=== PATIENT | female | born 1980 ===

== ENCOUNTER 2021-04-26 23:49 | Emergency (ER) | payer OTHER, SELFPAY ==
--- NOTE | ~2021-04-26 | XR_ITS ---
EXAMINATION: XR THORACOLUMBAR SPINE CLINICAL INFORMATION: Pain. COMPARISON: Chest x-ray 06/09/2017 TECHNIQUE: 2 views FINDINGS: The vertebral alignment is normal. No intrinsic bony abnormality. The disc heights and neural foramina are well maintained. The endplates and posterior elements are normal. No fracture or subluxation. The surrounding prevertebral soft tissues are unremarkable. Surgical clips right upper quadrant of the abdomen XR/XR thoracic spine 2V IMPRESSION: No compression fractures or subluxations are identified. The disc spaces are preserved. No endplate changes are seen. The prevertebral soft tissues are normal.
--- NOTE | ~2021-04-26 | XR_ITS ---
EXAMINATION: XR SHOULDER, LEFT CLINICAL INFORMATION: Pain. COMPARISON: None TECHNIQUE: Three views of the left shoulder. FINDINGS: The bones and soft tissues are normal. No fracture. Glenohumeral and acromioclavicular alignment is anatomic with normal joint space. No abnormal soft tissue calcifications. XR/XR shoulder LT min 2V IMPRESSION: Normal left shoulder.
[2021-04-26 23:56] VITALS: BP 155/91; PULSE 75; RESP 16; O2SAT 98; BMI 22.3
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
[2021-04-27] MEDS: Gabapentin 600 MG TABLET PO (00:29)
[2021-04-27] MEDS: Ibuprofen 800 MG TABLET PO (00:29)
== END 2021-04-27 01:15 | disposition home or self-care (01) ==
PROVIDERS: Emergency Provider Emergency Medicine
DX: G89.29 Other chronic pain (principal); M25.512 Pain in left shoulder; M54.6 Pain in thoracic spine; Z79.891 Long term (current) use of opiate analgesic
CPT/HCPCS: 72070; 73030; 99283; 99284

== ENCOUNTER 2021-04-28 03:40 | Emergency (ER) | payer OTHER, SELFPAY ==
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
[2021-04-28 03:48] VITALS: BP 148/98; PULSE 114; RESP 16; TEMP 37.2; O2SAT 100; BMI 20.5
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
[2021-04-28] MEDS: oxyCODONE HCl Immed Release 5 MG TABLET PO (04:19)
--- NOTE | 2021-04-28 04:20 | PC.NURSE ---
pt medicated for pain rating 10/10. pt to ct.
== END 2021-04-28 05:55 | disposition home or self-care (01) ==
PROVIDERS: Emergency Provider Emergency Medicine; PCP Internal Medicine
DX: S29.012A Strain of muscle and tendon of back wall of thorax, initial encounter (principal); M54.6 Pain in thoracic spine; M25.512 Pain in left shoulder; M54.2 Cervicalgia; V43.52XA Car driver injured in collision with other type car in traffic accident, initial encounter; Y93.9 Activity, unspecified; Y92.410 Unspecified street and highway as the place of occurrence of the external cause; Y99.9 Unspecified external cause status; Z79.899 Other long term (current) drug therapy
CPT/HCPCS: 72125; 72128; 99283; 99284

== ENCOUNTER 2021-08-10 10:48 | Outpatient (REF) | payer OTHER, SELFPAY ==
[2021-08-10 12:03] LABS: COVID-19 Test Negative (Negative); IDNOW Serial# 16C4AD1C
== END 2021-08-10 10:49 | disposition home or self-care (01) ==
LOC: HO.LAB 10:48
PROVIDERS: Visit Provider Internal Medicine
DX: Z20.822 Contact with and (suspected) exposure to COVID-19 (principal)
CPT/HCPCS: 36415; 87635; C9803

== ENCOUNTER 2022-08-29 19:33 | Inpatient (IN) | payer OTHER, SELFPAY ==
[2022-08-29 20:35] VITALS: BP 121/84; PULSE 87; RESP 16; TEMP 36.6; O2SAT 98
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
[2022-08-29] MEDS: Cyclobenzaprine HCl 5 MG TABLET PO (22:36)
[2022-08-29] MEDS: hydrOXYzine HCL 25 MG TABLET PO (22:36)
[2022-08-29] MEDS: traZODone HCL 50 MG TABLET PO (22:36)
[2022-08-29] MEDS: QUEtiapine Fumarate 100 MG TABLET PO (22:36)
--- NOTE | 2022-08-30 06:24 | PC.NURSE ---
SG OTP ([phone]) confirmed 08/30/22 at 0615 last dose methadone was 40mg on 08/10/22. Pt received 35mg at [facility] 08/29/22. Form sent to pharmacy, copy in chart.
--- NOTE | 2022-08-30 06:30 | HE.PHANOTE ---
RE METHADONE PATIENT GETTING 40MG FROM [facility] LAST DOSED 08/10. MOST RECENT [place] [facility] [place] 35MG (08/29/22) TANYA
[2022-08-30 08:20] VITALS: BP 117/64; PULSE 70; RESP 18; TEMP 36.6; O2SAT 99
[2022-08-30 09:23] LABS: Estimated Average Glucose 111 mg/dL; Hemoglobin A1c % 5.5 %
[2022-08-30 09:44] LABS: Cholesterol 182 mg/dL; HDL Cholesterol 43 mg/dL; LDL Cholesterol Calculated 121 mg/dl; Triglycerides 91 mg/dL
[2022-08-30] MEDS: DULoxetine HCl 60 MG CAPSULE.DR PO (09:47)
[2022-08-30] MEDS: Omeprazole 20 MG CAPSULE.DR PO (09:47)
[2022-08-30] MEDS: Docusate Sodium 100 MG CAPSULE PO ×2 (09:48→21:25)
[2022-08-30] MEDS: Nicotine 14 MG PATCH.TD24 TRANSDERMA (09:49)
[2022-08-30 10:00] LABS: Reflex LDLD? No
--- NOTE | 2022-08-30 11:32 | P.CONHOSP_ITS ---
History of Present Illness Data of Consult Service Date: 08/30/22 Requesting physician: Rikki Bowman Primary Care Provider: Unknown Physician HPI Reason for consult: medical H&P 41-year-old female with history GERD, opiate dependence on methadone, osteoarthritis of multiple joints, fibromyalgia, carpal tunnel syndrome bilaterally admitted to Psychiatry for management of bipolar disorder with consult placed to Medicine for medical H and P. Only complaints today are pain and muscle spasms from the neck to the lumbar spine. She is requesting her muscle relaxers. Also reporting constipation x3 days. Also states she has not yet received her methadone dose but would like to be restarted on a lower dose. She does have a history of polysubstance abuse with last cocaine and heroin abuse about 3 weeks ago. She is also 1 pack per day cigarette smoker currently using nicotine patch. Denies any alcohol use. Review of Systems Review of Systems: General: No fevers, malaise, unintentional weight loss HEENT: No blurred vision, diplopia. No sore throat, nasal congestion, rhinorrhea, sinus pain, ear pain Cardiovascular: No chest pain, palpitations, or leg edema Respiratory: No shortness of breath, wheezing, cough GI: +constipation. No abdominal pain, nausea, vomiting, diarrhea, melena, hematochezia : No dysuria, hematuria, increased urinary frequency, decreased urinary output MSK: +muscle spasm, +back pain Neuro: No headaches, weakness, paresthesias Skin: No rashes or lesions [facility] Medical History (Updated 08/30/22 @ 11:41 by QUEENEI Gonzales) Bipolar disorder Carpal tunnel syndrome Chronic neck and back pain Cigarette nicotine dependence Fibromyalgia GERD (gastroesophageal reflux disease) Opioid use disorder Osteoarthritis of multiple joints Family History (Updated 08/30/22 @ 11:37 by QUEENIE Gonzales) Son Autism Social History Household Members: Children Household Members Other:: 3 Housing: Apartment Alcohol intake: unknown Patient Tobacco Use Status: Current everyday Tobacco user Smoked in Last 30 Days: Yes e-Cigarette/Vaping Use: Currently Using Frequency of e-Cigarette/Vaping Use: every day Patient Interested in Nicotine Replacement: Yes Use of substances other than those prescribed or required for medical reasons: Yes Substance Use Type: Crack/Cocaine Advance Directives: No Advance Directives Information Provided: No Do you have thoughts of harming others: None Nutrition Risks: No Nutritional Risk Patient : No : No Meds Allergies Allergy/AdvReac Type Severity Reaction Status Date / Time No Known Allergies Allergy Verified 08/29/22 20:24 [No Known Allergies*] Active Medications: Current Medications Acetaminophen (Acetaminophen 325 Mg Tablet) 650 mg PO Q6H PRN PRN Reason: Headache/Pain Mild Scale (1-3) Al Hydroxide/Mg Hydroxide (Magnesium Hydrox/Alum Hydrox 30 Ml Oral.Susp) 30 ml PO Q6H PRN PRN Reason: Heartburn/Nausea Clonidine HCl (Clonidine Hcl 0.1 Mg Tablet) 0.1 mg PO TID PRN; Protocol PRN Reason: Anxiety Cyclobenzaprine HCl (Cyclobenzaprine Hcl 5 Mg Tablet) 5 mg PO TID PRN PRN Reason: Muscle Spasm Last Admin: 08/29/22 22:36 Dose: 5 mg Docusate Sodium (Docusate Sodium 100 Mg Capsule) 100 mg PO BID [facility] Last Admin: 08/30/22 09:48 Dose: 100 mg Duloxetine HCl (Duloxetine Hcl 60 Mg Capsule.) 60 mg PO DAILY [facility] Last Admin: 08/30/22 09:47 Dose: 60 mg Hydroxyzine HCl (Hydroxyzine Hcl 25 Mg Tablet) 25 mg PO TID PRN PRN Reason: anxiety Hydroxyzine HCl (Hydroxyzine Hcl 25 Mg Tablet) 25 mg PO Q6H PRN PRN Reason: Anxiety Last Admin: 08/29/22 22:36 Dose: 25 mg Magnesium Hydroxide (Milk Of Magnesia 30 Ml Oral.Susp) 30 ml PO DAILY PRN PRN Reason: Constipation Methadone HCl (Methadone Hcl 20 Mg/2 Ml Oral.Conc) 30 mg PO DAILY@0630 [facility] Nicotine (Nicotine 14 Mg Patch.Td24) 14 mg TRANSDERMA DAILY [facility] Last Admin: 08/30/22 09:49 Dose: 14 mg Nicotine Polacrilex (Nicotine Polacrilex 2 Mg Gum) 4 mg BUCCAL Q2H PRN PRN Reason: Nicotine Cravings Omeprazole (Omeprazole 20 Mg Capsule.Dr) 20 mg PO DAILY@0630 [facility] Last Admin: 08/30/22 09:47 Dose: 20 mg Quetiapine Fumarate (Quetiapine Fumarate 100 Mg Tablet) 100 mg PO BEDTIME PRN PRN Reason: insomnia Last Admin: 08/29/22 22:36 Dose: 100 mg Trazodone HCl (Trazodone Hcl 50 Mg Tablet) 50 mg PO BEDTIME PRN PRN Reason: Insomnia Last Admin: 08/29/22 22:36 Dose: 50 mg Home Medications Medication Instructions Recorded Confirmed Last Taken Type clonidine HCl 0.1 mg tablet 1 tab PO TID PRN Anxiety 08/29/22 08/29/22 Unknown History cyclobenzaprine 5 mg tablet 5 mg PO TID PRN Muscle Spasm 08/29/22 08/29/22 Unknown History docusate sodium 100 mg capsule 100 mg PO BID 08/29/22 08/29/22 Unknown History (Colace) duloxetine 60 mg capsule,delayed 1 cap PO DAILY 08/29/22 08/29/22 Unknown History release hydroxyzine HCl 25 mg tablet 1 tab PO TID PRN anxiety 08/29/22 08/29/22 Unknown History methadone 10 mg/mL oral syringe 35 mg PO DAILY 08/29/22 08/30/22 08/29/22 History (FOR ORAL USE ONLY) nicotine 14 mg/24 hr daily 1 patch transdermal DAILY 08/29/22 08/29/22 Unknown History transdermal patch pantoprazole 40 mg tablet,delayed 40 mg PO DAILY 08/29/22 08/29/22 Unknown History release quetiapine 100 mg tablet 1 tab PO BEDTIME 08/29/22 08/29/22 Unknown History Physical Exam Vital Signs and Narrative: Vital Signs: Last Vital Signs Temp 97.9 F 08/29/22 20:35 Pulse 87 08/29/22 20:35 Resp 16 08/29/22 20:35 BP 121/84 08/29/22 20:35 Pulse Ox 98 08/29/22 20:35 O2 Del Method 08/29/22 20:35 Results Labs Labs: Laboratory Results - last 24 hr 08/30/22 08/30/22 08:50 08:50 Estimat Average Glucose 111 Hemoglobin A1c % 5.5 Triglycerides 91 Cholesterol 182 LDL Cholesterol, Calc 121 HDL Cholesterol 43 Assessment and Plan (1) Routine medical exam: Status: Acute Plan 41-year-old female with history GERD, opiate dependence on methadone, osteoarthritis of multiple joints, fibromyalgia, carpal tunnel syndrome bilaterally admitted to Psychiatry for management of bipolar disorder with consult placed to Medicine for medical H and P. #Bipolar disorder -Plan per psychiatry # Opiate use disorder - resume methadone once dose verified # chronic pain disorder- related to fibromyalgia and osteoarthritis - methadone as above. Resume cyclobenzaprine # GERD - continue PPI # cigarette smoking - nicotine patch for NRT - counseling offered #Chronic constipation- likely related to opioid use -Miralax and docusate REviewed A1c, cholesterol panel which are all within acceptable limits. Thank you for allowing me to participate in this consult. Signing off at this time. Please do not hesitate to call for further questions. Time Spent With Patient Time: Total time managing care of this patient today ____ minutes.
[2022-08-30] MEDS: methADONE HCl 20 MG/2 ML ORAL.CONC 30 MG PO (12:22)
[2022-08-30] MEDS: hydrOXYzine HCL 25 MG TABLET PO ×2 (13:35→22:28)
--- NOTE | 2022-08-30 14:17 | PC.NURSE ---
Pt made aware of need to get urine spec, she stated she didnt have to go now. she will come to desk for spec cup.
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
[2022-08-30] MEDS: LORazepam 1 MG TABLET PO ×2 (15:54→21:25)
[2022-08-30 17:33] LABS: Amphetamine Screen Urine Not Detected (Not Detect); Barbiturates, Urine Not Detected (Not Detect); Benzodiazepines Screen Urine Not Detected (Not Detect); Cannabinoid Screen Urine Not Detected (Not Detect); Cocaine Screen Urine POSITIVE (Not Detect); Fentanyl, urine POSITIVE (Not Detect); Opiate Screen Urine Not Detected (Not Detect); Phencyclidine Screen Urine Not Detected (Not Detect)
[2022-08-30 20:25] VITALS: BP 132/84; PULSE 96; RESP 16; TEMP 36.6; O2SAT 98
[2022-08-30] MEDS: Cyclobenzaprine HCl 5 MG TABLET PO (21:24)
[2022-08-30] MEDS: traZODone HCL 50 MG TABLET PO (21:25)
[2022-08-30] MEDS: QUEtiapine Fumarate 100 MG TABLET PO (21:25)
[2022-08-30] MEDS: Ibuprofen 400 MG TABLET PO (22:28)
[2022-08-31] MEDS: Omeprazole 20 MG CAPSULE.DR PO (06:27)
[2022-08-31] MEDS: methADONE HCl 20 MG/2 ML ORAL.CONC 30 MG PO (06:30)
[2022-08-31 08:20] VITALS: BP 107/61; PULSE 67; RESP 20; TEMP 36.8; O2SAT 100
[2022-08-31] MEDS: DULoxetine HCl 60 MG CAPSULE.DR PO (08:54)
[2022-08-31] MEDS: Nicotine 14 MG PATCH.TD24 TRANSDERMA (08:55)
[2022-08-31] MEDS: Docusate Sodium 100 MG CAPSULE PO ×2 (08:55→20:31)
[2022-08-31] MEDS: LORazepam 1 MG TABLET PO ×3 (08:55→20:32)
[2022-08-31] MEDS: hydrOXYzine HCL 25 MG TABLET PO (11:47)
[2022-08-31] MEDS: methADONE HCl 20 MG/2 ML ORAL.CONC 5 MG PO (14:08)
[2022-08-31] MEDS: Lithium Carbonate ER 450 MG TABLET.ER PO ×2 (14:10→20:31)
--- NOTE | 2022-08-31 15:34 | P.PNPSI_ITS ---
Subjective Subjective Date of Service: 08/31/22 Reason For Visit: Unspecified Bipolar Disorder Interim History: calm, cooperative. seen with interpreters. sleepy, having not gotten much sleep the night prior due to roommate's disruptive nocturnal activities. reports improved anxiety but still there. MD educates re Dx of aldo, indicates mood stabilizer may be helpful to decrease anxiety, pt agrees to start lithium 450 BID. per staff, submitted 3-day notice yesterday. pleasant. limited participation. spending most of her time sleeping. easily distracted. not attending groups. denies SI/HI. Mental Status Exam Mental Status Exam Narrative: adequately dressed and groomed. cooperative. speech nml rate, decr amount. soft and flat. incr latency. thoughts more linear. no paranoid delusions expressed. affect generally constricted, non-labile, hyp-intense. mood anxious. no SI/SIBI/HI/AVH expressed. Diagnostics Vital Signs (24Hr): Vital Signs - 24 hr 08/30/22 20:25 08/31/22 08:20 Temperature 97.9 F 98.3 F Pulse Rate 96 67 Respiratory Rate 16 20 Blood Pressure 132/84 107/61 Pulse Oximetry 98 100 Oxygen Delivery Method Room Air Room Air Labs Labs: Laboratory Results - last 48 hr 08/30/22 08/30/22 08/30/22 08:50 08:50 17:00 Estimat Average Glucose 111 Hemoglobin A1c % 5.5 Triglycerides 91 Cholesterol 182 LDL Cholesterol, Calc 121 HDL Cholesterol 43 Urine Opiates Screen Not Detected Urine Fentanyl Screen POSITIVE H Ur Barbiturates Screen Not Detected Ur Phencyclidine Scrn Not Detected Ur Amphetamines Screen Not Detected U Benzodiazepines Scrn Not Detected Urine Cocaine Screen POSITIVE H U Marijuana (THC) Screen Not Detected Medications Medications Current Medications Acetaminophen (Acetaminophen 325 Mg Tablet) 975 mg PO Q6H PRN PRN Reason: Headache/Pain Mild Scale (1-3) Al Hydroxide/Mg Hydroxide (Magnesium Hydrox/Alum Hydrox 30 Ml Oral.Susp) 30 ml PO Q6H PRN PRN Reason: Heartburn/Nausea Clonidine HCl (Clonidine Hcl 0.1 Mg Tablet) 0.1 mg PO TID PRN; Protocol PRN Reason: Anxiety Cyclobenzaprine HCl (Cyclobenzaprine Hcl 5 Mg Tablet) 5 mg PO TID PRN PRN Reason: Muscle Spasm Last Admin: 08/30/22 21:24 Dose: 5 mg Docusate Sodium (Docusate Sodium 100 Mg Capsule) 100 mg PO BID [facility] Last Admin: 08/31/22 08:55 Dose: 100 mg Duloxetine HCl (Duloxetine Hcl 60 Mg Capsule.Dr) 60 mg PO DAILY [facility] Last Admin: 08/31/22 08:54 Dose: 60 mg Hydroxyzine HCl (Hydroxyzine Hcl 25 Mg Tablet) 25 mg PO TID PRN PRN Reason: anxiety Last Admin: 08/31/22 11:47 Dose: 25 mg Hydroxyzine HCl (Hydroxyzine Hcl 25 Mg Tablet) 25 mg PO Q6H PRN PRN Reason: Anxiety Last Admin: 08/30/22 13:35 Dose: 25 mg [place] Carbonate ([place] Carbonate Er 450 Mg Tablet.Er) 450 mg PO BID [facility] Last Admin: 08/31/22 14:10 Dose: 450 mg Lorazepam (Lorazepam 1 Mg Tablet) 1 mg PO TID [facility] Last Admin: 08/31/22 14:10 Dose: 1 mg Magnesium Hydroxide (Milk Of Magnesia 30 Ml Oral.Susp) 30 ml PO DAILY PRN PRN Reason: Constipation Methadone HCl (Methadone Hcl 20 Mg/2 Ml Oral.Conc) 35 mg PO DAILY@0630 [facility] Nicotine (Nicotine 14 Mg Patch.Td24) 14 mg TRANSDERMA DAILY [facility] Last Admin: 08/31/22 08:55 Dose: 14 mg Nicotine Polacrilex (Nicotine Polacrilex 2 Mg Gum) 4 mg BUCCAL Q2H PRN PRN Reason: Nicotine Cravings Omeprazole (Omeprazole 20 Mg Capsule.Dr) 20 mg PO DAILY@0630 [facility] Last Admin: 08/31/22 06:27 Dose: 20 mg Quetiapine Fumarate (Quetiapine Fumarate 100 Mg Tablet) 100 mg PO BEDTIME [facility] Last Admin: 08/30/22 21:25 Dose: 100 mg Trazodone HCl (Trazodone Hcl 50 Mg Tablet) 50 mg PO BEDTIME PRN PRN Reason: Insomnia Last Admin: 08/30/22 21:25 Dose: 50 mg Allergies Allergies Allergy/AdvReac Type Severity Reaction Status Date / Time No Known Allergies Allergy Verified 08/29/22 20:24 [No Known Allergies*] Assessment & Plan Assessment & Plan (1) Bipolar disorder: Status: Acute Code(s): F31.9 - Bipolar disorder, unspecified Plan : restart home regimen, especially seroquel 100 QHS. start ativan 1 mg TID for anxiety. 08/31: start lithium 450 BID. begin taper of ativan starting tomorrow. 3-day notice in. Patient educated on: diagnosis and medication risk/benefits Reason for contiued inpatient stay Substantial Risk for: harm to self, inability to function and rapid decompensation Time Spent With Patient Time: Total time managing care of this patient today _25___ minutes.
[2022-08-31 20:10] VITALS: BP 137/70; PULSE 90; RESP 14; TEMP 36.6; O2SAT 100
[2022-08-31] MEDS: QUEtiapine Fumarate 100 MG TABLET PO (20:32)
[2022-08-31] MEDS: Cyclobenzaprine HCl 5 MG TABLET PO (20:32)
[2022-08-31] MEDS: Acetaminophen 325 MG TABLET 975 MG PO (20:33)
[2022-08-31] MEDS: traZODone HCL 50 MG TABLET PO (20:33)
[2022-09-01] MEDS: methADONE HCl 20 MG/2 ML ORAL.CONC 35 MG PO (06:33)
[2022-09-01] MEDS: Omeprazole 20 MG CAPSULE.DR PO (06:33)
[2022-09-01 08:15] VITALS: BP 105/64; PULSE 68; RESP 20; TEMP 36.6; O2SAT 98
[2022-09-01] MEDS: DULoxetine HCl 60 MG CAPSULE.DR PO (09:00)
[2022-09-01] MEDS: LORazepam 1 MG TABLET PO ×3 (09:00→20:42)
[2022-09-01] MEDS: Lithium Carbonate ER 450 MG TABLET.ER PO (09:00)
[2022-09-01] MEDS: Nicotine 14 MG PATCH.TD24 TRANSDERMA (09:01)
[2022-09-01] MEDS: Docusate Sodium 100 MG CAPSULE PO ×2 (09:01→20:42)
--- NOTE | 2022-09-01 16:04 | HO.PSYCHPN ---
Subjective Subjective Date of Service: 09/01/22 Reason For Visit: Unspecified Bipolar Disorder Interim History: calm, cooperative. remains with paranoid delusions and fairly pressured. agrees to increase lithium dosing from 450 BID to 450/600 and seroquel from 100 QHS to 200 QHS. per staff, wants to discharge to home. 3-day up 09/04. paranoid re ex-. Mental Status Exam Mental Status Exam Narrative: adequately dressed and groomed. cooperative. speech incr rate and amount. nml loudness, flattened tone. decr latency. thoughts more linear. paranoid delusions regarding her ex- expressed. affect generally constricted, non-labile, hyp-intense. mood anxious. no SI/SIBI/HI/AVH expressed. Diagnostics Vital Signs (24Hr): Vital Signs - 24 hr 08/31/22 20:10 09/01/22 08:15 Temperature 97.9 F 97.8 F Pulse Rate 90 68 Respiratory Rate 14 20 Blood Pressure 137/70 105/64 Pulse Oximetry 100 98 Oxygen Delivery Method Room Air Room Air Labs Labs: Laboratory Results - last 48 hr 08/30/22 17:00 Urine Opiates Screen Not Detected Urine Fentanyl Screen POSITIVE H Ur Barbiturates Screen Not Detected Ur Phencyclidine Scrn Not Detected Ur Amphetamines Screen Not Detected U Benzodiazepines Scrn Not Detected Urine Cocaine Screen POSITIVE H U Marijuana (THC) Screen Not Detected Medications Medications Current Medications Acetaminophen (Acetaminophen 325 Mg Tablet) 975 mg PO Q6H PRN PRN Reason: Headache/Pain Mild Scale (1-3) Last Admin: 08/31/22 20:33 Dose: 975 mg Al Hydroxide/Mg Hydroxide (Magnesium Hydrox/Alum Hydrox 30 Ml Oral.Susp) 30 ml PO Q6H PRN PRN Reason: Heartburn/Nausea Clonidine HCl (Clonidine Hcl 0.1 Mg Tablet) 0.1 mg PO TID PRN; Protocol PRN Reason: Anxiety Cyclobenzaprine HCl (Cyclobenzaprine Hcl 5 Mg Tablet) 5 mg PO TID PRN PRN Reason: Muscle Spasm Last Admin: 08/31/22 20:32 Dose: 5 mg Docusate Sodium (Docusate Sodium 100 Mg Capsule) 100 mg PO BID [facility] Last Admin: 09/01/22 09:01 Dose: 100 mg Duloxetine HCl (Duloxetine Hcl 60 Mg Capsule.Dr) 60 mg PO DAILY [facility] Last Admin: 09/01/22 09:00 Dose: 60 mg Hydroxyzine HCl (Hydroxyzine Hcl 25 Mg Tablet) 25 mg PO TID PRN PRN Reason: anxiety Last Admin: 08/31/22 11:47 Dose: 25 mg Hydroxyzine HCl (Hydroxyzine Hcl 25 Mg Tablet) 25 mg PO Q6H PRN PRN Reason: Anxiety Last Admin: 08/30/22 13:35 Dose: 25 mg [place] Carbonate ([place] Carbonate Er 450 Mg Tablet.Er) 450 mg PO DAILY [facility] [place] Carbonate ([place] Carbonate Er 300 Mg Tablet.Er) 600 mg PO BEDTIME [facility] Lorazepam (Lorazepam 1 Mg Tablet) 1 mg PO TID [facility] Last Admin: 09/01/22 14:06 Dose: 1 mg Magnesium Hydroxide (Milk Of Magnesia 30 Ml Oral.Susp) 30 ml PO DAILY PRN PRN Reason: Constipation Methadone HCl (Methadone Hcl 20 Mg/2 Ml Oral.Conc) 35 mg PO DAILY@629 [facility] Last Admin: 09/01/22 06:33 Dose: 35 mg Nicotine (Nicotine 14 Mg Patch.Td24) 14 mg TRANSDERMA DAILY [facility] Last Admin: 09/01/22 09:01 Dose: 14 mg Nicotine Polacrilex (Nicotine Polacrilex 2 Mg Gum) 4 mg BUCCAL Q2H PRN PRN Reason: Nicotine Cravings Omeprazole (Omeprazole 20 Mg Capsule.Dr) 20 mg PO DAILY@629 [facility] Last Admin: 09/01/22 06:33 Dose: 20 mg Quetiapine Fumarate (Quetiapine Fumarate 200 Mg Tablet) 200 mg PO BEDTIME [facility] Trazodone HCl (Trazodone Hcl 50 Mg Tablet) 50 mg PO BEDTIME PRN PRN Reason: Insomnia Last Admin: 08/31/22 20:33 Dose: 50 mg Allergies Allergies Allergy/AdvReac Type Severity Reaction Status Date / Time No Known Allergies Allergy Verified 08/29/22 20:24 [No Known Allergies*] Assessment & Plan Assessment & Plan (1) Bipolar disorder: Status: Acute Code(s): F31.9 - Bipolar disorder, unspecified Plan 08/30: restart home regimen, especially seroquel 100 QHS. start ativan 1 mg TID for anxiety. 08/31: start lithium 450 BID. begin taper of ativan starting tomorrow. 3-day notice in. 09/01: increase lithium to 450/600, increase seroquel to 200 QHS. start ativan taper. Patient educated on: medication risk/benefits Reason for contiued inpatient stay Substantial Risk for: inability to function and rapid decompensation Time Spent With Patient Time: Total time managing care of this patient today __25__ minutes.
[2022-09-01 20:28] VITALS: BP 131/79; PULSE 90; RESP 16; TEMP 36.4; O2SAT 100
[2022-09-01] MEDS: Lithium Carbonate ER 300 MG TABLET.ER 600 MG PO (20:42)
[2022-09-01] MEDS: QUEtiapine Fumarate 200 MG TABLET PO (20:42)
[2022-09-02] MEDS: hydrOXYzine HCL 25 MG TABLET PO (04:24)
[2022-09-02] MEDS: methADONE HCl 20 MG/2 ML ORAL.CONC 35 MG PO (07:06)
[2022-09-02] MEDS: Omeprazole 20 MG CAPSULE.DR PO (07:07)
--- NOTE | 2022-09-02 09:22 | P.PNPSI_ITS ---
Subjective Subjective Date of Service: 09/02/22 Reason For Visit: Unspecified Bipolar Disorder Subjective Notes: Conditional Voluntary Interim History: Pt with no overt psychosis or delusional content noted or reported. She reports she lost belonging she had with her. She reports sleeping and eating well. She denies SI/HI. She states she is worried about her autistic son who is home alone. Per nursing, no behavioral concerns. Medication Compliance: Yes Review of Systems Review of Systems General: No fevers, malaise, unintentional weight loss HEENT: No blurred vision, diplopia. No sore throat, nasal congestion, rhinorrhea, sinus pain, ear pain Cardiovascular: No chest pain, palpitations, or leg edema Respiratory: No shortness of breath, wheezing, cough GI: +constipation. No abdominal pain, nausea, vomiting, diarrhea, melena, hematochezia : No dysuria, hematuria, increased urinary frequency, decreased urinary output MSK: +muscle spasm, +back pain Neuro: No headaches, weakness, paresthesias Skin: No rashes or lesions Mental Status Exam Mental Status Exam Narrative: adequately dressed and groomed. cooperative. speech incr rate and amount. nml loudness, flattened tone. decr latency. thoughts more linear. paranoid delusions regarding her ex- expressed. affect generally constricted, non-labile, hyp-intense. mood anxious. no SI/SIBI/HI/AVH expressed. Diagnostics Vital Signs (24Hr): Vital Signs - 24 hr 09/03/22 08:30 09/03/22 21:00 Temperature 98.3 F 98.1 F Pulse Rate 75 90 Respiratory Rate 16 16 Blood Pressure 94/63 120/76 Pulse Oximetry 98 100 Oxygen Delivery Method Room Air Room Air Medications Medications Current Medications Acetaminophen (Acetaminophen 325 Mg Tablet) 975 mg PO Q6H PRN PRN Reason: Headache/Pain Mild Scale (1-3) Last Admin: 09/03/22 15:52 Dose: 975 mg Al Hydroxide/Mg Hydroxide (Magnesium Hydrox/Alum Hydrox 30 Ml Oral.Susp) 30 ml PO Q6H PRN PRN Reason: Heartburn/Nausea Clonidine HCl (Clonidine Hcl 0.1 Mg Tablet) 0.1 mg PO TID PRN; Protocol PRN Reason: Anxiety Last Admin: 09/02/22 22:39 Dose: 0.1 mg Cyclobenzaprine HCl (Cyclobenzaprine Hcl 5 Mg Tablet) 5 mg PO TID PRN PRN Reason: Muscle Spasm Last Admin: 09/03/22 21:01 Dose: 5 mg Docusate Sodium (Docusate Sodium 100 Mg Capsule) 100 mg PO BID [facility] Last Admin: 09/03/22 21:00 Dose: 100 mg Duloxetine HCl (Duloxetine Hcl 60 Mg Capsule.Dr) 60 mg PO DAILY [facility] Last Admin: 09/03/22 08:57 Dose: 60 mg Hydroxyzine HCl (Hydroxyzine Hcl 25 Mg Tablet) 25 mg PO Q6H PRN PRN Reason: Anxiety Last Admin: 09/03/22 04:50 Dose: 25 mg [place] Carbonate ([place] Carbonate Er 450 Mg Tablet.Er) 450 mg PO DAILY [facility] Last Admin: 09/03/22 08:57 Dose: 450 mg [place] Carbonate ([place] Carbonate Er 300 Mg Tablet.Er) 600 mg PO BEDTIME [facility] Last Admin: 09/03/22 21:02 Dose: 600 mg Lorazepam (Lorazepam 1 Mg Tablet) 1 mg PO BID [facility] Last Admin: 09/03/22 21:01 Dose: 1 mg Magnesium Hydroxide (Milk Of Magnesia 30 Ml Oral.Susp) 30 ml PO DAILY PRN PRN Reason: Constipation Methadone HCl (Methadone Hcl 20 Mg/2 Ml Oral.Conc) 35 mg PO DAILY@0630 [facility] Last Admin: 09/04/22 06:41 Dose: 35 mg Naproxen (Naproxen 500 Mg Tablet) 500 mg PO BID PRN PRN Reason: Headache Last Admin: 09/03/22 21:01 Dose: 500 mg Nicotine (Nicotine 14 Mg Patch.Td24) 14 mg TRANSDERMA DAILY [facility] Last Admin: 09/03/22 08:56 Dose: 14 mg Nicotine Polacrilex (Nicotine Polacrilex 2 Mg Gum) 4 mg BUCCAL Q2H PRN PRN Reason: Nicotine Cravings Last Admin: 09/03/22 21:06 Dose: 4 mg Omeprazole (Omeprazole 20 Mg Capsule.Dr) 20 mg PO DAILY@0630 [facility] Last Admin: 09/04/22 06:41 Dose: 20 mg Quetiapine Fumarate (Quetiapine Fumarate 200 Mg Tablet) 200 mg PO BEDTIME [facility] Last Admin: 09/03/22 21:00 Dose: 200 mg Trazodone HCl (Trazodone Hcl 50 Mg Tablet) 50 mg PO BEDTIME PRN PRN Reason: Insomnia Last Admin: 09/02/22 22:40 Dose: 50 mg Allergies Allergies Allergy/AdvReac Type Severity Reaction Status Date / Time No Known Allergies Allergy Verified 08/29/22 20:24 [No Known Allergies*] Assessment & Plan Assessment & Plan (1) Bipolar disorder: Status: Acute Code(s): F31.9 - Bipolar disorder, unspecified Plan 08/30: restart home regimen, especially seroquel 100 QHS. start ativan 1 mg TID for anxiety. 08/31: start lithium 450 BID. begin taper of ativan starting tomorrow. 3-day notice in. 09/01: increase lithium to 450/600, increase seroquel to 200 QHS. start ativan taper. 09/02 continue current tx. Reason for contiued inpatient stay Substantial Risk for: inability to function Time Spent With Patient Time: Total time managing care of this patient today ____ minutes.
[2022-09-02] MEDS: Lithium Carbonate ER 450 MG TABLET.ER PO (09:33)
[2022-09-02] MEDS: DULoxetine HCl 60 MG CAPSULE.DR PO (09:33)
[2022-09-02] MEDS: Nicotine 14 MG PATCH.TD24 TRANSDERMA (09:33)
[2022-09-02] MEDS: LORazepam 1 MG TABLET PO ×2 (09:33→22:40)
[2022-09-02] MEDS: Docusate Sodium 100 MG CAPSULE PO ×2 (09:33→22:40)
[2022-09-02] MEDS: Acetaminophen 325 MG TABLET 975 MG PO (09:49)
[2022-09-02] MEDS: Cyclobenzaprine HCl 5 MG TABLET PO ×2 (09:50→22:40)
--- NOTE | 2022-09-02 13:41 | PC.NURSE ---
At patient request I contacted [facility] regarding belongings she reportedly brought to their ed and they were not received here when she was admitted: a backpack with her son's tablet, jewelry, her house keys, her clothes and toiletries. I spoke to Licha in the [facility] ER who looked for these items and they were not found. Per Licha, since pt discharged from the [facility] ED several days ago we aould need to contact the emergency medicine physician assistant nursing security officer supervisor on Sunday at
[2022-09-02 14:31] VITALS: BP 148/89; PULSE 91; O2SAT 100
[2022-09-02] MEDS: cloNIDine HCL 0.1 MG TABLET PO ×2 (14:36→22:39)
[2022-09-02] MEDS: Lithium Carbonate ER 300 MG TABLET.ER 600 MG PO (22:39)
[2022-09-02 22:40] VITALS: BP 118/61; PULSE 90; RESP 18; TEMP 36.6; O2SAT 100
[2022-09-02] MEDS: traZODone HCL 50 MG TABLET PO (22:40)
[2022-09-02] MEDS: QUEtiapine Fumarate 200 MG TABLET PO (22:40)
[2022-09-03] MEDS: Cyclobenzaprine HCl 5 MG TABLET PO ×3 (04:50→21:01)
[2022-09-03] MEDS: Acetaminophen 325 MG TABLET 975 MG PO ×2 (04:50→15:52)
[2022-09-03] MEDS: hydrOXYzine HCL 25 MG TABLET PO (04:50)
[2022-09-03] MEDS: Omeprazole 20 MG CAPSULE.DR PO (06:29)
[2022-09-03] MEDS: methADONE HCl 20 MG/2 ML ORAL.CONC 35 MG PO (06:29)
[2022-09-03 08:30] VITALS: BP 94/63; PULSE 75; RESP 16; TEMP 36.8; O2SAT 98
[2022-09-03] MEDS: Nicotine 14 MG PATCH.TD24 TRANSDERMA (08:56)
[2022-09-03] MEDS: Docusate Sodium 100 MG CAPSULE PO ×2 (08:57→21:00)
[2022-09-03] MEDS: DULoxetine HCl 60 MG CAPSULE.DR PO (08:57)
[2022-09-03] MEDS: LORazepam 1 MG TABLET PO ×2 (08:57→21:01)
[2022-09-03] MEDS: Lithium Carbonate ER 450 MG TABLET.ER PO (08:57)
--- NOTE | 2022-09-03 11:02 | HO.PSYCHPN ---
Subjective Subjective Date of Service: 09/03/22 Reason For Visit: Unspecified Bipolar Disorder Subjective Notes: Conditional Voluntary Interim History: Pt with no overt psychosis or delusional content noted or reported.She reports migraine, given naproxen. She reports sleeping and eating well. She denies SI/HI. She states she is worried about her autistic son who is home alone. Per nursing, no behavioral concerns. She hopes to be discharged soon. Medication Compliance: Yes Review of Systems Review of Systems General: No fevers, malaise, unintentional weight loss HEENT: No blurred vision, diplopia. No sore throat, nasal congestion, rhinorrhea, sinus pain, ear pain Cardiovascular: No chest pain, palpitations, or leg edema Respiratory: No shortness of breath, wheezing, cough GI: +constipation. No abdominal pain, nausea, vomiting, diarrhea, melena, hematochezia : No dysuria, hematuria, increased urinary frequency, decreased urinary output MSK: +muscle spasm, +back pain Neuro: No headaches, weakness, paresthesias Skin: No rashes or lesions Mental Status Exam Mental Status Exam Narrative: adequately dressed and groomed. cooperative. speech incr rate and amount. nml loudness, flattened tone. decr latency. thoughts more linear. paranoid delusions regarding her ex- expressed. affect generally constricted, non-labile, hyp-intense. mood anxious. no SI/SIBI/HI/AVH expressed. Diagnostics Vital Signs (24Hr): Vital Signs - 24 hr 09/03/22 08:30 09/03/22 21:00 Temperature 98.3 F 98.1 F Pulse Rate 75 90 Respiratory Rate 16 16 Blood Pressure 94/63 120/76 Pulse Oximetry 98 100 Oxygen Delivery Method Room Air Room Air Medications Medications Current Medications Acetaminophen (Acetaminophen 325 Mg Tablet) 975 mg PO Q6H PRN PRN Reason: Headache/Pain Mild Scale (1-3) Last Admin: 09/03/22 15:52 Dose: 975 mg Al Hydroxide/Mg Hydroxide (Magnesium Hydrox/Alum Hydrox 30 Ml Oral.Susp) 30 ml PO Q6H PRN PRN Reason: Heartburn/Nausea Clonidine HCl (Clonidine Hcl 0.1 Mg Tablet) 0.1 mg PO TID PRN; Protocol PRN Reason: Anxiety Last Admin: 09/02/22 22:39 Dose: 0.1 mg Cyclobenzaprine HCl (Cyclobenzaprine Hcl 5 Mg Tablet) 5 mg PO TID PRN PRN Reason: Muscle Spasm Last Admin: 09/03/22 21:01 Dose: 5 mg Docusate Sodium (Docusate Sodium 100 Mg Capsule) 100 mg PO BID [facility] Last Admin: 09/03/22 21:00 Dose: 100 mg Duloxetine HCl (Duloxetine Hcl 60 Mg Capsule.Dr) 60 mg PO DAILY [facility] Last Admin: 09/03/22 08:57 Dose: 60 mg Hydroxyzine HCl (Hydroxyzine Hcl 25 Mg Tablet) 25 mg PO Q6H PRN PRN Reason: Anxiety Last Admin: 09/03/22 04:50 Dose: 25 mg [place] Carbonate ([place] Carbonate Er 450 Mg Tablet.Er) 450 mg PO DAILY [facility] Last Admin: 09/03/22 08:57 Dose: 450 mg [place] Carbonate ([place] Carbonate Er 300 Mg Tablet.Er) 600 mg PO BEDTIME [facility] Last Admin: 09/03/22 21:02 Dose: 600 mg Lorazepam (Lorazepam 1 Mg Tablet) 1 mg PO BID [facility] Last Admin: 09/03/22 21:01 Dose: 1 mg Magnesium Hydroxide (Milk Of Magnesia 30 Ml Oral.Susp) 30 ml PO DAILY PRN PRN Reason: Constipation Methadone HCl (Methadone Hcl 20 Mg/2 Ml Oral.Conc) 35 mg PO DAILY@0630 [facility] Last Admin: 09/04/22 06:41 Dose: 35 mg Naproxen (Naproxen 500 Mg Tablet) 500 mg PO BID PRN PRN Reason: Headache Last Admin: 09/03/22 21:01 Dose: 500 mg Nicotine (Nicotine 14 Mg Patch.Td24) 14 mg TRANSDERMA DAILY [facility] Last Admin: 09/03/22 08:56 Dose: 14 mg Nicotine Polacrilex (Nicotine Polacrilex 2 Mg Gum) 4 mg BUCCAL Q2H PRN PRN Reason: Nicotine Cravings Last Admin: 09/03/22 21:06 Dose: 4 mg Omeprazole (Omeprazole 20 Mg Capsule.Dr) 20 mg PO DAILY@30 [facility] Last Admin: 09/04/22 06:41 Dose: 20 mg Quetiapine Fumarate (Quetiapine Fumarate 200 Mg Tablet) 200 mg PO BEDTIME [facility] Last Admin: 09/03/22 21:00 Dose: 200 mg Trazodone HCl (Trazodone Hcl 50 Mg Tablet) 50 mg PO BEDTIME PRN PRN Reason: Insomnia Last Admin: 09/02/22 22:40 Dose: 50 mg Allergies Allergies Allergy/AdvReac Type Severity Reaction Status Date / Time No Known Allergies Allergy Verified 08/29/22 20:24 [No Known Allergies*] Assessment & Plan Assessment & Plan (1) Bipolar disorder: Status: Acute Code(s): F31.9 - Bipolar disorder, unspecified Plan 08/30: restart home regimen, especially seroquel 100 QHS. start ativan 1 mg TID for anxiety. 08/31: start lithium 450 BID. begin taper of ativan starting tomorrow. 3-day notice in. 09/01: increase lithium to 450/600, increase seroquel to 200 QHS. start ativan taper. 09/02 continue current tx. 09/03 continue tx. Reason for contiued inpatient stay Substantial Risk for: harm to self Time Spent With Patient Time: Total time managing care of this patient today ____ minutes.
[2022-09-03] MEDS: NaPROXEN 500 MG TABLET PO ×2 (13:42→21:01)
[2022-09-03 21:00] VITALS: BP 120/76; PULSE 90; RESP 16; TEMP 36.7; O2SAT 100
[2022-09-03] MEDS: QUEtiapine Fumarate 200 MG TABLET PO (21:00)
[2022-09-03] MEDS: Lithium Carbonate ER 300 MG TABLET.ER 600 MG PO (21:02)
[2022-09-03] MEDS: Nicotine Polacrilex 2 MG GUM 4 MG BUCCAL (21:06)
[2022-09-04] MEDS: Omeprazole 20 MG CAPSULE.DR PO (06:41)
[2022-09-04] MEDS: methADONE HCl 20 MG/2 ML ORAL.CONC 35 MG PO (06:41)
[2022-09-04 08:05] VITALS: BP 117/73; PULSE 77; RESP 20; TEMP 36.7; O2SAT 99
[2022-09-04] MEDS: DULoxetine HCl 60 MG CAPSULE.DR PO (08:50)
[2022-09-04] MEDS: Lithium Carbonate ER 450 MG TABLET.ER PO (08:51)
[2022-09-04] MEDS: Docusate Sodium 100 MG CAPSULE PO (08:51)
[2022-09-04] MEDS: LORazepam 1 MG TABLET PO (08:52)
[2022-09-04 09:35] LABS: Anion Gap 11 (12-20); Blood Urea Nitrogen 19 mg/dL (9-16); Calcium 9.4 mg/dL (8.4-10.2); Carbon Dioxide 28 mmol/L (22-29); Chloride 103 mmol/L (96-108); Estimated Glomerular Filt Rate > 60; Glucose Random 89 mg/dL (60-115); Lithium 0.87 mmol/L (0.60-1.20); Potassium 4.5 mmol/L (3.3-5.1); Sodium 137 mmol/L (135-145)
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
== END 2022-09-04 13:09 | disposition home or self-care (01) | DRG 753 ==
PROVIDERS: Psychiatry & Neurology Psychiatry; Admitting Provider Psychiatry & Neurology Psychiatry; Visit Provider Psychiatry & Neurology Psychiatry
DX: F31.9 Bipolar disorder, unspecified (principal); F11.20 Opioid dependence, uncomplicated; F17.210 Nicotine dependence, cigarettes, uncomplicated; K21.9 Gastro-esophageal reflux disease without esophagitis; T40.3X5A Adverse effect of methadone, initial encounter; M79.7 Fibromyalgia; M19.90 Unspecified osteoarthritis, unspecified site; G89.29 Other chronic pain; K59.03 Drug induced constipation; Z71.6 Tobacco abuse counseling; Z79.899 Other long term (current) drug therapy
CPT/HCPCS: 36415; 80048; 80061; 80178; 80307; 83036

== ENCOUNTER 2022-09-14 00:57 | Emergency (ER) | payer OTHER, SELFPAY ==
--- NOTE | 2022-09-14 01:05 | ECG_ITS ---
Test Reason : CP Blood Pressure : / mmHG Vent. Rate : 090 BPM Atrial Rate : 090 BPM P-R Int : 130 ms QRS Dur : 078 ms QT Int : 416 ms P-R-T Axes : 035 075 059 degrees QTc Int : 508 ms Normal sinus rhythm Minimal voltage criteria for LVH, may be normal variant ( Sokolow-Cordero ) Prolonged QT Abnormal ECG When compared to the previous EKG of QT has lengthened Referred By: Ralf Mejia Electronically Signed By:ANNALEE NASH MD
[2022-09-14 01:09] VITALS: BP 146/88; BP 148/87; PULSE 88; PULSE 92; RESP 15; TEMP 37.3; O2SAT 95; O2SAT 97; BMI 23.6
--- NOTE | 2022-09-14 01:13 | ED.CHESTPAIN ---
HPI - Chest Pain General Chief Complaint: Chest Pain Stated Complaint: cp Time Seen by Provider: 09/14/22 01:01 Source: patient Mode of arrival: EMS Limitations: no limitations History of Present Illness HPI narrative: Patient with multiple problems active cocaine and heroin use on methadone feel anxious complaining of multiple complaints sees she feels anxious unable to sleep overnight since methadone dose was decreased from 40 to 30 mg on 08/27 patient using cocaine and heroin today. Also complaining of chest pain nausea vomiting and constipation does not want to go home wants to go to psych floor patient was recently admitted and discharged on 09/04/2022 for bipolar disorder Related Data Home Medications Medication Instructions Recorded Confirmed clonidine HCl 0.1 mg tablet 1 tab PO TID PRN Anxiety 08/29/22 09/14/22 cyclobenzaprine 5 mg tablet 5 mg PO TID PRN Muscle Spasm 08/29/22 09/14/22 docusate sodium 100 mg capsule 100 mg PO BID 08/29/22 09/14/22 (Colace) duloxetine 60 mg capsule,delayed 1 cap PO DAILY 08/29/22 09/14/22 release methadone 10 mg/mL oral syringe 35 mg PO DAILY 08/29/22 09/14/22 (FOR ORAL USE ONLY) nicotine 14 mg/24 hr daily 1 patch transdermal DAILY 08/29/22 09/14/22 transdermal patch pantoprazole 40 mg tablet,delayed 40 mg PO DAILY 08/29/22 09/14/22 release lithium carbonate 450 mg 450 mg PO QAM 09/14/22 09/14/22 tablet,extended release Previous Rx's Medication Instructions Recorded hydroxyzine HCl 25 mg tablet 25 mg PO TID PRN Anxiety 30 days 09/04/22 #90 tabs lithium carbonate 300 mg 600 mg PO BEDTIME 30 days #60 tabs 09/04/22 tablet,extended release lorazepam 0.5 mg tablet 0.5 mg PO BID 3 days #6 tabs 09/04/22 nicotine (polacrilex) 2 mg gum 4 mg buccal Q2H PRN Nicotine 09/04/22 Cravings 30 days #220 ea quetiapine 200 mg tablet 200 mg PO BEDTIME 30 days #30 tabs 09/04/22 Allergies Allergy/AdvReac Type Severity Reaction Status Date / Time No Known Allergies Allergy Verified 08/29/22 20:24 [No Known Allergies*] Review of Systems Review of Systems: Yes all other systems are reviewed and are negative [facility] Past Medical History Medical History Bipolar disorder Carpal tunnel syndrome Chronic neck and back pain Cigarette nicotine dependence Fibromyalgia GERD (gastroesophageal reflux disease) Opioid use disorder Osteoarthritis of multiple joints Routine medical exam Family History Family History Son Autism Social History Social History Household Members: Children Household Members Other:: 3 Housing: Apartment Alcohol intake: unknown Patient Tobacco Use Status: Current everyday Tobacco user Smoked in Last 30 Days: Yes e-Cigarette/Vaping Use: Currently Using Substance Use Type: Crack/Cocaine, Heroin and Marijuana Advance Directives: No Advance Directives Information Provided: Yes Patient : No service: No Sexual orientation: Straight/Heterosexual Physical Exam Vital Signs: Vital Signs: Last Vital Signs Temp 98.7 F 09/14/22 05:38 Pulse 75 09/14/22 05:38 Resp 16 09/14/22 05:38 BP 137/90 H 09/14/22 05:38 Pulse Ox 98 09/14/22 05:38 O2 Del Method 09/14/22 05:38 BMI result Body Mass Index 23.6 Appearance: Alert. Oriented X3. No acute distress. Eyes: PERRLA, No Nystagmus ENT: Pharynx normal. Oral Mucosa moist Neck: Normal inspection. Neck supple. CVS: Normal heart rate and rhythm. Pulses normal. Respiratory: No respiratory distress. Equal air entry bilateral, no wheezing/rales/rhonchi Abdomen: Soft and nontender. Bowel sounds are present, no mass palpable, no CVA tenderness Skin: Skin warm and dry. Normal skin color. Normal skin turgor. Extremities: No lower extremity edema. No calf tenderness psych; feel depressed no suicidal ideation no hallucination or delusion Neuro: Oriented X 3. No motor deficit. No sensory deficit.No cerebellar signs , cranial nerves II-XII intact Medications Administered Discontinued Medications Generic Name Dose Route Start Last Admin Trade Name Freq PRN Reason Stop Dose Admin Lorazepam 2 mg 09/14/22 04:11 09/14/22 04:14 Lorazepam 1 Mg Tablet PO 09/14/22 04:12 2 mg ONCE ONE Administration Medical Decision Making Medical Decision Making [facility] Narrative: Patient admitted for increased depression and suicidal feeling while changing noticed to have a pocket knife with her and hammer as she was scared. Will get ketamine wore further evaluation. U tox positive for opiates, fentanyl, cocaine, Patient medically cleared Lab Data [facility] Lab Attestation statement: I reviewed the patient's lab results. 09/14/22 01:24 09/14/22 01:24 Labs: Lab Results 09/14/22 09/14/22 09/14/22 Range/Units 01:24 01:24 01:24 WBC 12.6 H (4.8-10.8) X10*3/uL RBC 4.36 (4.20-5.50) X10*6/uL Hgb 11.4 L (12.0-16.0) g/dl Hct 36.5 L (37.0-47.0) % MCV 83.7 (80.0-98.0) fL MCH 26.1 L (27.0-33.0) pg MCHC 31.2 (31.0-35.0) g/dl RDW 15.1 (11.0-16.0) % Plt Count 351 (160-400) X10*3/uL MPV 9.3 L (9.4-12.3) fL Immature Gran % (Auto) 0.3 (0.0-0.4) % Neut % (Auto) 57.5 (45-73) % Lymph % (Auto) 26.0 (20-40) % [place] % (Auto) 8.8 (2-11) % Eos % (Auto) 6.5 H (0-4) % Baso % (Auto) 0.9 (0-2) % Lymph # (Auto) 3.3 (1.2-4.9) X10*3/uL [place] # (Auto) 1.1 (0.1-1.2) X10*3/uL Eos # (Auto) 0.8 H (0.0-0.4) X10*3/uL Baso # (Auto) 0.1 (0.0-0.2) X10*3/uL Abs Immat Gran (auto) 0.04 H (0.00-0.03) X10*3/uL Absolute Neuts (auto) 7.3 (2.0-8.3) x10*3/uL Absolute Nucleated RBC 0.000 (0.0-0.012) X10*3/uL Nucleated RBC % (auto) 0.0 (0.0-0.2) /100WBC Sodium 136 (135-145) mmol/L Potassium 3.9 (3.3-5.1) mmol/L Chloride 103 (96-108) mmol/L Carbon Dioxide 26 (22-29) mmol/L Anion Gap 11 L (12-20) BUN 8 L (9-16) mg/dL Creatinine 0.93 (0.5-1.4) mg/dL Estim Creat Clear Calc 68.0 Estimated GFR > 60 Random Glucose 132 H (60-115) mg/dL Calcium 9.3 (8.4-10.2) mg/dL Troponin I High Sens 9.8 (<3.5-17.0) ng/L Urine Color Urine Appearance Urine pH (5.0-9.0) Ur Specific [facility] (1.005-1.025) Urine Protein (Neg-Trace) mg/dL Urine Glucose (UA) (Negative) mg/dL Urine Ketones (Negative) mg/dL Urine Blood (Negative) Urine Nitrite (Negative) Ur Leukocyte Esterase (Negative) Urine RBC (0-2) /HPF Urine WBC (0-5) /HPF Ur Squamous Epith Cells (0-2) /HPF Urine Bacteria (None Seen) Hyaline Casts (0-2) /LPF Urine Opiates Screen (Not Detect) Urine Fentanyl Screen (Not Detect) Ur Barbiturates Screen (Not Detect) Ur Phencyclidine Scrn (Not Detect) Ur Amphetamines Screen (Not Detect) U Benzodiazepines Scrn (Not Detect) Urine Cocaine Screen (Not Detect) U Marijuana (THC) Screen (Not Detect) COVID-19 ([place]) (Negative) COVID-19 Clin Com 09/14/22 09/14/22 09/14/22 Range/Units 01:24 03:30 03:30 WBC (4.8-10.8) X10*3/uL RBC (4.20-5.50) X10*6/uL Hgb (12.0-16.0) g/dl Hct (37.0-47.0) % MCV (80.0-98.0) fL MCH (27.0-33.0) pg MCHC (31.0-35.0) g/dl RDW (11.0-16.0) % Plt Count (160-400) X10*3/uL MPV (9.4-12.3) fL Immature Gran % (Auto) (0.0-0.4) % Neut % (Auto) (45-73) % Lymph % (Auto) (20-40) % [place] % (Auto) (2-11) % Eos % (Auto) (0-4) % Baso % (Auto) (0-2) % Lymph # (Auto) (1.2-4.9) X10*3/uL [place] # (Auto) (0.1-1.2) X10*3/uL Eos # (Auto) (0.0-0.4) X10*3/uL Baso # (Auto) (0.0-0.2) X10*3/uL Abs Immat Gran (auto) (0.00-0.03) X10*3/uL Absolute Neuts (auto) (2.0-8.3) x10*3/uL Absolute Nucleated RBC (0.0-0.012) X10*3/uL Nucleated RBC % (auto) (0.0-0.2) /100WBC Sodium (135-145) mmol/L Potassium (3.3-5.1) mmol/L Chloride (96-108) mmol/L Carbon Dioxide (22-29) mmol/L Anion Gap (12-20) BUN (9-16) mg/dL Creatinine (0.5-1.4) mg/dL Estim Creat Clear Calc Estimated GFR Random Glucose (60-115) mg/dL Calcium (8.4-10.2) mg/dL Troponin I High Sens (<3.5-17.0) ng/L Urine Color Yellow Urine Appearance Clear Urine pH 6.5 (5.0-9.0) Ur Specific [facility] 1.010 (1.005-1.025) Urine Protein Negative (Neg-Trace) mg/dL Urine Glucose (UA) Negative (Negative) mg/dL Urine Ketones Negative (Negative) mg/dL Urine Blood Negative (Negative) Urine Nitrite Negative (Negative) Ur Leukocyte Esterase Trace H (Negative) Urine RBC 0-2 (0-2) /HPF Urine WBC 0-5 (0-5) /HPF Ur Squamous Epith Cells 3-5 (0-2) /HPF Urine Bacteria 1+ (None Seen) Hyaline Casts 0-2 (0-2) /LPF Urine Opiates Screen POSITIVE H (Not Detect) Urine Fentanyl Screen POSITIVE H (Not Detect) Ur Barbiturates Screen Not Detected (Not Detect) Ur Phencyclidine Scrn Not Detected (Not Detect) Ur Amphetamines Screen Not Detected (Not Detect) U Benzodiazepines Scrn Not Detected (Not Detect) Urine Cocaine Screen POSITIVE H (Not Detect) U Marijuana (THC) Screen Not Detected (Not Detect) COVID-19 ([place]) Negative (Negative) COVID-19 Clin Com See Note Independent Interpretation I performed an independent interpretation of an: EKG Interpretation: Normal sinus rhythm heart rate 90 beats per minute LVH no acute ST-T no acute ischemia Discharge Plan Discharge Clinical Impression: Bipolar disorder, Substance abuse Patient Disposition: Still a Patient Prescriptions: No Action clonidine HCl 0.1 mg tablet 1 tab PO TID PRN (Reason: Anxiety) nicotine 14 mg/24 hr Patch 24 Hour 1 patch TRANSDERMAL DAILY pantoprazole 40 mg Tablet,Delayed Release (Dr/Ec) 40 mg PO DAILY docusate sodium [Colace] 100 mg Capsule 100 mg PO BID cyclobenzaprine 5 mg Tablet 5 mg PO TID PRN (Reason: Muscle Spasm) duloxetine 60 mg capsule,delayed release(DR/EC) 1 cap PO DAILY methadone 10 mg/mL Syringe 35 mg PO DAILY Label Comments: Will call clinic in AM when open. Last dosed by [facility] prior to arrival at [facility] [place]. nicotine (polacrilex) 2 mg Gum 4 mg buccal Q2H PRN (Reason: Nicotine Cravings) 30 Days Qty: 220 0RF quetiapine 200 mg Tablet 200 mg PO BEDTIME 30 Days Qty: 30 0RF lithium carbonate 300 mg Tablet Extended Release 600 mg PO BEDTIME 30 Days Qty: 60 0RF lorazepam 0.5 mg Tablet 0.5 mg PO BID 3 Days Qty: 6 0RF hydroxyzine HCl 25 mg Tablet 25 mg PO TID PRN (Reason: Anxiety) 30 Days Qty: 90 0RF lithium carbonate 450 mg tablet extended release 450 mg PO QAM
[2022-09-14 01:29] LABS: Basophils Absolute Auto 0.1 X10*3/uL (0.0-0.2); Basophils Percent Auto 0.9 % (0-2); Eosinophils Absolute Auto 0.8 X10*3/uL (0.0-0.4); Eosinophils Percent Auto 6.5 % (0-4); Hematocrit 36.5 % (37.0-47.0); Hemoglobin 11.4 g/dl (12.0-16.0); Imm Gran Abs Auto 0.04 X10*3/uL (0.00-0.03); Imm Gran Pct Auto 0.3 % (0.0-0.4); Lymphocytes Absolute Auto 3.3 X10*3/uL (1.2-4.9); MANUAL DIFF FLAG NO; Mean Corpuscular HGB Conc 31.2 g/dl (31.0-35.0); Mean Corpuscular Hemoglobin 26.1 pg (27.0-33.0); Mean Corpuscular Volume 83.7 fL (80.0-98.0); Mean Platelet Volume 9.3 fL (9.4-12.3); Monocytes Absolute Auto 1.1 X10*3/uL (0.1-1.2); Monocytes Percent Auto 8.8 % (2-11); Neutrophils Absolute Auto 7.3 x10*3/uL (2.0-8.3); Neutrophils Percent Auto 57.5 % (45-73); Platelet Count 351 X10*3/uL (160-400); Red Blood Count 4.36 X10*6/uL (4.20-5.50); Red Cell Distribution Width 15.1 % (11.0-16.0); White Blood Count 12.6 X10*3/uL (4.8-10.8)
[2022-09-14 01:41] LABS: Anion Gap 11 (12-20); Blood Urea Nitrogen 8 mg/dL (9-16); Calcium 9.3 mg/dL (8.4-10.2); Carbon Dioxide 26 mmol/L (22-29); Chloride 103 mmol/L (96-108); Estimated Glomerular Filt Rate > 60; Glucose Random 132 mg/dL (60-115); Potassium 3.9 mmol/L (3.3-5.1); Sodium 136 mmol/L (135-145)
[2022-09-14 01:42] LABS: COVID-19 Test Negative (Negative); IDNOW Serial# 6674DD1D
[2022-09-14 01:49] LABS: Troponin-I High Sensitivity 9.8 ng/L (<3.5-17.0)
[2022-09-14 03:37] LABS: Appearance Urine Clear; Color Urine Yellow; Glucose Urine UA Negative (Negative); Leukocyte Esterase Urine Trace (Negative); Nitrite Urine Negative (Negative); PH 6.5 (5.0-9.0); UMIC TRIGGER UA YES; Urine Blood Negative (Negative); Urine Ketones Negative (Negative); Urine Protein Negative (Neg-Trace)
[2022-09-14 03:54] LABS: Amphetamine Screen Urine Not Detected (Not Detect); Barbiturates, Urine Not Detected (Not Detect); Benzodiazepines Screen Urine Not Detected (Not Detect); Cannabinoid Screen Urine Not Detected (Not Detect); Cocaine Screen Urine POSITIVE (Not Detect); Fentanyl, urine POSITIVE (Not Detect); Opiate Screen Urine POSITIVE (Not Detect); Phencyclidine Screen Urine Not Detected (Not Detect)
[2022-09-14 03:59] LABS: Bacteria Urine 1+ (None Seen); Hyaline Casts Urine 0-2 /LPF (0-2); RBC Urine 0-2 /HPF (0-2); WBC Urine 0-5 /HPF (0-5)
[2022-09-14] MEDS: LORazepam 1 MG TABLET 2 MG PO (04:14)
[2022-09-14 05:38] VITALS: BP 137/90; PULSE 75; RESP 16; TEMP 37.1; O2SAT 98
--- NOTE | 2022-09-14 06:43 | PC.NURSE ---
Methadone dose verified/faxed to pharmacy, med rec updated/pending provider's approval.
--- NOTE | 2022-09-14 06:50 | HE.PHANOTE ---
METHADONE VERIFICATION RECEIVED IN PHARMACY. 35 MG DAILY LAST DOSE ON 09/13 FROM [facility]
[2022-09-14 08:21] VITALS: BP 123/77; PULSE 75; RESP 19; TEMP 36.8; O2SAT 96
--- NOTE | 2022-09-14 10:22 | PC.NURSE ---
PT SLEEPING SITTING UP AT DESK IN ROOM. CARE TEAM UNABLE TO SPEAK WITH HER AT THIS TIME SHE'S UNABLE TO STAY AWAKE
[2022-09-14] MEDS: Omeprazole 20 MG CAPSULE.DR PO (13:12)
[2022-09-14] MEDS: methADONE HCl 20 MG/2 ML ORAL.CONC 35 MG PO (13:12)
[2022-09-14] MEDS: Lithium Carbonate ER 450 MG TABLET.ER PO (13:13)
[2022-09-14] MEDS: LORazepam 0.5 MG TABLET PO ×2 (13:13→21:38)
[2022-09-14] MEDS: Docusate Sodium 100 MG CAPSULE PO ×2 (13:13→21:38)
[2022-09-14] MEDS: cloNIDine HCL 0.1 MG TABLET PO (13:13)
[2022-09-14] MEDS: DULoxetine HCl 60 MG CAPSULE.DR PO (13:13)
[2022-09-14] MEDS: Nicotine 14 MG PATCH.TD24 TRANSDERMA (13:23)
[2022-09-14 21:06] VITALS: BP 108/69; PULSE 77; RESP 16; TEMP 37.2; O2SAT 98
[2022-09-14] MEDS: Lithium Carbonate ER 300 MG TABLET.ER 600 MG PO (21:38)
[2022-09-14] MEDS: QUEtiapine Fumarate 200 MG TABLET PO (21:39)
--- NOTE | 2022-09-15 05:26 | PC.NURSE ---
Patient slept through the night, no distress observed/reported, behavior appropriate and non concerning, Greek speaking primarily, medication compliant, VSS, appetite good, contracted for the safety, disposition per care team is pending, patient will be reevaluated in the morning, will continue to monitor.
[2022-09-15 05:49] VITALS: BP 99/63; PULSE 72; RESP 16; TEMP 37.2; O2SAT 97
[2022-09-15] MEDS: DULoxetine HCl 60 MG CAPSULE.DR PO (08:33)
[2022-09-15] MEDS: LORazepam 0.5 MG TABLET PO (08:33)
[2022-09-15] MEDS: Omeprazole 20 MG CAPSULE.DR PO (08:33)
[2022-09-15] MEDS: Docusate Sodium 100 MG CAPSULE PO (08:33)
[2022-09-15] MEDS: Lithium Carbonate ER 450 MG TABLET.ER PO (08:35)
[2022-09-15] MEDS: methADONE HCl 20 MG/2 ML ORAL.CONC 35 MG PO (08:35)
[2022-09-15] MEDS: Nicotine Polacrilex 2 MG GUM 4 MG BUCCAL (08:37)
--- NOTE | 2022-09-15 08:52 | PC.NURSE ---
Addendum entered by Corrina Smith 09/15/22 10:21: Em from recovery at bedside for eval. Addendum entered by Corrina Smith 09/15/22 09:06: Per Nico from CARE TEAM: plan at this time is for recovery to eval. Original Note: Careteam at bedside for neftali
--- NOTE | 2022-09-15 10:54 | MHC.RECOVRN ---
This newswriter met w/ patient, with kennel operator at bedside. Reviewed with patient recommendation to follow up with patients Methadone clinic related to s/s of withdrawal and increased cravings. Patient verbalized understanding. Reviewed recovery resources, Britta Smith passenger coach driver, contact left at bedside. Patient verbalized understanding.
--- NOTE | 2022-09-15 14:39 | PC.NURSE ---
Baggy in medal cylindar fell out of pocket during changing process. Metal container given back to patient. Bag with white residue removed to security.
== END 2022-09-15 14:40 | disposition home or self-care (01) ==
PROVIDERS: Internal Medicine; Emergency Provider Emergency Medicine Emergency Medical Services; PCP Internal Medicine
DX: R07.89 Other chest pain (principal); F33.1 Major depressive disorder, recurrent, moderate; F14.10 Cocaine abuse, uncomplicated; F11.10 Opioid abuse, uncomplicated; F17.210 Nicotine dependence, cigarettes, uncomplicated; Z20.822 Contact with and (suspected) exposure to COVID-19; Z20.828 Contact with and (suspected) exposure to other viral communicable diseases; Z79.899 Other long term (current) drug therapy; Z71.6 Tobacco abuse counseling
CPT/HCPCS: 80048; 80307; 81001; 84484; 85025; 87635; 93005; 99285; S9485

== ENCOUNTER 2022-09-16 14:56 | Emergency (ER) | payer OTHER, SELFPAY ==
--- NOTE | 2022-09-16 15:02 | ED.GENADULT ---
HPI - General Adult General Chief complaint: Psychiatric Symptoms <Radha Gale SHAYY Crenshaw - Last Filed: 09/16/22 20:50> Stated complaint: ?need methadone dose <Radha ColeSHAYY ni - Last Filed: 09/16/22 20:50> Time Seen by Provider: 09/16/22 15:03 <Radha Shahlaming Crenshaw CNP - Last Filed: 09/16/22 20:50> Source: patient <Radha ColeSHAYY ni - Last Filed: 09/16/22 20:50> Mode of arrival: ambulatory <Radha Gale SHAYY Crenshaw - Last Filed: 09/16/22 20:50> Limitations: no limitations <Radha Gale SHAYY Crenshaw - Last Filed: 09/16/22 20:50> History of Present Illness HPI narrative: Patient is a 41-year-old female who presents to the emergency department requesting methadone dosing. Patient was discharged from the emergency department yesterday, Has plan to follow up outpatient for respite through [facility]. Patient did not make it to clinic today in time to receive her methadone dosage. Presents to the emergency department today to receive methadone, yesterday while in the emergency department she was dosed with 35 mg orally. Patient otherwise with no physical complaints. Currently she is calm and cooperative. Reports feeling depressed, very vague, however she does endorse SI at this time. <Radha ColeSHAYY ni - Last Filed: 09/16/22 20:50> Related Data Home medications: Home Medications Medication Instructions Recorded Confirmed clonidine HCl 0.1 mg tablet 1 tab PO TID PRN Anxiety 08/29/22 09/16/22 cyclobenzaprine 5 mg tablet 5 mg PO TID PRN Muscle Spasm 08/29/22 09/16/22 docusate sodium 100 mg capsule 100 mg PO BID 08/29/22 09/16/22 (Colace) duloxetine 60 mg capsule,delayed 1 cap PO DAILY 08/29/22 09/16/22 release methadone 10 mg/mL oral syringe 35 mg PO DAILY 08/29/22 09/16/22 (FOR ORAL USE ONLY) nicotine 14 mg/24 hr daily 1 patch transdermal DAILY 08/29/22 09/16/22 transdermal patch pantoprazole 40 mg tablet,delayed 40 mg PO DAILY 08/29/22 09/16/22 release lithium carbonate 450 mg 450 mg PO QAM 09/14/22 09/16/22 tablet,extended release Previous Rx's Medication Instructions Recorded hydroxyzine HCl 25 mg tablet 25 mg PO TID PRN Anxiety 30 days 09/04/22 #90 tabs lithium carbonate 300 mg 600 mg PO BEDTIME 30 days #60 tabs 09/04/22 tablet,extended release lorazepam 0.5 mg tablet 0.5 mg PO BID 3 days #6 tabs 09/04/22 nicotine (polacrilex) 2 mg gum 4 mg buccal Q2H PRN Nicotine 09/04/22 Cravings 30 days #220 ea quetiapine 200 mg tablet 200 mg PO BEDTIME 30 days #30 tabs 09/04/22 <Radha Crenshaw CNP - Last Filed: 09/16/22 20:50> Allergies/adverse reactions: Allergies Allergy/AdvReac Type Severity Reaction Status Date / Time No Known Allergies Allergy Verified 08/29/22 20:24 [No Known Allergies*] <Radha Crenshaw CNP - Last Filed: 09/16/22 20:50> Review of Systems Review of Systems: Constitutional: No ever, chills, weakness or fatigue. Skin: No rash or itching. Cardiovascular: No chest pain. Respiratory: No shortness of breath or cough Gastrointestinal: No nausea, vomiting or diarrhea. No abdominal pain Genitourinary: No burning micturition. No urinary frequency Musculoskeletal: No muscle pain, back pain, joint pain or stiffness. Psychiatric: No depression or anxiety. <Radha Crenshaw CNP - Last Filed: 09/16/22 20:50> Yes all other systems are reviewed and are negative <Radha Crenshaw CNP - Last Filed: 09/16/22 20:50> PMFSH Past Medical History Attestation statement: The following information was validated with the patient. <Radha Crenshaw CNP - Last Filed: 09/16/22 20:50> Source: old records reviewed <Radha Crenshaw CNP - Last Filed: 09/16/22 20:50> Medical History: Medical History Bipolar disorder Carpal tunnel syndrome Chronic neck and back pain Cigarette nicotine dependence Fibromyalgia GERD (gastroesophageal reflux disease) Opioid use disorder Osteoarthritis of multiple joints Routine medical exam <Radha CrenshawSHAYY - Last Filed: 09/16/22 20:50> Family History Family History: Family History Son Juan Pablo <Radha CrenshawSHAYY - Last Filed: 09/16/22 20:50> Social History Social History: Social History Household Members: Children Household Members Other:: 3 Housing: Apartment Alcohol intake: unknown Patient Tobacco Use Status: Current everyday Tobacco user e-Cigarette/Vaping Use: Currently Using Substance Use Type: Crack/Cocaine, Heroin and Marijuana Advance Directives: No Advance Directives Information Provided: No Healthcare Proxy: No Guardian: No service: No Sexual orientation: Straight/Heterosexual <Radha CrenshawSHAYY - Last Filed: 09/16/22 20:50> Physical Exam ED Vital Signs: Vital Signs - 24 hr 09/16/22 15:05 09/17/22 06:21 Temperature 97.7 F 97.4 F Pulse Rate 97 81 Respiratory Rate 18 10 L Blood Pressure 147/90 H 120/79 Pulse Oximetry 100 96 Oxygen Delivery Method Room Air Room Air BMI result Body Mass Index 20.5 <Radha CrenshawSHAYY - Last Filed: 09/16/22 20:50> Vital Signs - 24 hr 09/16/22 15:05 09/17/22 06:21 Temperature 97.7 F 97.4 F Pulse Rate 97 81 Respiratory Rate 18 10 L Blood Pressure 147/90 H 120/79 Pulse Oximetry 100 96 Oxygen Delivery Method Room Air Room Air BMI result Body Mass Index 20.5 <Maik Thomas MD - Last Filed: 09/17/22 08:11> Appearance: Alert.?Oriented to person, place and time. No acute distress.?Normal affect.?? Neck: Normal inspection.? Neck supple.?? CVS: Heart sounds normal. Normal heart rate and rhythm.? Pulses normal.?? Respiratory: No respiratory distress.? Lung sounds clear to auscultation bilaterally?? Abdomen: Soft and non-tender. Skin: Skin warm and dry.? Normal skin color.? Extremities: No lower extremity edema.? Neuro: Moves all extremities spontaneously. Sensation intact bilaterally. No focal neuro deficits. Ambulates with normal steady gait. <Radha Crenshaw CNP - Last Filed: 09/16/22 20:50> Course Reevaluation(s) Reevaluation #1: Sep 18 8 Am Signed out to me by Dr Arthur,stable overnight, continue bed search <Maik Thomas MD - Last Filed: 09/17/22 08:11> Time: 08:11 <Maik Thomas MD - Last Filed: 09/17/22 08:11> Medications Administered Generic Name Dose Route Start Last Admin Trade Name Freq PRN Reason Stop Dose Admin [facility] Carbonate 600 mg 09/16/22 21:15 09/16/22 21:43 [facility] Carbonate Er 300 Mg Tablet.Er PO 600 mg BEDTIME FELIPE Administration [facility] Carbonate 450 mg 09/16/22 21:15 09/16/22 21:40 [facility] Carbonate Er 450 Mg Tablet.Er PO Not Given DAILY FELIPE Lorazepam 0.5 mg 09/16/22 21:15 09/16/22 21:43 Lorazepam 0.5 Mg Tablet PO 0.5 mg BID FEILPE Administration Quetiapine Fumarate 200 mg 09/16/22 21:15 09/16/22 21:42 Quetiapine Fumarate 200 Mg Tablet PO 200 mg BEDTIME FELIPE Administration Discontinued Medications Generic Name Dose Route Start Last Admin Trade Name Freq PRN Reason Stop Dose Admin Methadone HCl 35 mg 09/16/22 15:04 09/16/22 16:08 Methadone Hcl 20 Mg/2 Ml Oral.Conc PO 09/16/22 15:05 35 mg ONCE ONE Administration <Radha Crenshaw CNP - Last Filed: 09/16/22 20:50> Medications Administered Generic Name Dose Route Start Last Admin Trade Name Freq PRN Reason Stop Dose Admin [facility] Carbonate 600 mg 09/16/22 21:15 09/16/22 21:43 [facility] Carbonate Er 300 Mg Tablet.Er PO 600 mg BEDTIME FELIPE Administration [facility] Carbonate 450 mg 09/16/22 21:15 09/16/22 21:40 [facility] Carbonate Er 450 Mg Tablet.Er PO Not Given DAILY FELIPE Lorazepam 0.5 mg 09/16/22 21:15 09/16/22 21:43 Lorazepam 0.5 Mg Tablet PO 0.5 mg BID FELIPE Administration Quetiapine Fumarate 200 mg 09/16/22 21:15 09/16/22 21:42 Quetiapine Fumarate 200 Mg Tablet PO 200 mg BEDTIME FELIPE Administration Discontinued Medications Generic Name Dose Route Start Last Admin Trade Name Bhavesh PRN Reason Stop Dose Admin Methadone HCl 35 mg 09/16/22 15:04 09/16/22 16:08 Methadone Hcl 20 Mg/2 Ml Oral.Conc PO 09/16/22 15:05 35 mg ONCE ONE Administration <Maik Thomas MD - Last Filed: 09/17/22 08:11> Medical Decision Making Medical Decision Making [facility] Narrative: Patient is a 41-year-old female with past medical history polysubstance abuse, bipolar disorder, fibromyalgia, GERD presents to the emergency department requesting methadone dosing however also endorsing suicidal ideations without any specific plan. She is well-appearing, nontoxic, no physical complaints. Physical examination is benign. Will obtain basic labs, viral testing. Patient to be referred to care team for evaluation as to whether inpatient psychiatric services are required at this time as she is currently endorsing suicidal ideations, will be placed under physician observation.. Methadone dosing for today ordered. <Radha Crenshaw CNP - Last Filed: 09/16/22 20:50> Admission/Observation Consideration of admission/observation: Escalation of care including admission/observation considered (As noted above) <Radha Crenshaw CNP - Last Filed: 09/16/22 20:50> Lab Data [facility] Lab Attestation statement: I reviewed the patient's lab results. <Radha Crenshaw CNP - Last Filed: 09/16/22 20:50> Labs: Lab Results 09/16/22 09/16/22 09/16/22 Range/Units 15:46 15:46 15:46 Urine Color Yellow Urine Appearance Cloudy Urine pH >= 9.0 (5.0-9.0) Ur Specific [place] 1.010 (1.005-1.025) Urine Protein Negative (Neg-Trace) mg/dL Urine Glucose (UA) Negative (Negative) mg/dL Urine Ketones Negative (Negative) mg/dL Urine Blood Negative (Negative) Urine Nitrite Negative (Negative) Ur Leukocyte Esterase Negative (Negative) Urine Opiates Screen POSITIVE H (Not Detect) Urine Fentanyl Screen POSITIVE H (Not Detect) Ur Barbiturates Screen Not Detected (Not Detect) Ur Phencyclidine Scrn Not Detected (Not Detect) Ur Amphetamines Screen Not Detected (Not Detect) U Benzodiazepines Scrn Not Detected (Not Detect) Urine Cocaine Screen POSITIVE H (Not Detect) U Marijuana (THC) Screen Not Detected (Not Detect) COVID-19 ([place]) Negative (Negative) COVID-19 Clin Com See Note <Radha Crenhsaw CNP - Last Filed: 09/16/22 20:50> Lab Results 09/16/22 09/16/22 09/16/22 Range/Units 15:46 15:46 15:46 Urine Color Yellow Urine Appearance Cloudy Urine pH >= 9.0 (5.0-9.0) Ur Specific [place] 1.010 (1.005-1.025) Urine Protein Negative (Neg-Trace) mg/dL Urine Glucose (UA) Negative (Negative) mg/dL Urine Ketones Negative (Negative) mg/dL Urine Blood Negative (Negative) Urine Nitrite Negative (Negative) Ur Leukocyte Esterase Negative (Negative) Urine Opiates Screen POSITIVE H (Not Detect) Urine Fentanyl Screen POSITIVE H (Not Detect) Ur Barbiturates Screen Not Detected (Not Detect) Ur Phencyclidine Scrn Not Detected (Not Detect) Ur Amphetamines Screen Not Detected (Not Detect) U Benzodiazepines Scrn Not Detected (Not Detect) Urine Cocaine Screen POSITIVE H (Not Detect) U Marijuana (THC) Screen Not Detected (Not Detect) COVID-19 ([place]) Negative (Negative) COVID-19 Clin Com See Note <Maik Thomas MD - Last Filed: 09/17/22 08:11> Discharge Plan Discharge Clinical Impression: Suicidal ideation, Bipolar disorder <Radha Crenshaw CNP - Last Filed: 09/16/22 20:50> Patient Disposition: Still a Patient <Radha Crenshaw CNP - Last Filed: 09/16/22 20:50> Prescriptions: No Action clonidine HCl 0.1 mg tablet 1 tab PO TID PRN (Reason: Anxiety) nicotine 14 mg/24 hr Patch 24 Hour 1 patch TRANSDERMAL DAILY pantoprazole 40 mg Tablet,Delayed Release (Dr/Ec) 40 mg PO DAILY docusate sodium [Colace] 100 mg Capsule 100 mg PO BID cyclobenzaprine 5 mg Tablet 5 mg PO TID PRN (Reason: Muscle Spasm) duloxetine 60 mg capsule,delayed release(DR/EC) 1 cap PO DAILY methadone 10 mg/mL Syringe 35 mg PO DAILY Label Comments: Will call clinic in AM when open. Last dosed by [facility] prior to arrival at [facility]. nicotine (polacrilex) 2 mg Gum 4 mg buccal Q2H PRN (Reason: Nicotine Cravings) 30 Days Qty: 220 0RF quetiapine 200 mg Tablet 200 mg PO BEDTIME 30 Days Qty: 30 0RF lithium carbonate 300 mg Tablet Extended Release 600 mg PO BEDTIME 30 Days Qty: 60 0RF lorazepam 0.5 mg Tablet 0.5 mg PO BID 3 Days Qty: 6 0RF hydroxyzine HCl 25 mg Tablet 25 mg PO TID PRN (Reason: Anxiety) 30 Days Qty: 90 0RF lithium carbonate 450 mg tablet extended release 450 mg PO QAM <Radha Crenshaw CNP - Last Filed: 09/16/22 20:50> Interventions: [place]-Suicide Risk Severity Scale Last Done: 09/17/22 05:41 <Radha Crenshaw CNP - Last Filed: 09/16/22 20:50>
[2022-09-16 15:05] VITALS: BP 147/90; PULSE 97; RESP 18; TEMP 36.5; O2SAT 100; BMI 20.5
[2022-09-16 15:54] LABS: Appearance Urine Cloudy; Color Urine Yellow; Glucose Urine UA Negative (Negative); Leukocyte Esterase Urine Negative (Negative); Nitrite Urine Negative (Negative); PH >= 9.0 (5.0-9.0); Urine Blood Negative (Negative); Urine Ketones Negative (Negative); Urine Protein Negative (Neg-Trace)
--- NOTE | 2022-09-16 15:58 | MHC.CARE ---
Care Team received a call from [facility] staff Stephanie and she reported pt can return to [facility] once she has received a methadone dose.
[2022-09-16 16:03] LABS: Amphetamine Screen Urine Not Detected (Not Detect); Barbiturates, Urine Not Detected (Not Detect); Benzodiazepines Screen Urine Not Detected (Not Detect); Cannabinoid Screen Urine Not Detected (Not Detect); Cocaine Screen Urine POSITIVE (Not Detect); Fentanyl, urine POSITIVE (Not Detect); Opiate Screen Urine POSITIVE (Not Detect); Phencyclidine Screen Urine Not Detected (Not Detect)
--- NOTE | 2022-09-16 16:03 | HE.PHANOTE ---
Spoke to RN, unable to verify methadone dose because clinic is closed. Patient is being followed by CARE team. Patient was here on 09/14 as well for her methadone dose. Methadone dose of 35 mg was verified at the time. I chose to verify one time dose of 35 mg methadone today.
[2022-09-16] MEDS: methADONE HCl 20 MG/2 ML ORAL.CONC 35 MG PO (16:08)
[2022-09-16 16:11] LABS: COVID-19 Test Negative (Negative); IDNOW Serial# 55D5AD1C
--- NOTE | 2022-09-16 18:36 | MHC.CARE ---
Care Team had a telephonic encounter with [facility] staff Jacqueline, she reported pt was accepted to respite and they are expecting her to arrive.
[2022-09-16] MEDS: QUEtiapine Fumarate 200 MG TABLET PO (21:42)
[2022-09-16] MEDS: LORazepam 0.5 MG TABLET PO (21:43)
[2022-09-16] MEDS: Lithium Carbonate ER 300 MG TABLET.ER 600 MG PO (21:43)
--- NOTE | 2022-09-16 22:49 | HE.PHANOTE ---
Methadone verification received and spoke to JOSE DANIEL Olivo. Patients last dose of methadone with N was 35 mg @1000 on 09/13/22. Which is why the patient has come in today. Patient received a dose of methadone from us on the .
--- NOTE | 2022-09-17 05:42 | PC.NURSE ---
Patient slept though the night, no distress observed/reported, disposition per care team iis section 12 inpatient bed search, medication compliant, behavior non concerning, VSS, will continue to monitor.
[2022-09-17 06:21] VITALS: BP 120/79; PULSE 81; RESP 10; TEMP 36.3; O2SAT 96
[2022-09-17] MEDS: Nicotine 14 MG PATCH.TD24 TRANSDERMA (09:00)
[2022-09-17] MEDS: Lithium Carbonate ER 450 MG TABLET.ER PO (09:00)
[2022-09-17] MEDS: DULoxetine HCl 60 MG CAPSULE.DR PO (09:01)
[2022-09-17] MEDS: Docusate Sodium 100 MG CAPSULE PO (09:01)
[2022-09-17] MEDS: Omeprazole 20 MG CAPSULE.DR PO (09:01)
[2022-09-17] MEDS: LORazepam 0.5 MG TABLET PO (09:01)
[2022-09-17] MEDS: methADONE HCl 20 MG/2 ML ORAL.CONC 35 MG PO (09:03)
--- NOTE | 2022-09-17 13:57 | PHA.MEDREC ---
Pharmacy Consult ? Medication Reconciliation Pharmacy has completed the medication reconciliation. 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 She states she is only taking the medications she was prescribed last time she was here (09/04/22). Used discharge summary and claim history to find which medications she is currently taking and complete medication reconciliation.
[2022-09-17 14:00] VITALS: RESP 16
[2022-09-17] MEDS: QUEtiapine Fumarate 200 MG TABLET PO (20:17)
[2022-09-17] MEDS: Acetaminophen 325 MG TABLET 650 MG PO (20:17)
[2022-09-17] MEDS: Lithium Carbonate ER 300 MG TABLET.ER 600 MG PO (20:17)
[2022-09-18 05:44] VITALS: BP 145/89; PULSE 89; RESP 17; TEMP 36.8; O2SAT 97
--- NOTE | 2022-09-18 07:12 | PC.NURSE ---
assumed care of patient, pt resting comfortably in bed, sec [address], methadone verified by pharmacy, plan for re-eval today
[2022-09-18 07:45] VITALS: BP 138/86; PULSE 83; RESP 16; TEMP 36.5; O2SAT 98
[2022-09-18] MEDS: Nicotine 14 MG PATCH.TD24 TRANSDERMA (08:00)
[2022-09-18] MEDS: Lithium Carbonate ER 450 MG TABLET.ER PO (08:00)
[2022-09-18] MEDS: methADONE HCl 20 MG/2 ML ORAL.CONC 35 MG PO (08:00)
--- NOTE | 2022-09-18 11:40 | PC.NURSE ---
attempted to call RN to RN report x2 at [facility], left direct callback number.
--- NOTE | 2022-09-18 11:47 | PC.NURSE ---
patient to [facility] by EMS
== END 2022-09-18 11:47 ==
PROVIDERS: Nurse Practitioner Family; Emergency Provider Emergency Medicine
DX: R45.851 Suicidal ideations (principal); F31.9 Bipolar disorder, unspecified; F11.20 Opioid dependence, uncomplicated; F19.10 Other psychoactive substance abuse, uncomplicated; F17.210 Nicotine dependence, cigarettes, uncomplicated; Z79.899 Other long term (current) drug therapy; Z20.822 Contact with and (suspected) exposure to COVID-19
CPT/HCPCS: 80307; 81003; 87635; 99285; S9485

== ENCOUNTER 2022-12-16 10:26 | Emergency (ER) | payer OTHER, SELFPAY ==
[2022-12-16 11:29] VITALS: BP 149/108; PULSE 95; RESP 18; TEMP 36.1; O2SAT 100; BMI 25.0
--- NOTE | 2022-12-16 11:34 | ED.GENADULT ---
HPI - General Adult General Chief complaint: Psychiatric Symptoms Stated complaint: med refill Time Seen by Provider: 12/16/22 11:05 Source: patient, RN notes reviewed, old records reviewed and historic interpreter Mode of arrival: ambulatory Limitations: language barrier History of Present Illness HPI narrative: 42 old female presents for evaluation of medication refilled. She has paperwork that she was discharged from [facility] yesterday She read a program without any real medications and she came here to get medication refill However during the initial evaluation the patient reports that she does not want to go back to the program and fact she does not want to live any longer She expresses passive suicidal ideation She does have a letter stating that she takes methadone 40 mg daily and her last dose was yesterday morning Related Data Home Medications Medication Instructions Recorded Confirmed cyclobenzaprine 10 mg tablet 10 mg PO BID PRN Spasms 12/16/22 12/16/22 cyclobenzaprine 10 mg tablet 15 mg PO BEDTIME 12/16/22 12/16/22 duloxetine 20 mg capsule,delayed 20 mg PO DAILY 12/16/22 12/16/22 release sprinkle duloxetine 60 mg capsule,delayed 60 mg PO DAILY 12/16/22 12/16/22 release sprinkle gabapentin 300 mg capsule 300 mg PO TID 12/16/22 12/16/22 (Neurontin) hydroxyzine pamoate 25 mg capsule 25 mg PO BID PRN Anxiety 12/16/22 12/16/22 melatonin 10 mg PO NEEDED PRN Insomnia 12/16/22 12/16/22 methadone 40 mg PO DAILY 12/16/22 12/16/22 nicotine 14 mg topical DAILY 12/16/22 12/16/22 pantoprazole 40 mg tablet,delayed 40 mg PO DAILY@0630 12/16/22 12/16/22 release propranolol 10 mg tablet 5 mg PO TID 12/16/22 12/16/22 quetiapine 400 mg tablet 400 mg PO BEDTIME 12/16/22 12/16/22 quetiapine 50 mg tablet 50 mg PO BID PRN Agitation 12/16/22 12/16/22 trazodone 50 mg PO BEDTIME PRN Insomnia 12/16/22 12/16/22 Allergies Allergy/AdvReac Type Severity Reaction Status Date / Time No Known Allergies Allergy Verified 08/29/22 20:24 [No Known Allergies*] Review of Systems Constitutional: Constitutional: Reports as per HPI, Denies chills and Denies fever(s) Cardiovascular: Cardiovascular: Denies chest pain and Denies dyspnea Respiratory: Respiratory: Denies cough and Denies dyspnea Gastrointestinal: Gastrointestinal: Denies abdominal pain, Denies constipation and Denies vomiting Genitourinary: Genitourinary: Denies dysuria Psychiatric: Psychiatric: Reports anxiety, Reports depression and Reports suicidal ideation [facility] Past Medical History Medical History Bipolar disorder Carpal tunnel syndrome Chronic neck and back pain Cigarette nicotine dependence Fibromyalgia GERD (gastroesophageal reflux disease) Opioid use disorder Osteoarthritis of multiple joints Routine medical exam Family History Family History Son Autism Social History Social History Household Members: Children Household Members Other:: 3 Housing: Apartment Alcohol intake: unknown Patient Tobacco Use Status: Current everyday Tobacco user e-Cigarette/Vaping Use: Currently Using Substance Use Type: Crack/Cocaine, Heroin and Marijuana Advance Directives: No service: No Sexual orientation: Straight/Heterosexual Physical Exam ED Vital Signs: Vital Signs - 24 hr 12/16/22 11:29 12/16/22 13:00 12/16/22 14:36 Temperature 97 F 98.4 F Pulse Rate 95 98 88 Respiratory Rate 18 16 16 Blood Pressure 149/108 H 140/92 H 129/91 H Pulse Oximetry 100 100 100 Oxygen Delivery Method Room Air Room Air Room Air BMI result Body Mass Index 25.0 Const General: healthy appearing, comfortable, no acute distress, alert and awake Nutritional Appearance: well nourished Orientation/consciousness: patient oriented x3 HENMT Head: Yes normocephalic and Yes atraumatic Throat: Yes posterior oropharynx normal Eyes Eyelids: Yes eyelids normal Conjunctivae: conjunctivae normal Sclerae: sclerae normal Corneas: corneas normal Pupils: Equal, round and reactive pupils present EOM: EOMs intact bilaterally Neck Neck: Yes full ROM Resp Effort & Inspection: normal respiratory effort, able to speak in complete sentences, no audible wheezes and not labored Auscultation: clear to auscultation bilaterally Cardio Rate: regular rate Rhythm: regular rhythm Skin General skin exam: no rashes or lesions noted and elasticity normal Neuro General: patient oriented x3 Cranial nerves: Yes Equal, round and reactive pupils present and Yes Bilaterally intact EOM present Cognition (Neuro): normal cognition Extrem Other: Moving all extremities well without any obvious deformities Psych Appearance: grossly normal and well kempt Mental Status: mental status grossly normal Affect: Sad affect present Attitude: Guarded attititude/behavior present Thought content: Suicidality present Course Reevaluation(s) Reevaluation #1: [place] [id number]. However she has no somatic complaints including cough, shortness of breath or urinary complaints. No further workup indicated at this time. The patient is medically cleared for crisis evaluation Time: 12:57 Reevaluation #2: Patient seen by crisis and cleared for discharge. However when Altagracia from crisis was trying to get the patient back to her program for substance abuse they reported that they do not have any Wolof-speaking staff on the over night and that is 1 of the reasons why the patient was upset. Will keep the patient here to get medications for tonight, tomorrow morning and she will hopefully be discharged back to her program tomorrow morning. Time: 16:02 Medications Administered Generic Name Dose Route Start Last Admin Trade Name Freq PRN Reason Stop Dose Admin Gabapentin 300 mg 12/16/22 15:00 12/16/22 14:08 Gabapentin 300 Mg Capsule PO 300 mg TID FELIPE Administration Hydroxyzine HCl 25 mg 12/16/22 12:58 12/16/22 14:08 Hydroxyzine Hcl 25 Mg Tablet PO 25 mg BID PRN Administration Anxiety Propranolol HCl 5 mg 12/16/22 15:00 12/16/22 14:51 Propranolol Hcl 10 Mg Tablet PO 5 mg TID FELIPE Administration Protocol Medical Decision Making Medical Decision Making MDM Narrative: The patient initially checked in for a medication refill. She has a list of medications and a note from her program requesting 2 days of medications as her pharmacy will be closed until Sunday. However during my evaluation the patient expressed suicidality. She will be brought to a behavioral health pod. She will require a crisis evaluation. Differential Diagnosis Bipolar disorder Depression Suicidal ideation Medication refill Lab Data 12/16/22 12:00 12/16/22 12:00 Labs: Lab Results 04/22/23 04/22/23 04/22/23 Range/Units 12:00 12:00 12:14 WBC 17.5 H (4.8-10.8) X10*3/uL RBC 4.94 (4.20-5.50) X10*6/uL Hgb 13.3 (12.0-16.0) g/dl Hct 41.2 (37.0-47.0) % MCV 83.4 (80.0-98.0) fL MCH 26.9 L (27.0-33.0) pg MCHC 32.3 (31.0-35.0) g/dl RDW 13.9 (11.0-16.0) % Plt Count 413 H (160-400) X10*3/uL MPV 9.4 (9.4-12.3) fL Immature Gran % (Auto) 0.8 H (0.0-0.4) % Neut % (Auto) 81.1 H (45-73) % Lymph % (Auto) 12.8 L (20-40) % [place] % (Auto) 3.8 (2-11) % Eos % (Auto) 1.2 (0-4) % Baso % (Auto) 0.3 (0-2) % Lymph # (Auto) 2.2 (1.2-4.9) X10*3/uL [place] # (Auto) 0.7 (0.1-1.2) X10*3/uL Eos # (Auto) 0.2 (0.0-0.4) X10*3/uL Baso # (Auto) 0.1 (0.0-0.2) X10*3/uL Abs Immat Gran (auto) 0.14 H (0.00-0.03) X10*3/uL Absolute Neuts (auto) 14.2 H (2.0-8.3) x10*3/uL Absolute Nucleated RBC 0.000 (0.0-0.012) X10*3/uL Nucleated RBC % (auto) 0.0 (0.0-0.2) /100WBC Sodium 134 L (135-145) mmol/L Potassium 5.0 D (3.3-5.1) mmol/L Chloride 101 (96-108) mmol/L Carbon Dioxide 25 (22-29) mmol/L Anion Gap 13 (12-20) BUN 14 (9-16) mg/dL Creatinine 0.77 (0.5-1.4) mg/dL Estim Creat Clear Calc 88.1 Estimated GFR > 60 Random Glucose 117 H (60-115) mg/dL Calcium 9.8 (8.4-10.2) mg/dL Total Bilirubin 0.4 (0.0-1.0) mg/dL AST 23 (5-31) U/L ALT 42 H (0-31) U/L Alkaline Phosphatase 109 (39-117) U/L Total Protein 7.7 (6.5-8.0) g/dL Albumin 4.5 (3.5-5.0) g/dL Urine Test NEGATIVE (NEGATIVE) Salicylates < 5.0 L (15-30) mg/dL Urine Opiates Screen (Not Detect) Urine Fentanyl Screen (Not Detect) Acetaminophen < 17 (<30) mcg/mL Ur Barbiturates Screen (Not Detect) Ur Phencyclidine Scrn (Not Detect) Ur Amphetamines Screen (Not Detect) U Benzodiazepines Scrn (Not Detect) Urine Cocaine Screen (Not Detect) U Marijuana (THC) Screen (Not Detect) Ethyl Alcohol < 10 mg/dL COVID-19 ([place]) (Negative) COVID-19 Clin Com 12/16/22 12/16/22 Range/Units 12:14 12:49 WBC (4.8-10.8) X10*3/uL RBC (4.20-5.50) X10*6/uL Hgb (12.0-16.0) g/dl Hct (37.0-47.0) % MCV (80.0-98.0) fL MCH (27.0-33.0) pg MCHC (31.0-35.0) g/dl RDW (11.0-16.0) % Plt Count (160-400) X10*3/uL MPV (9.4-12.3) fL Immature Gran % (Auto) (0.0-0.4) % Neut % (Auto) (45-73) % Lymph % (Auto) (20-40) % [place] % (Auto) (2-11) % Eos % (Auto) (0-4) % Baso % (Auto) (0-2) % Lymph # (Auto) (1.2-4.9) X10*3/uL [place] # (Auto) (0.1-1.2) X10*3/uL Eos # (Auto) (0.0-0.4) X10*3/uL Baso # (Auto) (0.0-0.2) X10*3/uL Abs Immat Gran (auto) (0.00-0.03) X10*3/uL Absolute Neuts (auto) (2.0-8.3) x10*3/uL Absolute Nucleated RBC (0.0-0.012) X10*3/uL Nucleated RBC % (auto) (0.0-0.2) /100WBC Sodium (135-145) mmol/L Potassium (3.3-5.1) mmol/L Chloride (96-108) mmol/L Carbon Dioxide (22-29) mmol/L Anion Gap (12-20) BUN (9-16) mg/dL Creatinine (0.5-1.4) mg/dL Estim Creat Clear Calc Estimated GFR Random Glucose (60-115) mg/dL Calcium (8.4-10.2) mg/dL Total Bilirubin (0.0-1.0) mg/dL AST (5-31) U/L ALT (0-31) U/L Alkaline Phosphatase (39-117) U/L Total Protein (6.5-8.0) g/dL Albumin (3.5-5.0) g/dL Urine Test (NEGATIVE) Salicylates (15-30) mg/dL Urine Opiates Screen Not Detected (Not Detect) Urine Fentanyl Screen POSITIVE H (Not Detect) Acetaminophen (<30) mcg/mL Ur Barbiturates Screen Not Detected (Not Detect) Ur Phencyclidine Scrn Not Detected (Not Detect) Ur Amphetamines Screen Not Detected (Not Detect) U Benzodiazepines Scrn Not Detected (Not Detect) Urine Cocaine Screen Not Detected (Not Detect) U Marijuana (THC) Screen Not Detected (Not Detect) Ethyl Alcohol mg/dL COVID-19 ([place]) Negative (Negative) COVID-19 Clin Com See Note Discharge Plan Discharge Clinical Impression: Bipolar disorder Patient Disposition: Still a Patient Prescriptions: No Action melatonin 10 mg PO NEEDED PRN (Reason: Insomnia) cyclobenzaprine 10 mg Tablet 10 mg PO BID PRN (Reason: Spasms) cyclobenzaprine 10 mg Tablet 15 mg PO BEDTIME duloxetine 20 mg Capsule, Delayed Rel Sprinkle 20 mg PO DAILY duloxetine 60 mg Capsule, Delayed Rel Sprinkle 60 mg PO DAILY hydroxyzine pamoate 25 mg Capsule 25 mg PO BID PRN (Reason: Anxiety) methadone 10 mg/5 ml solution 40 mg PO DAILY nicotine 14 mg patch 14 mg topical DAILY pantoprazole 40 mg Tablet,Delayed Release (Dr/Ec) 40 mg PO DAILY@0630 propranolol 10 mg Tablet 5 mg PO TID quetiapine 400 mg Tablet 400 mg PO BEDTIME quetiapine 50 mg Tablet 50 mg PO BID PRN (Reason: Agitation) gabapentin [Neurontin] 300 mg Capsule 300 mg PO TID trazodone 50 mg tablet 50 mg PO BEDTIME PRN (Reason: Insomnia) Interventions: [place]-Suicide Risk Severity Scale Last Done: 12/16/22 13:52
--- NOTE | 2022-12-16 11:39 | ECG_ITS ---
Test Reason : qtc Blood Pressure : / mmHG Vent. Rate : 097 BPM Atrial Rate : 097 BPM P-R Int : 126 ms QRS Dur : 078 ms QT Int : 380 ms P-R-T Axes : 045 059 046 degrees QTc Int : 482 ms Normal sinus rhythm Prolonged QT Abnormal ECG When compared with ECG of 14-SEP-2022 01:08, No significant changes seen Referred By: Bassem Scott Electronically Signed By:DANK OROZCO
--- NOTE | 2022-12-16 11:41 | PC.NURSE ---
pt tearful, minimally contributory during triage
--- NOTE | 2022-12-16 12:10 | PC.NURSE ---
pt changed into hospital attire, med rec completed- plan is to go to pod
[2022-12-16 12:15] LABS: MANUAL DIFF FLAG NO
[2022-12-16 12:16] LABS: Basophils Absolute Auto 0.1 X10*3/uL (0.0-0.2); Basophils Percent Auto 0.3 % (0-2); Eosinophils Absolute Auto 0.2 X10*3/uL (0.0-0.4); Eosinophils Percent Auto 1.2 % (0-4); Hematocrit 41.2 % (37.0-47.0); Hemoglobin 13.3 g/dl (12.0-16.0); Imm Gran Abs Auto 0.14 X10*3/uL (0.00-0.03); Imm Gran Pct Auto 0.8 % (0.0-0.4); Lymphocytes Absolute Auto 2.2 X10*3/uL (1.2-4.9); Lymphocytes Percent Auto 12.8 % (20-40); Mean Corpuscular HGB Conc 32.3 g/dl (31.0-35.0); Mean Corpuscular Hemoglobin 26.9 pg (27.0-33.0); Mean Corpuscular Volume 83.4 fL (80.0-98.0); Mean Platelet Volume 9.4 fL (9.4-12.3); Monocytes Absolute Auto 0.7 X10*3/uL (0.1-1.2); Monocytes Percent Auto 3.8 % (2-11); Neutrophils Absolute Auto 14.2 x10*3/uL (2.0-8.3); Neutrophils Percent Auto 81.1 % (45-73); Platelet Count 413 X10*3/uL (160-400); Red Blood Count 4.94 X10*6/uL (4.20-5.50); Red Cell Distribution Width 13.9 % (11.0-16.0); White Blood Count 17.5 X10*3/uL (4.8-10.8)
[2022-12-16 12:27] LABS: UPreg QC Valid YES; Urine Pregnancy NEGATIVE (NEGATIVE)
[2022-12-16 12:32] LABS: Amphetamine Screen Urine Not Detected (Not Detect); Barbiturates, Urine Not Detected (Not Detect); Benzodiazepines Screen Urine Not Detected (Not Detect); Cannabinoid Screen Urine Not Detected (Not Detect); Cocaine Screen Urine Not Detected (Not Detect); Fentanyl, urine POSITIVE (Not Detect); Opiate Screen Urine Not Detected (Not Detect); Phencyclidine Screen Urine Not Detected (Not Detect)
[2022-12-16 12:34] LABS: Acetaminophen LAB < 17 mcg/mL (<30); Alanine Aminotransferase 42 U/L (0-31); Albumin Level 4.5 g/dL (3.5-5.0); Alkaline Phosphatase 109 U/L (39-117); Anion Gap 13 (12-20); Aspartate Amino Transferase 23 U/L (5-31); Bilirubin Total 0.4 mg/dL (0.0-1.0); Blood Urea Nitrogen 14 mg/dL (9-16); Calcium 9.8 mg/dL (8.4-10.2); Carbon Dioxide 25 mmol/L (22-29); Chloride 101 mmol/L (96-108); Creatinine Clr Calc Pharmacy 88.1; Estimated Glomerular Filt Rate > 60; Ethanol < 10 mg/dL; Glucose Random 117 mg/dL (60-115); Salicylate < 5.0 mg/dL (15-30); Sodium 134 mmol/L (135-145); Total Protein 7.7 g/dL (6.5-8.0)
[2022-12-16 13:00] VITALS: BP 140/92; PULSE 98; RESP 16; TEMP 36.9; O2SAT 100
--- NOTE | 2022-12-16 13:05 | MHC.CARE ---
Care team SW contacted [facility] and left a message asking for a call back.
--- NOTE | 2022-12-16 13:09 | HE.PHANOTE ---
Re: methadone verification [facility] faxed verification of last methadone dose. 12/15/22 pt rec'd 40 mg. Signed by Ministerio Carr MD.
--- NOTE | 2022-12-16 13:12 | MHC.CARE ---
Addendum entered by Jeanine Villanueva 12/16/22 13:29: Care team spoke to Pt(only speaks Australian) who reported that she was IPLOC at [facility] on the 5th floor, APTU and was discharged yesterday. She felt that she did not receive the treatment she needed and stated that she did not want to live. Original Note: Care team Sw contacted [facility] and spoke to Marnie at Crisis regarding whether Pt was seen at [facility] yesterday. Marnie stated that she needed a release to discuss this PT. Care team stated that the question was if she was seen by crisis or for medical purposes as its unclear. It was noted that she had been evaluated on November 23, 2022 and was found to need IPLOC due to SI. She was not on their psych Facility.
[2022-12-16 13:15] LABS: COVID-19 Test Negative (Negative); IDNOW Serial# 08D9AD1C
--- NOTE | 2022-12-16 13:23 | PHA.MEDREC ---
Pharmacy Consult ? Medication Reconciliation Pharmacy has completed the medication reconciliation. Reviewed med rec done by nursing (Daisy).
[2022-12-16] MEDS: hydrOXYzine HCL 25 MG TABLET PO (14:08)
[2022-12-16] MEDS: Gabapentin 300 MG CAPSULE PO ×2 (14:08→19:53)
[2022-12-16 14:36] VITALS: BP 129/91; PULSE 88; RESP 16; O2SAT 100
[2022-12-16] MEDS: Propranolol HCL 10 MG TABLET 5 MG PO ×2 (14:51→19:53)
--- NOTE | 2022-12-16 16:10 | MHC.CARE ---
Patient evaluated by the CARE Team, she does not require an inpatient psychiatric admission at this time. Plan is for her to spend the night in the ED and CARE Team will coordinate returning to the [facility] program tomorrow morning, [facility] will call in medications to [facility] on [address] in at discharge to last through Sunday they will be delivered to the program by [facility]. ED Provider, QUEENIE Black and Britta staff both updated and in agreement with plan of care, POD staff updated as well. Written assessment to follow.
[2022-12-16 17:43] LABS: Appearance Urine Clear; Color Urine Yellow; Glucose Urine UA Negative (Negative); Leukocyte Esterase Urine Negative (Negative); Nitrite Urine Negative (Negative); Urine Blood Negative (Negative); Urine Ketones Negative (Negative); Urine Protein Negative (Neg-Trace)
[2022-12-16] MEDS: QUEtiapine Fumarate 50 MG TABLET PO (17:46)
[2022-12-16 17:48] LABS: Bacteria Urine None Seen (None Seen); Hyaline Casts Urine 0-2 /LPF (0-2); RBC Urine 0-2 /HPF (0-2); Squamous Epithelial Cell Urine 0-2 /HPF (0-2); WBC Urine 0-5 /HPF (0-5)
[2022-12-16] MEDS: Cyclobenzaprine HCl 5 MG TABLET 15 MG PO (19:53)
[2022-12-16] MEDS: QUEtiapine Fumarate 400 MG TABLET PO (19:53)
[2022-12-16 19:57] VITALS: BP 136/95; PULSE 83; RESP 18; TEMP 36.7; O2SAT 100
--- NOTE | 2022-12-17 04:44 | PC.NURSE ---
Patient slept through the night, no distress observed/reported, behavior non concerning, medication compliant, VSS, patient assessed by care team, disposition discharge back to [facility], care team will coordinate the discharge, will continue to monitor
[2022-12-17 06:12] VITALS: BP 111/78; PULSE 95; RESP 15; TEMP 37.1; O2SAT 99
[2022-12-17 09:06] VITALS: BP 113/79; PULSE 86; RESP 18; TEMP 36.9; O2SAT 98
[2022-12-17] MEDS: methADONE HCl 20 MG/2 ML ORAL.CONC 40 MG PO (09:57)
[2022-12-17] MEDS: Propranolol HCL 10 MG TABLET 5 MG PO (09:58)
[2022-12-17] MEDS: Gabapentin 300 MG CAPSULE PO (09:58)
[2022-12-17] MEDS: Omeprazole 20 MG CAPSULE.DR PO (09:58)
[2022-12-17] MEDS: hydrOXYzine HCL 25 MG TABLET PO (09:58)
--- NOTE | 2022-12-17 13:11 | MHC.CARE ---
Call to Britta and coordinated the discharge with staff Faye (who is Bilingual) and can support patient with the transition and a Miter Grinder Operator, Gladis, they are both aware that patient is emotionally dysregulated but not in need of inpatient treatment. Spoke to patient with medical transcription radiology this morning, she continued to be tearful and perseverate on the past but agreed to the discharge plan of returning to the program today. She did calm considerably once she was out of bed and dressed. ABHAY arranged for patient to [address] [place] [address] ED provider, Dr. Arthur updated
== END 2022-12-17 12:35 | disposition home or self-care (01) ==
PROVIDERS: Emergency Medicine Emergency Medical Services; Physician Assistant; Emergency Provider Emergency Medicine
DX: F31.9 Bipolar disorder, unspecified (principal); R45.851 Suicidal ideations; Z20.822 Contact with and (suspected) exposure to COVID-19; F11.20 Opioid dependence, uncomplicated; F17.210 Nicotine dependence, cigarettes, uncomplicated; Z79.899 Other long term (current) drug therapy
CPT/HCPCS: 36415; 80053; 80143; 80179; 80307; 81001; 81025; 82077; 85025; 87635; 93005; 99285; S9485

== ENCOUNTER 2022-12-29 09:32 | Inpatient (IN) | payer OTHER, SELFPAY ==
--- NOTE | 2022-12-29 | ECG_ITS ---
Test Reason : CHECK PROLONG QT Blood Pressure : / mmHG Vent. Rate : 089 BPM Atrial Rate : 089 BPM P-R Int : 150 ms QRS Dur : 078 ms QT Int : 392 ms P-R-T Axes : 047 054 056 degrees QTc Int : 476 ms Normal sinus rhythm Normal ECG When compared with ECG of 16-DEC-2022 11:53, No significant change was found Referred By: Maik Thomas Electronically Signed By:ANNALEE NASH MD
[2022-12-29 09:42] VITALS: BP 137/92; BP 162/110; PULSE 111; PULSE 118; RESP 18; TEMP 37.4; O2SAT 94; O2SAT 98
--- NOTE | 2022-12-29 09:55 | ED_ITS ---
HPI - Psych General Chief Complaint: Psychiatric Symptoms Stated Complaint: si w/hallucinations Time Seen by Provider: 12/29/22 09:41 Source: patient Mode of arrival: ambulatory Limitations: no limitations History of Present Illness HPI Narrative: This is 42 years old of female presented to emergency department by ambulance complaining of hallucination, she has history of bipolar disorder, she thinks her is stealing from her room at the skilled nursing complaint: feels depressed Onset (ago): day(s) (2) Duration: constant Relieving factors: none Exacerbating factors: none Associated symptoms: denies other symptoms Related Data Home Medications Medication Instructions Recorded Confirmed cyclobenzaprine 10 mg tablet 10 mg PO TID PRN muscle spasm 12/29/22 12/29/22 duloxetine 30 mg capsule,delayed 20 mg PO DAILY 12/29/22 12/29/22 release duloxetine 60 mg capsule,delayed 60 mg PO DAILY 12/29/22 12/29/22 release gabapentin 300 mg capsule 300 mg PO TID 12/29/22 12/29/22 hydroxyzine HCl 25 mg tablet 25 mg PO BEDTIME PRN anxiety 12/29/22 12/29/22 pantoprazole 40 mg tablet,delayed 40 mg PO DAILY 12/29/22 12/29/22 release quetiapine 400 mg tablet 400 mg PO BEDTIME 12/29/22 12/29/22 trazodone 50 mg tablet 50 mg PO BEDTIME PRN insomnia 12/29/22 12/29/22 Allergies Allergy/AdvReac Type Severity Reaction Status Date / Time No Known Allergies Allergy Verified 08/29/22 20:24 [No Known Allergies*] Review of Systems Constitutional: Constitutional: Reports no additional constitutional complaints ENT: Reports system reviewed and no additional complaints, except as documented Respiratory: Respiratory: Reports no additional respiratory complaints [facility] Past Medical History Medical History Bipolar disorder Carpal tunnel syndrome Chronic neck and back pain Cigarette nicotine dependence Fibromyalgia GERD (gastroesophageal reflux disease) Opioid use disorder Osteoarthritis of multiple joints Routine medical exam Family History Family History Son Autism Social History Social History Household Members: Children Household Members Other:: 3 Housing: Apartment Alcohol intake: unknown Patient Tobacco Use Status: Current everyday Tobacco user e-Cigarette/Vaping Use: Currently Using Substance Use Type: Crack/Cocaine, Heroin and Marijuana Advance Directives: No Advance Directives Information Provided: Yes Healthcare Proxy: No Guardian: No service: No Sexual orientation: Straight/Heterosexual Physical Exam Vital Signs: Vital Signs: Last Vital Signs Temp 99.4 F 12/29/22 09:42 Pulse 111 H 12/29/22 09:42 Resp 18 12/29/22 09:42 BP 137/92 H 12/29/22 09:42 Pulse Ox 94 12/29/22 09:42 O2 Del Method Room Air 12/29/22 09:42 BMI result Body Mass Index 30.0 Const: General: cooperative Nutritional Appearance: well nourished Orientation/consciousness: patient oriented x3 Limitations: no limitations HEENT: Head: Yes normal to inspection Ears: hearing grossly normal bilater ally General nose exam: Normal external nose present Mouth: Normal oral and palatal mucosa present Neck: Neck: Yes normal visual inspection Resp: Effort & Inspection: normal respiratory effort and able to speak in complete sentences Auscultation: clear to auscultation bilaterally Cardio: Jugular venous distension: no JVD Rate: regular rate Rhythm: regular rhythm Heart sounds: S1 normal heart sound present and S2 normal heart sound present GI: Inspection: Yes normal to inspection Palpation (GI): Soft to palpation, not firm, nontender and no guarding Percussion: Yes normal to percussion Auscultation: normal bowel sounds Skin: General skin exam: no rashes or lesions noted and elasticity normal Neuro: General: patient oriented x3 and CN's II-XI intact bilaterally Psych: Speech and movement: Clear speech present Affect: normal affect Attitude: cooperative Thought process: Racing thoughts present Thought content: Paranoid delusions present Course Reevaluation(s) Reevaluation #1: seen by crisis pt is inpatient level of care ,will be signed out at 4 PM to the next attending DR Em Time: 15:25 Medications Administered Generic Name Dose Route Start Last Admin Trade Name Freq PRN Reason Stop Dose Admin Gabapentin 300 mg 12/29/22 15:00 12/29/22 14:20 Gabapentin 300 Mg Capsule PO 300 mg TID FELIPE Administration Medical Decision Making Lab Data 12/29/22 10:47 12/29/22 10:47 Labs: Lab Results 12/29/22 12/29/22 12/29/22 Range/Units 10:09 10:09 10:47 WBC 8.1 (4.8-10.8) X10*3/uL RBC 4.53 (4.20-5.50) X10*6/uL Hgb 12.2 (12.0-16.0) g/dl Hct 39.1 (37.0-47.0) % MCV 86.3 (80.0-98.0) fL MCH 26.9 L (27.0-33.0) pg MCHC 31.2 (31.0-35.0) g/dl RDW 14.1 (11.0-16.0) % Plt Count 320 (160-400) X10*3/uL MPV 9.3 L (9.4-12.3) fL Immature Gran % (Auto) 0.4 (0.0-0.4) % Neut % (Auto) 59.8 (45-73) % Lymph % (Auto) 29.9 (20-40) % [place] % (Auto) 5.6 (2-11) % Eos % (Auto) 3.2 (0-4) % Baso % (Auto) 1.1 (0-2) % Lymph # (Auto) 2.4 (1.2-4.9) X10*3/uL [place] # (Auto) 0.5 (0.1-1.2) X10*3/uL Eos # (Auto) 0.3 (0.0-0.4) X10*3/uL Baso # (Auto) 0.1 (0.0-0.2) X10*3/uL Abs Immat Gran (auto) 0.03 (0.00-0.03) X10*3/uL Absolute Neuts (auto) 4.8 (2.0-8.3) x10*3/uL Absolute Nucleated RBC 0.000 (0.0-0.012) X10*3/uL Nucleated RBC % (auto) 0.0 (0.0-0.2) /100WBC Sodium (135-145) mmol/L Potassium (3.3-5.1) mmol/L Chloride (96-108) mmol/L Carbon Dioxide (22-29) mmol/L Anion Gap (12-20) BUN (9-16) mg/dL Creatinine (0.5-1.4) mg/dL Estim Creat Clear Calc Estimated GFR Random Glucose (60-115) mg/dL Calcium (8.4-10.2) mg/dL Total Bilirubin (0.0-1.0) mg/dL AST (5-31) U/L ALT (0-31) U/L Alkaline Phosphatase (39-117) U/L Total Protein (6.5-8.0) g/dL Albumin (3.5-5.0) g/dL Urine Opiates Screen Not Detected (Not Detect) Urine Fentanyl Screen Not Detected (Not Detect) Ur Barbiturates Screen Not Detected (Not Detect) Ur Phencyclidine Scrn Not Detected (Not Detect) Ur Amphetamines Screen Not Detected (Not Detect) U Benzodiazepines Scrn Not Detected (Not Detect) Urine Cocaine Screen Not Detected (Not Detect) U Marijuana (THC) Screen Not Detected (Not Detect) COVID-19 ([place]) Negative (Negative) COVID-19 Clin Com See Note 12/29/22 Range/Units 10:47 WBC (4.8-10.8) X10*3/uL RBC (4.20-5.50) X10*6/uL Hgb (12.0-16.0) g/dl Hct (37.0-47.0) % MCV (80.0-98.0) fL MCH (27.0-33.0) pg MCHC (31.0-35.0) g/dl RDW (11.0-16.0) % Plt Count (160-400) X10*3/uL MPV (9.4-12.3) fL Immature Gran % (Auto) (0.0-0.4) % Neut % (Auto) (45-73) % Lymph % (Auto) (20-40) % [place] % (Auto) (2-11) % Eos % (Auto) (0-4) % Baso % (Auto) (0-2) % Lymph # (Auto) (1.2-4.9) X10*3/uL [place] # (Auto) (0.1-1.2) X10*3/uL Eos # (Auto) (0.0-0.4) X10*3/uL Baso # (Auto) (0.0-0.2) X10*3/uL Abs Immat Gran (auto) (0.00-0.03) X10*3/uL Absolute Neuts (auto) (2.0-8.3) x10*3/uL Absolute Nucleated RBC (0.0-0.012) X10*3/uL Nucleated RBC % (auto) (0.0-0.2) /100WBC Sodium 137 (135-145) mmol/L Potassium 4.3 (3.3-5.1) mmol/L Chloride 103 (96-108) mmol/L Carbon Dioxide 27 (22-29) mmol/L Anion Gap 11 L (12-20) BUN 9 (9-16) mg/dL Creatinine 0.86 (0.5-1.4) mg/dL Estim Creat Clear Calc 89.0 Estimated GFR > 60 Random Glucose 140 H (60-115) mg/dL Calcium 9.2 D (8.4-10.2) mg/dL Total Bilirubin 0.4 (0.0-1.0) mg/dL AST 14 (5-31) U/L ALT 10 (0-31) U/L Alkaline Phosphatase 87 (39-117) U/L Total Protein 6.9 (6.5-8.0) g/dL Albumin 4.1 (3.5-5.0) g/dL Urine Opiates Screen (Not Detect) Urine Fentanyl Screen (Not Detect) Ur Barbiturates Screen (Not Detect) Ur Phencyclidine Scrn (Not Detect) Ur Amphetamines Screen (Not Detect) U Benzodiazepines Scrn (Not Detect) Urine Cocaine Screen (Not Detect) U Marijuana (THC) Screen (Not Detect) COVID-19 ([place]) (Negative) COVID-19 Clin Com Discharge Plan Discharge Clinical Impression: Bipolar disorder Patient Disposition: Still a Patient Prescriptions: No Action cyclobenzaprine 10 mg tablet 10 mg PO TID PRN (Reason: muscle spasm) trazodone 50 mg tablet 50 mg PO BEDTIME PRN (Reason: insomnia) pantoprazole 40 mg tablet,delayed release (DR/EC) 40 mg PO DAILY gabapentin 300 mg capsule 300 mg PO TID hydroxyzine HCl 25 mg tablet 25 mg PO BEDTIME PRN (Reason: anxiety) duloxetine 30 mg capsule,delayed release(DR/EC) 20 mg PO DAILY duloxetine 60 mg capsule,delayed release(DR/EC) 60 mg PO DAILY quetiapine 400 mg tablet 400 mg PO BEDTIME Interventions: [place]-Suicide Risk Severity Scale Last Done: 12/29/22 09:45
[2022-12-29 10:24] LABS: Amphetamine Screen Urine Not Detected (Not Detect); Barbiturates, Urine Not Detected (Not Detect); Benzodiazepines Screen Urine Not Detected (Not Detect); Cannabinoid Screen Urine Not Detected (Not Detect); Cocaine Screen Urine Not Detected (Not Detect); Fentanyl, urine Not Detected (Not Detect); Opiate Screen Urine Not Detected (Not Detect); Phencyclidine Screen Urine Not Detected (Not Detect)
[2022-12-29 10:39] LABS: COVID-19 Test Negative (Negative); IDNOW Serial# BCCEAD1C
[2022-12-29 10:51] LABS: MANUAL DIFF FLAG NO
[2022-12-29 10:55] LABS: Basophils Absolute Auto 0.1 X10*3/uL (0.0-0.2); Basophils Percent Auto 1.1 % (0-2); Eosinophils Absolute Auto 0.3 X10*3/uL (0.0-0.4); Eosinophils Percent Auto 3.2 % (0-4); Hematocrit 39.1 % (37.0-47.0); Hemoglobin 12.2 g/dl (12.0-16.0); Imm Gran Abs Auto 0.03 X10*3/uL (0.00-0.03); Imm Gran Pct Auto 0.4 % (0.0-0.4); Lymphocytes Absolute Auto 2.4 X10*3/uL (1.2-4.9); Lymphocytes Percent Auto 29.9 % (20-40); Mean Corpuscular HGB Conc 31.2 g/dl (31.0-35.0); Mean Corpuscular Hemoglobin 26.9 pg (27.0-33.0); Mean Corpuscular Volume 86.3 fL (80.0-98.0); Mean Platelet Volume 9.3 fL (9.4-12.3); Monocytes Absolute Auto 0.5 X10*3/uL (0.1-1.2); Monocytes Percent Auto 5.6 % (2-11); Neutrophils Absolute Auto 4.8 x10*3/uL (2.0-8.3); Neutrophils Percent Auto 59.8 % (45-73); Platelet Count 320 X10*3/uL (160-400); Red Blood Count 4.53 X10*6/uL (4.20-5.50); Red Cell Distribution Width 14.1 % (11.0-16.0); White Blood Count 8.1 X10*3/uL (4.8-10.8)
[2022-12-29 11:11] LABS: Alanine Aminotransferase 10 U/L (0-31); Albumin Level 4.1 g/dL (3.5-5.0); Alkaline Phosphatase 87 U/L (39-117); Anion Gap 11 (12-20); Aspartate Amino Transferase 14 U/L (5-31); Bilirubin Total 0.4 mg/dL (0.0-1.0); Blood Urea Nitrogen 9 mg/dL (9-16); Calcium 9.2 mg/dL (8.4-10.2); Carbon Dioxide 27 mmol/L (22-29); Chloride 103 mmol/L (96-108); Estimated Glomerular Filt Rate > 60; Glucose Random 140 mg/dL (60-115); Potassium 4.3 mmol/L (3.3-5.1); Sodium 137 mmol/L (135-145); Total Protein 6.9 g/dL (6.5-8.0)
[2022-12-29] MEDS: Gabapentin 300 MG CAPSULE PO ×2 (14:20→21:14)
[2022-12-29 16:00] VITALS: BP 102/61; PULSE 82; RESP 16; TEMP 36.8; O2SAT 99
[2022-12-29 16:55] LABS: Appearance Urine Clear; Color Urine Yellow; Glucose Urine UA Negative (Negative); Leukocyte Esterase Urine Negative (Negative); Nitrite Urine Negative (Negative); Urine Blood Negative (Negative); Urine Ketones Negative (Negative); Urine Protein Negative (Neg-Trace)
[2022-12-29] MEDS: QUEtiapine Fumarate 400 MG TABLET PO (21:14)
--- NOTE | 2022-12-29 21:27 | MHC.EDTECH ---
pt requesting a sandwich and josé antonino. Food given ,vital signs taken. Patient resting comfortably at this time
[2022-12-30 00:10] VITALS: BP 187/115; PULSE 83; RESP 16; TEMP 36.6; O2SAT 98
[2022-12-30] MEDS: hydrOXYzine HCL 25 MG TABLET PO (00:25)
[2022-12-30] MEDS: traZODone HCL 50 MG TABLET PO (00:25)
[2022-12-30] MEDS: Omeprazole 20 MG CAPSULE.DR PO (06:44)
[2022-12-30 07:31] LABS: Cholesterol 212 mg/dL; HDL Cholesterol 44 mg/dL; LDL Cholesterol Calculated 121 mg/dl; Triglycerides 239 mg/dL
[2022-12-30 07:46] LABS: Estimated Average Glucose 117 mg/dL; Hemoglobin A1c % 5.7 %
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
[2022-12-30] MEDS: DULoxetine HCl 20 MG CAPSULE.DR PO (09:36)
[2022-12-30] MEDS: Gabapentin 300 MG CAPSULE PO ×2 (09:36→19:59)
[2022-12-30] MEDS: DULoxetine HCl 60 MG CAPSULE.DR PO (09:36)
[2022-12-30] MEDS: LORazepam 1 MG TABLET PO (11:25)
[2022-12-30] MEDS: Lithium Carbonate ER 300 MG TABLET.ER PO ×2 (11:25→19:59)
[2022-12-30] MEDS: methADONE HCl 20 MG/2 ML ORAL.CONC 30 MG PO (13:25)
[2022-12-30] MEDS: Nicotine 21 MG PATCH.TD24 TRANSDERMA (13:57)
[2022-12-30] MEDS: Acetaminophen 325 MG TABLET 650 MG PO (15:57)
[2022-12-30 17:41] VITALS: BP 126/91; PULSE 111; TEMP 36.4; O2SAT 97
[2022-12-30] MEDS: QUEtiapine Fumarate 400 MG TABLET PO (19:59)
[2022-12-31] MEDS: Nicotine 21 MG PATCH.TD24 TRANSDERMA (08:56)
[2022-12-31] MEDS: Omeprazole 20 MG CAPSULE.DR PO (08:57)
[2022-12-31] MEDS: DULoxetine HCl 20 MG CAPSULE.DR PO (08:57)
[2022-12-31] MEDS: methADONE HCl 20 MG/2 ML ORAL.CONC 30 MG PO (08:57)
[2022-12-31] MEDS: DULoxetine HCl 60 MG CAPSULE.DR PO (08:57)
[2022-12-31] MEDS: Lithium Carbonate ER 300 MG TABLET.ER PO ×2 (08:57→19:33)
[2022-12-31] MEDS: Gabapentin 300 MG CAPSULE PO (08:58)
[2022-12-31 09:02] VITALS: BP 130/78; PULSE 106; RESP 18; TEMP 36.7; O2SAT 100
[2022-12-31] MEDS: hydrOXYzine HCL 25 MG TABLET PO (14:28)
--- NOTE | 2022-12-31 14:51 | P.PNPSI_ITS ---
Subjective Subjective Date of Service: 12/31/22 Reason For Visit: disorganized Interim History: Met with patient; discussed with team Patient says that passive SI has resolved however she remains quite depressed and tearful. She agrees to continuing medication regimen as discussed; radha ating lower dose of methadone continues to want to taper and discontinue Mental Status Exam Mental Status Exam Narrative: Pt is alert and oriented; behavior is cooperative, friendly but in emotional distress, tearful; dressed in casual attire with unkempt hair but adequate hygiene; mood is described as depressed and affect congruent, tearful, downcast; eye contact appropriate; Speech is normal rate, volume and prosody and not pressured; some psychomotor retardation present; thought process is mostly goal directed but can get circumstantial; Thought content is on depressed feelin gs, problematic relationship with ; some delusional thinking present; passive SI; no HI. Denies AVH Patients insight and judgment impaired Diagnostics Vital Signs (24Hr): Vital Signs - 24 hr 12/30/22 17:41 12/31/22 09:02 Temperature 97.6 F 98.0 F Pulse Rate 111 H 106 H Respiratory Rate 18 Blood Pressure 126/91 H 130/78 Pulse Oximetry 97 100 Oxygen Delivery Method Room Air Room Air BMI result Body Mass Index 30.0 Labs 12/29/22 10:47 12/29/22 10:47 Labs: Laboratory Results - last 48 hr 12/29/22 12/30/22 12/30/22 16:28 06:49 06:49 Estimat Average Glucose 117 Hemoglobin A1c % 5.7 Triglycerides 239 Cholesterol 212 LDL Cholesterol, Calc 121 HDL Cholesterol 44 Urine Color Yellow Urine Appearance Clear Urine pH 6.0 Ur Specific [place] 1.010 Urine Protein Negative Urine Glucose (UA) Negative Urine Ketones Negative Urine Blood Negative Urine Nitrite Negative Ur Leukocyte Esterase Negative Medications Medications Current Medications Acetaminophen (Acetaminophen 325 Mg Tablet) 650 mg PO Q6H PRN PRN Reason: Headache/Pain Mild Scale (1-3) Last Admin: 12/30/22 15:57 Dose: 650 mg Al Hydroxide/Mg Hydroxide (Magnesium Hydrox/Alum Hydrox 30 Ml Oral.Susp) 30 ml PO Q6H PRN PRN Reason: Heartburn/Nausea Cyclobenzaprine HCl (Cyclobenzaprine Hcl 10 Mg Tablet) 10 mg PO TID PRN PRN Reason: muscle spasm Duloxetine HCl (Duloxetine Hcl 20 Mg Capsule.Dr) 20 mg PO DAILY [facility] Last Admin: 12/31/22 08:57 Dose: 20 mg Duloxetine HCl (Duloxetine Hcl 60 Mg Capsule.) 60 mg PO DAILY [facility] Last Admin: 12/31/22 08:57 Dose: 60 mg Gabapentin (Gabapentin 300 Mg Capsule) 300 mg PO BID [facility] Last Admin: 12/31/22 08:58 Dose: 300 mg Hydroxyzine HCl (Hydroxyzine Hcl 25 Mg Tablet) 25 mg PO BEDTIME PRN PRN Reason: anxiety Last Admin: 12/31/22 14:28 Dose: 25 mg [place] Carbonate ([place] Carbonate Er 300 Mg Tablet.Er) 300 mg PO BID [facility] Last Admin: 12/31/22 08:57 Dose: 300 mg Magnesium Hydroxide (Milk Of Magnesia 30 Ml Oral.Susp) 30 ml PO DAILY PRN PRN Reason: Constipation Methadone HCl (Methadone Hcl 20 Mg/2 Ml Oral.Conc) 30 mg PO DAILY [facility] Last Admin: 12/31/22 08:57 Dose: 30 mg Nicotine (Nicotine 21 Mg Patch.Td24) 21 mg TRANSDERMA DAILY [facility] Last Admin: 12/31/22 08:56 Dose: 21 mg Nicotine Polacrilex (Nicotine Polacrilex 2 Mg Gum) 4 mg BUCCAL Q2H PRN PRN Reason: Nicotine Cravings Olanzapine (Olanzapine 5 Mg Tablet) 5 mg PO TID PRN PRN Reason: agitation Omeprazole (Omeprazole 20 Mg Capsule.) 20 mg PO DAILY@0630 [facility] Last Admin: 12/31/22 08:57 Dose: 20 mg Quetiapine Fumarate (Quetiapine Fumarate 400 Mg Tablet) 400 mg PO BEDTIME [facility] Last Admin: 12/30/22 19:59 Dose: 400 mg Trazodone HCl (Trazodone Hcl 50 Mg Tablet) 50 mg PO BEDTIME PRN PRN Reason: insomnia Last Admin: 12/30/22 00:25 Dose: 50 mg Allergies Allergies Allergy/AdvReac Type Severity Reaction Status Date / Time No Known Allergies Allergy Verified 08/29/22 20:24 [No Known Allergies*] Assessment & Plan Assessment & Plan (1) Bipolar disorder: Status: Acute Code(s): F31.9 - Bipolar disorder, unspecified (2) Fibromyalgia: Status: Acute Code(s): M79.7 - Fibromyalgia (3) Opioid use disorder: Status: Acute Code(s): F11.90 - Opioid use, unspecified, uncomplicated Plan Patient is a 42-year-old female with history of bipolar disorder, admitted to 08/2022, who presents for mood dysregulation and some paranoid thinking in face of being off lithium and multiple psychosocial stressors. -patient carries a diagnosis of a bipolar disorder; will continue this current diagnosis -Patient has some paranoid, delusional thinking regarding her however there may also be relational strife independent of this. - patient reports she was overall feeling much more stable on lithium, does not know why it was stopped and would like it to be restarted; otherwise wants to continue with home medications -Patient has been on gabapentin for fibromyalgia however complains that it causes swelling in legs and hands and has trouble getting her rings off; agrees to try Lyrica -patient wants to come off methadone; patient has remained sober and UDS negative Plan: CV Q 15 minute checks Continue lithium ER 300 mg daily (formally on 450 mg) Increase lithium ER to 600 mg q.h.s. Continue Seroquel 400 mg q.h.s. Continue Cymbalta 80 mg daily Continue lower dose of Methadone 30 mg daily; patient was on 40; wants to taper off and discontinue Taper off gabapentin Start Lyrica Lyrica; hopefully can be helpful and covered by insurance Primary team to gather collateral Patient educated on: diagnosis and medication risk/benefits Informed Consent: understands Reason for continued inpatient stay Substantial Risk for: rapid decompensation Time Spent With Patient Time: Total time managing care of this patient today ____ minutes.
[2022-12-31 18:00] VITALS: BP 126/78; PULSE 96; RESP 16; TEMP 37.1; O2SAT 97
[2022-12-31] MEDS: QUEtiapine Fumarate 400 MG TABLET PO (19:33)
[2022-12-31] MEDS: Pregabalin 75 MG CAPSULE PO (19:33)
[2022-12-31] MEDS: traZODone HCL 50 MG TABLET PO (22:09)
[2023-01-01] MEDS: Omeprazole 20 MG CAPSULE.DR PO (06:20)
[2023-01-01 08:03] LABS: Lithium 0.45 mmol/L (0.60-1.20)
[2023-01-01 09:09] VITALS: BP 98/57; PULSE 80; RESP 16; TEMP 37.2; O2SAT 95
[2023-01-01] MEDS: Lithium Carbonate ER 300 MG TABLET.ER PO (09:25)
[2023-01-01] MEDS: DULoxetine HCl 60 MG CAPSULE.DR PO (09:25)
[2023-01-01] MEDS: DULoxetine HCl 20 MG CAPSULE.DR PO (09:25)
[2023-01-01] MEDS: Nicotine 21 MG PATCH.TD24 TRANSDERMA (09:26)
[2023-01-01] MEDS: methADONE HCl 20 MG/2 ML ORAL.CONC 30 MG PO (09:26)
--- NOTE | 2023-01-01 10:54 | P.PNPSI_ITS ---
Subjective Subjective Date of Service: 01/01/23 Reason For Visit: disorganized Interim History: met with patient with Alex lópez; discussed with team -pt remains depressed; patient is tearful and remains intermittently wishing she were no longer alive. feeling The opioid withdrawal and agrees to slow down taper and put back to 35mg. Hand swelling better w/ dc of Gabapentin, however still painful -remains w/ some paranoid delusions about hacking computers in effort to frustrate her treatment and perhaps steal her money. Patient further shared about struggles with fibromyalgia and what feels like burdensome expectations for her to complete chores at the shelter. Mental Status Exam Mental Status Exam Narrative: Pt is alert and oriented; behavior is cooperative, friendly but in emotional distress, tearful; dressed in casual attire, blanket wrapped around self; with unkempt hair but adequate hygiene; mood is described as depressed and affect congruent, tearful, downcast; eye contact appropriate; Speech is normal rate, volume and prosody and not pressured; some psychomotor retardation present; thought process is mostly goal directed but can get circumstantial; Thought content is on depressed feelings, problematic relationship with ; some delusional thinking present; passive SI remains; no HI. Denies AVH Patients insight and judgment impaired Diagnostics Vital Signs (24Hr): Vital Signs - 24 hr 12/31/22 18:00 01/01/23 09:09 Temperature 98.7 F 99.0 F Pulse Rate 96 80 Respiratory Rate 16 16 Blood Pressure 126/78 98/57 L Pulse Oximetry 97 95 Oxygen Delivery Method Room Air Room Air BMI result Body Mass Index 30.0 Labs 12/29/22 10:47 12/29/22 10:47 Labs: Laboratory Results - last 48 hr 01/01/23 07:47 [place] 0.45 L Medications Medications Current Medications Acetaminophen (Acetaminophen 325 Mg Tablet) 650 mg PO Q6H PRN PRN Reason: Headache/Pain Mild Scale (1-3) Last Admin: 12/30/22 15:57 Dose: 650 mg Al Hydroxide/Mg Hydroxide (Magnesium Hydrox/Alum Hydrox 30 Ml Oral.Susp) 30 ml PO Q6H PRN PRN Reason: Heartburn/Nausea Cyclobenzaprine HCl (Cyclobenzaprine Hcl 10 Mg Tablet) 10 mg PO TID PRN PRN Reason: muscle spasm Duloxetine HCl (Duloxetine Hcl 20 Mg Capsule.Dr) 20 mg PO DAILY [facility] Last Admin: 01/01/23 09:25 Dose: 20 mg Duloxetine HCl (Duloxetine Hcl 60 Mg Capsule.) 60 mg PO DAILY [facility] Last Admin: 01/01/23 09:25 Dose: 60 mg Hydroxyzine HCl (Hydroxyzine Hcl 25 Mg Tablet) 25 mg PO BEDTIME PRN PRN Reason: anxiety Last Admin: 12/31/22 14:28 Dose: 25 mg [place] Carbonate ([place] Carbonate Er 300 Mg Tablet.Er) 300 mg PO BID [facility] Last Admin: 01/01/23 09:25 Dose: 300 mg Magnesium Hydroxide (Milk Of Magnesia 30 Ml Oral.Susp) 30 ml PO DAILY PRN PRN Reason: Constipation Nicotine (Nicotine 21 Mg Patch.Td24) 21 mg TRANSDERMA DAILY [facility] Last Admin: 01/01/23 09:26 Dose: 21 mg Nicotine Polacrilex (Nicotine Polacrilex 2 Mg Gum) 4 mg BUCCAL Q2H PRN PRN Reason: Nicotine Cravings Olanzapine (Olanzapine 5 Mg Tablet) 5 mg PO TID PRN PRN Reason: agitation Omeprazole (Omeprazole 20 Mg Capsule.) 20 mg PO DAILY@0630 [facility] Last Admin: 01/01/23 06:20 Dose: 20 mg Pregabalin (Pregabalin 75 Mg Capsule) 75 mg PO BEDTIME [facility] Last Admin: 12/31/22 19:33 Dose: 75 mg Quetiapine Fumarate (Quetiapine Fumarate 400 Mg Tablet) 400 mg PO BEDTIME [facility] Last Admin: 12/31/22 19:33 Dose: 400 mg Trazodone HCl (Trazodone Hcl 50 Mg Tablet) 50 mg PO BEDTIME PRN PRN Reason: insomnia Last Admin: 12/31/22 22:09 Dose: 50 mg Allergies Allergies Allergy/AdvReac Type Severity Reaction Status Date / Time No Known Allergies Allergy Verified 08/29/22 20:24 [No Known Allergies*] Assessment & Plan Assessment & Plan (1) Bipolar disorder: Status: Acute Code(s): F31.9 - Bipolar disorder, unspecified (2) Fibromyalgia: Status: Acute Code(s): M79.7 - Fibromyalgia (3) Opioid use disorder: Status: Acute Code(s): F11.90 - Opioid use, unspecified, uncomplicated Plan Patient is a 42-year-old female with history of bipolar disorder, admitted to 08/2022, who presents for mood dysregulation and some paranoid thinking in face of being off lithium and multiple psychosocial stressors. -patient carries a diagnosis of a bipolar disorder; will continue this current diagnosis -Patient has some paranoid, delusional thinking regarding her however there may also be relational strife independent of this. - patient reports she was overall feeling much more stable on lithium, does not know why it was stopped and would like it to be restarted; otherwise wants to continue with home medications -Patient has been on gabapentin for fibromyalgia however complains that it causes swelling in legs and hands and has trouble getting her rings off; agrees to try Lyrica -patient wants to come off methadone; patient has remained sober and UDS negative Hospital course: 01/01 remains depressed; lithium is now increased to 600 mg q.h.s.; will slow down taper of methadone; calling insurance to do prior authorization for Lyrica Plan: CV Q 15 minute checks Continue lithium ER 300 mg daily (formally on 450 mg) Increase lithium ER to 600 mg q.h.s. (increased on 01/01) Continue Seroquel 400 mg q.h.s. Continue Cymbalta 80 mg daily Increase back to Methadone 35 mg daily; patient was on 40; wants to taper off and discontinue but need to taper more slowly Taper off gabapentin Start Lyrica; hopefully can be helpful and covered by insurance Primary team to gather collateral Patient educated on: diagnosis, medication risk/benefits, substance abuse and therapeutic strategies Informed Consent: understands and further education needed Reason for continued inpatient stay Substantial Risk for: rapid decompensation Time Spent With Patient Time: Total time managing care of this patient today ____ minutes.
[2023-01-01] MEDS: methADONE HCl 20 MG/2 ML ORAL.CONC 5 MG PO (11:25)
[2023-01-01] MEDS: Cyclobenzaprine HCl 10 MG TABLET PO (15:04)
[2023-01-01 18:00] VITALS: BP 115/79; PULSE 93; TEMP 36.6; O2SAT 99
[2023-01-01] MEDS: traZODone HCL 50 MG TABLET PO (20:11)
[2023-01-01] MEDS: Acetaminophen 325 MG TABLET 650 MG PO (20:11)
[2023-01-01] MEDS: Lithium Carbonate ER 300 MG TABLET.ER 600 MG PO (20:11)
[2023-01-01] MEDS: hydrOXYzine HCL 25 MG TABLET PO (20:11)
[2023-01-01] MEDS: QUEtiapine Fumarate 400 MG TABLET PO (20:11)
[2023-01-01] MEDS: Pregabalin 75 MG CAPSULE PO (20:11)
[2023-01-02] MEDS: Acetaminophen 325 MG TABLET 650 MG PO ×2 (03:53→15:07)
[2023-01-02] MEDS: Omeprazole 20 MG CAPSULE.DR PO (06:19)
[2023-01-02 08:41] VITALS: BP 112/71; PULSE 94; RESP 16; TEMP 36.8; O2SAT 98
[2023-01-02] MEDS: DULoxetine HCl 60 MG CAPSULE.DR PO (08:43)
[2023-01-02] MEDS: DULoxetine HCl 20 MG CAPSULE.DR PO (08:43)
[2023-01-02] MEDS: methADONE HCl 20 MG/2 ML ORAL.CONC 35 MG PO (08:43)
[2023-01-02] MEDS: Nicotine 21 MG PATCH.TD24 TRANSDERMA (08:43)
[2023-01-02] MEDS: Lithium Carbonate ER 300 MG TABLET.ER PO ×2 (08:43→20:14)
--- NOTE | 2023-01-02 09:06 | P.PNPSI_ITS ---
Subjective Subjective Date of Service: 01/02/23 Reason For Visit: disorganized Interim History: Met With patient with supervisor shed workers; discussed with team pt depressed and frustrated but no SI; expressed much frustration about lack of [place] speaking staff and says when staff ask her how's she doing, she has a hard time fully understanding the questions and communicating back. She agrees to discuss more with [place] speaking OT regarding getting extra help in groups. Outpatient Services Director and patient discussed coping skills and trying to apply them to deal with frustrating events. Hx of heroin dependence but sober for several months. She used to be on suboxne, but was not helping w/ pain, so she switched to Methadone which helps with pain however does not like having to go to clinic every day; she agrees to stay on Methadone for now and hopes that Lyrica gets approved by insurance and is effective. Mental Status Exam Mental Status Exam Narrative: Pt is alert and oriented; behavior is cooperative, intermittently tearful; dressed in hospital attire; with unkempt hair but adequate hygiene; mood is described as depressed...frustrated and affect congruentm, still inte rmittently tearful, downcast; eye contact appropriate; Speech is normal rate, volume and prosody and not pressured; some psychomotor retardation present; thought process is mostly goal directed but can get circumstantial; Thought content is on depressed feelings, problematic relationship with ; some delusional thinking present; no SI; no HI. Denies AVH Patients insight and judgment impaired but improving. Diagnostics Vital Signs (24Hr): Vital Signs - 24 hr 01/01/23 09:09 01/01/23 18:00 01/02/23 08:41 Temperature 99.0 F 97.8 F 98.3 F Pulse Rate 80 93 94 Respiratory Rate 16 16 Blood Pressure 98/57 L 115/79 112/71 Pulse Oximetry 95 99 98 Oxygen Delivery Method Room Air Room Air Room Air BMI result Body Mass Index 30.0 Labs 12/29/22 10:47 12/29/22 10:47 Labs: Laboratory Results - last 48 hr 01/01/23 07:47 [place] 0.45 L Medications Medications Current Medications Acetaminophen (Acetaminophen 325 Mg Tablet) 650 mg PO Q6H PRN PRN Reason: Headache/Pain Mild Scale (1-3) Last Admin: 01/02/23 03:53 Dose: 650 mg Al Hydroxide/Mg Hydroxide (Magnesium Hydrox/Alum Hydrox 30 Ml Oral.Susp) 30 ml PO Q6H PRN PRN Reason: Heartburn/Nausea Cyclobenzaprine HCl (Cyclobenzaprine Hcl 10 Mg Tablet) 10 mg PO TID PRN PRN Reason: muscle spasm Last Admin: 01/01/23 15:04 Dose: 10 mg Duloxetine HCl (Duloxetine Hcl 20 Mg Capsule.) 20 mg PO DAILY [facility] Last Admin: 01/02/23 08:43 Dose: 20 mg Duloxetine HCl (Duloxetine Hcl 60 Mg Capsule.) 60 mg PO DAILY [facility] Last Admin: 01/02/23 08:43 Dose: 60 mg Hydroxyzine HCl (Hydroxyzine Hcl 25 Mg Tablet) 25 mg PO BEDTIME PRN PRN Reason: anxiety Last Admin: 01/01/23 20:11 Dose: 25 mg [place] Carbonate ([place] Carbonate Er 300 Mg Tablet.Er) 300 mg PO DAILY [facility] Last Admin: 01/02/23 08:43 Dose: 300 mg [place] Carbonate ([place] Carbonate Er 300 Mg Tablet.Er) 600 mg PO BEDTIME [facility] Last Admin: 01/01/23 20:11 Dose: 600 mg Magnesium Hydroxide (Milk Of Magnesia 30 Ml Oral.Susp) 30 ml PO DAILY PRN PRN Reason: Constipation Methadone HCl (Methadone Hcl 20 Mg/2 Ml Oral.Conc) 35 mg PO DAILY [facility] Last Admin: 01/02/23 08:43 Dose: 35 mg Nicotine (Nicotine 21 Mg Patch.Td24) 21 mg TRANSDERMA DAILY [facility] Last Admin: 01/02/23 08:43 Dose: 21 mg Nicotine Polacrilex (Nicotine Polacrilex 2 Mg Gum) 4 mg BUCCAL Q2H PRN PRN Reason: Nicotine Cravings Olanzapine (Olanzapine 5 Mg Tablet) 5 mg PO TID PRN PRN Reason: agitation Omeprazole (Omeprazole 20 Mg Capsule.Dr) 20 mg PO DAILY@0630 [facility] Last Admin: 01/02/23 06:19 Dose: 20 mg Pregabalin (Pregabalin 75 Mg Capsule) 75 mg PO BEDTIME [facility] Last Admin: 01/01/23 20:11 Dose: 75 mg Quetiapine Fumarate (Quetiapine Fumarate 400 Mg Tablet) 400 mg PO BEDTIME [facility] Last Admin: 01/01/23 20:11 Dose: 400 mg Trazodone HCl (Trazodone Hcl 50 Mg Tablet) 50 mg PO BEDTIME PRN PRN Reason: insomnia Last Admin: 01/01/23 20:11 Dose: 50 mg Allergies Allergies Allergy/AdvReac Type Severity Reaction Status Date / Time No Known Allergies Allergy Verified 08/29/22 20:24 [No Known Allergies*] Assessment & Plan Assessment & Plan (1) Bipolar disorder: Status: Acute Code(s): F31.9 - Bipolar disorder, unspecified (2) Fibromyalgia: Status: Acute Code(s): M79.7 - Fibromyalgia (3) Opioid use disorder: Status: Acute Code(s): F11.90 - Opioid use, unspecified, uncomplicated Plan Patient is a 42-year-old female with history of bipolar disorder, admitted to 08/2022, who presents for mood dysregulation and some paranoid thinking in face of being off lithium and multiple psychosocial stressors. -patient carries a diagnosis of a bipolar disorder; will continue this current diagnosis -Patient has some paranoid, delusional thinking regarding her however there may also be relational strife independent of this. - patient reports she was overall feeling much more stable on lithium, does not know why it was stopped and would like it to be restarted; otherwise wants to continue with home medications -Patient has been on gabapentin for fibromyalgia however complains that it causes swelling in legs and hands and has trouble getting her rings off; agrees to try Lyrica -patient wants to come off methadone; patient has remained sober and UDS negative Hospital course: 01/01 remains depressed; lithium is now increased to 600 mg q.h.s.; will slow down taper of methadone; calling insurance to do prior authorization for Lyrica 01/02 remains depressed, today expressing frustration; continue to work on prior authorization regarding Lyrica. Patient also said that she was in getting Cymbalta at assisted Plan: CV Q 15 minute checks Continue lithium ER 300 mg daily (formally on 450 mg) Increase lithium ER to 600 mg q.h.s. (increased on 01/01) Continue Seroquel 400 mg q.h.s. Continue Cymbalta 80 mg daily Increase back to Methadone 35 mg daily; patient was on 40; wants to taper off and discontinue but need to taper more slowly Taper off gabapentin Start Lyrica; hopefully can be helpful and covered by insurance Patient educated on: diagnosis, medication risk/benefits, substance abuse, therapeutic strategies and medical condition Informed Consent: understands Reason for continued inpatient stay Substantial Risk for: med/psych decompensation Time Spent With Patient Time: Total time managing care of this patient today ____ minutes.
[2023-01-02] MEDS: Magnesium Hydrox/Alum Hydrox 30 ML ORAL.SUSP PO (10:29)
[2023-01-02] MEDS: OLANZapine 5 MG TABLET PO (10:52)
[2023-01-02 20:10] VITALS: BP 125/86; PULSE 94; TEMP 36.2
[2023-01-02] MEDS: Pregabalin 75 MG CAPSULE PO (20:13)
[2023-01-02] MEDS: Cyclobenzaprine HCl 10 MG TABLET PO (20:13)
[2023-01-02] MEDS: traZODone HCL 50 MG TABLET PO (20:14)
[2023-01-02] MEDS: QUEtiapine Fumarate 400 MG TABLET PO (20:14)
[2023-01-02] MEDS: Lithium Carbonate ER 300 MG TABLET.ER 600 MG PO (20:44)
[2023-01-03] MEDS: Omeprazole 20 MG CAPSULE.DR PO (06:05)
[2023-01-03 08:30] VITALS: BP 115/72; PULSE 85; RESP 18; TEMP 37.1; O2SAT 99
[2023-01-03] MEDS: DULoxetine HCl 60 MG CAPSULE.DR PO (08:52)
[2023-01-03] MEDS: Lithium Carbonate ER 300 MG TABLET.ER PO (08:52)
[2023-01-03] MEDS: methADONE HCl 20 MG/2 ML ORAL.CONC 35 MG PO (08:52)
[2023-01-03] MEDS: DULoxetine HCl 20 MG CAPSULE.DR PO (08:52)
[2023-01-03] MEDS: Nicotine 21 MG PATCH.TD24 TRANSDERMA (08:53)
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
[2023-01-03 14:12] LABS: Blood Urea Nitrogen 10 mg/dL (9-16); Creatinine Clr Calc Pharmacy 91.1; Estimated Glomerular Filt Rate > 60
[2023-01-03 14:28] LABS: TSH reflex Free T4 1.61 uIU/mL (0.32-4.0)
[2023-01-03] MEDS: Cyclobenzaprine HCl 10 MG TABLET PO (16:45)
[2023-01-03] MEDS: Acetaminophen 325 MG TABLET 650 MG PO (16:45)
[2023-01-03 18:05] LABS: CT PCR NOT DETECTED (Not Detect.); NG PCR NOT DETECTED (Not Detect.)
[2023-01-03 19:45] VITALS: BP 125/83; PULSE 102; TEMP 36.6; O2SAT 97
[2023-01-03] MEDS: Lithium Carbonate ER 300 MG TABLET.ER 600 MG PO (19:54)
[2023-01-03] MEDS: Pregabalin 75 MG CAPSULE PO (19:56)
[2023-01-03] MEDS: traZODone HCL 50 MG TABLET PO (19:58)
[2023-01-03] MEDS: QUEtiapine Fumarate 400 MG TABLET PO (19:58)
[2023-01-03] MEDS: OLANZapine 5 MG TABLET PO (19:58)
[2023-01-03] MEDS: hydrOXYzine HCL 25 MG TABLET PO (19:59)
[2023-01-04] MEDS: Omeprazole 20 MG CAPSULE.DR PO (06:24)
[2023-01-04] MEDS: Cyclobenzaprine HCl 10 MG TABLET PO ×2 (06:25→16:38)
[2023-01-04] MEDS: DULoxetine HCl 60 MG CAPSULE.DR PO (08:28)
[2023-01-04] MEDS: DULoxetine HCl 20 MG CAPSULE.DR PO (08:28)
[2023-01-04] MEDS: methADONE HCl 20 MG/2 ML ORAL.CONC 35 MG PO (08:28)
[2023-01-04] MEDS: Lithium Carbonate ER 300 MG TABLET.ER PO (08:28)
[2023-01-04] MEDS: Nicotine 21 MG PATCH.TD24 TRANSDERMA (08:29)
[2023-01-04 08:45] VITALS: BP 116/75; PULSE 98; RESP 18; TEMP 36; O2SAT 99
--- NOTE | 2023-01-04 09:37 | HO.PSYCHPN ---
Subjective Subjective Date of Service: 01/04/23 Reason For Visit: disorganized Interim History: met w/ patient and [employer]; discussed in team; reviewed labs pt reports being in much better mood which her affect demonstrates as she's smiling and playfully interacting with peers in [place]. She feels depression has mostly resolved. Pt feels safe and ready for discharge. Reviewed medications and labs, BV and treatment with which pt agrees; reviewed Pregabalin. Also discussed galactorhea which she reports is daily for past 2 months; prolactin level not back yet, however discussed how this could be due to Seroquel but that it could have other causes for which she'll need to reviewe with her PCP which patient understood. Pt said that Seroquel is very helpful and that she does not want to stop taking it or lower dose saying if this is cause, she will deal with it. Mental Status Exam Mental Status Exam Narrative: Pt is alert and oriented; behavior is cooperative, calm; dressed in casual attire; with combed hair and adequate hygiene; mood is described as better and affect congruent, brighter; eye contact appropriate; Speech is normal rate, volume and prosody and not pressured; no psychomotor retardation present; thought process is goal directed and organized; Thought content is on discharge, medical issues; no delusional thinking expressed; no SI; no HI. Denies AVH Patients insight and judgment fair. Diagnostics Vital Signs (24Hr): Vital Signs - 24 hr 01/03/23 19:45 01/04/23 08:45 Temperature 97.8 F 96.8 F Pulse Rate 102 H 98 Respiratory Rate 18 Blood Pressure 125/83 116/75 Pulse Oximetry 97 99 Oxygen Delivery Method Room Air Room Air BMI result Body Mass Index 30.0 Labs 12/29/22 10:47 01/03/23 13:33 Labs: Laboratory Results - last 48 hr 01/03/23 01/03/23 13:33 14:22 BUN 10 Creatinine 0.84 Estim Creat Clear Calc 91.1 Estimated GFR > 60 TSH 1.61 Chlam trachomat DNA PCR NOT DETECTED N.gonorrhoeae DNA (PCR) NOT DETECTED Medications Medications Current Medications Acetaminophen (Acetaminophen 325 Mg Tablet) 650 mg PO Q6H PRN PRN Reason: Headache/Pain Mild Scale (1-3) Last Admin: 01/03/23 16:45 Dose: 650 mg Al Hydroxide/Mg Hydroxide (Magnesium Hydrox/Alum Hydrox 30 Ml Oral.Susp) 30 ml PO Q6H PRN PRN Reason: Heartburn/Nausea Last Admin: 01/02/23 10:29 Dose: 30 ml Cyclobenzaprine HCl (Cyclobenzaprine Hcl 10 Mg Tablet) 10 mg PO TID PRN PRN Reason: muscle spasm Last Admin: 01/04/23 06:25 Dose: 10 mg Duloxetine HCl (Duloxetine Hcl 20 Mg Capsule.Dr) 20 mg PO DAILY [facility] Last Admin: 01/04/23 08:28 Dose: 20 mg Duloxetine HCl (Duloxetine Hcl 60 Mg Capsule.Dr) 60 mg PO DAILY [facility] Last Admin: 01/04/23 08:28 Dose: 60 mg Hydroxyzine HCl (Hydroxyzine Hcl 25 Mg Tablet) 25 mg PO BEDTIME PRN PRN Reason: anxiety Last Admin: 01/03/23 19:59 Dose: 25 mg [place] Carbonate ([place] Carbonate Er 300 Mg Tablet.Er) 300 mg PO DAILY [facility] Last Admin: 01/04/23 08:28 Dose: 300 mg [place] Carbonate ([place] Carbonate Er 300 Mg Tablet.Er) 600 mg PO BEDTIME [facility] Last Admin: 01/03/23 19:54 Dose: 600 mg Magn[place] Hydroxide (Milk Of Magnesia 30 Ml Oral.Susp) 30 ml PO DAILY PRN PRN Reason: Constipation Methadone HCl (Methadone Hcl 20 Mg/2 Ml Oral.Conc) 35 mg PO DAILY [facility] Last Admin: 01/04/23 08:28 Dose: 35 mg Nicotine (Nicotine 21 Mg Patch.Td24) 21 mg TRANSDERMA DAILY [facility] Last Admin: 01/04/23 08:29 Dose: 21 mg Nicotine Polacrilex (Nicotine Polacrilex 2 Mg Gum) 4 mg BUCCAL Q2H PRN PRN Reason: Nicotine Cravings Olanzapine (Olanzapine 5 Mg Tablet) 5 mg PO TID PRN PRN Reason: agitation Last Admin: 01/03/23 19:58 Dose: 5 mg Omeprazole (Omeprazole 20 Mg Capsule.Dr) 20 mg PO DAILY@0630 [facility] Last Admin: 01/04/23 06:24 Dose: 20 mg Pregabalin (Pregabalin 75 Mg Capsule) 75 mg PO BEDTIME [facility] Last Admin: 01/03/23 19:56 Dose: 75 mg Quetiapine Fumarate (Quetiapine Fumarate 400 Mg Tablet) 400 mg PO BEDTIME [facility] Last Admin: 01/03/23 19:58 Dose: 400 mg Trazodone HCl (Trazodone Hcl 50 Mg Tablet) 50 mg PO BEDTIME PRN PRN Reason: insomnia Last Admin: 01/03/23 19:58 Dose: 50 mg Allergies Allergies Allergy/AdvReac Type Severity Reaction Status Date / Time No Known Allergies Allergy Verified 08/29/22 20:24 [No Known Allergies*] Assessment & Plan Assessment & Plan (1) Bipolar disorder: Status: Acute Code(s): F31.9 - Bipolar disorder, unspecified (2) Fibromyalgia: Status: Acute Code(s): M79.7 - Fibromyalgia (3) Opioid use disorder: Status: Acute Code(s): F11.90 - Opioid use, unspecified, uncomplicated (4) Galactorrhea: Status: Acute Code(s): N64.3 - Galactorrhea not associated with childbirth Plan Patient is a 42-year-old female with history of bipolar disorder, admitted to 08/2022, who presents for mood dysregulation and some paranoid thinking in face of being off lithium and multiple psychosocial stressors. -patient carries a diagnosis of a bipolar disorder; will continue this current diagnosis -Patient has some paranoid, delusional thinking regarding her however there may also be relational strife independent of this. - patient reports she was overall feeling much more stable on lithium, does not know why it was stopped and would like it to be restarted; otherwise wants to continue with home medications -Patient has been on gabapentin for fibromyalgia however complains that it causes swelling in legs and hands and has trouble getting her rings off; agrees to try Lyrica -patient wants to come off methadone; patient has remained sober and UDS negative Hospital course: 01/01 remains depressed; lithium is now increased to 600 mg q.h.s.; will slow down taper of methadone; calling insurance to do prior authorization for Lyrica 01/02 remains depressed, today expressing frustration; continue to work on prior authorization regarding Lyrica. Patient also said that she was in getting Cymbalta at [facility] 01/03 pt reports improved mood, feeling better and getting back to her regular self; she's asking about discharge and return to [facility]. Feels meds working. Has some medical complaints of STI, abdominal pain -ordered testing for chlymidia/Jesús, HIV, RPR, BV; discussed with ID doc and herpes tests only sensitive if specimen taken from active blistering. -ordered prolactin level -Will get GI appointment on discharge; currently not in pain 01/04 pt reports doing much better, that depression mostly resolved; affect noticeably brighter. Discussed labs, medications, galactorrhea and pt understands issues and will f/u with PCP regarding; engineering writer called, spoke with staff and left message for PCP regarding fibromyalgia. Pt is returning to [facility]; she is at baseline, in good mood, no SI and with bright affect; no delusional thinking; she is future oriented. Pt is requesting discharge and looking forward to seeing her kids for day. Pt is not in imminent risk for harm to self or others and is appropriate to continue treatment in the community. Plan: CV Q 15 minute checks Continue lithium ER 300 mg daily (formally on 450 mg) Increase lithium ER to 600 mg q.h.s. (increased on 01/01) Continue Seroquel 400 mg q.h.s. Continue Cymbalta 80 mg daily; will discharge on 30mg + 60mg which pt was taking in past Increase back to Methadone 35 mg daily; patient was on 40; wants to taper off and discontinue but need to taper more slowly Taper off gabapentin Start Lyrica; hopefully can be helpful and covered by insurance Patient educated on: diagnosis, medication risk/benefits, substance abuse and medical condition Informed Consent: understands Reason for continued inpatient stay Substantial Risk for: stable for discharge Time Spent With Patient Time: Total time managing care of this patient today ____ minutes.
[2023-01-04 09:49] VITALS: BMI 25.3
[2023-01-04 10:11] LABS: BV Int Neg Control Negative (Negative); BV Int Pos Control Positive (Positive)
[2023-01-04] MEDS: metroNIDAZOLE 500 MG TABLET PO ×2 (13:19→20:03)
[2023-01-04] MEDS: Pregabalin 75 MG CAPSULE PO ×2 (13:19→20:06)
[2023-01-04 16:34] VITALS: BP 136/95; PULSE 89; RESP 18; TEMP 36.4; O2SAT 100
[2023-01-04] MEDS: Lithium Carbonate ER 300 MG TABLET.ER 600 MG PO (20:02)
[2023-01-04] MEDS: traZODone HCL 50 MG TABLET PO (20:03)
[2023-01-04] MEDS: OLANZapine 5 MG TABLET PO (20:03)
[2023-01-04] MEDS: hydrOXYzine HCL 25 MG TABLET PO (20:03)
[2023-01-04] MEDS: QUEtiapine Fumarate 400 MG TABLET PO (20:03)
[2023-01-05 06:08] LABS: Prolactin 31.3 ng/mL
[2023-01-05] MEDS: methADONE HCl 20 MG/2 ML ORAL.CONC 35 MG PO (08:20)
[2023-01-05] MEDS: Nicotine 21 MG PATCH.TD24 TRANSDERMA (08:21)
[2023-01-05] MEDS: metroNIDAZOLE 500 MG TABLET PO (08:21)
[2023-01-05] MEDS: Omeprazole 20 MG CAPSULE.DR PO (08:21)
[2023-01-05] MEDS: Naloxone HCl Nasal TAKE HOME 4 MG SPRAY NOSTRILALT (08:21)
[2023-01-05] MEDS: Lithium Carbonate ER 300 MG TABLET.ER PO (08:21)
[2023-01-05] MEDS: DULoxetine HCl 60 MG CAPSULE.DR PO (08:21)
[2023-01-05] MEDS: DULoxetine HCl 20 MG CAPSULE.DR PO (08:21)
[2023-01-05] MEDS: Pregabalin 75 MG CAPSULE PO (08:21)
[2023-01-05 08:42] LABS: Syphilis Screen Nonreactive (Nonreactive)
[2023-01-05 08:56] LABS: HIV AB/AG Nonreactive (Nonreactive); HIV Num 1 0.08 S/CO (0.00-0.99)
--- NOTE | 2023-01-05 09:05 | PM.PSYDC ---
DS: Providers Provider Date of Service: 01/05/23 Date of admission: 12/29/22 23:50 Date of discharge: 01/05/23 Primary care physician: Unknown Physician Attending physician on admission: Rikki Bowman Discharging clinician: Maris Barriga DS: Diagnosis Discharge Diagnosis (1) Bipolar disorder: Status: Acute (2) Fibromyalgia: Status: Acute (3) Opioid use disorder: Status: Acute DS: Medications Discharge Medications Home Medications: Previous Rx's Medication Instructions Recorded acetaminophen 325 mg tablet 650 mg PO Q6H PRN Headache/Pain 01/04/23 Mild Scale (1-3) #0 tabs cyclobenzaprine 10 mg tablet 10 mg PO TID PRN muscle spasm 30 01/04/23 days #90 tabs duloxetine 30 mg capsule,delayed 30 mg PO DAILY 30 days #30 caps 01/04/23 release duloxetine 60 mg capsule,delayed 60 mg PO DAILY 30 days #30 caps 01/04/23 release hydroxyzine HCl 25 mg tablet 25 mg PO BEDTIME PRN 01/04/23 anxiety/insomnia 30 days #30 tabs lithium carbonate 300 mg See Rx Instructions .Route 01/04/23 tablet,extended release .COMPLEX 30 days #90 tabs methadone 10 mg/mL oral 35 mg (3.5 mL) PO DAILY #0 mL 01/04/23 concentrate (Methadose) metronidazole 500 mg tablet 500 mg PO BID 6 days #11 tabs 01/04/23 nicotine 21 mg/24 hr daily 21 mg transdermal DAILY PRN 01/04/23 transdermal patch smoking cessation 28 days #28 ea pantoprazole 40 mg tablet,delayed 40 mg PO DAILY 30 days #30 tabs 01/04/23 release pregabalin 75 mg capsule (Lyrica) 75 mg PO BID 30 days #60 caps 01/04/23 quetiapine 400 mg tablet 400 mg PO BEDTIME 30 days #30 tabs 01/04/23 trazodone 50 mg tablet 50 mg PO BEDTIME PRN insomnia 30 01/04/23 days #30 tabs Data Data Completed and Pending Completed studies during hospitalization [Text1]: 12/29/22 12/29/22 12/29/22 10:09 10:09 10:47 WBC 8.1 RBC 4.53 Hgb 12.2 Hct 39.1 MCV 86.3 MCH 26.9 L MCHC 31.2 RDW 14.1 Plt Count 320 MPV 9.3 L Immature Gran % (Auto) 0.4 Neut % (Auto) 59.8 Lymph % (Auto) 29.9 [place] % (Auto) 5.6 Eos % (Auto) 3.2 Baso % (Auto) 1.1 Lymph # (Auto) 2.4 [place] # (Auto) 0.5 Eos # (Auto) 0.3 Baso # (Auto) 0.1 Abs Immat Gran (auto) 0.03 Absolute Neuts (auto) 4.8 Absolute Nucleated RBC 0.000 Nucleated RBC % (auto) 0.0 Sodium Potassium Chloride Carbon Dioxide Anion Gap BUN Creatinine Estim Creat Clear Calc Estimated GFR Random Glucose Estimat Average Glucose Hemoglobin A1c % Calcium Total Bilirubin AST ALT Alkaline Phosphatase Total Protein Albumin Triglycerides Cholesterol LDL Cholesterol, Calc HDL Cholesterol TSH Prolactin Urine Color Urine Appearance Urine pH Ur Specific [place] Urine Protein Urine Glucose (UA) Urine Ketones Urine Blood Urine Nitrite Ur Leukocyte Esterase Urine Opiates Screen Not Detected Urine Fentanyl Screen Not Detected Ur Barbiturates Screen Not Detected Ur Phencyclidine Scrn Not Detected Ur Amphetamines Screen Not Detected U Benzodiazepines Scrn Not Detected [place] Urine Cocaine Screen Not Detected U Marijuana (THC) Screen Not Detected T.pallidum Ab (EIA) Shell species DNA Chlam trachomat DNA PCR COVID-19 ([facility]) Negative COVID-19 Clin Com See Note [place]rella DNA Probe HIV 1&2 Ab/P24 Ag 4thGn N.gonorrhoeae DNA (PCR) Trichomonas DNA Probe 12/29/22 12/29/22 12/30/22 10:47 16:28 06:49 WBC RBC Hgb Hct MCV MCH MCHC RDW Plt Count MPV Immature Gran % (Auto) Neut % (Auto) Lymph % (Auto) [place] % (Auto) Eos % (Auto) Baso % (Auto) Lymph # (Auto) [place] # (Auto) Eos # (Auto) Baso # (Auto) Abs Immat Gran (auto) Absolute Neuts (auto) Absolute Nucleated RBC Nucleated RBC % (auto) Sodium 137 Potassium 4.3 Chloride 103 Carbon Dioxide 27 Anion Gap 11 L BUN 9 Creatinine 0.86 Estim Creat Clear Calc 89.0 Estimated GFR > 60 Random Glucose 140 H Estimat Average Glucose 117 Hemoglobin A1c % 5.7 Calcium 9.2 D Total Bilirubin 0.4 AST 14 ALT 10 Alkaline Phosphatase 87 Total Protein 6.9 Albumin 4.1 Triglycerides Cholesterol LDL Cholesterol, Calc HDL Cholesterol TSH Prolactin Urine Color Yellow Urine Appearance Clear Urine pH 6.0 Ur Specific [place] 1.010 Urine Protein Negative Urine Glucose (UA) Negative Urine Ketones Negative Urine Blood Negative Urine Nitrite Negative Ur Leukocyte Esterase Negative Urine Opiates Screen Urine Fentanyl Screen Ur Barbiturates Screen Ur Phencyclidine Scrn Ur Amphetamines Screen U Benzodiazepines Scrn [place] Urine Cocaine Screen U Marijuana (THC) Screen T.pallidum Ab (EIA) Shell species DNA Chlam trachomat DNA PCR COVID-19 ([facility]) COVID-19 Clin Com Gard[place]rella DNA Probe HIV 1&2 Ab/P24 Ag 4thGn N.gonorrhoeae DNA (PCR) Trichomonas DNA Probe 12/30/22 01/01/23 01/03/23 06:49 07:47 13:33 WBC RBC Hgb Hct MCV MCH MCHC RDW Plt Count MPV Immature Gran % (Auto) Neut % (Auto) Lymph % (Auto) [place] % (Auto) Eos % (Auto) Baso % (Auto) Lymph # (Auto) [place] # (Auto) Eos # (Auto) Baso # (Auto) Abs Immat Gran (auto) Absolute Neuts (auto) Absolute Nucleated RBC Nucleated RBC % (auto) Sodium Potassium Chloride Carbon Dioxide Anion Gap BUN Creatinine Estim Creat Clear Calc Estimated GFR Random Glucose Estimat Average Glucose Hemoglobin A1c % Calcium Total Bilirubin AST ALT Alkaline Phosphatase Total Protein Albumin Triglycerides 239 Cholesterol 212 LDL Cholesterol, Calc 121 HDL Cholesterol 44 TSH Prolactin Urine Color Urine Appearance Urine pH Ur Specific [place] Urine Protein Urine Glucose (UA) Urine Ketones Urine Blood Urine Nitrite Ur Leukocyte Esterase Urine Opiates Screen Urine Fentanyl Screen Ur Barbiturates Screen Ur Phencyclidine Scrn Ur Amphetamines Screen U Benzodiazepines Scrn [place] 0.45 L Urine Cocaine Screen U Marijuana (THC) Screen T.pallidum Ab (EIA) Nonreactive Shell species DNA Chlam trachomat DNA PCR COVID-19 ([facility]) COVID-19 Clin Com Gard[place] DNA Probe HIV 1&2 Ab/P24 Ag 4thGn N.gonorrhoeae DNA (PCR) Trichomonas DNA Probe 01/03/23 01/03/23 01/03/23 13:33 13:33 13:33 WBC RBC Hgb Hct MCV MCH MCHC RDW Plt Count MPV Immature Gran % (Auto) Neut % (Auto) Lymph % (Auto) [place] % (Auto) Eos % (Auto) Baso % (Auto) Lymph # (Auto) [place] # (Auto) Eos # (Auto) Baso # (Auto) Abs Immat Gran (auto) Absolute Neuts (auto) Absolute Nucleated RBC Nucleated RBC % (auto) Sodium Potassium Chloride Carbon Dioxide Anion Gap BUN 10 Creatinine 0.84 Estim Creat Clear Calc 91.1 Estimated GFR > 60 Random Glucose Estimat Average Glucose Hemoglobin A1c % Calcium Total Bilirubin AST ALT Alkaline Phosphatase Total Protein Albumin Triglycerides Cholesterol LDL Cholesterol, Calc HDL Cholesterol TSH 1.61 Prolactin 31.3 H Urine Color Urine Appearance Urine pH Ur Specific [place] Urine Protein Urine Glucose (UA) Urine Ketones Urine Blood Urine Nitrite Ur Leukocyte Esterase Urine Opiates Screen Urine Fentanyl Screen Ur Barbiturates Screen Ur Phencyclidine Scrn Ur Amphetamines Screen U Benzodiazepines Scrn [place] Urine Cocaine Screen U Marijuana (THC) Screen T.pallidum Ab (EIA) Shell species DNA Chlam trachomat DNA PCR COVID-19 ([facility]) COVID-19 Clin Com [place] DNA Probe HIV 1&2 Ab/P24 Ag 4thGn Pending N.gonorrhoeae DNA (PCR) Trichomonas DNA Probe 01/03/23 01/03/23 14:22 14:22 WBC RBC Hgb Hct MCV MCH MCHC RDW Plt Count MPV Immature Gran % (Auto) Neut % (Auto) Lymph % (Auto) [place] % (Auto) Eos % (Auto) Baso % (Auto) Lymph # (Auto) [place] # (Auto) Eos # (Auto) Baso # (Auto) Abs Immat Gran (auto) Absolute Neuts (auto) Absolute Nucleated RBC Nucleated RBC % (auto) Sodium Potassium Chloride Carbon Dioxide Anion Gap BUN Creatinine Estim Creat Clear Calc Estimated GFR Random Glucose Estimat Average Glucose Hemoglobin A1c % Calcium Total Bilirubin AST ALT Alkaline Phosphatase Total Protein Albumin Triglycerides Cholesterol LDL Cholesterol, Calc HDL Cholesterol TSH Prolactin Urine Color Urine Appearance Urine pH Ur Specific [place] Urine Protein Urine Glucose (UA) Urine Ketones Urine Blood Urine Nitrite Ur Leukocyte Esterase Urine Opiates Screen Urine Fentanyl Screen Ur Barbiturates Screen Ur Phencyclidine Scrn Ur Amphetamines Screen U Benzodiazepines Scrn [place] Urine Cocaine Screen U Marijuana (THC) Screen T.pallidum Ab (EIA) Shell species DNA Negative Chlam trachomat DNA PCR NOT DETECTED COVID-19 ([facility]) COVID-19 Clin Com [place] DNA Probe Positive A HIV 1&2 Ab/P24 Ag 4thGn N.gonorrhoeae DNA (PCR) NOT DETECTED Trichomonas DNA Probe Negative DS: Summary Hospital Course Hospital Course: Patient is a 42-year-old, Algerian speaking female with history of bipolar disorder, admitted to 08/2022, who presents for mood dysregulation and some paranoid thinking in face of being off lithium and multiple psychosocial stressors. On admission, patient was depressed, tearful, isolative and with downcast affect; initially some passive SI but this soon fully resolved; lithium restarted since patient reports in the past she felt much better on it; Seroquel was continued. Patient express some paranoid delusional thoughts however these resolved as lithium became therapeutic. With medication and milieu therapy, patient's mood significantly improved and her affect was noticeably brighter; patient was social in the milieu optimistic about continuing stability. Patient had stop taking gabapentin due to upper/lower bilateral limb edema however she was started on Lyrica for fibromyalgia with out any side effects. Patient complained of self overall month's worth of galactorrhea and her prolactin level was very mildly elevated; race and sports book writer discussed how this could very well be side effect from Seroquel however patient did not want to lower the dose any, saying it was too helpful and that for her the benefit outweighed the risk; she agreed to follow-up with her outpatient provider regarding any other causes of hyperprolactinemia. Patient reported feeling ready for discharge to go back to her retirement, reporting she was back to her regular self, in a good mood. Patient had been sober for self or months. She of course remains vulnerable to relapse and mood dysregulation however these are chronic issues that will not resolve with longer stay on inpatient unit. Pt is not in imminent risk for harm to self or others and is appropriate to continue treatment in the community. Patient asked race and sports book writer to inform her PCP of admission; race and sports book writer called and talked with medical office manager regarding fibromyalgia, Lyrica and galactorrhea with elevated prolactin level and potential need for additional workup. Time spent discussing smoking cessation with patient: 3 to 10 minutes Status at Discharge Functional status at discharge: independent ambulation Overall status at discharge: patient is back to baseline Time Spent with Patient Time attestation: Total time managing care of this patient today ____ minutes. Time spent: Greater than 30 minutes Discharge Plan Discharge Anticipated Discharge Date/Time: 01/05/23 11:30 Patient Disposition: Home, Self-Care Discharge Diagnosis: bipolar disorder, recurrent, moderate most recent episode depressed in full remission Referrals: Gretchen Lazaro: [facility] (Therapy) [Other] - 01/08/23 9:00 am (Initial Diagnostic Evaluation for Therapy Appointment is in person at [facility]) Shannan Frost:[facility] (Psychiatry) [Other] - 02/05/23 10:45 am (Initial Psychiatric evaluation with medication provider Appointment is by tele-health. Provider will call phone. ) Shannan Frost: [facility] [Other] - 03/07/23 10:00 am (Medication Management Appointment Appointment is by tele-health. Provider will call your telephone.) [facility] [Provider Group] - 1 Week (Walk in for urgent care) Discharge Medications: New metronidazole 500 mg Tablet 500 mg PO BID 6 Days Qty: 11 0RF nicotine 21 mg/24 hr Patch 24 Hour 21 mg transdermal DAILY PRN (Reason: smoking cessation) 28 Days Qty: 28 1RF pregabalin [Lyrica] 75 mg Capsule 75 mg PO BID 30 Days Qty: 60 1RF lithium carbonate 300 mg Tablet Extended Release See Rx Instructions .ROUTE .COMPLEX 30 Days Qty: 90 1RF Rx Instructions: take 1 tab in the morning and take 2 tabs at bedtime methadone [Methadose] 10 mg/mL Concentrate 35 mg PO DAILY Qty: 0 0RF Rx Instructions: Partial Fill upon patient request. acetaminophen 325 mg Tablet 650 mg PO Q6H PRN (Reason: Headache/Pain Mild Scale (1-3)) Qty: 0 0RF Continued cyclobenzaprine 10 mg tablet 10 mg PO TID PRN (Reason: muscle spasm) 30 Days Qty: 90 1RF hydroxyzine HCl 25 mg tablet 25 mg PO BEDTIME PRN (Reason: anxiety/insomnia) 30 Days Qty: 30 1RF trazodone 50 mg tablet 50 mg PO BEDTIME PRN (Reason: insomnia) 30 Days Qty: 30 1RF pantoprazole 40 mg tablet,delayed release (DR/EC) 40 mg PO DAILY 30 Days Qty: 30 1RF duloxetine 60 mg capsule,delayed release(DR/EC) 60 mg PO DAILY 30 Days Qty: 30 1RF quetiapine 400 mg tablet 400 mg PO BEDTIME 30 Days Qty: 30 1RF Changed duloxetine 30 mg capsule,delayed release(DR/EC) 30 mg PO DAILY 30 Days Qty: 30 1RF Discontinued gabapentin 300 mg capsule 300 mg PO TID Discharge Orders: Discharge Order (Routine); Ordered 01/05/23 Ordered By: Rikki Bowman Diet: Regular diet Activity on Discharge: As tolerated Stand Alone Forms: Patient Portal Discharge page, Community Support Care Plan Goals: Maintain mood and safe behaviors Take medications as prescribed Continue to pursue sobriety Practice coping skills Continue with outpatient providers and reach out to them as needed Health Concerns: Mood stability and behaviors Fibromyalgia Galactorrhea Plan of Treatment: Follow up with your PCP, psychiatric provider and other outpatient providers regarding above concerns Take medications as prescribed Assessment: Risk assessment at time of discharge:? Patient was interviewed prior to discharge and found to be fully oriented and without any SI or HI. Patient has insight and demonstrates good judgment in terms of wanting to pursue treatment. Patient is not in imminent risk of harm to self or others and has a safety plan that includes presenting to the closest ER or calling 911 if feeling unsafe.? Patient has been observed closely by nursing and unit staff throughout admission; patient has not engaged in any behaviors that suggest dangerousness to self or others and has demonstrated appropriate behaviors and impulse control Discharge Date/Time: 01/05/23 11:53
[2023-01-05 09:36] LABS: Lithium 0.82 mmol/L (0.60-1.20)
[2023-01-05 10:00] LABS: Syphilis Screen Nonreactive (Nonreactive)
[2023-01-05] MEDS: OLANZapine 5 MG TABLET PO (11:38)
== END 2023-01-05 11:53 | disposition home or self-care (01) | DRG 753 ==
LOC: HO.ED 09:59 → HO.PM5 23:54
PROVIDERS: Clinical Nurse Specialist Psychiatric/Mental Health, Adult; Admitting Provider Psychiatry & Neurology Psychiatry; Emergency Provider Emergency Medicine; Visit Provider Psychiatry & Neurology Psychiatry
DX: F31.32 Bipolar disorder, current episode depressed, moderate (principal); R45.851 Suicidal ideations; F11.20 Opioid dependence, uncomplicated; F17.210 Nicotine dependence, cigarettes, uncomplicated; K21.9 Gastro-esophageal reflux disease without esophagitis; M79.7 Fibromyalgia; Z71.6 Tobacco abuse counseling; Z79.899 Other long term (current) drug therapy
CPT/HCPCS: 0353U; 36415; 80053; 80061; 80178; 80307; 81003; 82565; 83036; 84146; 84443; 84520; 85025; 86780; 87389; 87480; 87510; 87635; 87660; 93005; 99285; S9485

== ENCOUNTER 2023-05-21 18:57 | Inpatient (IN) | payer OTHER, SELFPAY ==
[2023-05-21 19:01] VITALS: BP 154/82; PULSE 84; O2SAT 99
--- NOTE | 2023-05-21 19:16 | ECG_ITS ---
Test Reason : LETHARGY Blood Pressure : / mmHG Vent. Rate : 072 BPM Atrial Rate : 072 BPM P-R Int : 142 ms QRS Dur : 084 ms QT Int : 410 ms P-R-T Axes : 008 064 059 degrees QTc Int : 448 ms Normal sinus rhythm ST elevation in Inferior leads Abnormal ECG When compared with ECG of 29-DEC-2022 13:47, ST elevation now present in Inferior leads Referred By: Faye Ramirez Electronically Signed By:SCAR JORGENSEN
[2023-05-21 19:34] VITALS: BP 147/92; PULSE 88; RESP 16; TEMP 36.6; O2SAT 99; BMI 25.7
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
[2023-05-21 20:03] LABS: MANUAL DIFF FLAG NO
[2023-05-21 20:04] LABS: Basophils Absolute Auto 0.1 X10*3/uL (0.0-0.2); Basophils Percent Auto 0.5 % (0-2); Eosinophils Absolute Auto 0.5 X10*3/uL (0.0-0.4); Eosinophils Percent Auto 5.1 % (0-4); Hematocrit 39.5 % (37.0-47.0); Hemoglobin 12.5 g/dl (12.0-16.0); Imm Gran Abs Auto 0.03 X10*3/uL (0.00-0.03); Imm Gran Pct Auto 0.3 % (0.0-0.4); Lymphocytes Absolute Auto 2.1 X10*3/uL (1.2-4.9); Lymphocytes Percent Auto 21.4 % (20-40); Mean Corpuscular HGB Conc 31.6 g/dl (31.0-35.0); Mean Corpuscular Hemoglobin 26.6 pg (27.0-33.0); Mean Platelet Volume 9.3 fL (9.4-12.3); Monocytes Absolute Auto 0.7 X10*3/uL (0.1-1.2); Monocytes Percent Auto 6.8 % (2-11); Neutrophils Absolute Auto 6.4 x10*3/uL (2.0-8.3); Neutrophils Percent Auto 65.9 % (45-73); Platelet Count 360 X10*3/uL (160-400); Red Cell Distribution Width 14.9 % (11.0-16.0); White Blood Count 9.7 X10*3/uL (4.8-10.8)
[2023-05-21 20:20] LABS: Alanine Aminotransferase 10 U/L (0-31); Alkaline Phosphatase 72 U/L (39-117); Anion Gap 14 (12-20); Aspartate Amino Transferase 16 U/L (5-31); Bilirubin Direct 0.1 mg/dL (0.0-0.5); Bilirubin Total 0.3 mg/dL (0.0-1.0); Blood Urea Nitrogen 8 mg/dL (9-16); Calcium 9.4 mg/dL (8.4-10.2); Carbon Dioxide 25 mmol/L (22-29); Chloride 103 mmol/L (96-108); Creatinine Clr Calc Pharmacy 94.1; Estimated Glomerular Filt Rate > 60; Ethanol < 10 mg/dL; Glucose Random 70 mg/dL (60-115); Lithium < 0.10 mmol/L (0.60-1.20); Potassium 3.4 mmol/L (3.3-5.1); Sodium 139 mmol/L (135-145); Total Protein 7.1 g/dL (6.5-8.0)
[2023-05-21 20:25] LABS: HCG Quantitative < 2 mIU/mL
[2023-05-21 20:50] LABS: Appearance Urine Clear; Color Urine Yellow; Glucose Urine UA Negative (Negative); Leukocyte Esterase Urine Negative (Negative); Nitrite Urine Negative (Negative); Urine Blood Negative (Negative); Urine Ketones Negative (Negative); Urine Protein Negative (Neg-Trace)
[2023-05-21 20:55] LABS: Amphetamine Screen Urine Not Detected (Not Detect); Barbiturates, Urine Not Detected (Not Detect); Benzodiazepines Screen Urine Not Detected (Not Detect); Cannabinoid Screen Urine Not Detected (Not Detect); Cocaine Screen Urine POSITIVE (Not Detect); Fentanyl, urine POSITIVE (Not Detect); Opiate Screen Urine Not Detected (Not Detect); Phencyclidine Screen Urine Not Detected (Not Detect)
--- NOTE | 2023-05-21 21:18 | PHA.MEDREC ---
Pharmacy Consult ? Medication Reconciliation Pharmacy has completed the medication reconciliation. Patient reported yes to all medications. Contact [facility] to confirm [place] dose. Per [place] PDMP, patient has never filled lyrica so i removed from medications from home list. Patient has filled medications under both [facility] and [facility], check PDMP with both names. Patient reported she does not go to a methadone clinic. Patient is not adherent to her medications so even though duloxetine has not been filled 03/17/23 patient could still be taking periodically. Minna Nickerson, PharmD
--- NOTE | 2023-05-21 21:48 | ED_ITS ---
HPI - General Adult General Chief complaint: General Medical Stated complaint: Lethargy Time Seen by Provider: 05/21/23 19:04 Source: patient Mode of arrival: EMS Limitations: no limitations Related Data Home Medications Medication Instructions Recorded Confirmed duloxetine 20 mg capsule,delayed 20 mg PO DAILY 05/21/23 05/21/23 release lithium carbonate 150 mg capsule 450 mg PO BID 05/21/23 05/21/23 melatonin 3 mg tablet 6 mg PO BEDTIME 05/21/23 05/21/23 propranolol 10 mg tablet 5 mg PO TID 05/21/23 05/21/23 trazodone 100 mg tablet 100 mg PO BEDTIME 05/21/23 05/21/23 Previous Rx's Medication Instructions Recorded acetaminophen 325 mg tablet 650 mg (2 x 325 mg) PO Q6H PRN 01/04/23 Headache/Pain Mild Scale (1-3) #0 tabs duloxetine 60 mg capsule,delayed 60 mg PO DAILY 30 days #30 caps 01/04/23 release hydroxyzine HCl 25 mg tablet 25 mg PO BEDTIME PRN 01/04/23 anxiety/insomnia 30 days #30 tabs nicotine 21 mg/24 hr daily 21 mg transdermal DAILY PRN 01/04/23 transdermal patch smoking cessation 28 days #28 ea pantoprazole 40 mg tablet,delayed 40 mg PO DAILY 30 days #30 tabs 01/04/23 release quetiapine 400 mg tablet 400 mg PO BEDTIME 30 days #30 tabs 01/04/23 Allergies Allergy/AdvReac Type Severity Reaction Status Date / Time No Known Allergies Allergy Verified 08/29/22 20:24 [No Known Allergies*] PMFSH Past Medical History Medical History Routine medical exam Bipolar disorder Chronic neck and back pain Carpal tunnel syndrome Fibromyalgia Osteoarthritis of multiple joints Cigarette nicotine dependence Opioid use disorder GERD (gastroesophageal reflux disease) Family History Family History Son Autism Social History Social History Household Members: Children Household Members Other:: 3 Housing: Apartment Do you presently have visiting nurse or other home services: No Alcohol intake: unknown Patient Tobacco Use Status: Current everyday Tobacco user Tobacco use type: Cigarette Cigarette Packs Per Day: 1 Cigarettes Per Day: 20.0 Years Smoked: 11 e-Cigarette/Vaping Use: Currently Using Substance Use Type: Crack/Cocaine and Heroin Advance Directives: No Advance Directives Information Provided: No service: No Sexual orientation: Straight/Heterosexual Physical Exam ED Vital Signs: Vital Signs - 24 hr 05/21/23 19:34 Temperature 97.8 F Pulse Rate 88 Respiratory Rate 16 Blood Pressure 147/92 H Pulse Oximetry 99 Oxygen Delivery Method Room Air BMI result Body Mass Index 25.7 Medical Decision Making Medical Decision Making MDM Narrative: -no acute abnormalities on labs -urine tested positive for fentanyl and cocaine Differential Diagnosis Differential Diagnoses: The differential diagnosis associated with the presentation includes (Anxiety, polysubstance abuse, alcohol abuse) Admission/Observation Consideration of admission/observation: Escalation of care including admission/observation considered (Patient will be under observation in the emergency room until disposition is determined by the care team) Lab Data 05/21/23 19:59 05/21/23 19:59 Labs: Lab Results 05/21/23 05/21/23 Range/Units 19:59 20:42 WBC 9.7 (4.8-10.8) X10*3/uL RBC 4.70 (4.20-5.50) X10*6/uL Hgb 12.5 (12.0-16.0) g/dl Hct 39.5 (37.0-47.0) % MCV 84.0 (80.0-98.0) fL MCH 26.6 L (27.0-33.0) pg MCHC 31.6 (31.0-35.0) g/dl RDW 14.9 (11.0-16.0) % Plt Count 360 (160-400) X10*3/uL MPV 9.3 L (9.4-12.3) fL Immature Gran % (Auto) 0.3 (0.0-0.4) % Neut % (Auto) 65.9 (45-73) % Lymph % (Auto) 21.4 (20-40) % [place] % (Auto) 6.8 (2-11) % Eos % (Auto) 5.1 H (0-4) % Baso % (Auto) 0.5 (0-2) % Lymph # (Auto) 2.1 (1.2-4.9) X10*3/uL [place] # (Auto) 0.7 (0.1-1.2) X10*3/uL Eos # (Auto) 0.5 H (0.0-0.4) X10*3/uL Baso # (Auto) 0.1 (0.0-0.2) X10*3/uL Abs Immat Gran (auto) 0.03 (0.00-0.03) X10*3/uL Absolute Neuts (auto) 6.4 (2.0-8.3) x10*3/uL Absolute Nucleated RBC 0.000 (0.0-0.012) X10*3/uL Nucleated RBC % (auto) 0.0 (0.0-0.2) /100WBC Sodium 139 (135-145) mmol/L Potassium 3.4 D (3.3-5.1) mmol/L Chloride 103 (96-108) mmol/L Carbon Dioxide 25 (22-29) mmol/L Anion Gap 14 (12-20) BUN 8 L (9-16) mg/dL Creatinine 0.73 (0.5-1.4) mg/dL Estim Creat Clear Calc 94.1 Estimated GFR > 60 Random Glucose 70 (60-115) mg/dL Calcium 9.4 (8.4-10.2) mg/dL Total Bilirubin 0.3 (0.0-1.0) mg/dL Direct Bilirubin 0.1 (0.0-0.5) mg/dL AST 16 (5-31) U/L ALT 10 (0-31) U/L Alkaline Phosphatase 72 (39-117) U/L Total Protein 7.1 (6.5-8.0) g/dL Albumin 4.0 (3.5-5.0) g/dL Beta HCG, Quant < 2 mIU/mL Urine Color Yellow Urine Appearance Clear Urine pH 8.0 (5.0-9.0) Ur Specific [place] 1.010 (1.005-1.025) Urine Protein Negative (Neg-Trace) mg/dL Urine Glucose (UA) Negative (Negative) mg/dL Urine Ketones Negative (Negative) mg/dL Urine Blood Negative (Negative) Urine Nitrite Negative (Negative) Ur Leukocyte Esterase Negative (Negative) Urine Opiates Screen Not Detected (Not Detect) Urine Fentanyl Screen POSITIVE H (Not Detect) Ur Barbiturates Screen Not Detected (Not Detect) Ur Phencyclidine Scrn Not Detected (Not Detect) Ur Amphetamines Screen Not Detected (Not Detect) U Benzodiazepines Scrn Not Detected (Not Detect) [place] < 0.10 L (0.60-1.20) mmol/L Urine Cocaine Screen POSITIVE H (Not Detect) U Marijuana (THC) Screen Not Detected (Not Detect) Ethyl Alcohol < 10 mg/dL Critical Care Time Critical Care Time Critical Care Time: Yes Total Critical Care Time: 30 Attestation: I have personally provided critical care time. Time includes review of lab data, radiology results, discussion with consultants, and monitoring for potential decompensation. Intervention performed as documented. Discharge Plan Discharge Clinical Impression: Bipolar disorder Patient Disposition: Still a Patient Prescriptions: No Action nicotine 21 mg/24 hr Patch 24 Hour 21 mg transdermal DAILY PRN (Reason: smoking cessation) 28 Days Qty: 28 1RF hydroxyzine HCl 25 mg tablet 25 mg PO BEDTIME PRN (Reason: anxiety/insomnia) 30 Days Qty: 30 1RF acetaminophen 325 mg Tablet 650 mg PO Q6H PRN (Reason: Headache/Pain Mild Scale (1-3)) Qty: 0 0RF pantoprazole 40 mg tablet,delayed release (DR/EC) 40 mg PO DAILY 30 Days Qty: 30 1RF duloxetine 60 mg capsule,delayed release(DR/EC) 60 mg PO DAILY 30 Days Qty: 30 1RF quetiapine 400 mg tablet 400 mg PO BEDTIME 30 Days Qty: 30 1RF lithium carbonate 150 mg capsule 450 mg PO BID melatonin 3 mg tablet 6 mg PO BEDTIME propranolol 10 mg tablet 5 mg PO TID trazodone 100 mg tablet 100 mg PO BEDTIME duloxetine 20 mg capsule,delayed release(DR/EC) 20 mg PO DAILY
--- NOTE | 2023-05-21 22:56 | MHC.CARE ---
Pt is being held on a section 12 until a bed can be found for IPLOC.
[2023-05-21 23:12] LABS: COVID-19 Test Negative (Negative); IDNOW Serial# 08D9AD1C
[2023-05-22] MEDS: Melatonin 3 MG TABLET 6 MG PO ×2 (00:25→20:29)
[2023-05-22] MEDS: traZODone HCL 100 MG TABLET PO ×2 (00:25→20:29)
[2023-05-22] MEDS: Propranolol HCL 10 MG TABLET 5 MG PO ×2 (00:25→09:27)
[2023-05-22] MEDS: QUEtiapine Fumarate 400 MG TABLET PO ×2 (00:25→20:29)
[2023-05-22] MEDS: Lithium Carbonate 300 MG TABLET 450 MG PO ×3 (00:25→20:53)
[2023-05-22 00:26] VITALS: BP 124/79; PULSE 84; RESP 16; TEMP 37; O2SAT 100
--- NOTE | 2023-05-22 00:29 | PC.NURSE ---
Patient is currently in bed appears sleeping, no distress observed/reported, behavior non concerning, Respiration +/+/non-labored bilaterally, VSS, medication compliant, patient was assessed by care team, disposition is section 12 inpatient bed search, labs completed/resulted, safety check in place for safety, appetite good, elimination intact, independent ambulation, coherent thought content, will continue to monitor.
[2023-05-22] MEDS: Omeprazole 20 MG CAPSULE.DR PO (06:55)
--- NOTE | 2023-05-22 08:54 | PC.NURSE ---
patient appears to remain asleep at present respirations are even and unlabored patient appears in no distress
[2023-05-22] MEDS: DULoxetine HCl 20 MG CAPSULE.DR PO (09:27)
[2023-05-22] MEDS: DULoxetine HCl 60 MG CAPSULE.DR PO (09:27)
[2023-05-22 09:28] VITALS: BP 129/72; PULSE 87; RESP 16; TEMP 37.3; O2SAT 99
[2023-05-22] MEDS: Acetaminophen 325 MG TABLET 650 MG PO ×2 (09:28→23:50)
[2023-05-22 15:48] VITALS: TEMP 36.4
--- NOTE | 2023-05-22 15:54 | PC.NURSE ---
Patient relaxed and sleeping. awaiting transport to
[2023-05-22 16:30] VITALS: BP 124/76; PULSE 98; TEMP 36.9; O2SAT 98
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
[2023-05-22] MEDS: hydrOXYzine HCL 25 MG TABLET PO (23:18)
[2023-05-23] MEDS: Omeprazole 20 MG CAPSULE.DR PO (06:20)
[2023-05-23] MEDS: DULoxetine HCl 60 MG CAPSULE.DR PO (08:12)
[2023-05-23] MEDS: Lithium Carbonate 300 MG TABLET 450 MG PO ×2 (08:12→20:38)
[2023-05-23] MEDS: DULoxetine HCl 20 MG CAPSULE.DR PO (08:12)
[2023-05-23 08:30] VITALS: BP 123/71; PULSE 73; RESP 16; TEMP 37.1; O2SAT 98
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
[2023-05-23] MEDS: Acetaminophen 325 MG TABLET 650 MG PO (11:34)
[2023-05-23] MEDS: Propranolol HCL 10 MG TABLET 5 MG PO (12:27)
[2023-05-23] MEDS: hydrOXYzine HCL 25 MG TABLET PO (12:27)
[2023-05-23 12:31] VITALS: BP 135/73; PULSE 94
[2023-05-23] MEDS: methADONE HCl 20 MG/2 ML ORAL.CONC 10 MG PO ×3 (12:42→20:42)
[2023-05-23] MEDS: Melatonin 3 MG TABLET 6 MG PO (20:40)
[2023-05-23] MEDS: QUEtiapine Fumarate 400 MG TABLET PO (20:41)
[2023-05-23] MEDS: traZODone HCL 100 MG TABLET PO (20:41)
[2023-05-23 20:45] VITALS: BP 127/96; PULSE 103; TEMP 36.5; O2SAT 99
[2023-05-24] MEDS: Omeprazole 20 MG CAPSULE.DR PO (06:06)
[2023-05-24] MEDS: DULoxetine HCl 60 MG CAPSULE.DR PO (08:59)
[2023-05-24] MEDS: methADONE HCl 20 MG/2 ML ORAL.CONC 10 MG PO ×3 (08:59→20:36)
[2023-05-24] MEDS: DULoxetine HCl 20 MG CAPSULE.DR PO (08:59)
[2023-05-24 09:17] VITALS: BP 119/74; PULSE 79; RESP 18; TEMP 36.1; O2SAT 98
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
[2023-05-24] MEDS: hydrOXYzine HCL 25 MG TABLET PO (10:38)
[2023-05-24] MEDS: Propranolol HCL 10 MG TABLET 5 MG PO (10:38)
[2023-05-24 10:44] VITALS: BP 121/73; PULSE 92
[2023-05-24] MEDS: Acetaminophen 325 MG TABLET 650 MG PO ×2 (13:45→20:47)
[2023-05-24 18:00] VITALS: BP 129/72; PULSE 79; TEMP 36.8
[2023-05-24] MEDS: traZODone HCL 100 MG TABLET PO (20:38)
[2023-05-24] MEDS: Lithium Carbonate ER 450 MG TABLET.ER 900 MG PO (20:38)
[2023-05-24] MEDS: QUEtiapine Fumarate 400 MG TABLET PO (20:39)
[2023-05-24] MEDS: Melatonin 3 MG TABLET 6 MG PO (20:39)
[2023-05-25] MEDS: Omeprazole 20 MG CAPSULE.DR PO (06:14)
[2023-05-25] MEDS: methADONE HCl 20 MG/2 ML ORAL.CONC PO (07:53)
[2023-05-25] MEDS: DULoxetine HCl 20 MG CAPSULE.DR PO (07:53)
[2023-05-25] MEDS: DULoxetine HCl 60 MG CAPSULE.DR PO (07:53)
[2023-05-25 08:30] VITALS: BP 102/61; PULSE 72; RESP 18; TEMP 36.7; O2SAT 98
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
[2023-05-25] MEDS: methADONE HCl 20 MG/2 ML ORAL.CONC 10 MG PO (10:20)
[2023-05-25] MEDS: Acetaminophen 325 MG TABLET 650 MG PO ×2 (14:32→20:35)
[2023-05-25 18:00] VITALS: BP 104/63; PULSE 79; RESP 18; TEMP 36.5; O2SAT 99
[2023-05-25] MEDS: hydrOXYzine HCL 25 MG TABLET PO (20:34)
[2023-05-25] MEDS: traZODone HCL 100 MG TABLET PO (20:35)
[2023-05-25] MEDS: Lithium Carbonate ER 450 MG TABLET.ER 900 MG PO (20:36)
[2023-05-25] MEDS: Melatonin 3 MG TABLET 6 MG PO (20:36)
[2023-05-25] MEDS: QUEtiapine Fumarate 400 MG TABLET PO (20:36)
[2023-05-26] MEDS: Omeprazole 20 MG CAPSULE.DR PO (06:06)
[2023-05-26] MEDS: methADONE HCl 20 MG/2 ML ORAL.CONC 30 MG PO (08:19)
[2023-05-26] MEDS: DULoxetine HCl 60 MG CAPSULE.DR PO (08:19)
[2023-05-26] MEDS: DULoxetine HCl 20 MG CAPSULE.DR PO (08:19)
[2023-05-26 08:20] VITALS: BP 128/77; PULSE 69; RESP 18; TEMP 36.6; O2SAT 100
[2023-05-26] MEDS: Lidocaine 4 % Patch ADH..PATCH 1 PATCH TRANSDERMA (08:20)
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
[2023-05-26 19:40] VITALS: BP 136/80; PULSE 85; RESP 18; TEMP 36.3; O2SAT 100
[2023-05-26] MEDS: QUEtiapine Fumarate 400 MG TABLET PO (20:11)
[2023-05-26] MEDS: Acetaminophen 325 MG TABLET 650 MG PO (20:11)
[2023-05-26] MEDS: Lithium Carbonate ER 450 MG TABLET.ER 900 MG PO (20:11)
[2023-05-26] MEDS: traZODone HCL 100 MG TABLET PO (20:12)
[2023-05-26] MEDS: Melatonin 3 MG TABLET 6 MG PO (20:12)
[2023-05-26] MEDS: hydrOXYzine HCL 25 MG TABLET PO (20:14)
[2023-05-27] MEDS: Omeprazole 20 MG CAPSULE.DR PO (06:02)
[2023-05-27 08:35] VITALS: BP 120/80; PULSE 77; RESP 18; TEMP 36.1; O2SAT 99
[2023-05-27] MEDS: DULoxetine HCl 20 MG CAPSULE.DR PO (09:49)
[2023-05-27] MEDS: hydrOXYzine HCL 25 MG TABLET PO ×2 (09:49→20:04)
[2023-05-27] MEDS: DULoxetine HCl 60 MG CAPSULE.DR PO (09:49)
[2023-05-27] MEDS: methADONE HCl 20 MG/2 ML ORAL.CONC 30 MG PO (09:49)
[2023-05-27] MEDS: Lidocaine 4 % Patch ADH..PATCH 1 PATCH TRANSDERMA (09:49)
[2023-05-27] MEDS: Acetaminophen 325 MG TABLET 650 MG PO ×2 (14:04→20:04)
[2023-05-27] MEDS: Cyclobenzaprine HCl 5 MG TABLET PO (14:05)
[2023-05-27 18:00] VITALS: BP 131/91; PULSE 95; TEMP 37; O2SAT 98
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
[2023-05-27] MEDS: Lithium Carbonate ER 450 MG TABLET.ER 900 MG PO (20:04)
[2023-05-27] MEDS: Melatonin 3 MG TABLET 6 MG PO (20:04)
[2023-05-27] MEDS: QUEtiapine Fumarate 400 MG TABLET PO (20:04)
[2023-05-27] MEDS: traZODone HCL 100 MG TABLET PO (20:04)
[2023-05-28] MEDS: Omeprazole 20 MG CAPSULE.DR PO (05:40)
--- NOTE | 2023-05-28 07:00 | ECG_ITS ---
Test Reason : qtc check Blood Pressure : / mmHG Vent. Rate : 076 BPM Atrial Rate : 076 BPM P-R Int : 146 ms QRS Dur : 078 ms QT Int : 404 ms P-R-T Axes : 057 058 057 degrees QTc Int : 454 ms Normal sinus rhythm Normal ECG When compared with ECG of 21-MAY-2023 19:31, ST no longer elevated in Inferior leads Referred By: Rikki Bowman Electronically Signed By:SCAR JORGENSEN
[2023-05-28 07:50] VITALS: BP 116/60; PULSE 78; RESP 18; TEMP 36.7; O2SAT 99
[2023-05-28 08:36] LABS: Lithium 0.77 mmol/L (0.60-1.20)
[2023-05-28] MEDS: methADONE HCl 20 MG/2 ML ORAL.CONC 30 MG PO (08:40)
[2023-05-28] MEDS: DULoxetine HCl 60 MG CAPSULE.DR PO (08:40)
[2023-05-28] MEDS: DULoxetine HCl 20 MG CAPSULE.DR PO (08:40)
[2023-05-28 08:49] LABS: Blood Urea Nitrogen 10 mg/dL (9-16); Creatinine Clr Calc Pharmacy 88.1; Estimated Glomerular Filt Rate > 60
[2023-05-28 09:05] LABS: TSH reflex Free T4 1.81 uIU/mL (0.32-4.0)
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
[2023-05-28] MEDS: Lidocaine 4 % Patch ADH..PATCH 1 PATCH TRANSDERMA (11:29)
[2023-05-28] MEDS: hydrOXYzine HCL 25 MG TABLET PO ×2 (11:29→20:01)
[2023-05-28] MEDS: Acetaminophen 325 MG TABLET 650 MG PO (11:32)
[2023-05-28] MEDS: Propranolol HCL 10 MG TABLET 5 MG PO ×2 (14:33→20:01)
[2023-05-28 14:58] LABS: Estimated Average Glucose 114 mg/dL; Hemoglobin A1c % 5.6 % (<6.0)
[2023-05-28] MEDS: Mineral Oil/Petrolatum,White 106 GM Tube 1 APPL TOPICAL (16:11)
[2023-05-28 18:00] VITALS: BP 113/71; PULSE 77; RESP 12; TEMP 36; O2SAT 99
[2023-05-28 19:55] VITALS: BP 123/85; PULSE 87
[2023-05-28] MEDS: Lithium Carbonate ER 450 MG TABLET.ER 900 MG PO (20:02)
[2023-05-28] MEDS: traZODone HCL 100 MG TABLET PO (20:02)
[2023-05-28] MEDS: Cyclobenzaprine HCl 5 MG TABLET PO (20:03)
[2023-05-28] MEDS: QUEtiapine Fumarate 300 MG TABLET 600 MG PO (20:04)
[2023-05-28] MEDS: Melatonin 3 MG TABLET 6 MG PO (20:05)
[2023-05-29] MEDS: Acetaminophen 325 MG TABLET 650 MG PO (05:59)
[2023-05-29] MEDS: Cyclobenzaprine HCl 5 MG TABLET PO (05:59)
[2023-05-29] MEDS: Omeprazole 20 MG CAPSULE.DR PO (05:59)
[2023-05-29 07:50] VITALS: BP 106/66; PULSE 87; RESP 18; TEMP 36.5; O2SAT 97
[2023-05-29] MEDS: methADONE HCl 20 MG/2 ML ORAL.CONC 30 MG PO (08:29)
[2023-05-29] MEDS: DULoxetine HCl 60 MG CAPSULE.DR PO (08:30)
[2023-05-29] MEDS: DULoxetine HCl 20 MG CAPSULE.DR PO (08:30)
[2023-05-29] MEDS: Lidocaine 4 % Patch ADH..PATCH 1 PATCH TRANSDERMA (08:31)
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
[2023-05-29] MEDS: Pregabalin 75 MG CAPSULE PO (18:21)
[2023-05-29] MEDS: Nicotine Polacrilex 2 MG GUM 4 MG BUCCAL (18:33)
[2023-05-29] MEDS: Lithium Carbonate ER 450 MG TABLET.ER 900 MG PO (20:29)
[2023-05-29] MEDS: QUEtiapine Fumarate 300 MG TABLET 600 MG PO (20:30)
[2023-05-29] MEDS: Melatonin 3 MG TABLET 6 MG PO (20:30)
[2023-05-29] MEDS: traZODone HCL 100 MG TABLET PO (20:30)
[2023-05-30 02:08] LABS: Prolactin 12.9 ng/mL
[2023-05-30] MEDS: Acetaminophen 325 MG TABLET 650 MG PO ×2 (04:19→21:50)
[2023-05-30] MEDS: hydrOXYzine HCL 25 MG TABLET PO (04:20)
[2023-05-30] MEDS: Cyclobenzaprine HCl 5 MG TABLET PO ×3 (04:20→19:32)
[2023-05-30] MEDS: Omeprazole 20 MG CAPSULE.DR PO (04:20)
[2023-05-30 08:20] VITALS: BP 105/63; PULSE 83; RESP 18; TEMP 36.3; O2SAT 94
[2023-05-30] MEDS: DULoxetine HCl 60 MG CAPSULE.DR PO (08:32)
[2023-05-30] MEDS: Pregabalin 75 MG CAPSULE PO ×2 (08:32→20:38)
[2023-05-30] MEDS: DULoxetine HCl 20 MG CAPSULE.DR PO (08:32)
[2023-05-30] MEDS: methADONE HCl 20 MG/2 ML ORAL.CONC 30 MG PO (08:32)
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
[2023-05-30] MEDS: Propranolol HCL 10 MG TABLET 5 MG PO ×2 (14:09→20:39)
[2023-05-30 14:23] VITALS: BP 112/73; PULSE 104
[2023-05-30 20:10] VITALS: BP 114/73; PULSE 88; TEMP 36.8
[2023-05-30] MEDS: Lithium Carbonate ER 450 MG TABLET.ER 900 MG PO (20:37)
[2023-05-30] MEDS: QUEtiapine Fumarate 300 MG TABLET 600 MG PO (20:38)
[2023-05-30] MEDS: traZODone HCL 100 MG TABLET PO (20:38)
[2023-05-30] MEDS: Melatonin 3 MG TABLET 6 MG PO (20:39)
[2023-05-31] MEDS: Omeprazole 20 MG CAPSULE.DR PO (06:26)
[2023-05-31 08:45] VITALS: BP 144/77; PULSE 77; RESP 18; TEMP 37.3; O2SAT 99
[2023-05-31] MEDS: Pregabalin 75 MG CAPSULE PO ×2 (09:30→20:12)
[2023-05-31] MEDS: DULoxetine HCl 60 MG CAPSULE.DR PO (09:30)
[2023-05-31] MEDS: DULoxetine HCl 20 MG CAPSULE.DR PO (09:30)
[2023-05-31] MEDS: methADONE HCl 20 MG/2 ML ORAL.CONC 30 MG PO (09:31)
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
[2023-05-31 14:29] VITALS: BP 111/74; PULSE 74
[2023-05-31 18:00] VITALS: BP 140/82; PULSE 100; RESP 16; TEMP 35.5; O2SAT 97
[2023-05-31] MEDS: traZODone HCL 100 MG TABLET PO (20:12)
[2023-05-31] MEDS: Melatonin 3 MG TABLET 6 MG PO (20:12)
[2023-05-31] MEDS: Lithium Carbonate ER 450 MG TABLET.ER 900 MG PO (20:12)
--- NOTE | 2023-05-31 23:51 | PC.NURSE ---
Pt is seen sitting on the bathroom floor confused, digital circuit designer services used. Pt reports feeling tired and fell asleep in the bathroom. Vitals sign stable. She denies any fall. Alert and oriented to self and place. pt reports she doesn't need help at this time.
[2023-06-01] MEDS: Omeprazole 20 MG CAPSULE.DR PO (06:31)
[2023-06-01 08:10] VITALS: BP 117/89; PULSE 77; RESP 18; TEMP 36.2; O2SAT 100
[2023-06-01] MEDS: DULoxetine HCl 20 MG CAPSULE.DR PO (08:28)
[2023-06-01] MEDS: DULoxetine HCl 60 MG CAPSULE.DR PO (08:28)
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
[2023-06-01 14:00] VITALS: BP 128/78; PULSE 84
[2023-06-01 14:36] LABS: Alanine Aminotransferase 84 U/L (0-31); Albumin Level 3.9 g/dL (3.5-5.0); Alkaline Phosphatase 86 U/L (39-117); Anion Gap 11 (12-20); Aspartate Amino Transferase 56 U/L (5-31); Bilirubin Total 0.3 mg/dL (0.0-1.0); Blood Urea Nitrogen 11 mg/dL (9-16); Calcium 9.8 mg/dL (8.4-10.2); Carbon Dioxide 31 mmol/L (22-29); Chloride 103 mmol/L (96-108); Creatinine Clr Calc Pharmacy 83.8; Estimated Glomerular Filt Rate > 60; Glucose Random 99 mg/dL (60-115); Potassium 4.2 mmol/L (3.3-5.1); Sodium 141 mmol/L (135-145); Total Protein 7.2 g/dL (6.5-8.0)
[2023-06-01 20:20] VITALS: BP 122/76; PULSE 91; RESP 16; TEMP 36.8; O2SAT 99
[2023-06-01] MEDS: Melatonin 3 MG TABLET 6 MG PO (21:10)
[2023-06-01] MEDS: Lithium Carbonate ER 450 MG TABLET.ER 900 MG PO (21:11)
[2023-06-01] MEDS: traZODone HCL 100 MG TABLET PO (21:11)
[2023-06-02] MEDS: Acetaminophen 325 MG TABLET 650 MG PO ×2 (00:11→08:23)
[2023-06-02] MEDS: hydrOXYzine HCL 25 MG TABLET PO ×2 (02:07→13:55)
[2023-06-02] MEDS: Omeprazole 20 MG CAPSULE.DR PO (06:16)
[2023-06-02 08:05] VITALS: BP 127/89; PULSE 84; RESP 18; TEMP 36.6; O2SAT 100
[2023-06-02] MEDS: DULoxetine HCl 60 MG CAPSULE.DR PO (08:22)
[2023-06-02] MEDS: DULoxetine HCl 20 MG CAPSULE.DR PO (08:22)
[2023-06-02 15:51] VITALS: BP 114/74; PULSE 75; RESP 16; TEMP 36.7; O2SAT 97
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
[2023-06-02] MEDS: traZODone HCL 100 MG TABLET PO (19:47)
[2023-06-02] MEDS: Melatonin 3 MG TABLET 6 MG PO (19:47)
[2023-06-02] MEDS: Lithium Carbonate ER 450 MG TABLET.ER 900 MG PO (19:47)
[2023-06-03] MEDS: Omeprazole 20 MG CAPSULE.DR PO (06:43)
[2023-06-03] MEDS: Acetaminophen 325 MG TABLET 650 MG PO ×3 (06:44→18:48)
[2023-06-03 07:50] VITALS: BP 116/72; PULSE 89; RESP 18; TEMP 36.6; O2SAT 94
[2023-06-03] MEDS: DULoxetine HCl 20 MG CAPSULE.DR PO (09:20)
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
[2023-06-03 18:00] VITALS: BP 113/76; PULSE 86; TEMP 36.2; O2SAT 94
[2023-06-03] MEDS: Melatonin 3 MG TABLET 6 MG PO (18:55)
[2023-06-03] MEDS: Lithium Carbonate ER 450 MG TABLET.ER 900 MG PO (18:55)
[2023-06-03] MEDS: traZODone HCL 100 MG TABLET PO (18:55)
[2023-06-04] MEDS: Acetaminophen 325 MG TABLET 650 MG PO (06:35)
[2023-06-04] MEDS: Omeprazole 20 MG CAPSULE.DR PO (06:36)
[2023-06-04 08:30] VITALS: BP 132/85; PULSE 75; RESP 18; TEMP 36.6; O2SAT 100
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
[2023-06-04 14:44] VITALS: BP 114/78; PULSE 70; RESP 16; TEMP 36.5; O2SAT 100
[2023-06-04 18:00] VITALS: BP 132/81; PULSE 98; RESP 18; TEMP 36
[2023-06-04] MEDS: traZODone HCL 100 MG TABLET PO (20:19)
[2023-06-04] MEDS: Melatonin 3 MG TABLET 6 MG PO (20:19)
[2023-06-04] MEDS: Lithium Carbonate ER 450 MG TABLET.ER 900 MG PO (20:20)
[2023-06-05] MEDS: Acetaminophen 325 MG TABLET 650 MG PO ×3 (06:35→19:40)
[2023-06-05 08:25] VITALS: BP 136/87; PULSE 79; RESP 18; TEMP 36.7; O2SAT 97
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
[2023-06-05 18:00] VITALS: BP 138/80; PULSE 83; RESP 16; TEMP 37.1; O2SAT 98
[2023-06-05] MEDS: hydrOXYzine HCL 25 MG TABLET PO (19:42)
[2023-06-05] MEDS: Lithium Carbonate ER 450 MG TABLET.ER 900 MG PO (20:35)
[2023-06-05] MEDS: Melatonin 3 MG TABLET 6 MG PO (20:35)
[2023-06-06 06:00] VITALS: BP 121/74; PULSE 87; RESP 16; TEMP 36.5; O2SAT 98
[2023-06-06 14:54] VITALS: BP 117/78; PULSE 80
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
[2023-06-06 18:00] VITALS: BP 129/85; PULSE 99; RESP 16
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
[2023-06-06] MEDS: Melatonin 3 MG TABLET 6 MG PO (20:29)
[2023-06-06] MEDS: Lithium Carbonate ER 450 MG TABLET.ER 900 MG PO (20:29)
[2023-06-06] MEDS: Pregabalin 150 MG CAPSULE PO (20:29)
[2023-06-06] MEDS: traZODone HCL 100 MG TABLET PO (20:29)
[2023-06-06] MEDS: OLANZapine 10 MG TABLET 30 MG PO (20:29)
[2023-06-06] MEDS: Propranolol HCL 10 MG TABLET 5 MG PO (20:29)
[2023-06-07] MEDS: Omeprazole 20 MG CAPSULE.DR PO (05:59)
[2023-06-07] MEDS: Propranolol HCL 10 MG TABLET 5 MG PO (06:40)
[2023-06-07] MEDS: Pregabalin 150 MG CAPSULE PO (06:41)
[2023-06-07] MEDS: DULoxetine HCl 20 MG CAPSULE.DR PO (06:41)
[2023-06-07] MEDS: DULoxetine HCl 60 MG CAPSULE.DR PO (06:41)
[2023-06-07] MEDS: methADONE HCl 20 MG/2 ML ORAL.CONC 40 MG PO (06:42)
[2023-06-07 08:07] VITALS: BP 135/87; PULSE 89; RESP 16; TEMP 36.4; O2SAT 97
== END 2023-06-07 08:30 | disposition home or self-care (01) | DRG 750 ==
LOC: HO.ED 05-22 16:10 → HO.PM5 05-22 16:30
PROVIDERS: Admitting Provider Psychiatry & Neurology Psychiatry; Emergency Provider Emergency Medicine; Visit Provider Psychiatry & Neurology Psychiatry
DX: F25.0 Schizoaffective disorder, bipolar type (principal); R45.851 Suicidal ideations; F11.20 Opioid dependence, uncomplicated; F17.210 Nicotine dependence, cigarettes, uncomplicated; F14.10 Cocaine abuse, uncomplicated; F43.10 Post-traumatic stress disorder, unspecified; M79.7 Fibromyalgia; Z23 Encounter for immunization; Z71.6 Tobacco abuse counseling; Z20.822 Contact with and (suspected) exposure to COVID-19; Z79.899 Other long term (current) drug therapy
CPT/HCPCS: 36415; 80048; 80053; 80076; 80178; 80307; 81003; 82565; 83036; 84146; 84443; 84520; 84702; 85025; 87635; 90686; 93005; 99285; S9485

== ENCOUNTER → 2023-05-22 16:23 | Outpatient (BNV) | payer OTHER, SELFPAY | PROVIDERS: Admitting Provider Psychiatry & Neurology Psychiatry; Emergency Provider Emergency Medicine; Visit Provider Psychiatry & Neurology Psychiatry | DX: F25.0 Schizoaffective disorder, bipolar type (principal); F43.11 Post-traumatic stress disorder, acute; F11.90 Opioid use, unspecified, uncomplicated; M79.7 Fibromyalgia; F14.10 Cocaine abuse, uncomplicated | CPT/HCPCS: 99231; 99232 ==

== ENCOUNTER 2023-06-11 00:39 | Inpatient (IN) | payer OTHER, SELFPAY ==
--- NOTE | 2023-06-11 00:46 | ED_ITS ---
HPI - General Adult General Chief complaint: Psychiatric Symptoms Stated complaint: SI X1 WK,NO PLAN,CALM/COOP PER EMS Time Seen by Provider: 06/11/23 00:46 Source: patient, EMS and senior talent management consultant Mode of arrival: EMS Limitations: language barrier History of Present Illness HPI narrative: Patient is a 42 year old assigned female at with a history of PTSD and substance use presenting to the emergency department today with suicidal ideation. Patient states that over the last week she has had increased thoughts of harming herself. Patient denies any dizziness, lightheadedness, abdominal pain, nausea, vomiting, fever, chills, blurry vision, double vision, loss of vision, chest pain, difficulty breathing, shortness of breath, back pain, night sweats, pain with urination, increased urinary frequency, increased urinary urgency, blood in her urine or stool, syncope or a near syncopal episode, recent trauma or falls, bowel incontinence, bladder incontinence, bowel retention, bladder retention, or any other complaints at this time. Onset (ago): week(s) Relieving factors: none Exacerbating factors: none Associated symptoms: denies other symptoms Treatments prior to arrival: none Related Data Previous Rx's Medication Instructions Recorded acetaminophen 325 mg tablet 650 mg (2 x 325 mg) PO Q6H PRN 01/04/23 Headache/Pain Mild Scale (1-3) #0 tabs cyclobenzaprine 10 mg tablet 10 mg PO TID PRN Muscle Spasm 30 06/06/23 days #90 tabs duloxetine 20 mg capsule,delayed 20 mg PO DAILY 30 days #30 caps 06/06/23 release duloxetine 60 mg capsule,delayed 60 mg PO DAILY 30 days #30 caps 06/06/23 release hydroxyzine HCl 25 mg tablet 25 mg PO BEDTIME PRN 06/06/23 anxiety/insomnia 30 days #60 tabs lidocaine 4 % topical patch 1 patch transdermal DAILY PRN pain 06/06/23 (Lidocaine Pain Relief) 30 days #30 ea lithium carbonate 450 mg 900 mg (2 x 450 mg) PO BEDTIME 30 06/06/23 tablet,extended release days #60 tabs melatonin 5 mg tablet 5 mg PO BEDTIME PRN sleep 30 days 06/06/23 #30 tabs methadone 10 mg/mL oral 40 mg (4 mL) PO DAILY #0 mL 06/06/23 concentrate (Methadose) nicotine (polacrilex) 4 mg gum 4 mg buccal Q2H 30 days #100 ea 06/06/23 olanzapine 15 mg tablet 30 mg (2 x 15 mg) PO BEDTIME 30 06/06/23 days #60 tabs pantoprazole 40 mg tablet,delayed 40 mg PO DAILY 30 days #30 tabs 06/06/23 release pregabalin 150 mg capsule (Lyrica) 150 mg PO BID 30 days #60 caps 06/06/23 propranolol 10 mg tablet 5 mg (1/2 x 10 mg) PO TID 30 days 06/06/23 #45 tabs trazodone 100 mg tablet 100 mg PO BEDTIME PRN insomnia 30 06/06/23 days #30 tabs Allergies Allergy/AdvReac Type Severity Reaction Status Date / Time No Known Allergies Allergy Verified 08/29/22 20:24 [No Known Allergies*] Review of Systems 2 Constitutional: Constitutional: Reports no additional constitutional complaints, Denies chills, Denies fever(s) and Denies night sweats Eyes: Eyes: Reports no additional eye complaints, Denies blurry vision, Denies change in vision, Denies diplopia, Denies eye discharge, Denies loss of vision and Denies eye pain ENT: Denies dizziness Cardiovascular: Cardiovascular: Reports no additional cardiovascular complaints, Denies chest pain, Denies lightheadedness, Denies Loss of Consciousness and Denies dyspnea Respiratory: Respiratory: Reports no additional respiratory complaints and Denies dyspnea Gastrointestinal: Gastrointestinal: Reports no additional gastrointestinal complaints, Denies abdominal pain, Denies melena, Denies hematochezia, Denies change in bowel habits and Denies change in stool character Genitourinary: Genitourinary: Denies hematuria, Denies urinary frequency, Denies dysuria, Denies urinary incontinence, Denies urinary hesitancy and Denies urinary urgency Musculoskeletal: Musculoskeletal: Reports no additional musculoskeletal complaints, Denies numbness and Denies tingling Neurologic: Denies dizziness, Denies loss of vision, Denies numbness and Denies tingling Psychiatric: Psychiatric: Reports no additional psychiatric complaints, Denies homicidal ideation and Reports suicidal ideation Endocrine: Endocrine: Reports no additional endocrine complaints Hematologic/Lymphatic: Hematologic/Lymphatic: Reports no additional hematologic/lymphatic complaints Allergic/Immunologic: Allergic/Immunologic: Reports no additional allergic/immunologic complaints PMFSH Past Medical History Attestation statement: The following information was validated with the patient. Source: old records reviewed and nursing notes reviewed Medical History Schizoaffective disorder, bipolar type Cocaine use disorder PTSD (post-traumatic stress disorder) Routine medical exam Bipolar disorder Chronic neck and back pain Carpal tunnel syndrome Fibromyalgia Osteoarthritis of multiple joints Cigarette nicotine dependence Opioid use disorder GERD (gastroesophageal reflux disease) Family History Family History Son Autism Social History Social History Household Members: None Household Members Other:: 3 Housing: Apartment Do you presently have visiting nurse or other home services: No Alcohol intake: unknown Patient Tobacco Use Status: Current everyday Tobacco user Tobacco use type: Cigarette Cigarette Packs Per Day: 1 Cigarettes Per Day: 20.0 Years Smoked: 32 e-Cigarette/Vaping Use: Never Used Second Hand Smoke Exposure: Yes Substance Use Type: Crack/Cocaine and Opiates service: No Sexual orientation: Straight/Heterosexual Physical Exam ED Vital Signs: Vital Signs - 24 hr 06/11/23 00:53 06/11/23 00:59 Temperature 97.8 F 97.8 F Pulse Rate 97 97 Respiratory Rate 18 18 Blood Pressure 149/105 H 149/105 H Pulse Oximetry 100 100 Oxygen Delivery Method Room Air Room Air BMI result Body Mass Index 23.0 Const General: cooperative, no acute distress, alert and awake Nutritional Appearance: well nourished Orientation/consciousness: patient oriented x3 Limitations: no limitations HENMT Head: Yes normal to inspection and Yes atraumatic Ears: hearing grossly normal bilaterally and external ears normal General nose exam: Normal external nose present, no nasal discharge noted and no epistaxis Face and sinus: Yes normal facial exam, No abrasion and No laceration Mouth: Normal oral and palatal mucosa present, no drooling and no muffled voice Eyes General: appearance normal, both eyes and all related structures Periorbital: periorbital findings normal Eyelids: Yes eyelids normal Conjunctivae: conjunctivae normal Pupils: Equal, round and reactive pupils present EOM: EOMs intact bilaterally Neck Neck: Yes normal visual inspection, Yes full ROM and Yes no lymphadenopathy Chest Chest palpation & inspection: normal inspection of the chest Resp Effort & Inspection: normal respiratory effort and able to speak in complete sentences GI Inspection: Yes normal to inspection Neuro General: patient oriented x3 and moves all extremities Cranial nerves: Yes Equal, round and reactive pupils present Cognition (Neuro): normal cognition Motor exam (neuro): 5/5 motor strength present throughout Sensory Exam: Normal double simultaneous stimulation for sensation Coordination: [id number] test normal Extrem General: Yes normal to inspection, Yes full ROM and Yes capillary refill normal Psych Appearance: grossly normal Mental Status: mental status grossly normal Affect: Labile affect present Thought content: Suicidality present Medical Decision Making Medical Decision Making MDM Narrative: Patient is a 42 year old assigned female at with a history of PTSD and substance use presenting to the emergency department today with suicidal ideation. Patient's physical exam was unremarkable. Patient's blood work was unremarkable. Patient's urine showed no acute process. Patient's EKG was unremarkable. I explained my physical exam findings as well as all test results to the patient. I answered all questions asked by the patient. Patient is awaiting CARE team evaluation. Differential Diagnosis Differential Diagnoses: The differential diagnosis associated with the presentation includes Suicidal ideation Substance use Lab Data MDM Lab Attestation statement: I reviewed the patient's lab results. My interpretation of these studies and their corresponding values is that they are grossly normal. 06/11/23 01:12 06/11/23 01:12 Labs: Lab Results 06/11/23 06/11/23 Range/Units 01:01 01:12 WBC 11.5 H (4.8-10.8) X10*3/uL RBC 4.26 (4.20-5.50) X10*6/uL Hgb 11.2 L (12.0-16.0) g/dl Hct 36.0 L (37.0-47.0) % MCV 84.5 (80.0-98.0) fL MCH 26.3 L (27.0-33.0) pg MCHC 31.1 (31.0-35.0) g/dl RDW 16.0 (11.0-16.0) % Plt Count 442 H (160-400) X10*3/uL MPV 9.5 (9.4-12.3) fL Immature Gran % (Auto) 0.3 (0.0-0.4) % Neut % (Auto) 57.3 (45-73) % Lymph % (Auto) 32.4 (20-40) % [place] % (Auto) 5.7 (2-11) % Eos % (Auto) 4.0 (0-4) % Baso % (Auto) 0.3 (0-2) % Lymph # (Auto) 3.7 (1.2-4.9) X10*3/uL [place] # (Auto) 0.7 (0.1-1.2) X10*3/uL Eos # (Auto) 0.5 H (0.0-0.4) X10*3/uL Baso # (Auto) 0.0 (0.0-0.2) X10*3/uL Abs Immat Gran (auto) 0.04 H (0.00-0.03) X10*3/uL Absolute Neuts (auto) 6.6 (2.0-8.3) x10*3/uL Absolute Nucleated RBC 0.000 (0.0-0.012) X10*3/uL Nucleated RBC % (auto) 0.0 (0.0-0.2) /100WBC Urine Color Yellow Urine Appearance Clear Urine pH 5.5 (5.0-9.0) Ur Specific [place] 1.020 (1.005-1.025) Urine Protein Negative (Neg-Trace) mg/dL Urine Glucose (UA) Negative (Negative) mg/dL Urine Ketones Negative (Negative) mg/dL Urine Blood Negative (Negative) Urine Nitrite Negative (Negative) Ur Leukocyte Esterase Trace H (Negative) Urine RBC 0-2 (0-2) /HPF Urine WBC 0-5 (0-5) /HPF Ur Squamous Epith Cells 3-5 (0-2) /HPF Urine Bacteria None Seen (None Seen) Hyaline Casts 0-2 (0-2) /LPF Urine Test NEGATIVE (NEGATIVE) Urine Opiates Screen Not Detected (Not Detect) Urine Fentanyl Screen Not Detected (Not Detect) Ur Barbiturates Screen Not Detected (Not Detect) Ur Phencyclidine Scrn Not Detected (Not Detect) Ur Amphetamines Screen Not Detected (Not Detect) U Benzodiazepines Scrn Not Detected (Not Detect) Urine Cocaine Screen Not Detected (Not Detect) U Marijuana (THC) Screen Not Detected (Not Detect) Independent Interpretation I performed an independent interpretation of an: EKG Interpretation: Vent. Rate: 087 BPM Atrial Rate: 087 BPM P-R Int: 158 ms QRS Dur: 086 ms QT Int: 404 ms P-R-T Axes: 059 061 061 degrees QTc Int: 486 ms Normal sinus rhythm Prolonged QT Abnormal ECG When compared with ECG of 28-MAY-2023 09:32, No significant change was found DD/ 0112 Independent Historian Clinical information obtained from an independent historian. History obtained from or confirmed by: EMS (EMS provided additional history and confirmed the history provided by the patient.) External Record Review External record reviewed: Inpatient record Discharge Plan Discharge Clinical Impression: Suicidal ideation Patient Disposition: Still a Patient Prescriptions: No Action acetaminophen 325 mg Tablet 650 mg PO Q6H PRN (Reason: Headache/Pain Mild Scale (1-3)) Qty: 0 0RF cyclobenzaprine 10 mg Tablet 10 mg PO TID PRN (Reason: Muscle Spasm) 30 Days Qty: 90 1RF nicotine (polacrilex) 4 mg gum 4 mg buccal Q2H 30 Days Qty: 100 1RF lithium carbonate 450 mg Tablet Extended Release 900 mg PO BEDTIME 30 Days Qty: 60 1RF methadone [Methadose] 10 mg/mL Concentrate 40 mg PO DAILY Qty: 0 0RF Rx Instructions: Partial Fill upon patient request. olanzapine 15 mg tablet 30 mg PO BEDTIME 30 Days Qty: 60 1RF pregabalin [Lyrica] 150 mg Capsule 150 mg PO BID 30 Days Qty: 60 1RF lidocaine [Lidocaine Pain Relief] 4 % Adhesive Patch,Medicated 1 patch transdermal DAILY PRN (Reason: pain) 30 Days Qty: 30 1RF Protocol: Apply to: Apply to: lower back Rx Instructions: lower back propranolol 10 mg tablet 5 mg PO TID 30 Days Qty: 45 1RF trazodone 100 mg tablet 100 mg PO BEDTIME PRN (Reason: insomnia) 30 Days Qty: 30 1RF pantoprazole 40 mg tablet,delayed release (DR/EC) 40 mg PO DAILY 30 Days Qty: 30 1RF hydroxyzine HCl 25 mg tablet 25 mg PO BEDTIME PRN (Reason: anxiety/insomnia) 30 Days Qty: 60 1RF duloxetine 20 mg capsule,delayed release(DR/EC) 20 mg PO DAILY 30 Days Qty: 30 1RF duloxetine 60 mg capsule,delayed release(DR/EC) 60 mg PO DAILY 30 Days Qty: 30 1RF melatonin 5 mg tablet 5 mg PO BEDTIME PRN (Reason: sleep) 30 Days Qty: 30 1RF Interventions: [place]-Suicide Risk Severity Scale Last Done: 06/11/23 01:29
--- NOTE | 2023-06-11 00:46 | ECG_ITS ---
Test Reason : [facility]Y [employer] Blood Pressure : / mmHG Vent. Rate : 087 BPM Atrial Rate : 087 BPM P-R Int : 158 ms QRS Dur : 086 ms QT Int : 404 ms P-R-T Axes : 059 061 061 degrees QTc Int : 486 ms Normal sinus rhythm Normal ECG When compared with ECG of 28-MAY-2023 09:32, No significant change was found Referred By: Fany Goldman Electronically Signed By:SARITA DUTTA MD
[2023-06-11 00:53] VITALS: BP 149/105; PULSE 97; RESP 18; TEMP 36.6; O2SAT 100
[2023-06-11 00:59] VITALS: BP 145/98; BP 149/105; PULSE 104; PULSE 97; RESP 18; TEMP 36.6; O2SAT 100; BMI 23.0
[2023-06-11 01:16] LABS: Appearance Urine Clear; Color Urine Yellow; Glucose Urine UA Negative (Negative); Leukocyte Esterase Urine Trace (Negative); Nitrite Urine Negative (Negative); PH 5.5 (5.0-9.0); UMIC TRIGGER UA YES; Urine Blood Negative (Negative); Urine Ketones Negative (Negative); Urine Protein Negative (Neg-Trace)
[2023-06-11 01:18] LABS: UPreg QC Valid YES; Urine Pregnancy NEGATIVE (NEGATIVE)
[2023-06-11 01:20] LABS: MANUAL DIFF FLAG NO
[2023-06-11 01:21] LABS: Bacteria Urine None Seen (None Seen); Hyaline Casts Urine 0-2 /LPF (0-2); RBC Urine 0-2 /HPF (0-2); WBC Urine 0-5 /HPF (0-5)
[2023-06-11 01:21] LABS: Basophils Percent Auto 0.3 % (0-2); Eosinophils Absolute Auto 0.5 X10*3/uL (0.0-0.4); Hemoglobin 11.2 g/dl (12.0-16.0); Imm Gran Abs Auto 0.04 X10*3/uL (0.00-0.03); Imm Gran Pct Auto 0.3 % (0.0-0.4); Lymphocytes Absolute Auto 3.7 X10*3/uL (1.2-4.9); Lymphocytes Percent Auto 32.4 % (20-40); Mean Corpuscular HGB Conc 31.1 g/dl (31.0-35.0); Mean Corpuscular Hemoglobin 26.3 pg (27.0-33.0); Mean Corpuscular Volume 84.5 fL (80.0-98.0); Mean Platelet Volume 9.5 fL (9.4-12.3); Monocytes Absolute Auto 0.7 X10*3/uL (0.1-1.2); Monocytes Percent Auto 5.7 % (2-11); Neutrophils Absolute Auto 6.6 x10*3/uL (2.0-8.3); Neutrophils Percent Auto 57.3 % (45-73); Platelet Count 442 X10*3/uL (160-400); Red Blood Count 4.26 X10*6/uL (4.20-5.50); White Blood Count 11.5 X10*3/uL (4.8-10.8)
--- NOTE | 2023-06-11 01:21 | MHC.EDTECH ---
vitals obtained upon pt arrival. private branch exchange installer complete,security went through all belongings. All belongings placed in locker #4. All labs obtained and sent to lab, ekg obtained. pt given warm blankets and is resting comfortably at this time.
[2023-06-11 01:22] LABS: Amphetamine Screen Urine Not Detected (Not Detect); Barbiturates, Urine Not Detected (Not Detect); Benzodiazepines Screen Urine Not Detected (Not Detect); Cannabinoid Screen Urine Not Detected (Not Detect); Cocaine Screen Urine Not Detected (Not Detect); Fentanyl, urine Not Detected (Not Detect); Opiate Screen Urine Not Detected (Not Detect); Phencyclidine Screen Urine Not Detected (Not Detect)
[2023-06-11 01:34] LABS: COVID-19 Test Negative (Negative); IDNOW Serial# 08D9AD1C
[2023-06-11 01:37] LABS: Acetaminophen LAB < 17 mcg/mL (<30); Alanine Aminotransferase 63 U/L (0-31); Albumin Level 3.9 g/dL (3.5-5.0); Alkaline Phosphatase 105 U/L (39-117); Anion Gap 14 (12-20); Aspartate Amino Transferase 20 U/L (5-31); Bilirubin Total 0.2 mg/dL (0.0-1.0); Blood Urea Nitrogen 17 mg/dL (9-16); Calcium 9.2 mg/dL (8.4-10.2); Carbon Dioxide 23 mmol/L (22-29); Chloride 103 mmol/L (96-108); Creatinine Clr Calc Pharmacy 77.7; Estimated Glomerular Filt Rate > 60; Ethanol < 10 mg/dL; Glucose Random 80 mg/dL (60-115); Potassium 3.8 mmol/L (3.3-5.1); Sodium 136 mmol/L (135-145); Total Protein 7.1 g/dL (6.5-8.0)
[2023-06-11 02:36] LABS: Salicylate < 5.0 mg/dL (15-30)
[2023-06-11] MEDS: Ibuprofen 400 MG TABLET PO ×2 (05:26→15:48)
[2023-06-11] MEDS: Acetaminophen 325 MG TABLET 650 MG PO ×2 (05:27→15:48)
--- NOTE | 2023-06-11 05:27 | PC.NURSE ---
Pt requesting medication for pain. Provider made aware. Pt medicated per OCT.
--- NOTE | 2023-06-11 07:31 | PC.NURSE ---
Methadone dose verified with Yudi Méndez at [facility] [phone]. Last dose given 06/09/23 at 11;26am. Faxed to pharmacy and provider aware.
--- NOTE | 2023-06-11 07:58 | HE.PHANOTE ---
METHADONE CONFIRMATION FORM RECEIVED FROM [facility]. LAST DOSE 40MG ON 06/09
[2023-06-11] MEDS: Nicotine Polacrilex 2 MG GUM 4 MG BUCCAL ×4 (09:25→20:31)
[2023-06-11] MEDS: OLANZapine 10 MG TABLET 30 MG PO ×2 (09:25→20:31)
[2023-06-11] MEDS: Pregabalin 150 MG CAPSULE PO ×2 (09:25→20:31)
[2023-06-11] MEDS: Lithium Carbonate ER 450 MG TABLET.ER 900 MG PO ×2 (09:25→20:39)
[2023-06-11] MEDS: methADONE HCl 20 MG/2 ML ORAL.CONC 40 MG PO (09:26)
[2023-06-11] MEDS: DULoxetine HCl 60 MG CAPSULE.DR PO (09:26)
[2023-06-11] MEDS: DULoxetine HCl 20 MG CAPSULE.DR PO (09:26)
[2023-06-11] MEDS: Propranolol HCL 10 MG TABLET 5 MG PO ×2 (09:26→16:04)
--- NOTE | 2023-06-11 09:31 | PC.NURSE ---
Alert and oriented, medicated per mar. Denies pain or discomfort
--- NOTE | 2023-06-11 10:11 | PC.NURSE ---
Seen by care team
[2023-06-11] MEDS: Milk of Magnesia 30 ML ORAL.SUSP PO (10:53)
--- NOTE | 2023-06-11 11:28 | PC.NURSE ---
Calm and cooperative, medicated per mar for complaints of constipation- pending effectiveness. Snacks and fluids provided per patient request
[2023-06-11 20:33] VITALS: BP 102/62; PULSE 78; RESP 18; TEMP 36.8; O2SAT 95
[2023-06-12 05:25] VITALS: BP 140/85; PULSE 83; RESP 16; TEMP 36.8; O2SAT 98
--- NOTE | 2023-06-12 06:13 | PC.NURSE ---
Patient slept through the night, no distress observed/reported, disposition per care team is section 12 inpatient bed search, medication compliant, behavior non concerning, labs completed/resulted, will continue to monitor.
[2023-06-12] MEDS: Omeprazole 20 MG CAPSULE.DR PO (08:55)
[2023-06-12] MEDS: Propranolol HCL 10 MG TABLET 5 MG PO (08:55)
[2023-06-12] MEDS: DULoxetine HCl 20 MG CAPSULE.DR PO (08:55)
[2023-06-12] MEDS: Pregabalin 150 MG CAPSULE PO ×2 (08:55→21:43)
[2023-06-12] MEDS: methADONE HCl 20 MG/2 ML ORAL.CONC 40 MG PO (08:55)
[2023-06-12] MEDS: DULoxetine HCl 60 MG CAPSULE.DR PO (08:55)
--- NOTE | 2023-06-12 10:34 | PC.NURSE ---
Keyshawn was adherent with all scheduled medications this am. No behavioral concerns. Appetite good. No complaints of pain or discomfort. Keyshawn denies HI/AVH she reports she can be safe in the hospital but does endorse thoughts and stated she doesn't know if she could be safe if discharged. Staff will continue to monitor for safety and comfort.
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
[2023-06-12] MEDS: clonazePAM 1 MG TABLET PO (12:44)
[2023-06-12 12:47] VITALS: BP 149/91; PULSE 91; RESP 16; TEMP 36.8; O2SAT 100
[2023-06-12] MEDS: fluPHENAZine HCl 5 MG TABLET PO ×2 (13:08→21:43)
[2023-06-12 13:43] VITALS: BP 124/76; PULSE 84; O2SAT 100
[2023-06-12 14:19] VITALS: PULSE 89; O2SAT 98
--- NOTE | 2023-06-12 16:26 | MHC.CARE ---
Patients insurance is set to on 06/16/23 per [employer], financial services and [facility] team from the hospital were notified by voicemail and detailed information was left. Please F/U as needed. Insurance reports they are not sure if issues are on their end or if the patient didn?t submit needed documents.?
[2023-06-12 20:31] VITALS: BP 117/88; PULSE 92; RESP 16; TEMP 36.4; O2SAT 98
[2023-06-12] MEDS: OLANZapine 10 MG TABLET 30 MG PO (21:43)
[2023-06-12] MEDS: Lithium Carbonate ER 450 MG TABLET.ER 900 MG PO (21:43)
[2023-06-12] MEDS: traZODone HCL 100 MG TABLET PO (21:44)
[2023-06-13 00:03] VITALS: BP 116/72; PULSE 99; RESP 16; TEMP 36.8; O2SAT 96
--- NOTE | 2023-06-13 07:17 | PC.NURSE ---
patient appears to remain asleep at present respirations are even and unlabored patient appears in no distress.
[2023-06-13 08:02] VITALS: BP 122/85; PULSE 100; RESP 20; TEMP 36.8; O2SAT 98
[2023-06-13] MEDS: Propranolol HCL 10 MG TABLET 5 MG PO (08:11)
[2023-06-13] MEDS: methADONE HCl 20 MG/2 ML ORAL.CONC 40 MG PO (08:11)
[2023-06-13] MEDS: Omeprazole 20 MG CAPSULE.DR PO (08:11)
[2023-06-13] MEDS: fluPHENAZine HCl 5 MG TABLET PO ×2 (08:11→19:45)
[2023-06-13] MEDS: Pregabalin 150 MG CAPSULE PO (08:11)
[2023-06-13] MEDS: DULoxetine HCl 30 MG CAPSULE.DR PO (08:12)
[2023-06-13] MEDS: Nicotine 21 MG PATCH.TD24 TRANSDERMA (14:19)
[2023-06-13] MEDS: Cyclobenzaprine HCl 10 MG TABLET PO (14:19)
[2023-06-13 18:00] VITALS: BP 125/73; PULSE 92; RESP 13; TEMP 36.3; O2SAT 92
[2023-06-13] MEDS: Lithium Carbonate ER 450 MG TABLET.ER 900 MG PO (19:43)
[2023-06-13] MEDS: Acetaminophen 325 MG TABLET 650 MG PO (19:44)
[2023-06-13] MEDS: traZODone HCL 100 MG TABLET PO (19:44)
[2023-06-14] MEDS: Melatonin 3 MG TABLET 5 MG PO ×2 (02:19→20:03)
[2023-06-14] MEDS: hydrOXYzine HCL 25 MG TABLET PO ×2 (02:19→19:19)
[2023-06-14 07:00] VITALS: BMI 23.6
[2023-06-14] MEDS: Omeprazole 20 MG CAPSULE.DR PO (08:14)
[2023-06-14] MEDS: DULoxetine HCl 30 MG CAPSULE.DR PO (08:15)
[2023-06-14] MEDS: methADONE HCl 20 MG/2 ML ORAL.CONC 40 MG PO (08:15)
[2023-06-14] MEDS: fluPHENAZine HCl 5 MG TABLET PO ×2 (08:15→20:03)
[2023-06-14 08:20] VITALS: BP 115/74; PULSE 94; RESP 18; TEMP 37.4; O2SAT 97
[2023-06-14] MEDS: Milk of Magnesia 30 ML ORAL.SUSP PO (08:21)
[2023-06-14 08:56] LABS: Alanine Aminotransferase 50 U/L (0-31); Albumin Level 3.6 g/dL (3.5-5.0); Alkaline Phosphatase 87 U/L (39-117); Anion Gap 12 (12-20); Aspartate Amino Transferase 43 U/L (5-31); Bilirubin Total 0.2 mg/dL (0.0-1.0); Blood Urea Nitrogen 13 mg/dL (9-16); Calcium 9.8 mg/dL (8.4-10.2); Carbon Dioxide 28 mmol/L (22-29); Chloride 102 mmol/L (96-108); Cholesterol 195 mg/dL (<200); Estimated Glomerular Filt Rate > 60; Glucose Fasting 80 mg/dL (60-99); HDL Cholesterol 48 mg/dL (>40); LDL Cholesterol Calculated 96 mg/dL (<100); Potassium 3.8 mmol/L (3.3-5.1); Sodium 138 mmol/L (135-145); Total Protein 6.8 g/dL (6.5-8.0); Triglycerides 257 mg/dL (<150)
[2023-06-14 09:25] LABS: Vitamin B12 685 pg/mL (200-900)
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
[2023-06-14] MEDS: Cyclobenzaprine HCl 10 MG TABLET PO (12:04)
[2023-06-14 19:40] VITALS: BP 138/78; PULSE 78; RESP 16; TEMP 36.6; O2SAT 97
[2023-06-14] MEDS: Lithium Carbonate ER 450 MG TABLET.ER 900 MG PO (20:02)
[2023-06-14] MEDS: traZODone HCL 100 MG TABLET PO (20:03)
[2023-06-14] MEDS: Magnesium Hydrox/Alum Hydrox 30 ML ORAL.SUSP PO (22:10)
[2023-06-15] MEDS: hydrOXYzine HCL 25 MG TABLET PO ×2 (01:02→18:47)
--- NOTE | 2023-06-15 09:07 | HO.PSYCHPN ---
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 Patient continues to report feelings of depression; tearful. Pt stated, I'm trying to live day by day and not think about things. I'm feeling a little hopeful but when I start thinking about what's going on in my life then I don't want to be alive . Patient reports she plans on reaching out to her today to determine if she will move to [place] with her. Medication Compliance: Yes Side effects from medications: No Review of Systems Constitutional: Reports as per HPI Eyes: Reports as per HPI Reports as per HPI Cardiovascular: Reports as per HPI Respiratory: Reports as per HPI Gastrointestinal: Reports as per HPI Genitourinary: Reports as per HPI Musculoskeletal: Reports as per HPI Skin/Breast: Reports as per HPI Reports as per HPI Psychiatric: Reports as per HPI Endocrine: Reports as per HPI Hematologic/Lymphatic: Reports as per HPI Allergic/Immunologic: Reports as per HPI Mental Status Exam Mental Status Exam Narrative: Pt is alert and oriented; behavior is cooperative, friendly and calm; dressed in casual attire; mood is described as sad ; eye contact appropriate; Speech is normal rate, volume and prosody and not pressured; no psychomotor agitation/retardation present; thought process is organized and goal directed; Thought content is on tx; otherwise pertinent to relevant topics and without any delusional content, paranoid ideations or grandiosity; denies HI. There is no evidence of perceptual disturbance. Patients insight and judgment are poor. Diagnostics Vital Signs (24Hr): Vital Signs - 24 hr 06/14/23 19:40 Temperature 97.8 F Pulse Rate 78 Respiratory Rate 16 Blood Pressure 138/78 Pulse Oximetry 97 Oxygen Delivery Method Room Air BMI result Body Mass Index 23.6 Labs 06/11/23 01:12 06/14/23 08:18 Labs: Laboratory Results - last 48 hr 06/14/23 08:18 Sodium 138 Potassium 3.8 Chloride 102 Carbon Dioxide 28 Anion Gap 12 BUN 13 Creatinine 0.68 Estim Creat Clear Calc 96.0 Estimated GFR > 60 Fasting Glucose 80 Calcium 9.8 D Total Bilirubin 0.2 AST 43 H ALT 50 H Alkaline Phosphatase 87 Total Protein 6.8 Albumin 3.6 Triglycerides 257 H Cholesterol 195 LDL Cholesterol, Calc 96 HDL Cholesterol 48 Vitamin B12 685 Medications Medications Current Medications Acetaminophen (Acetaminophen 325 Mg Tablet) 650 mg PO Q6H PRN PRN Reason: Headache/Pain Mild Scale (1-3) Last Admin: 06/13/23 19:44 Dose: 650 mg Acetaminophen (Acetaminophen 325 Mg Tablet) 650 mg PO Q6H PRN PRN Reason: pain moderate Al Hydroxide/Mg Hydroxide (Magnesium Hydrox/Alum Hydrox 30 Ml Oral.Susp) 30 ml PO Q6H PRN PRN Reason: Heartburn/Nausea Last Admin: 06/14/23 22:10 Dose: 30 ml Cyclobenzaprine HCl (Cyclobenzaprine Hcl 10 Mg Tablet) 10 mg PO TID PRN PRN Reason: Muscle Spasm Last Admin: 06/14/23 12:04 Dose: 10 mg Duloxetine HCl (Duloxetine Hcl 30 Mg Capsule.Dr) 30 mg PO DAILY [facility] Last Admin: 06/14/23 08:15 Dose: 30 mg Fluphenazine HCl (Fluphenazine Hcl 5 Mg Tablet) 5 mg PO BID [facility] Last Admin: 06/14/23 20:03 Dose: 5 mg Hydroxyzine HCl (Hydroxyzine Hcl 25 Mg Tablet) 25 mg PO BEDTIME PRN PRN Reason: anxiety/insomnia Last Admin: 06/15/23 01:02 Dose: 25 mg Ibuprofen (Ibuprofen 400 Mg Tablet) 400 mg PO Q6H PRN PRN Reason: Pain, Moderate(Pain Scale 4-6) Last Admin: 06/11/23 15:48 Dose: 400 mg Gibson Carbonate (Gibson Carbonate Er 450 Mg Tablet.Er) 900 mg PO BEDTIME [facility] Last Admin: 06/14/23 20:02 Dose: 900 mg Magnesium Hydroxide (Milk Of Magnesia 30 Ml Oral.Susp) 30 ml PO DAILY PRN PRN Reason: Constipation Last Admin: 06/14/23 08:21 Dose: 30 ml Melatonin (Melatonin 3 Mg Tablet) 5 mg PO BEDTIME [facility] Last Admin: 06/14/23 20:03 Dose: 5 mg Methadone HCl (Methadone Hcl 20 Mg/2 Ml Oral.Conc) 40 mg PO DAILY [facility] Last Admin: 06/14/23 08:15 Dose: 40 mg Nicotine (Nicotine 21 Mg Patch.Td24) 21 mg TRANSDERMA DAILY [facility] Last Admin: 06/14/23 11:40 Dose: Not Given Nicotine Polacrilex (Nicotine Polacrilex 2 Mg Gum) 4 mg BUCCAL Q2H PRN PRN Reason: nicotine cravings Omeprazole (Omeprazole 20 Mg Capsule.Dr) 20 mg PO DAILY [facility] Last Admin: 06/14/23 08:14 Dose: 20 mg Trazodone HCl (Trazodone Hcl 100 Mg Tablet) 100 mg PO BEDTIME PRN PRN Reason: insomnia Last Admin: 06/14/23 20:03 Dose: 100 mg Allergies Allergies Allergy/AdvReac Type Severity Reaction Status Date / Time No Known Allergies Allergy Verified 08/29/22 20:24 [No Known Allergies*] Assessment & Plan Assessment & Plan (1) Schizoaffective disorder, bipolar type: Status: Acute Code(s): F25.0 - Schizoaffective disorder, bipolar type (2) PTSD (post-traumatic stress disorder): Status: Acute Code(s): F43.10 - Post-traumatic stress disorder, unspecified (3) Cocaine use disorder: Status: Acute Code(s): F14.10 - Cocaine abuse, uncomplicated (4) Opioid use disorder: Status: Acute Code(s): F11.90 - Opioid use, unspecified, uncomplicated Plan Patient is a 42-year-old female with history of bipolar disorder/schizoaffective, PTSD, opioid and cocaine abuse, with hx of inpatient psychiatric hospitalizations, most recently discharged from on 06/06/2023, who [place] [facility] with suicidal ideation to throw herself in front of a truck d/t increased depressive symptoms. Plan: CV 15 minute safety checks Continue home medications Referral for DM services? Referral for outpatient program? 06/15: Patient continues to report feelings of depression; tearful. Pt stated, I'm trying to live day by day and not think about things. I'm feeling a little hopeful but when I start thinking about what's going on in my life then I don't want to be alive . Patient reports she plans on reaching out to her today to determine if she will move to [place] with her. Continue current tx plan. Patient educated on: diagnosis, medication risk/benefits and therapeutic strategies Informed Consent: understands Reason for continued inpatient stay Substantial Risk for: harm to self and med/psych decompensation Time Spent With Patient Time: Total time managing care of this patient today _30___ minutes.
[2023-06-15 09:30] VITALS: BP 120/80; PULSE 90; RESP 18; TEMP 37.2; O2SAT 98
[2023-06-15] MEDS: DULoxetine HCl 30 MG CAPSULE.DR PO (09:48)
[2023-06-15] MEDS: Omeprazole 20 MG CAPSULE.DR PO (09:48)
[2023-06-15] MEDS: methADONE HCl 20 MG/2 ML ORAL.CONC 40 MG PO (09:48)
[2023-06-15] MEDS: fluPHENAZine HCl 5 MG TABLET PO ×2 (09:48→20:22)
[2023-06-15] MEDS: Cyclobenzaprine HCl 10 MG TABLET PO (11:19)
[2023-06-15 18:00] VITALS: BP 119/78; PULSE 95; RESP 16; TEMP 35.6; O2SAT 98
[2023-06-15] MEDS: traZODone HCL 100 MG TABLET PO (20:22)
[2023-06-15] MEDS: Lithium Carbonate ER 450 MG TABLET.ER 900 MG PO (20:22)
[2023-06-15] MEDS: Melatonin 3 MG TABLET 5 MG PO (20:22)
[2023-06-16] MEDS: Cyclobenzaprine HCl 10 MG TABLET PO ×2 (02:21→19:36)
[2023-06-16] MEDS: hydrOXYzine HCL 25 MG TABLET PO ×2 (02:22→13:50)
[2023-06-16 08:05] VITALS: BP 104/59; PULSE 93; RESP 16; TEMP 36.9; O2SAT 97
[2023-06-16] MEDS: Nicotine 21 MG PATCH.TD24 TRANSDERMA (08:39)
[2023-06-16] MEDS: Omeprazole 20 MG CAPSULE.DR PO (08:39)
[2023-06-16] MEDS: methADONE HCl 20 MG/2 ML ORAL.CONC 40 MG PO (08:39)
[2023-06-16] MEDS: DULoxetine HCl 30 MG CAPSULE.DR PO (08:39)
[2023-06-16] MEDS: fluPHENAZine HCl 5 MG TABLET PO ×2 (08:39→19:36)
--- NOTE | 2023-06-16 10:01 | P.PNPSI_ITS ---
Subjective Subjective Date of Service: 06/16/23 Reason For Visit: Psychosis/delusions Interim History: Patient seen. She reports continued depression and anxiety. She reports a headache. Took Tylenol and Ibuprofen which she said helped. Seen in the milieu. Showered. More visible.Taking her medications as prescribed. Review of Systems Constitutional: Reports as per HPI, Reports no additional constitutional complaints, Denies chills, Denies fever(s) and Denies night sweats Eyes: Reports as per HPI, Reports no additional eye complaints, Denies blurry vision, Denies change in vision, Denies diplopia, Denies eye discharge, Denies loss of vision and Denies eye pain Reports as per HPI and Denies dizziness Cardiovascular: Reports as per HPI, Reports no additional cardiovascular complaints, Denies chest pain, Denies lightheadedness, Denies Loss of Consciousness and Denies dyspnea Respiratory: Reports as per HPI, Reports no additional respiratory complaints and Denies dyspnea Gastrointestinal: Reports as per HPI, Reports no additional gastrointestinal complaints, Denies abdominal pain, Denies melena, Denies hematochezia, Denies change in bowel habits and Denies change in stool character Musculoskeletal: Reports no additional musculoskeletal complaints, Reports as per HPI, Denies numbness and Denies tingling Skin/Breast: Reports as per HPI Reports as per HPI, Denies dizziness, Denies loss of vision, Denies numbness and Denies tingling Psychiatric: Reports no additional psychiatric complaints, Reports as per HPI, Denies homicidal ideation and Reports suicidal ideation Endocrine: Reports no additional endocrine complaints and Reports as per HPI Hematologic/Lymphatic: Reports no additional hematologic/lymphatic complaints and Reports as per HPI Allergic/Immunologic: Reports no additional allergic/immunologic complaints and Reports as per HPI Mental Status Exam Mental Status Exam Narrative: Pt is alert and oriented; behavior is cooperative, friendly and calm; dressed in casual attire; mood is described as sad ; eye contact appropriate; Speech is normal rate, volume and prosody and not pressured; no psychomotor agitation/retardation present; thought process is organized and goal directed; Thought content is on tx; otherwise pertinent to relevant topics and without any delusional content, paranoid ideations or grandiosity; denies HI. There is no evidence of perceptual disturbance. Patients insight and judgment are poor. Diagnostics Vital Signs (24Hr): Vital Signs - 24 hr 06/15/23 18:00 06/16/23 08:05 Temperature 96.1 F L 98.4 F Pulse Rate 95 93 Respiratory Rate 16 16 Blood Pressure 119/78 104/59 L Pulse Oximetry 98 97 Oxygen Delivery Method Room Air BMI result Body Mass Index 23.6 Labs 06/11/23 01:12 06/14/23 08:18 Medications Medications Current Medications Acetaminophen (Acetaminophen 325 Mg Tablet) 650 mg PO Q6H PRN PRN Reason: Headache/Pain Mild Scale (1-3) Last Admin: 06/13/23 19:44 Dose: 650 mg Acetaminophen (Acetaminophen 325 Mg Tablet) 650 mg PO Q6H PRN PRN Reason: pain moderate Al Hydroxide/Mg Hydroxide (Magnesium Hydrox/Alum Hydrox 30 Ml Oral.Susp) 30 ml PO Q6H PRN PRN Reason: Heartburn/Nausea Last Admin: 06/14/23 22:10 Dose: 30 ml Cyclobenzaprine HCl (Cyclobenzaprine Hcl 10 Mg Tablet) 10 mg PO TID PRN PRN Reason: Muscle Spasm Last Admin: 06/16/23 02:21 Dose: 10 mg Duloxetine HCl (Duloxetine Hcl 30 Mg Capsule.Dr) 30 mg PO DAILY [facility] Last Admin: 06/16/23 08:39 Dose: 30 mg Fluphenazine HCl (Fluphenazine Hcl 5 Mg Tablet) 5 mg PO BID [facility] Last Admin: 06/16/23 08:39 Dose: 5 mg Hydroxyzine HCl (Hydroxyzine Hcl 25 Mg Tablet) 25 mg PO Q6H PRN PRN Reason: anxiety/insomnia Last Admin: 06/16/23 02:22 Dose: 25 mg Ibuprofen (Ibuprofen 400 Mg Tablet) 400 mg PO Q6H PRN PRN Reason: Pain, Moderate(Pain Scale 4-6) Last Admin: 06/11/23 15:48 Dose: 400 mg [place] Carbonate ([place]sted Carbonate Er 450 Mg Tablet.Er) 900 mg PO BEDTIME [facility] Last Admin: 06/15/23 20:22 Dose: 900 mg Magnesium Hydroxide (Milk Of Magnesia 30 Ml Oral.Susp) 30 ml PO DAILY PRN PRN Reason: Constipation Last Admin: 06/14/23 08:21 Dose: 30 ml Melatonin (Melatonin 3 Mg Tablet) 5 mg PO BEDTIME [facility] Last Admin: 06/15/23 20:22 Dose: 5 mg Methadone HCl (Methadone Hcl 20 Mg/2 Ml Oral.Conc) 40 mg PO DAILY [facility] Last Admin: 06/16/23 08:39 Dose: 40 mg Nicotine (Nicotine 21 Mg Patch.Td24) 21 mg TRANSDERMA DAILY [facility] Last Admin: 06/16/23 08:39 Dose: 21 mg Nicotine Polacrilex (Nicotine Polacrilex 2 Mg Gum) 4 mg BUCCAL Q2H PRN PRN Reason: nicotine cravings Omeprazole (Omeprazole 20 Mg Capsule.Dr) 20 mg PO DAILY [facility] Last Admin: 06/16/23 08:39 Dose: 20 mg Trazodone HCl (Trazodone Hcl 100 Mg Tablet) 100 mg PO BEDTIME PRN PRN Reason: insomnia Last Admin: 06/15/23 20:22 Dose: 100 mg Allergies Allergies Allergy/AdvReac Type Severity Reaction Status Date / Time No Known Allergies Allergy Verified 08/29/22 20:24 [No Known Allergies*] Assessment & Plan Assessment & Plan (1) Schizoaffective disorder, bipolar type: Status: Acute Code(s): F25.0 - Schizoaffective disorder, bipolar type (2) PTSD (post-traumatic stress disorder): Status: Acute Code(s): F43.10 - Post-traumatic stress disorder, unspecified (3) Cocaine use disorder: Status: Acute Code(s): F14.10 - Cocaine abuse, uncomplicated (4) Opioid use disorder: Status: Acute Code(s): F11.90 - Opioid use, unspecified, uncomplicated Plan Patient is a 42-year-old female with history of bipolar disorder/schizoaffective, PTSD, opioid and cocaine abuse, with hx of inpatient psychiatric hospitalizations, most recently discharged from on 06/06/2023, who presented to [facility] with suicidal ideation to throw herself in front of a truck d/t increased depressive symptoms. Plan: CV 15 minute safety checks Continue home medications Referral for [facility] services? Referral for outpatient program? 06/15: Patient continues to report feelings of depression; tearful. Pt stated, I'm trying to live day by day and not think about things. I'm feeling a little hopeful but when I start thinking about what's going on in my life then I don't want to be alive . Patient reports she plans on reaching out to her today to determine if she will move to [place] with her. Continue current tx plan. 06/16: Continue current treatment plan. Reason for continued inpatient stay Substantial Risk for: harm to self and rapid decompensation Time Spent With Patient Time: Total time managing care of this patient today ____ minutes.
[2023-06-16] MEDS: Ibuprofen 400 MG TABLET PO (11:08)
[2023-06-16 18:00] VITALS: BP 123/75; PULSE 84; TEMP 36.8; O2SAT 98
[2023-06-16] MEDS: Melatonin 3 MG TABLET 5 MG PO (19:35)
[2023-06-16] MEDS: Lithium Carbonate ER 450 MG TABLET.ER 900 MG PO (19:36)
[2023-06-16] MEDS: traZODone HCL 100 MG TABLET PO (19:37)
[2023-06-16] MEDS: Acetaminophen 325 MG TABLET 650 MG PO (19:37)
[2023-06-17] MEDS: Cyclobenzaprine HCl 10 MG TABLET PO ×2 (07:46→19:44)
--- NOTE | 2023-06-17 08:07 | P.PNPSI_ITS ---
Subjective Subjective Date of Service: 06/17/23 Reason For Visit: Psychosis/delusions Interim History: Patient seen. She reports continued depression and anxiety. She reports a backache. Took Tylenol and Ibuprofen which she said helped. Seen in the milieu. Showered. More visible.Taking her medications as prescribed. Remains concerned about her living situation. Review of Systems Constitutional: Reports as per HPI, Reports no additional constitutional complaints, Denies chills, Denies fever(s) and Denies night sweats Eyes: Reports as per HPI, Reports no additional eye complaints, Denies blurry vision, Denies change in vision, Denies diplopia, Denies eye discharge, Denies loss of vision and Denies eye pain Reports as per HPI and Denies dizziness Cardiovascular: Reports as per HPI, Reports no additional cardiovascular complaints, Denies chest pain, Denies lightheadedness, Denies Loss of Consciousness and Denies dyspnea Respiratory: Reports as per HPI, Reports no additional respiratory complaints and Denies dyspnea Gastrointestinal: Reports as per HPI, Reports no additional gastrointestinal complaints, Denies abdominal pain, Denies melena, Denies hematochezia, Denies change in bowel habits and Denies change in stool character Musculoskeletal: Reports no additional musculoskeletal complaints, Reports as per HPI, Denies numbness and Denies tingling Skin/Breast: Reports as per HPI Reports as per HPI, Denies dizziness, Denies loss of vision, Denies numbness and Denies tingling Psychiatric: Reports no additional psychiatric complaints, Reports as per HPI, Denies homicidal ideation and Reports suicidal ideation Endocrine: Reports no additional endocrine complaints and Reports as per HPI Hematologic/Lymphatic: Reports no additional hematologic/lymphatic complaints and Reports as per HPI Allergic/Immunologic: Reports no additional allergic/immunologic complaints and Reports as per HPI Mental Status Exam Mental Status Exam Narrative: Pt is alert and oriented; behavior is cooperative, friendly and calm; dressed in casual attire; mood is described as sad ; eye contact appropriate; Speech is normal rate, volume and prosody and not pressured; no psychomotor agitation/retardation present; thought process is organized and goal directed; Thought content is on tx; otherwise pertinent to relevant topics and without any delusional content, paranoid ideations or grandiosity; denies HI. There is no evidence of perceptual disturbance. Patients insight and judgment are poor. Diagnostics Vital Signs (24Hr): Vital Signs - 24 hr 06/16/23 18:00 Temperature 98.2 F Pulse Rate 84 Blood Pressure 123/75 Pulse Oximetry 98 Oxygen Delivery Method Room Air BMI result Body Mass Index 23.6 Labs 06/11/23 01:12 06/14/23 08:18 Medications Medications Current Medications Acetaminophen (Acetaminophen 325 Mg Tablet) 650 mg PO Q6H PRN PRN Reason: Headache/Pain Mild Scale (1-3) Last Admin: 06/16/23 19:37 Dose: 650 mg Acetaminophen (Acetaminophen 325 Mg Tablet) 650 mg PO Q6H PRN PRN Reason: pain moderate Al Hydroxide/Mg Hydroxide (Magnesium Hydrox/Alum Hydrox 30 Ml Oral.Susp) 30 ml PO Q6H PRN PRN Reason: Heartburn/Nausea Last Admin: 06/14/23 22:10 Dose: 30 ml Cyclobenzaprine HCl (Cyclobenzaprine Hcl 10 Mg Tablet) 10 mg PO TID PRN PRN Reason: Muscle Spasm Last Admin: 06/17/23 07:46 Dose: 10 mg Duloxetine HCl (Duloxetine Hcl 30 Mg Capsule.Dr) 30 mg PO DAILY [facility] Last Admin: 06/16/23 08:39 Dose: 30 mg Fluphenazine HCl (Fluphenazine Hcl 5 Mg Tablet) 5 mg PO BID [facility] Last Admin: 06/16/23 19:36 Dose: 5 mg Hydroxyzine HCl (Hydroxyzine Hcl 25 Mg Tablet) 25 mg PO Q6H PRN PRN Reason: anxiety/insomnia Last Admin: 06/16/23 13:50 Dose: 25 mg [place] Carbonate ([place] Carbonate Er 450 Mg Tablet.Er) 900 mg PO BEDTIME [facility] Last Admin: 06/16/23 19:36 Dose: 900 mg Magnesium Hydroxide (Milk Of Magnesia 30 Ml Oral.Susp) 30 ml PO DAILY PRN PRN Reason: Constipation Last Admin: 06/14/23 08:21 Dose: 30 ml Melatonin (Melatonin 3 Mg Tablet) 5 mg PO BEDTIME [facility] Last Admin: 06/16/23 19:35 Dose: 5 mg Methadone HCl (Methadone Hcl 20 Mg/2 Ml Oral.Conc) 40 mg PO DAILY [facility] Last Admin: 06/16/23 08:39 Dose: 40 mg Nicotine (Nicotine 21 Mg Patch.Td24) 21 mg TRANSDERMA DAILY [facility] Last Admin: 06/16/23 08:39 Dose: 21 mg Nicotine Polacrilex (Nicotine Polacrilex 2 Mg Gum) 4 mg BUCCAL Q2H PRN PRN Reason: nicotine cravings Omeprazole (Omeprazole 20 Mg Capsule.Dr) 20 mg PO DAILY [facility] Last Admin: 06/16/23 08:39 Dose: 20 mg Trazodone HCl (Trazodone Hcl 100 Mg Tablet) 100 mg PO BEDTIME PRN PRN Reason: insomnia Last Admin: 06/16/23 19:37 Dose: 100 mg Allergies Allergies Allergy/AdvReac Type Severity Reaction Status Date / Time No Known Allergies Allergy Verified 08/29/22 20:24 [No Known Allergies*] Assessment & Plan Assessment & Plan (1) Schizoaffective disorder, bipolar type: Status: Acute Code(s): F25.0 - Schizoaffective disorder, bipolar type (2) PTSD (post-traumatic stress disorder): Status: Acute Code(s): F43.10 - Post-traumatic stress disorder, unspecified (3) Cocaine use disorder: Status: Acute Code(s): F14.10 - Cocaine abuse, uncomplicated (4) Opioid use disorder: Status: Acute Code(s): F11.90 - Opioid use, unspecified, uncomplicated Plan Patient is a 42-year-old female with history of bipolar disorder/schizoaffective, PTSD, opioid and cocaine abuse, with hx of inpatient psychiatric hospitalizations, most recently discharged from on 06/06/2023, who presented to [facility] ER with suicidal ideation to throw herself in front of a truck d/t increased depressive symptoms. Plan: CV 15 minute safety checks Continue home medications Referral for [facility] services? Referral for outpatient program? 06/15: Patient continues to report feelings of depression; tearful. Pt stated, I'm trying to live day by day and not think about things. I'm feeling a little hopeful but when I start thinking about what's going on in my life then I don't want to be alive . Patient reports she plans on reaching out to her today to determine if she will move to [place] with her. Continue current tx plan. 06/16: Continue current treatment plan. 06/17: Continue current treatment plan. Reason for continued inpatient stay Substantial Risk for: harm to self and rapid decompensation Time Spent With Patient Time: Total time managing care of this patient today ____ minutes.
[2023-06-17] MEDS: Nicotine 21 MG PATCH.TD24 TRANSDERMA (08:34)
[2023-06-17] MEDS: DULoxetine HCl 30 MG CAPSULE.DR PO (08:34)
[2023-06-17] MEDS: methADONE HCl 20 MG/2 ML ORAL.CONC 40 MG PO (08:34)
[2023-06-17] MEDS: fluPHENAZine HCl 5 MG TABLET PO ×2 (08:34→19:45)
[2023-06-17] MEDS: Omeprazole 20 MG CAPSULE.DR PO (08:34)
[2023-06-17 08:56] VITALS: BP 113/75; PULSE 94; RESP 16; TEMP 36.3; O2SAT 97
[2023-06-17 18:00] VITALS: BP 115/84; PULSE 80; TEMP 36.3; O2SAT 99
[2023-06-17] MEDS: traZODone HCL 100 MG TABLET PO (19:44)
[2023-06-17] MEDS: Melatonin 3 MG TABLET 5 MG PO (19:45)
[2023-06-17] MEDS: Lithium Carbonate ER 450 MG TABLET.ER 900 MG PO (19:47)
[2023-06-17] MEDS: Acetaminophen 325 MG TABLET 650 MG PO (19:47)
[2023-06-18 08:20] VITALS: BP 117/78; PULSE 88; RESP 18; TEMP 36.4; O2SAT 100
--- NOTE | 2023-06-18 09:13 | HO.PSYCHPN ---
Subjective Subjective Date of Service: 06/18/23 Reason For Visit: Psychosis/delusions Subjective Notes: Espinoza Warning and Conditional Voluntary Interim History: met with patient; discussed in team; reviewed notes Patient resting in bed on approach; friendly and cooperative; says feeling stressed Mental Status Exam Mental Status Exam Narrative: Pt is alert and oriented; behavior is cooperative, friendly and calm; dressed in casual attire; adequate hygiene; mood is described as stressed and affect congruent; eye contact appropriate; Speech is normal rate, volume and prosody and not pressured; no psychomotor agitation/retardation present; thought process is organized and goal directed; Thought content is on tx, housing; otherwise pertinent to relevant topics and without any delusional content, paranoid ideations expressed; no SI/HI. There is no evidence of perceptual disturbance. Patients insight and judgment are impaired but improved Diagnostics Vital Signs (24Hr): Vital Signs - 24 hr 06/17/23 18:00 Temperature 97.4 F Pulse Rate 80 Blood Pressure 115/84 Pulse Oximetry 99 Oxygen Delivery Method Room Air BMI result Body Mass Index 23.6 Labs 06/11/23 01:12 06/14/23 08:18 Medications Medications Current Medications Acetaminophen (Acetaminophen 325 Mg Tablet) 650 mg PO Q6H PRN PRN Reason: Headache/Pain Mild Scale (1-3) Last Admin: 06/17/23 19:47 Dose: 650 mg Acetaminophen (Acetaminophen 325 Mg Tablet) 650 mg PO Q6H PRN PRN Reason: pain moderate Al Hydroxide/Mg Hydroxide (Magnesium Hydrox/Alum Hydrox 30 Ml Oral.Susp) 30 ml PO Q6H PRN PRN Reason: Heartburn/Nausea Last Admin: 06/14/23 22:10 Dose: 30 ml Cyclobenzaprine HCl (Cyclobenzaprine Hcl 10 Mg Tablet) 10 mg PO TID PRN PRN Reason: Muscle Spasm Last Admin: 06/17/23 19:44 Dose: 10 mg Duloxetine HCl (Duloxetine Hcl 30 Mg Capsule.Dr) 30 mg PO DAILY [facility] Last Admin: 06/17/23 08:34 Dose: 30 mg Fluphenazine HCl (Fluphenazine Hcl 5 Mg Tablet) 5 mg PO BID [facility] Last Admin: 06/17/23 19:45 Dose: 5 mg Hydroxyzine HCl (Hydroxyzine Hcl 25 Mg Tablet) 25 mg PO Q6H PRN PRN Reason: anxiety/insomnia Last Admin: 06/16/23 13:50 Dose: 25 mg [place] Carbonate ([place] Carbonate Er 450 Mg Tablet.Er) 900 mg PO BEDTIME [facility] Last Admin: 06/17/23 19:47 Dose: 900 mg Magnesium Hydroxide (Milk Of Magnesia 30 Ml Oral.Susp) 30 ml PO DAILY PRN PRN Reason: Constipation Last Admin: 06/14/23 08:21 Dose: 30 ml Melatonin (Melatonin 3 Mg Tablet) 5 mg PO BEDTIME [facility] Last Admin: 06/17/23 19:45 Dose: 5 mg Methadone HCl (Methadone Hcl 20 Mg/2 Ml Oral.Conc) 40 mg PO DAILY [facility] Last Admin: 06/17/23 08:34 Dose: 40 mg Nicotine (Nicotine 21 Mg Patch.Td24) 21 mg TRANSDERMA DAILY [facility] Last Admin: 06/17/23 08:34 Dose: 21 mg Nicotine Polacrilex (Nicotine Polacrilex 2 Mg Gum) 4 mg BUCCAL Q2H PRN PRN Reason: nicotine cravings Omeprazole (Omeprazole 20 Mg Capsule.Dr) 20 mg PO DAILY [facility] Last Admin: 06/17/23 08:34 Dose: 20 mg Trazodone HCl (Trazodone Hcl 100 Mg Tablet) 100 mg PO BEDTIME PRN PRN Reason: insomnia Last Admin: 06/17/23 19:44 Dose: 100 mg Allergies Allergies Allergy/AdvReac Type Severity Reaction Status Date / Time No Known Allergies Allergy Verified 08/29/22 20:24 [No Known Allergies*] Assessment & Plan Assessment & Plan (1) Schizoaffective disorder, bipolar type: Status: Acute Code(s): F25.0 - Schizoaffective disorder, bipolar type (2) PTSD (post-traumatic stress disorder): Status: Acute Code(s): F43.10 - Post-traumatic stress disorder, unspecified (3) Cocaine use disorder: Status: Acute Code(s): F14.10 - Cocaine abuse, uncomplicated (4) Opioid use disorder: Status: Acute Code(s): F11.90 - Opioid use, unspecified, uncomplicated Plan Patient is a 42-year-old female with history of bipolar disorder/schizoaffective, PTSD, opioid and cocaine abuse, with hx of inpatient psychiatric hospitalizations, most recently discharged from on 06/06/2023, who presented to [facility] ER with suicidal ideation to throw herself in front of a truck d/t increased depressive symptoms. Hospital course 06/15: Patient continues to report feelings of depression; tearful. Pt stated, I'm trying to live day by day and not think about things. I'm feeling a little hopeful but when I start thinking about what's going on in my life then I don't want to be alive . Patient reports she plans on reaching out to her today to determine if she will move to [place] with her. Continue current tx plan. 06/16: Continue current treatment plan. 06/17: Continue current treatment plan. 06/18 medications seem to have helped and patient is not expressing any paranoid ideations. SI cleared up and patient's mood is improved. Continue current regimen for now Plan: CV 15 minute safety checks Continue home medications Referral for [facility] services? Referral for outpatient program? Patient educated on: diagnosis Informed Consent: understands Reason for continued inpatient stay Substantial Risk for: rapid decompensation Time Spent With Patient Time: Total time managing care of this patient today ____ minutes.
[2023-06-18] MEDS: DULoxetine HCl 30 MG CAPSULE.DR PO (09:15)
[2023-06-18] MEDS: fluPHENAZine HCl 5 MG TABLET PO ×2 (09:15→20:24)
[2023-06-18] MEDS: Omeprazole 20 MG CAPSULE.DR PO (09:15)
[2023-06-18] MEDS: methADONE HCl 20 MG/2 ML ORAL.CONC 40 MG PO (09:15)
[2023-06-18] MEDS: hydrOXYzine HCL 25 MG TABLET PO (15:57)
[2023-06-18 18:00] VITALS: BP 130/93; PULSE 97; RESP 16; TEMP 36.5; O2SAT 97
[2023-06-18] MEDS: Lithium Carbonate ER 450 MG TABLET.ER 900 MG PO (20:24)
[2023-06-18] MEDS: traZODone HCL 100 MG TABLET PO (20:24)
[2023-06-18] MEDS: Melatonin 3 MG TABLET 6 MG PO (20:24)
[2023-06-19] MEDS: Omeprazole 20 MG CAPSULE.DR PO (08:05)
[2023-06-19] MEDS: Nicotine 21 MG PATCH.TD24 TRANSDERMA (08:05)
[2023-06-19] MEDS: DULoxetine HCl 30 MG CAPSULE.DR PO (08:05)
[2023-06-19] MEDS: methADONE HCl 20 MG/2 ML ORAL.CONC 40 MG PO (08:05)
[2023-06-19] MEDS: fluPHENAZine HCl 5 MG TABLET PO ×2 (08:05→19:42)
[2023-06-19 08:48] VITALS: BP 149/85; PULSE 86; RESP 16; TEMP 36.4; O2SAT 97
--- NOTE | 2023-06-19 09:40 | P.PNPSI_ITS ---
Subjective Subjective Date of Service: 06/19/23 Reason For Visit: Psychosis/delusions Interim History: met with patient; discussed with team seen with car tester Patient agrees she is overall doing better though still depressed, mood has improved. On inquiry patient explained that she feels overall calmer on medication and at this time. She says that starting from zero (having lost her apartment and belongings) is somewhat cathartic and helping her feel more clear minded and not feeling like [she] has so much problems... -discussed [facility] application -Discussed likelihood of being discharged to a retirement; patient says she will be fine with that. Mental Status Exam Mental Status Exam Narrative: Pt is alert and oriented; behavior is cooperative, friendly and calm; dressed in casual attire; adequate hygiene; mood is described as calmer and affect congruent; eye contact appropriate; Speech is normal rate, volume and prosody and not pressured; no psychomotor agitation/retardation present; thought process is organized and goal directed; Thought content is on tx, housing; otherwise pertinent to relevant topics and without any delusional content, paranoid ideations expressed; no SI/HI. There is no evidence of perceptual disturbance. Patients insight and judgment are impaired but much improved and adequate Diagnostics Vital Signs (24Hr): Vital Signs - 24 hr 06/18/23 18:00 06/19/23 08:48 Temperature 97.7 F 97.5 F Pulse Rate 97 86 Respiratory Rate 16 16 Blood Pressure 130/93 H 149/85 H Pulse Oximetry 97 97 Oxygen Delivery Method Room Air Room Air BMI result Body Mass Index 23.6 Labs 06/11/23 01:12 06/14/23 08:18 Medications Medications Current Medications Acetaminophen (Acetaminophen 325 Mg Tablet) 650 mg PO Q6H PRN PRN Reason: pain moderate Al Hydroxide/Mg Hydroxide (Magnesium Hydrox/Alum Hydrox 30 Ml Oral.Susp) 30 ml PO Q6H PRN PRN Reason: Heartburn/Nausea Last Admin: 06/14/23 22:10 Dose: 30 ml Cyclobenzaprine HCl (Cyclobenzaprine Hcl 10 Mg Tablet) 10 mg PO TID PRN PRN Reason: Muscle Spasm Last Admin: 06/17/23 19:44 Dose: 10 mg Duloxetine HCl (Duloxetine Hcl 30 Mg Capsule.Dr) 30 mg PO DAILY [facility] Last Admin: 06/19/23 08:05 Dose: 30 mg Fluphenazine HCl (Fluphenazine Hcl 5 Mg Tablet) 5 mg PO BID [facility] Last Admin: 06/19/23 08:05 Dose: 5 mg Hydroxyzine HCl (Hydroxyzine Hcl 25 Mg Tablet) 25 mg PO Q6H PRN PRN Reason: anxiety/insomnia Last Admin: 06/18/23 15:57 Dose: 25 mg [place] Carbonate ([place] Carbonate Er 450 Mg Tablet.Er) 900 mg PO BEDTIME [facility] Last Admin: 06/18/23 20:24 Dose: 900 mg Magnesium Hydroxide (Milk Of Magnesia 30 Ml Oral.Susp) 30 ml PO DAILY PRN PRN Reason: Constipation Last Admin: 06/14/23 08:21 Dose: 30 ml Melatonin (Melatonin 3 Mg Tablet) 6 mg PO BEDTIME [facility] Last Admin: 06/18/23 20:24 Dose: 6 mg Methadone HCl (Methadone Hcl 20 Mg/2 Ml Oral.Conc) 40 mg PO DAILY [facility] Last Admin: 06/19/23 08:05 Dose: 40 mg Nicotine (Nicotine 21 Mg Patch.Td24) 21 mg TRANSDERMA DAILY [facility] Last Admin: 06/19/23 08:05 Dose: 21 mg Nicotine Polacrilex (Nicotine Polacrilex 2 Mg Gum) 4 mg BUCCAL Q2H PRN PRN Reason: nicotine cravings Omeprazole (Omeprazole 20 Mg Capsule.Dr) 20 mg PO DAILY [facility] Last Admin: 06/19/23 08:05 Dose: 20 mg Trazodone HCl (Trazodone Hcl 100 Mg Tablet) 100 mg PO BEDTIME PRN PRN Reason: insomnia Last Admin: 06/18/23 20:24 Dose: 100 mg Allergies Allergies Allergy/AdvReac Type Severity Reaction Status Date / Time No Known Allergies Allergy Verified 08/29/22 20:24 [No Known Allergies*] Assessment & Plan Assessment & Plan (1) Schizoaffective disorder, bipolar type: Status: Acute Code(s): F25.0 - Schizoaffective disorder, bipolar type (2) PTSD (post-traumatic stress disorder): Status: Acute Code(s): F43.10 - Post-traumatic stress disorder, unspecified (3) Cocaine use disorder: Status: Acute Code(s): F14.10 - Cocaine abuse, uncomplicated (4) Opioid use disorder: Status: Acute Code(s): F11.90 - Opioid use, unspecified, uncomplicated Plan Patient is a 42-year-old female with history of bipolar disorder/schizoaffective, PTSD, opioid and cocaine abuse, with hx of inpatient psychiatric hospitalizations, most recently discharged from on 06/06/2023, who presented to [facility] ER with suicidal ideation to throw herself in front of a truck d/t increased depressive symptoms. Hospital course 06/15: Patient continues to report feelings of depression; tearful. Pt stated, I'm trying to live day by day and not think about things. I'm feeling a little hopeful but when I start thinking about what's going on in my life then I don't want to be alive . Patient reports she plans on reaching out to her today to determine if she will move to [place] with her. Continue current tx plan. 06/16: Continue current treatment plan. 06/17: Continue current treatment plan. 06/18 medications seem to have helped and patient is not expressing any paranoid ideations. SI cleared up and patient's mood is improved. Continue current regimen for now 06/19 Patient agrees she is overall doing better though still depressed, mood has improved. On inquiry patient explained that she feels overall calmer on medication and at this time. She says that starting from zero (having lost her apartment and belongings) is somewhat cathartic and helping her feel more clear minded and not feeling like [she] has so much problems... -it is noteworthy that patient has not brought up any paranoid ideations regarding her and his girlfriend, for nearly a week, something that was formally a predominant concern for her, before getting on Trilafon -is also noteworthy that patient remain sober in-between admissions Plan: CV 15 minute safety checks Continue Trilafon 5 mg b.i.d. Referral for [facility] services? Referral for outpatient program? Patient educated on: diagnosis, medication risk/benefits and therapeutic strategies Reason for continued inpatient stay Substantial Risk for: stable for discharge Time Spent With Patient Time: Total time managing care of this patient today ____ minutes.
[2023-06-19] MEDS: hydrOXYzine HCL 25 MG TABLET PO (15:50)
[2023-06-19] MEDS: Cyclobenzaprine HCl 10 MG TABLET PO (15:50)
[2023-06-19 16:36] VITALS: BP 119/79; PULSE 93; TEMP 36.2; O2SAT 98
[2023-06-19] MEDS: Melatonin 3 MG TABLET 6 MG PO (19:42)
[2023-06-19] MEDS: traZODone HCL 100 MG TABLET PO (19:42)
[2023-06-19] MEDS: Lithium Carbonate ER 450 MG TABLET.ER 900 MG PO (19:42)
[2023-06-20] MEDS: Cyclobenzaprine HCl 10 MG TABLET PO (04:50)
[2023-06-20] MEDS: methADONE HCl 20 MG/2 ML ORAL.CONC 40 MG PO (08:50)
[2023-06-20] MEDS: fluPHENAZine HCl 5 MG TABLET PO ×2 (08:50→19:59)
[2023-06-20] MEDS: Omeprazole 20 MG CAPSULE.DR PO (08:50)
[2023-06-20] MEDS: DULoxetine HCl 30 MG CAPSULE.DR PO (08:50)
[2023-06-20 09:30] VITALS: BP 118/71; PULSE 82; RESP 18; TEMP 36.1; O2SAT 96
[2023-06-20] MEDS: Pregabalin 75 MG CAPSULE PO ×2 (10:31→19:59)
--- NOTE | 2023-06-20 12:32 | P.PNPSI_ITS ---
Subjective Subjective Date of Service: 06/20/23 Reason For Visit: Psychosis/delusions Interim History: Met with patient; discussed with team Patient feeling the same, still with depression but overall better and more clear minded. No paranoid delusional thoughts expressed. Patient says she is having trouble sleeping and that she used to be on Seroquel 400 mg. Dolphin Trainer reviewed chart and see that patient was in fact on Seroquel 600 mg however was lowered when she got on Zyprexa instead. Patient agreed to restart Seroquel 100 mg and to titrate as needed. Dolphin Trainer noticed that patient was not restarted on Lyrica and that she has been complaining of fibromyalgia pain; she agreed to restart Lyrica as well. Patient denies any lithium tremor and so at this time no need for propranolol Mental Status Exam Mental Status Exam Narrative: Pt is alert and oriented; behavior is cooperative, friendly and calm; dressed in casual attire; adequate hygiene; mood is described as ok and affect congruent; eye contact appropriate; Speech is normal rate, volume and prosody and not pressured; no psychomotor agitation/retardation present; thought process is organized and goal directed; Thought content is on tx, housing; otherwise pertinent to relevant topics and without any delusional content, paranoid ideations expressed; no SI/HI. There is no evidence of perceptual disturbance. Patients insight and judgment are impaired but much improved and adequate Diagnostics Vital Signs (24Hr): Vital Signs - 24 hr 06/19/23 16:36 06/20/23 09:30 Temperature 97.2 F 96.9 F Pulse Rate 93 82 Respiratory Rate 18 Blood Pressure 119/79 118/71 Pulse Oximetry 98 96 Oxygen Delivery Method Room Air Room Air BMI result Body Mass Index 23.6 Labs 06/11/23 01:12 06/14/23 08:18 Medications Medications Current Medications Acetaminophen (Acetaminophen 325 Mg Tablet) 650 mg PO Q6H PRN PRN Reason: pain moderate Al Hydroxide/Mg Hydroxide (Magnesium Hydrox/Alum Hydrox 30 Ml Oral.Susp) 30 ml PO Q6H PRN PRN Reason: Heartburn/Nausea Last Admin: 06/14/23 22:10 Dose: 30 ml Cyclobenzaprine HCl (Cyclobenzaprine Hcl 10 Mg Tablet) 10 mg PO TID PRN PRN Reason: Muscle Spasm Last Admin: 06/20/23 04:50 Dose: 10 mg Duloxetine HCl (Duloxetine Hcl 30 Mg Capsule.Dr) 30 mg PO DAILY [facility] Last Admin: 06/20/23 08:50 Dose: 30 mg Fluphenazine HCl (Fluphenazine Hcl 5 Mg Tablet) 5 mg PO BID [facility] Last Admin: 06/20/23 08:50 Dose: 5 mg Hydroxyzine HCl (Hydroxyzine Hcl 25 Mg Tablet) 25 mg PO Q6H PRN PRN Reason: anxiety/insomnia Last Admin: 06/19/23 15:50 Dose: 25 mg [place] Carbonate ([place] Carbonate Er 450 Mg Tablet.Er) 900 mg PO BEDTIME [facility] Last Admin: 06/19/23 19:42 Dose: 900 mg Magnesium Hydroxide (Milk Of Magnesia 30 Ml Oral.Susp) 30 ml PO DAILY PRN PRN Reason: Constipation Last Admin: 06/14/23 08:21 Dose: 30 ml Melatonin (Melatonin 3 Mg Tablet) 6 mg PO BEDTIME [facility] Last Admin: 06/19/23 19:42 Dose: 6 mg Methadone HCl (Methadone Hcl 20 Mg/2 Ml Oral.Conc) 40 mg PO DAILY [facility] Last Admin: 06/20/23 08:50 Dose: 40 mg Nicotine (Nicotine 21 Mg Patch.Td24) 21 mg TRANSDERMA DAILY [facility] Last Admin: 06/20/23 09:08 Dose: Not Given Nicotine Polacrilex (Nicotine Polacrilex 2 Mg Gum) 4 mg BUCCAL Q2H PRN PRN Reason: nicotine cravings Omeprazole (Omeprazole 20 Mg Capsule.Dr) 20 mg PO DAILY [facility] Last Admin: 06/20/23 08:50 Dose: 20 mg Pregabalin (Pregabalin 75 Mg Capsule) 75 mg PO BID [facility] Stop: 06/20/23 23:50 Last Admin: 06/20/23 10:31 Dose: 75 mg Pregabalin (Pregabalin 150 Mg Capsule) 150 mg PO BID [facility] Trazodone HCl (Trazodone Hcl 100 Mg Tablet) 100 mg PO BEDTIME PRN PRN Reason: insomnia Last Admin: 06/19/23 19:42 Dose: 100 mg Allergies Allergies Allergy/AdvReac Type Severity Reaction Status Date / Time No Known Allergies Allergy Verified 08/29/22 20:24 [No Known Allergies*] Assessment & Plan Assessment & Plan (1) Schizoaffective disorder, bipolar type: Status: Acute Code(s): F25.0 - Schizoaffective disorder, bipolar type (2) PTSD (post-traumatic stress disorder): Status: Acute Code(s): F43.10 - Post-traumatic stress disorder, unspecified (3) Cocaine use disorder: Status: Acute Code(s): F14.10 - Cocaine abuse, uncomplicated (4) Opioid use disorder: Status: Acute Code(s): F11.90 - Opioid use, unspecified, uncomplicated Plan Patient is a 42-year-old female with history of bipolar disorder/schizoaffective, PTSD, opioid and cocaine abuse, with hx of inpatient psychiatric hospitalizations, most recently discharged from on 06/06/2023, who [place] [facility] [facility] [place] with suicidal ideation to throw herself in front of a truck d/t increased depressive symptoms. Hospital course 06/15: Patient continues to report feelings of depression; tearful. Pt stated, I'm trying to live day by day and not think about things. I'm feeling a little hopeful but when I start thinking about what's going on in my life then I don't want to be alive . Patient reports she plans on reaching out to her today to determine if she will move to [place] with her. Continue current tx plan. 06/16: Continue current treatment plan. 06/17: Continue current treatment plan. 06/18 medications seem to have helped and patient is not expressing any paranoid ideations. SI cleared up and patient's mood is improved. Continue current regimen for now 06/19 Patient agrees she is overall doing better though still depressed, mood has improved. On inquiry patient explained that she feels overall calmer on medication and at this time. She says that starting from zero (having lost her apartment and belongings) is somewhat cathartic and helping her feel more clear minded and not feeling like [she] has so much problems... -it is noteworthy that patient has not brought up any paranoid ideations regarding her and his girlfriend, for nearly a week, something that was formally a predominant concern for her, before getting on Trilafon -is also noteworthy that patient remain sober in-between admissions 06/20 stabilized; not sleeping well and will restart Seroquel though at a lower dose for now; will restart pregabalin as well Plan: CV 15 minute safety checks Restart Seroquel 100 mg q.h.s. (patient used to be on as high as 600 mg q.h.s.) Increase trazodone to 100 mg q.h.s. which he was taking before Restart Lyrica and titrate to 150 mg b.i.d. which she was on it last admission and helped relieve fibromyalgia pain Will hold off on restarting propranolol since patient currently denies lithium induced tremor and none observed Continue Trilafon 5 mg b.i.d. Referral for DMH services Patient educated on: diagnosis, medication risk/benefits and medical condition Informed Consent: understands Reason for continued inpatient stay Substantial Risk for: stable for discharge Time Spent With Patient Time: Total time managing care of this patient today ____ minutes.
[2023-06-20 18:00] VITALS: BP 117/72; PULSE 81; TEMP 36.3; O2SAT 81
[2023-06-20] MEDS: Lithium Carbonate ER 450 MG TABLET.ER 900 MG PO (19:58)
[2023-06-20] MEDS: Melatonin 3 MG TABLET 6 MG PO (19:59)
[2023-06-20] MEDS: traZODone HCL 100 MG TABLET PO (19:59)
[2023-06-20] MEDS: QUEtiapine Fumarate 100 MG TABLET PO (19:59)
[2023-06-21 07:00] VITALS: BMI 24.0
[2023-06-21] MEDS: DULoxetine HCl 30 MG CAPSULE.DR PO (08:25)
[2023-06-21] MEDS: Omeprazole 20 MG CAPSULE.DR PO (08:25)
[2023-06-21] MEDS: Nicotine 21 MG PATCH.TD24 TRANSDERMA (08:25)
[2023-06-21] MEDS: methADONE HCl 20 MG/2 ML ORAL.CONC 40 MG PO (08:25)
[2023-06-21] MEDS: Pregabalin 150 MG CAPSULE PO ×2 (08:25→20:41)
[2023-06-21] MEDS: fluPHENAZine HCl 5 MG TABLET PO ×2 (08:25→20:40)
[2023-06-21 08:28] VITALS: BP 135/67; PULSE 92; RESP 16; TEMP 36.4; O2SAT 100
--- NOTE | 2023-06-21 09:41 | P.PNPSI_ITS ---
Subjective Subjective Date of Service: 06/21/23 Reason For Visit: Psychosis/delusions Interim History: met with patient; discussed with team Seen with de icer kit assembler Patient reports she is doing overall okay; feeling a little jumpy and wonders if it is having restarted the Seroquel however she would like to continue it and having increased since she still struggling with insomnia. Discussed long- acting injectable of Prolixin which she agrees to. Discussed disposition. When discussing her new phone, patient did express some paranoid thinking about her phone being hacked however paranoid are remained in that context only and otherwise did not come up Mental Status Exam Mental Status Exam Narrative: Pt is alert and oriented; behavior is cooperative, friendly and calm; dressed in casual attire; adequate hygiene; mood is described as ok and affect congruent; eye contact appropriate; Speech is normal rate, volume and prosody and not pressured; no psychomotor agitation/retardation present; thought process is organized and goal directed; Thought content is on tx, housing; otherwise pertinent to relevant topics; some paranoid thinking but isolated and does not appear to be intrusive; no SI/HI. There is no evidence of perceptual disturbance. Patients insight and judgment are impaired but much improved and adequate Diagnostics Vital Signs (24Hr): Vital Signs - 24 hr 06/20/23 18:00 06/21/23 08:28 Temperature 97.3 F 97.6 F Pulse Rate 81 92 Respiratory Rate 16 Blood Pressure 117/72 135/67 Pulse Oximetry 81 L 100 Oxygen Delivery Method Room Air Room Air BMI result Body Mass Index 23.6 Labs 06/11/23 01:12 06/14/23 08:18 Medications Medications Current Medications Acetaminophen (Acetaminophen 325 Mg Tablet) 650 mg PO Q6H PRN PRN Reason: pain moderate Al Hydroxide/Mg Hydroxide (Magnesium Hydrox/Alum Hydrox 30 Ml Oral.Susp) 30 ml PO Q6H PRN PRN Reason: Heartburn/Nausea Last Admin: 06/14/23 22:10 Dose: 30 ml Cyclobenzaprine HCl (Cyclobenzaprine Hcl 10 Mg Tablet) 10 mg PO TID PRN PRN Reason: Muscle Spasm Last Admin: 06/20/23 04:50 Dose: 10 mg Duloxetine HCl (Duloxetine Hcl 30 Mg Capsule.Dr) 30 mg PO DAILY [facility] Last Admin: 06/21/23 08:25 Dose: 30 mg Fluphenazine HCl (Fluphenazine Hcl 5 Mg Tablet) 5 mg PO BID [facility] Last Admin: 06/21/23 08:25 Dose: 5 mg Hydroxyzine HCl (Hydroxyzine Hcl 25 Mg Tablet) 25 mg PO Q6H PRN PRN Reason: anxiety/insomnia Last Admin: 06/19/23 15:50 Dose: 25 mg [place] Carbonate ([place] Carbonate Er 450 Mg Tablet.Er) 900 mg PO BEDTIME [facility] Last Admin: 06/20/23 19:58 Dose: 900 mg Magnesium Hydroxide (Milk Of Magnesia 30 Ml Oral.Susp) 30 ml PO DAILY PRN PRN Reason: Constipation Last Admin: 06/14/23 08:21 Dose: 30 ml Melatonin (Melatonin 3 Mg Tablet) 6 mg PO BEDTIME [facility] Last Admin: 06/20/23 19:59 Dose: 6 mg Methadone HCl (Methadone Hcl 20 Mg/2 Ml Oral.Conc) 40 mg PO DAILY [facility] Last Admin: 06/21/23 08:25 Dose: 40 mg Nicotine (Nicotine 21 Mg Patch.Td24) 21 mg TRANSDERMA DAILY [facility] Last Admin: 06/21/23 08:25 Dose: 21 mg Nicotine Polacrilex (Nicotine Polacrilex 2 Mg Gum) 4 mg BUCCAL Q2H PRN PRN Reason: nicotine cravings Omeprazole (Omeprazole 20 Mg Capsule.Dr) 20 mg PO DAILY [facility] Last Admin: 06/21/23 08:25 Dose: 20 mg Pregabalin (Pregabalin 150 Mg Capsule) 150 mg PO BID [facility] Last Admin: 06/21/23 08:25 Dose: 150 mg Quetiapine Fumarate (Quetiapine Fumarate 100 Mg Tablet) 100 mg PO BEDTIME [facility] Last Admin: 06/20/23 19:59 Dose: 100 mg Trazodone HCl (Trazodone Hcl 100 Mg Tablet) 100 mg PO BEDTIME PRN PRN Reason: insomnia Last Admin: 06/20/23 19:59 Dose: 100 mg Allergies Allergies Allergy/AdvReac Type Severity Reaction Status Date / Time No Known Allergies Allergy Verified 08/29/22 20:24 [No Known Allergies*] Assessment & Plan Assessment & Plan (1) Schizoaffective disorder, bipolar type: Status: Acute Code(s): F25.0 - Schizoaffective disorder, bipolar type (2) PTSD (post-traumatic stress disorder): Status: Acute Code(s): F43.10 - Post-traumatic stress disorder, unspecified (3) Cocaine use disorder: Status: Acute Code(s): F14.10 - Cocaine abuse, uncomplicated (4) Opioid use disorder: Status: Acute Code(s): F11.90 - Opioid use, unspecified, uncomplicated Plan Patient is a 42-year-old female with history of bipolar disorder/schizoaffective, PTSD, opioid and cocaine abuse, with hx of inpatient psychiatric hospitalizations, most recently discharged from on 06/06/2023, who presented [place] [facility] [place] suicidal ideation to throw herself in front of a truck d/t increased depressive symptoms. Hospital course 06/15: Patient continues to report feelings of depression; tearful. Pt stated, I'm trying to live day by day and not think about things. I'm feeling a little hopeful but when I start thinking about what's going on in my life then I don't want to be alive . Patient reports she plans on reaching out to her today to determine if she will move to [place] with her. Continue current tx plan. 06/16: Continue current treatment plan. 06/17: Continue current treatment plan. 06/18 medications seem to have helped and patient is not expressing any paranoid ideations. SI cleared up and patient's mood is improved. Continue current regimen for now 06/19 Patient agrees she is overall doing better though still depressed, mood has improved. On inquiry patient explained that she feels overall calmer on medication and at this time. She says that starting from zero (having lost her apartment and belongings) is somewhat cathartic and helping her feel more clear minded and not feeling like [she] has so much problems... -it is noteworthy that patient has not brought up any paranoid ideations regarding her and his girlfriend, for nearly a week, something that was formally a predominant concern for her, before getting on Trilafon -is also noteworthy that patient remain sober in-between admissions 06/20 stabilized; not sleeping well and will restart Seroquel though at a lower dose for now; will restart pregabalin as well 06/21 some paranoid thinking expressed but limited to a specific topic; increasing Seroquel due to continued insomnia; likely convert Prolixin to Decanoate which patient thinks is a good idea Plan: CV 15 minute safety checks Increased to Seroquel 200 mg q.h.s. (patient used to be on as high as 600 mg q.h.s.) Continue trazodone to 100 mg q.h.s. which he was taking before Continue Lyrica and titrate to 150 mg b.i.d. which she was on it last admission and helped relieve fibromyalgia pain Will hold off on restarting propranolol since patient currently denies lithium induced tremor and none observed Continue Trilafon 5 mg b.i.d.; likely convert to long-acting decanoate Referral for [facility] services Patient educated on: diagnosis and medication risk/benefits Informed Consent: understands Reason for continued inpatient stay Substantial Risk for: stable for discharge Time Spent With Patient Time: Total time managing care of this patient today ____ minutes.
[2023-06-21] MEDS: Cyclobenzaprine HCl 10 MG TABLET PO ×2 (13:29→20:40)
[2023-06-21] MEDS: Acetaminophen 325 MG TABLET 650 MG PO (13:29)
[2023-06-21 18:00] VITALS: BP 160/88; PULSE 87; TEMP 36.3; O2SAT 98
[2023-06-21] MEDS: Lithium Carbonate ER 450 MG TABLET.ER 900 MG PO (20:39)
[2023-06-21] MEDS: Melatonin 3 MG TABLET 6 MG PO (20:40)
[2023-06-21] MEDS: QUEtiapine Fumarate 200 MG TABLET PO (20:40)
[2023-06-21] MEDS: traZODone HCL 100 MG TABLET PO (20:41)
[2023-06-22 08:50] VITALS: BP 96/53; PULSE 85; RESP 18; TEMP 37.1; O2SAT 99
[2023-06-22] MEDS: Omeprazole 20 MG CAPSULE.DR PO (08:56)
[2023-06-22] MEDS: DULoxetine HCl 30 MG CAPSULE.DR PO (08:56)
[2023-06-22] MEDS: fluPHENAZine HCl 5 MG TABLET PO ×2 (08:56→20:26)
[2023-06-22] MEDS: methADONE HCl 20 MG/2 ML ORAL.CONC 40 MG PO (08:56)
[2023-06-22] MEDS: Pregabalin 150 MG CAPSULE PO ×2 (08:56→20:26)
[2023-06-22] MEDS: Nicotine 21 MG PATCH.TD24 TRANSDERMA (08:58)
--- NOTE | 2023-06-22 09:40 | P.PNPSI_ITS ---
Subjective Subjective Date of Service: 06/22/23 Reason For Visit: Psychosis/delusions Interim History: met with patient; discussed with team Seen?with?Macedonian?decorative cutting machine tender Patient?remains?with?improved?mood.??Says?she?is?still?not?sleeping?asks?to?go?b ack?to?Seroquel?400. ??Pulp Bleacher?reviewed?risks/side?effects?of?medication?regimen?however?patient?says? she?just?wants?to?sleep?well?the?benefit?is?worth?it. Agrees?with?long-acting?injectable Mental Status Exam Mental Status Exam Narrative: Pt is alert and oriented; behavior is cooperative, friendly and calm; dressed in casual attire; adequate hygiene; mood is described as ok and affect congruent; eye contact appropriate; Speech is normal rate, volume and prosody and not pressured; no psychomotor agitation/retardation present; thought process is organized and goal directed; Thought content is on tx, housing; otherwise pertinent to relevant topics; some paranoid thinking but isolated and does not appear to be intrusive; no SI/HI. There is no evidence of perceptual disturbance. Patients insight and judgment are impaired but much improved and adequate Diagnostics Vital Signs (24Hr): Vital Signs - 24 hr 06/21/23 18:00 06/22/23 08:50 Temperature 97.4 F 98.7 F Pulse Rate 87 85 Respiratory Rate 18 Blood Pressure 160/88 H 96/53 L Pulse Oximetry 98 99 Oxygen Delivery Method Room Air Room Air BMI result Body Mass Index 24.0 Labs 06/11/23 01:12 06/14/23 08:18 Medications Medications Current Medications Acetaminophen (Acetaminophen 325 Mg Tablet) 650 mg PO Q6H PRN PRN Reason: pain moderate Last Admin: 06/21/23 13:29 Dose: 650 mg Al Hydroxide/Mg Hydroxide (Magnesium Hydrox/Alum Hydrox 30 Ml Oral.Susp) 30 ml PO Q6H PRN PRN Reason: Heartburn/Nausea Last Admin: 06/14/23 22:10 Dose: 30 ml Cyclobenzaprine HCl (Cyclobenzaprine Hcl 10 Mg Tablet) 10 mg PO TID PRN PRN Reason: Muscle Spasm Last Admin: 06/21/23 20:40 Dose: 10 mg Duloxetine HCl (Duloxetine Hcl 30 Mg Capsule.Dr) 30 mg PO DAILY [facility] Last Admin: 06/22/23 08:56 Dose: 30 mg Fluphenazine HCl (Fluphenazine Hcl 5 Mg Tablet) 5 mg PO BID [facility] Last Admin: 06/22/23 08:56 Dose: 5 mg Hydroxyzine HCl (Hydroxyzine Hcl 25 Mg Tablet) 25 mg PO Q6H PRN PRN Reason: anxiety/insomnia Last Admin: 06/19/23 15:50 Dose: 25 mg [place] Carbonate ([place] Carbonate Er 450 Mg Tablet.Er) 900 mg PO BEDTIME [facility] Last Admin: 06/21/23 20:39 Dose: 900 mg Magnesium Hydroxide (Milk Of Magnesia 30 Ml Oral.Susp) 30 ml PO DAILY PRN PRN Reason: Constipation Last Admin: 06/14/23 08:21 Dose: 30 ml Melatonin (Melatonin 3 Mg Tablet) 6 mg PO BEDTIME [facility] Last Admin: 06/21/23 20:40 Dose: 6 mg Methadone HCl (Methadone Hcl 20 Mg/2 Ml Oral.Conc) 40 mg PO DAILY [facility] Last Admin: 06/22/23 08:56 Dose: 40 mg Nicotine (Nicotine 21 Mg Patch.Td24) 21 mg TRANSDERMA DAILY [facility] Last Admin: 06/22/23 08:58 Dose: 21 mg Nicotine Polacrilex (Nicotine Polacrilex 2 Mg Gum) 4 mg BUCCAL Q2H PRN PRN Reason: nicotine cravings Omeprazole (Omeprazole 20 Mg Capsule.Dr) 20 mg PO DAILY [facility] Last Admin: 06/22/23 08:56 Dose: 20 mg Pregabalin (Pregabalin 150 Mg Capsule) 150 mg PO BID [facility] Last Admin: 06/22/23 08:56 Dose: 150 mg Quetiapine Fumarate (Quetiapine Fumarate 200 Mg Tablet) 200 mg PO BEDTIME [facility] Last Admin: 06/21/23 20:40 Dose: 200 mg Trazodone HCl (Trazodone Hcl 100 Mg Tablet) 100 mg PO BEDTIME PRN PRN Reason: insomnia Last Admin: 06/21/23 20:41 Dose: 100 mg Allergies Allergies Allergy/AdvReac Type Severity Reaction Status Date / Time No Known Allergies Allergy Verified 08/29/22 20:24 [No Known Allergies*] Assessment & Plan Assessment & Plan (1) Schizoaffective disorder, bipolar type: Status: Acute Code(s): F25.0 - Schizoaffective disorder, bipolar type (2) PTSD (post-traumatic stress disorder): Status: Acute Code(s): F43.10 - Post-traumatic stress disorder, unspecified (3) Cocaine use disorder: Status: Acute Code(s): F14.10 - Cocaine abuse, uncomplicated (4) Opioid use disorder: Status: Acute Code(s): F11.90 - Opioid use, unspecified, uncomplicated Plan Patient is a 42-year-old female with history of bipolar disorder/schizoaffective, PTSD, opioid and cocaine abuse, with hx of inpatient psychiatric hospitalizations, most recently discharged from on 06/06/2023, who [place] [facility] with suicidal ideation to throw herself in front of a truck d/t increased depressive symptoms. Hospital course 06/15: Patient continues to report feelings of depression; tearful. Pt stated, I'm trying to live day by day and not think about things. I'm feeling a little hopeful but when I start thinking about what's going on in my life then I don't want to be alive . Patient reports she plans on reaching out to her today to determine if she will move to [place] with her. Continue current tx plan. 06/16: Continue current treatment plan. 06/17: Continue current treatment plan. 06/18 medications seem to have helped and patient is not expressing any paranoid ideations. SI cleared up and patient's mood is improved. Continue current regimen for now 06/19 Patient agrees she is overall doing better though still depressed, mood has improved. On inquiry patient explained that she feels overall calmer on medication and at this time. She says that starting from zero (having lost her apartment and belongings) is somewhat cathartic and helping her feel more clear minded and not feeling like [she] has so much problems... -it is noteworthy that patient has not brought up any paranoid ideations regarding her and his girlfriend, for nearly a week, something that was formally a predominant concern for her, before getting on Trilafon -is also noteworthy that patient remain sober in-between admissions 06/20 stabilized; not sleeping well and will restart Seroquel though at a lower dose for now; will restart pregabalin as well 06/21 some paranoid thinking expressed but limited to a specific topic; increasing Seroquel due to continued insomnia; likely convert Prolixin to Decanoate which patient thinks is a good idea Plan: CV 15 minute safety checks Increased to Seroquel 400 mg q.h.s.?for?continued?insomnia (patient used to be on as high as 600 mg q.h.s.) Continue trazodone to 100 mg q.h.s. which he was taking before Continue Lyrica and titrate to 150 mg b.i.d. which she was on it last admission and helped relieve fibromyalgia pain Will hold off on restarting propranolol since patient currently denies lithium induced tremor and none observed Continue Trilafon 5 mg b.i.d.; likely convert to long-acting decanoate Referral for DM services Patient educated on: diagnosis and medication risk/benefits Informed Consent: understands Reason for continued inpatient stay Substantial Risk for: stable for discharge Time Spent With Patient Time: Total time managing care of this patient today ____ minutes.
[2023-06-22] MEDS: Acetaminophen 325 MG TABLET 650 MG PO ×2 (15:40→21:16)
[2023-06-22] MEDS: Cyclobenzaprine HCl 10 MG TABLET PO (15:40)
[2023-06-22 16:10] VITALS: BP 129/67; PULSE 98; RESP 16; TEMP 36.7; O2SAT 98
[2023-06-22] MEDS: Lithium Carbonate ER 450 MG TABLET.ER 900 MG PO (20:26)
[2023-06-22] MEDS: QUEtiapine Fumarate 400 MG TABLET PO (20:26)
[2023-06-23] MEDS: methADONE HCl 20 MG/2 ML ORAL.CONC 40 MG PO (08:36)
[2023-06-23] MEDS: Pregabalin 150 MG CAPSULE PO ×2 (08:36→20:10)
[2023-06-23] MEDS: DULoxetine HCl 60 MG CAPSULE.DR PO (08:36)
[2023-06-23] MEDS: Omeprazole 20 MG CAPSULE.DR PO (08:36)
[2023-06-23] MEDS: fluPHENAZine HCl 5 MG TABLET PO ×2 (08:36→20:10)
[2023-06-23] MEDS: Nicotine 21 MG PATCH.TD24 TRANSDERMA (08:39)
[2023-06-23 08:42] VITALS: BP 134/94; PULSE 83; RESP 16; TEMP 36.4; O2SAT 100
--- NOTE | 2023-06-23 09:49 | HO.PSYCHPN ---
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 She agrees that Seroquel 400 mg was too much and that she did feel dizzy earlier this morning. Agrees to lowering it. Mental Status Exam Mental Status Exam Narrative: Pt is alert and oriented; behavior is cooperative, friendly and calm; dressed in casual attire; adequate hygiene; mood is described as ok and affect congruent; eye contact appropriate; Speech is normal rate, volume and prosody and not pressured; no psychomotor agitation/retardation present; thought process is organized and goal directed; Thought content is on tx, housing; otherwise pertinent to relevant topics; some paranoid thinking but isolated and does not appear to be intrusive; no SI/HI. There is no evidence of perceptual disturbance. Patients insight and judgment are impaired but much improved and adequate Diagnostics Vital Signs (24Hr): Vital Signs - 24 hr 06/22/23 16:10 06/23/23 08:42 Temperature 98.1 F 97.5 F Pulse Rate 98 83 Respiratory Rate 16 16 Blood Pressure 129/67 134/94 H Pulse Oximetry 98 100 Oxygen Delivery Method Room Air Room Air BMI result Body Mass Index 24.0 Labs 06/11/23 01:12 06/23/23 11:48 Medications Medications Current Medications Acetaminophen (Acetaminophen 325 Mg Tablet) 650 mg PO Q6H PRN PRN Reason: pain moderate Last Admin: 06/22/23 21:16 Dose: 650 mg Al Hydroxide/Mg Hydroxide (Magnesium Hydrox/Alum Hydrox 30 Ml Oral.Susp) 30 ml PO Q6H PRN PRN Reason: Heartburn/Nausea Last Admin: 06/14/23 22:10 Dose: 30 ml Cyclobenzaprine HCl (Cyclobenzaprine Hcl 10 Mg Tablet) 10 mg PO TID PRN PRN Reason: Muscle Spasm Last Admin: 06/22/23 15:40 Dose: 10 mg Duloxetine HCl (Duloxetine Hcl 60 Mg Capsule.Dr) 60 mg PO DAILY FELIPE Last Admin: 06/23/23 08:36 Dose: 60 mg Fluphenazine HCl (Fluphenazine Hcl 5 Mg Tablet) 5 mg PO BID FELIPE Last Admin: 06/23/23 08:36 Dose: 5 mg Hydroxyzine HCl (Hydroxyzine Hcl 25 Mg Tablet) 25 mg PO Q6H PRN PRN Reason: anxiety/insomnia Last Admin: 06/19/23 15:50 Dose: 25 mg Dennard Carbonate (Dennard Carbonate Er 450 Mg Tablet.Er) 900 mg PO BEDTIME [facility] Last Admin: 06/22/23 20:26 Dose: 900 mg Magnesium Hydroxide (Milk Of Magnesia 30 Ml Oral.Susp) 30 ml PO DAILY PRN PRN Reason: Constipation Last Admin: 06/14/23 08:21 Dose: 30 ml Melatonin (Melatonin 3 Mg Tablet) 6 mg PO BEDTIME PRN PRN Reason: insomnia Methadone HCl (Methadone Hcl 20 Mg/2 Ml Oral.Conc) 40 mg PO DAILY [facility] Last Admin: 06/23/23 08:36 Dose: 40 mg Nicotine (Nicotine 21 Mg Patch.Td24) 21 mg TRANSDERMA DAILY [facility] Last Admin: 06/23/23 08:39 Dose: 21 mg Nicotine Polacrilex (Nicotine Polacrilex 2 Mg Gum) 4 mg BUCCAL Q2H PRN PRN Reason: nicotine cravings Omeprazole (Omeprazole 20 Mg Capsule.Dr) 20 mg PO DAILY [facility] Last Admin: 06/23/23 08:36 Dose: 20 mg Pregabalin (Pregabalin 150 Mg Capsule) 150 mg PO BID [facility] Last Admin: 06/23/23 08:36 Dose: 150 mg Quetiapine Fumarate (Quetiapine Fumarate 400 Mg Tablet) 400 mg PO BEDTIME [facility] Last Admin: 06/22/23 20:26 Dose: 400 mg Trazodone HCl (Trazodone Hcl 100 Mg Tablet) 100 mg PO BEDTIME PRN PRN Reason: insomnia Last Admin: 06/21/23 20:41 Dose: 100 mg Allergies Allergies Allergy/AdvReac Type Severity Reaction Status Date / Time No Known Allergies Allergy Verified 08/29/22 20:24 [No Known Allergies*] Assessment & Plan Assessment & Plan (1) Schizoaffective disorder, bipolar type: Status: Acute Code(s): F25.0 - Schizoaffective disorder, bipolar type (2) PTSD (post-traumatic stress disorder): Status: Acute Code(s): F43.10 - Post-traumatic stress disorder, unspecified (3) Cocaine use disorder: Status: Acute Code(s): F14.10 - Cocaine abuse, uncomplicated (4) Opioid use disorder: Status: Acute Code(s): F11.90 - Opioid use, unspecified, uncomplicated Plan Patient is a 42-year-old female with history of bipolar disorder/schizoaffective, PTSD, opioid and cocaine abuse, with hx of inpatient psychiatric hospitalizations, most recently discharged from on 06/06/2023, who presented to [facility] ER with suicidal ideation to throw herself in front of a truck d/t increased depressive symptoms. Hospital course 06/15: Patient continues to report feelings of depression; tearful. Pt stated, I'm trying to live day by day and not think about things. I'm feeling a little hopeful but when I start thinking about what's going on in my life then I don't want to be alive . Patient reports she plans on reaching out to her today to determine if she will move to [place] with her. Continue current tx plan. 06/16: Continue current treatment plan. 06/17: Continue current treatment plan. 06/18 medications seem to have helped and patient is not expressing any paranoid ideations. SI cleared up and patient's mood is improved. Continue current regimen for now 06/19 Patient agrees she is overall doing better though still depressed, mood has improved. On inquiry patient explained that she feels overall calmer on medication and at this time. She says that starting from zero (having lost her apartment and belongings) is somewhat cathartic and helping her feel more clear minded and not feeling like [she] has so much problems... -it is noteworthy that patient has not brought up any paranoid ideations regarding her and his girlfriend, for nearly a week, something that was formally a predominant concern for her, before getting on Trilafon -is also noteworthy that patient remain sober in-between admissions 06/20 stabilized; not sleeping well and will restart Seroquel though at a lower dose for now; will restart pregabalin as well 06/21 some paranoid thinking expressed but limited to a specific topic; increasing Seroquel due to continued insomnia; likely convert Prolixin to Decanoate which patient thinks is a good idea Plan: CV 15 minute safety checks Lower to Seroquel 250 mg q.h.s.?for?continued?insomnia (patient used to be on as high as 600 mg q.h.s.) Continue trazodone to 100 mg q.h.s. which he was taking before Continue Lyrica and titrate to 150 mg b.i.d. which she was on it last admission and helped relieve fibromyalgia pain Will hold off on restarting propranolol since patient currently denies lithium induced tremor and none observed Continue Trilafon 5 mg b.i.d.; likely convert to long-acting decanoate Referral for DM services Patient educated on: diagnosis and medication risk/benefits Informed Consent: understands Reason for continued inpatient stay Substantial Risk for: stable for discharge Time Spent With Patient Time: Total time managing care of this patient today ____ minutes.
[2023-06-23] MEDS: Milk of Magnesia 30 ML ORAL.SUSP PO (11:25)
[2023-06-23 12:01] LABS: Ammonia 42 umol/L (13-55); Lithium 1.02 mmol/L (0.60-1.20)
[2023-06-23 12:08] LABS: Alanine Aminotransferase 73 U/L (0-31); Albumin Level 4.1 g/dL (3.5-5.0); Alkaline Phosphatase 91 U/L (39-117); Anion Gap 13 (12-20); Aspartate Amino Transferase 39 U/L (5-31); Bilirubin Direct 0.1 mg/dL (0.0-0.5); Bilirubin Total 0.3 mg/dL (0.0-1.0); Blood Urea Nitrogen 15 mg/dL (9-16); Calcium 10.1 mg/dL (8.4-10.2); Carbon Dioxide 25 mmol/L (22-29); Chloride 104 mmol/L (96-108); Creatinine Clr Calc Pharmacy 76.8; Estimated Glomerular Filt Rate > 60; Glucose Random 94 mg/dL (60-115); Potassium 4.3 mmol/L (3.3-5.1); Sodium 138 mmol/L (135-145); Total Protein 7.5 g/dL (6.5-8.0)
[2023-06-23] MEDS: diphenhydrAMINE HCL 25 MG CAPSULE 50 MG PO (17:36)
[2023-06-23 18:00] VITALS: BP 136/82; PULSE 82; TEMP 35.8; O2SAT 95
[2023-06-23] MEDS: Lithium Carbonate ER 450 MG TABLET.ER 900 MG PO (20:10)
[2023-06-23] MEDS: QUEtiapine Fumarate 200 MG TABLET PO (20:10)
[2023-06-24] MEDS: DULoxetine HCl 60 MG CAPSULE.DR PO (08:39)
[2023-06-24] MEDS: Pregabalin 150 MG CAPSULE PO ×2 (08:39→20:01)
[2023-06-24] MEDS: fluPHENAZine HCl 5 MG TABLET PO ×2 (08:39→20:01)
[2023-06-24] MEDS: methADONE HCl 20 MG/2 ML ORAL.CONC 40 MG PO (08:39)
[2023-06-24] MEDS: Omeprazole 20 MG CAPSULE.DR PO (08:39)
[2023-06-24] MEDS: Nicotine 21 MG PATCH.TD24 TRANSDERMA (08:40)
[2023-06-24 08:44] VITALS: BP 134/96; PULSE 82; RESP 18; TEMP 36.2; O2SAT 96
--- NOTE | 2023-06-24 09:55 | HO.PSYCHPN ---
Subjective Subjective Date of Service: 06/24/23 Reason For Visit: Psychosis/delusions Interim History: Met with patient; discussed with team Patient?very?tired?today?and?actually?fell?asleep?with?her?head?on?her?breakfast?plate.??Credit Reference Clerk?discussed?this?with?patient?and?reviewed?medication All?of?which?she?has?been?taking?consistently?for?quite?some?time?and?even?last?night?Seroquel?was?lowered?to?200?mg. Patient?said?she?had?trouble?sleeping?last?night,?waking?up?frequently?which?is?why?she?thinks?she?is?tired.??However She?agreed?that?when?she?had?Seroquel?400?mg?and?slept?through?the?night?she?was?really?tired?the?next?day?2. Patient?says?she?is?feeling?increased?back?pain?from?fibromyalgia. 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 Mental Status Exam Mental Status Exam Narrative: Pt is alert and oriented; behavior is cooperative, friendly and calm; dressed in casual attire; adequate hygiene; mood is described as ok and affect congruent; eye contact appropriate; Speech is normal rate, volume and prosody and not pressured; no psychomotor agitation/retardation present; thought process is organized and goal directed; Thought content is on tx, housing; otherwise pertinent to relevant topics; some paranoid thinking but isolated and does not appear to be intrusive; no SI/HI. There is no evidence of perceptual disturbance. Patients insight and judgment are impaired but much improved and adequate Diagnostics Vital Signs (24Hr): Vital Signs - 24 hr 06/23/23 18:00 06/24/23 08:44 Temperature 96.4 F L 97.1 F Pulse Rate 82 82 Respiratory Rate 18 Blood Pressure 136/82 134/96 H Pulse Oximetry 95 96 Oxygen Delivery Method Room Air Room Air BMI result Body Mass Index 24.0 Labs 06/11/23 01:12 06/23/23 11:48 Labs: Laboratory Results - last 48 hr 06/23/23 11:48 Sodium 138 Potassium 4.3 Chloride 104 Carbon Dioxide 25 Anion Gap 13 BUN 15 Creatinine 0.85 Estim Creat Clear Calc 76.8 Estimated GFR > 60 Random Glucose 94 Calcium 10.1 Total Bilirubin 0.3 Direct Bilirubin 0.1 AST 39 H ALT 73 H Alkaline Phosphatase 91 Ammonia 42 Total Protein 7.5 Albumin 4.1 Devens 1.02 Medications Medications Current Medications Acetaminophen (Acetaminophen 325 Mg Tablet) 650 mg PO Q6H PRN PRN Reason: pain moderate Last Admin: 06/22/23 21:16 Dose: 650 mg Al Hydroxide/Mg Hydroxide (Magnesium Hydrox/Alum Hydrox 30 Ml Oral.Susp) 30 ml PO Q6H PRN PRN Reason: Heartburn/Nausea Last Admin: 06/14/23 22:10 Dose: 30 ml Cyclobenzaprine HCl (Cyclobenzaprine Hcl 10 Mg Tablet) 10 mg PO TID PRN PRN Reason: Muscle Spasm Last Admin: 06/22/23 15:40 Dose: 10 mg Diphenhydramine HCl (Diphenhydramine Hcl 25 Mg Capsule) 25 mg PO Q4H PRN PRN Reason: Itching Duloxetine HCl (Duloxetine Hcl 60 Mg Capsule.Dr) 60 mg PO DAILY [facility] Last Admin: 06/24/23 08:39 Dose: 60 mg Fluphenazine HCl (Fluphenazine Hcl 5 Mg Tablet) 5 mg PO BID [facility] Last Admin: 06/24/23 08:39 Dose: 5 mg Hydroxyzine HCl (Hydroxyzine Hcl 25 Mg Tablet) 25 mg PO Q6H PRN PRN Reason: anxiety/insomnia Last Admin: 06/19/23 15:50 Dose: 25 mg Devens Carbonate (Devens Carbonate Er 450 Mg Tablet.Er) 900 mg PO BEDTIME FELIPE Last Admin: 06/23/23 20:10 Dose: 900 mg Magnesium Hydroxide (Milk Of Magnesia 30 Ml Oral.Susp) 30 ml PO DAILY PRN PRN Reason: Constipation Last Admin: 06/23/23 11:25 Dose: 30 ml Melatonin (Melatonin 3 Mg Tablet) 6 mg PO BEDTIME PRN PRN Reason: insomnia Methadone HCl (Methadone Hcl 20 Mg/2 Ml Oral.Conc) 40 mg PO DAILY [facility] Last Admin: 06/24/23 08:39 Dose: 40 mg Nicotine (Nicotine 21 Mg Patch.Td24) 21 mg TRANSDERMA DAILY [facility] Last Admin: 06/24/23 08:40 Dose: 21 mg Nicotine Polacrilex (Nicotine Polacrilex 2 Mg Gum) 4 mg BUCCAL Q2H PRN PRN Reason: nicotine cravings Omeprazole (Omeprazole 20 Mg Capsule.Dr) 20 mg PO DAILY [facility] Last Admin: 06/24/23 08:39 Dose: 20 mg Pregabalin (Pregabalin 150 Mg Capsule) 150 mg PO BID [facility] Last Admin: 06/24/23 08:39 Dose: 150 mg Quetiapine Fumarate (Quetiapine Fumarate 200 Mg Tablet) 200 mg PO BEDTIME [facility] Last Admin: 06/23/23 20:10 Dose: 200 mg Trazodone HCl (Trazodone Hcl 100 Mg Tablet) 100 mg PO BEDTIME PRN PRN Reason: insomnia Last Admin: 06/21/23 20:41 Dose: 100 mg Allergies Allergies Allergy/AdvReac Type Severity Reaction Status Date / Time No Known Allergies Allergy Verified 08/29/22 20:24 [No Known Allergies*] Assessment & Plan Assessment & Plan (1) Schizoaffective disorder, bipolar type: Status: Acute Code(s): F25.0 - Schizoaffective disorder, bipolar type (2) PTSD (post-traumatic stress disorder): Status: Acute Code(s): F43.10 - Post-traumatic stress disorder, unspecified (3) Cocaine use disorder: Status: Acute Code(s): F14.10 - Cocaine abuse, uncomplicated (4) Opioid use disorder: Status: Acute Code(s): F11.90 - Opioid use, unspecified, uncomplicated Plan Patient is a 42-year-old female with history of bipolar disorder/schizoaffective, PTSD, opioid and cocaine abuse, with hx of inpatient psychiatric hospitalizations, most recently discharged from on 06/06/2023, who presented to [facility] ER with suicidal ideation to throw herself in front of a truck d/t increased depressive symptoms. Hospital course 06/15: Patient continues to report feelings of depression; tearful. Pt stated, I'm trying to live day by day and not think about things. I'm feeling a little hopeful but when I start thinking about what's going on in my life then I don't want to be alive . Patient reports she plans on reaching out to her today to determine if she will move to [place] with her. Continue current tx plan. 06/16: Continue current treatment plan. 06/17: Continue current treatment plan. 06/18 medications seem to have helped and patient is not expressing any paranoid ideations. SI cleared up and patient's mood is improved. Continue current regimen for now 06/19 Patient agrees she is overall doing better though still depressed, mood has improved. On inquiry patient explained that she feels overall calmer on medication and at this time. She says that starting from zero (having lost her apartment and belongings) is somewhat cathartic and helping her feel more clear minded and not feeling like [she] has so much problems... -it is noteworthy that patient has not brought up any paranoid ideations regarding her and his girlfriend, for nearly a week, something that was formally a predominant concern for her, before getting on Trilafon -is also noteworthy that patient remain sober in-between admissions 06/20 stabilized; not sleeping well and will restart Seroquel though at a lower dose for now; will restart pregabalin as well 06/21 some paranoid thinking expressed but limited to a specific topic; increasing Seroquel due to continued insomnia; likely convert Prolixin to Decanoate which patient thinks is a good idea 06/24?patient?very?sleepy?this?morning.??No?idea?why.??Patient?had?negative?UDS?on?admission?and?she?is?had?no?visitors?making?it? Unlikely?she?is?using?contraband.??Patient?has?been?on?same?medication?regimen?and?even?on?lower?dose?of?Seroquel?last?night. 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 which he was taking before Continue Lyrica and titrate to 150 mg b.i.d. which she was on it last admission and helped relieve fibromyalgia pain Will hold off on restarting propranolol since patient currently denies lithium induced tremor and none observed Continue Trilafon 5 mg b.i.d.; likely convert to long-acting decanoate Referral for [facility] services Discussed converting to long-acting fluphenazine decanoate with pharmacist and reviewed literature; there is not much consistency between converting from oral to long-acting injectable or for maintenance dosing, much of it up to clinical observation. Most consistent ratio seems to be that 20 mg p.o. is roughly equivalent to 25 mg of long-acting injectable q. 3 weeks; after 1st injection lower oral dose to half dosing and then at 2nd injection discontinue oral dose.(fluphenazine dec 12.5mg JAMES q3 weeks + fluphenazine PO 5mg daily) Patient educated on: diagnosis, medication risk/benefits and medical condition Informed Consent: understands Reason for continued inpatient stay Substantial Risk for: stable for discharge Time Spent With Patient Time: Total time managing care of this patient today ____ minutes.
[2023-06-24 18:00] VITALS: BP 138/88; PULSE 93; RESP 16; TEMP 36; O2SAT 100
[2023-06-24] MEDS: QUEtiapine Fumarate 200 MG TABLET PO (20:01)
[2023-06-24] MEDS: Lithium Carbonate ER 450 MG TABLET.ER 900 MG PO (20:01)
[2023-06-25 07:58] VITALS: BP 140/90; PULSE 92; RESP 16; TEMP 36.6; O2SAT 96
[2023-06-25] MEDS: methADONE HCl 20 MG/2 ML ORAL.CONC 40 MG PO (09:03)
[2023-06-25] MEDS: fluPHENAZine HCl 5 MG TABLET PO ×2 (09:04→20:13)
[2023-06-25] MEDS: Pregabalin 150 MG CAPSULE PO ×2 (09:04→20:13)
[2023-06-25] MEDS: Omeprazole 20 MG CAPSULE.DR PO (09:04)
[2023-06-25] MEDS: DULoxetine HCl 60 MG CAPSULE.DR PO (09:04)
--- NOTE | 2023-06-25 09:50 | P.PNPSI_ITS ---
Subjective Subjective Date of Service: 06/25/23 Reason For Visit: Psychosis/delusions Interim History: met with patient; discussed with team Patient Slept well last night despite Seroquel having been lowered to 200 mg, half the dose from the night before. She is up and about in the milieu, well groomed. Patient says she is confused as to why sometimes she is able sleep another she is not. 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 Patient complains of chronic fibromyalgia pain which is intermittent but says she is tolerating it. Patient has intermittent excessive daytime tiredness. This is a chronic issue. She will go for days without any problems and then be very tired for 1 morning; however it soon resolves on its own and typically does not interfere with her with treatment; she remains attentive to ADLs; goes to groups; Will consider p.r.n. modafinil Diagnostics Vital Signs (24Hr): Vital Signs - 24 hr 06/24/23 18:00 06/25/23 07:58 Temperature 96.8 F 97.8 F Pulse Rate 93 92 Respiratory Rate 16 16 Blood Pressure 138/88 140/90 H Pulse Oximetry 100 96 Oxygen Delivery Method Room Air Room Air BMI result Body Mass Index 24.0 Labs 06/11/23 01:12 06/23/23 11:48 Labs: Laboratory Results - last 48 hr 06/23/23 11:48 Sodium 138 Potassium 4.3 Chloride 104 Carbon Dioxide 25 Anion Gap 13 BUN 15 Creatinine 0.85 Estim Creat Clear Calc 76.8 Estimated GFR > 60 Random Glucose 94 Calcium 10.1 Total Bilirubin 0.3 Direct Bilirubin 0.1 AST 39 H ALT 73 H Alkaline Phosphatase 91 Ammonia 42 Total Protein 7.5 Albumin 4.1 Darden 1.02 Medications Medications Current Medications Acetaminophen (Acetaminophen 325 Mg Tablet) 650 mg PO Q6H PRN PRN Reason: pain moderate Last Admin: 06/22/23 21:16 Dose: 650 mg Al Hydroxide/Mg Hydroxide (Magnesium Hydrox/Alum Hydrox 30 Ml Oral.Susp) 30 ml PO Q6H PRN PRN Reason: Heartburn/Nausea Last Admin: 06/14/23 22:10 Dose: 30 ml Cyclobenzaprine HCl (Cyclobenzaprine Hcl 10 Mg Tablet) 10 mg PO TID PRN PRN Reason: Muscle Spasm Last Admin: 06/22/23 15:40 Dose: 10 mg Diphenhydramine HCl (Diphenhydramine Hcl 25 Mg Capsule) 25 mg PO Q4H PRN PRN Reason: Itching Duloxetine HCl (Duloxetine Hcl 60 Mg Capsule.Dr) 60 mg PO DAILY [facility] Last Admin: 06/25/23 09:04 Dose: 60 mg Fluphenazine HCl (Fluphenazine Hcl 5 Mg Tablet) 5 mg PO BID [facility] Last Admin: 06/25/23 09:04 Dose: 5 mg Hydroxyzine HCl (Hydroxyzine Hcl 25 Mg Tablet) 25 mg PO Q6H PRN PRN Reason: anxiety/insomnia Last Admin: 06/19/23 15:50 Dose: 25 mg Darden Carbonate (Darden Carbonate Er 450 Mg Tablet.Er) 900 mg PO BEDTIME [facility] Last Admin: 06/24/23 20:01 Dose: 900 mg Magnesium Hydroxide (Milk Of Magnesia 30 Ml Oral.Susp) 30 ml PO DAILY PRN PRN Reason: Constipation Last Admin: 06/23/23 11:25 Dose: 30 ml Melatonin (Melatonin 3 Mg Tablet) 6 mg PO BEDTIME PRN PRN Reason: insomnia Methadone HCl (Methadone Hcl 20 Mg/2 Ml Oral.Conc) 40 mg PO DAILY [facility] Last Admin: 06/25/23 09:03 Dose: 40 mg Nicotine (Nicotine 21 Mg Patch.Td24) 21 mg TRANSDERMA DAILY [facility] Last Admin: 06/25/23 09:10 Dose: Not Given Nicotine Polacrilex (Nicotine Polacrilex 2 Mg Gum) 4 mg BUCCAL Q2H PRN PRN Reason: nicotine cravings Omeprazole (Omeprazole 20 Mg Capsule.Dr) 20 mg PO DAILY [facility] Last Admin: 06/25/23 09:04 Dose: 20 mg Pregabalin (Pregabalin 150 Mg Capsule) 150 mg PO BID [facility] Last Admin: 06/25/23 09:04 Dose: 150 mg Quetiapine Fumarate (Quetiapine Fumarate 200 Mg Tablet) 200 mg PO BEDTIME [facility] Last Admin: 06/24/23 20:01 Dose: 200 mg Trazodone HCl (Trazodone Hcl 100 Mg Tablet) 100 mg PO BEDTIME PRN PRN Reason: insomnia Last Admin: 06/21/23 20:41 Dose: 100 mg Allergies Allergies Allergy/AdvReac Type Severity Reaction Status Date / Time No Known Allergies Allergy Verified 08/29/22 20:24 [No Known Allergies*] Assessment & Plan Assessment & Plan (1) Schizoaffective disorder, bipolar type: Status: Acute Code(s): F25.0 - Schizoaffective disorder, bipolar type (2) PTSD (post-traumatic stress disorder): Status: Acute Code(s): F43.10 - Post-traumatic stress disorder, unspecified (3) Cocaine use disorder: Status: Acute Code(s): F14.10 - Cocaine abuse, uncomplicated (4) Opioid use disorder: Status: Acute Code(s): F11.90 - Opioid use, unspecified, uncomplicated Plan Patient is a 42-year-old female with history of bipolar disorder/schizoaffective, PTSD, opioid and cocaine abuse, with hx of inpatient psychiatric hospitalizations, most recently discharged from on 06/06/2023, who presented to [facility] ER with suicidal ideation to throw herself in front of a truck d/t increased depressive symptoms. Hospital course 06/15: Patient continues to report feelings of depression; tearful. Pt stated, I'm trying to live day by day and not think about things. I'm feeling a little hopeful but when I start thinking about what's going on in my life then I don't want to be alive . Patient reports she plans on reaching out to her today to determine if she will move to [place] with her. Continue current tx plan. 06/16: Continue current treatment plan. 06/17: Continue current treatment plan. 06/18 medications seem to have helped and patient is not expressing any paranoid ideations. SI cleared up and patient's mood is improved. Continue current regimen for now 06/19 Patient agrees she is overall doing better though still depressed, mood has improved. On inquiry patient explained that she feels overall calmer on medication and at this time. She says that starting from zero (having lost her apartment and belongings) is somewhat cathartic and helping her feel more clear minded and not feeling like [she] has so much problems... -it is noteworthy that patient has not brought up any paranoid ideations regarding her and his girlfriend, for nearly a week, something that was formally a predominant concern for her, before getting on Trilafon -is also noteworthy that patient remain sober in-between admissions 06/20 stabilized; not sleeping well and will restart Seroquel though at a lower dose for now; will restart pregabalin as well 06/21 some paranoid thinking expressed but limited to a specific topic; increasing Seroquel due to continued insomnia; likely convert Prolixin to Decanoate which patient thinks is a good idea ?patient?very?sleepy?this?morning.??No?idea?why.??Patient?had?negative?UDS?o n?admission?and?she?is?had?no?visitors?making?it? U nlikely?she?is?using?contraband.??Patient?has?been?on?same?medication?regimen?an d?even?on?lower?dose?of?Seroquel?last?night. G rossly?this?same?thing?happened,?where?she?was?alert?every?morning?4?weeks?and?t hen?when?discharged?to?housing?court,?she?was T oo?tired?to?attend.??Narcolepsy?Not?clear.??Would?consider?modafinil.??Patient?s aid?she?has?a?long?history?of?working?3rd?shift?which?may Account?for?trouble?sleeping?at?night?and?tiredness?during?the?day 06/25 Patient Slept well last night despite Seroquel having been lowered to 200 mg, half the dose from the night before. She is up and about in the milieu, well groomed. Patient says she is confused as to why sometimes she is able sleep and other times not. 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 Patient complains of chronic fibromyalgia pain which is intermittent but says she is tolerating it. -intermittently, patient will be excessively tired during the day. Pt typically up in the mornings but every so often, she will be very tired for 1 morning; however this soon resolves on its own. This is a chronic issue and has not interfered with her with treatment; she remains attentive to ADLs; goes to groups; Will consider p.r.n. modafinil. -discussed aftercare. Team agrees that patient will do best with a step-down for continued stability and time for additional outpatient support to be established. Plan: CV 15 minute safety checks continue Seroquel 200 mg q.h.s.?for?continued?insomnia (patient used to be on as high as 600 mg q.h.s.) Continue trazodone to 100 mg q.h.s. which he was taking before Continue Lyrica and titrate to 150 mg b.i.d. which she was on it last admission and helped relieve fibromyalgia pain Will hold off on restarting propranolol since patient currently denies lithium induced tremor and none observed Continue Trilafon 5 mg b.i.d.; will soon convert to long-acting decanoate Referral for [facility] services -regarding intermittent daytime sleepiness, most likely due to poor nighttime sleep which has been an issue for years. Low concern for narcolepsy type 2 but is worth a rule out; no cataplexy; at this time sleep study/polysomnography are not options. -Discussed converting to long-acting fluphenazine decanoate with pharmacist and reviewed literature; there is not much consistency between converting from oral to long-acting injectable or for maintenance dosing, much of it up to clinical observation. Most consistent ratio seems to be that 20 mg p.o. is roughly equivalent to 25 mg of long-acting injectable q. 3 weeks; after 1st injection lower oral dose to half dosing and then at 2nd injection discontinue oral dose.(fluphenazine dec 12.5mg JAMES q3 weeks + fluphenazine PO 5mg daily) Patient educated on: diagnosis, medication risk/benefits and medical condition Informed Consent: understands Reason for continued inpatient stay Substantial Risk for: stable for discharge Time Spent With Patient Time: Total time managing care of this patient today ____ minutes.
[2023-06-25] MEDS: Cyclobenzaprine HCl 10 MG TABLET PO ×2 (15:40→20:13)
[2023-06-25] MEDS: Acetaminophen 325 MG TABLET 650 MG PO (15:40)
[2023-06-25] MEDS: hydrOXYzine HCL 25 MG TABLET PO (15:41)
[2023-06-25 18:00] VITALS: BP 132/84; PULSE 88; TEMP 36.1; O2SAT 97
[2023-06-25] MEDS: QUEtiapine Fumarate 200 MG TABLET PO (20:13)
[2023-06-25] MEDS: Melatonin 3 MG TABLET 6 MG PO (20:13)
[2023-06-25] MEDS: Lithium Carbonate ER 450 MG TABLET.ER 900 MG PO (20:13)
--- NOTE | 2023-06-25 23:32 | PC.NURSE ---
[employer] was speaking with patient, a yellow vape fell off of her person. Vape was confiscated and secured in storage. See incident report [id number]
[2023-06-26] MEDS: diphenhydrAMINE HCL 25 MG CAPSULE PO (03:09)
[2023-06-26] MEDS: traZODone HCL 100 MG TABLET PO ×2 (03:09→20:30)
[2023-06-26 08:00] VITALS: BP 120/66; PULSE 96; RESP 16; TEMP 36.7; O2SAT 97
[2023-06-26] MEDS: fluPHENAZine HCl 5 MG TABLET PO (09:10)
[2023-06-26] MEDS: hydrOXYzine HCL 25 MG TABLET PO ×2 (09:10→21:42)
[2023-06-26] MEDS: DULoxetine HCl 60 MG CAPSULE.DR PO (09:10)
[2023-06-26] MEDS: Pregabalin 150 MG CAPSULE PO ×2 (09:10→20:29)
[2023-06-26] MEDS: Omeprazole 20 MG CAPSULE.DR PO (09:11)
[2023-06-26] MEDS: methADONE HCl 20 MG/2 ML ORAL.CONC 40 MG PO (09:11)
--- NOTE | 2023-06-26 11:38 | P.PNPSI_ITS ---
Subjective Subjective Date of Service: 06/26/23 Reason For Visit: Psychosis/delusions Interim History: Met with patient; discussed with team patient slept well last night. Up in out about in the milieu, well groomed. Discussed long-acting injectable in detail to which patient agrees. Will start today. Discussed dispo planning Mental Status Exam Mental Status Exam Narrative: Pt is alert and oriented; behavior is cooperative, friendly and calm; dressed in casual attire; adequate hygiene; mood is described as ok and affect congruent; eye contact appropriate; Speech is normal rate, volume and prosody and not pressured; no psychomotor agitation/retardation present; thought process is organized and goal directed; Thought content is on tx, housing; otherwise pertinent to relevant topics; intermittently some paranoid thinking but only of certain topics are brought up to her; remain with low intensity and not bothersome; no SI/HI. There is no evidence of perceptual disturbance. Patients insight and judgment are mildly impaired but much improved and adequate. Diagnostics Vital Signs (24Hr): Vital Signs - 24 hr 06/25/23 18:00 06/26/23 08:00 Temperature 97 F 98.1 F Pulse Rate 88 96 Respiratory Rate 16 Blood Pressure 132/84 120/66 Pulse Oximetry 97 97 Oxygen Delivery Method Room Air Room Air BMI result Body Mass Index 24.0 Labs 06/11/23 01:12 06/23/23 11:48 Medications Medications Current Medications Acetaminophen (Acetaminophen 325 Mg Tablet) 650 mg PO Q6H PRN PRN Reason: pain moderate Last Admin: 06/25/23 15:40 Dose: 650 mg Al Hydroxide/Mg Hydroxide (Magnesium Hydrox/Alum Hydrox 30 Ml Oral.Susp) 30 ml PO Q6H PRN PRN Reason: Heartburn/Nausea Last Admin: 06/14/23 22:10 Dose: 30 ml Cyclobenzaprine HCl (Cyclobenzaprine Hcl 10 Mg Tablet) 10 mg PO TID PRN PRN Reason: Muscle Spasm Last Admin: 06/25/23 20:13 Dose: 10 mg Diphenhydramine HCl (Diphenhydramine Hcl 25 Mg Capsule) 25 mg PO Q4H PRN PRN Reason: Itching Last Admin: 06/26/23 03:09 Dose: 25 mg Duloxetine HCl (Duloxetine Hcl 60 Mg Capsule.Dr) 60 mg PO DAILY [facility] Last Admin: 06/26/23 09:10 Dose: 60 mg Fluphenazine HCl (Fluphenazine Hcl 5 Mg Tablet) 5 mg PO BID [facility] Last Admin: 06/26/23 09:10 Dose: 5 mg Hydroxyzine HCl (Hydroxyzine Hcl 25 Mg Tablet) 25 mg PO Q6H PRN PRN Reason: anxiety/insomnia Last Admin: 06/26/23 09:10 Dose: 25 mg Mcdonough Carbonate (Mcdonough Carbonate Er 450 Mg Tablet.Er) 900 mg PO BEDTIME [facility] Last Admin: 06/25/23 20:13 Dose: 900 mg Magnesium Hydroxide (Milk Of Magnesia 30 Ml Oral.Susp) 30 ml PO DAILY PRN PRN Reason: Constipation Last Admin: 06/23/23 11:25 Dose: 30 ml Melatonin (Melatonin 3 Mg Tablet) 6 mg PO BEDTIME PRN PRN Reason: insomnia Last Admin: 06/25/23 20:13 Dose: 6 mg Methadone HCl (Methadone Hcl 20 Mg/2 Ml Oral.Conc) 40 mg PO DAILY [facility] Last Admin: 06/26/23 09:11 Dose: 40 mg Nicotine (Nicotine 21 Mg Patch.Td24) 21 mg TRANSDERMA DAILY [facility] Last Admin: 06/26/23 09:11 Dose: Not Given Nicotine Polacrilex (Nicotine Polacrilex 2 Mg Gum) 4 mg BUCCAL Q2H PRN PRN Reason: nicotine cravings Omeprazole (Omeprazole 20 Mg Capsule.Dr) 20 mg PO DAILY [facility] Last Admin: 06/26/23 09:11 Dose: 20 mg Pregabalin (Pregabalin 150 Mg Capsule) 150 mg PO BID [facility] Last Admin: 06/26/23 09:10 Dose: 150 mg Quetiapine Fumarate (Quetiapine Fumarate 200 Mg Tablet) 200 mg PO BEDTIME [facility] Last Admin: 06/25/23 20:13 Dose: 200 mg Trazodone HCl (Trazodone Hcl 100 Mg Tablet) 100 mg PO BEDTIME PRN PRN Reason: insomnia Last Admin: 06/26/23 03:09 Dose: 100 mg Allergies Allergies Allergy/AdvReac Type Severity Reaction Status Date / Time No Known Allergies Allergy Verified 08/29/22 20:24 [No Known Allergies*] Assessment & Plan Assessment & Plan (1) Schizoaffective disorder, bipolar type: Status: Acute Code(s): F25.0 - Schizoaffective disorder, bipolar type (2) PTSD (post-traumatic stress disorder): Status: Acute Code(s): F43.10 - Post-traumatic stress disorder, unspecified (3) Cocaine use disorder: Status: Acute Code(s): F14.10 - Cocaine abuse, uncomplicated (4) Opioid use disorder: Status: Acute Code(s): F11.90 - Opioid use, unspecified, uncomplicated Plan Patient is a 42-year-old female with history of bipolar disorder/schizoaffective, PTSD, opioid and cocaine abuse, with hx of inpatient psychiatric hospitalizations, most recently discharged from on 06/06/2023, who presented to [facility] [place] with suicidal ideation to throw herself in front of a truck d/t increased depressive symptoms. Hospital course 06/15: Patient continues to report feelings of depression; tearful. Pt stated, I'm trying to live day by day and not think about things. I'm feeling a little hopeful but when I start thinking about what's going on in my life then I don't want to be alive . Patient reports she plans on reaching out to her today to determine if she will move to [place] with her. Continue current tx plan. 06/16: Continue current treatment plan. 06/17: Continue current treatment plan. 06/18 medications seem to have helped and patient is not expressing any paranoid ideations. SI cleared up and patient's mood is improved. Continue current regimen for now 06/19 Patient agrees she is overall doing better though still depressed, mood has improved. On inquiry patient explained that she feels overall calmer on medication and at this time. She says that starting from zero (having lost her apartment and belongings) is somewhat cathartic and helping her feel more clear minded and not feeling like [she] has so much problems... -it is noteworthy that patient has not brought up any paranoid ideations regarding her and his girlfriend, for nearly a week, something that was formally a predominant concern for her, before getting on Trilafon -is also noteworthy that patient remain sober in-between admissions 06/20 stabilized; not sleeping well and will restart Seroquel though at a lower dose for now; will restart pregabalin as well 06/21 some paranoid thinking expressed but limited to a specific topic; increasing Seroquel due to continued insomnia; likely convert Prolixin to Decanoate which patient thinks is a good idea 1 ?patient?very?sleepy?this?morning.??No?idea?why.??Patient?had?negative?UDS?o n?admission?and?she?is?had?no?visitors?making?it? U nlikely?she?is?using?contraband.??Patient?has?been?on?same?medication?regimen?an d?even?on?lower?dose?of?Seroquel?last?night. G rossly?this?same?thing?happened,?where?she?was?alert?every?morning?4?weeks?and?t hen?when?discharged?to?housing?court,?she?was T oo?tired?to?attend.??Narcolepsy?Not?clear.??Would?consider?modafinil.??Patient?s aid?she?has?a?long?history?of?working?3rd?shift?which?may Account?for?trouble?sleeping?at?night?and?tiredness?during?the?day 06/25 Patient Slept well last night despite Seroquel having been lowered to 200 mg, half the dose from the night before. She is up and about in the milieu, well groomed. Patient says she is confused as to why sometimes she is able sleep and other times not. 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 Patient complains of chronic fibromyalgia pain which is intermittent but says she is tolerating it. -intermittently, patient will be excessively tired during the day. Pt typically up in the mornings but every so often, she will be very tired for 1 morning; however this soon resolves on its own. This is a chronic issue and has not interfered with her with treatment; she remains attentive to ADLs; goes to groups; Will consider p.r.n. modafinil. -discussed aftercare. Team agrees that patient will do best with a step-down for continued stability and time for additional outpatient support to be established. 06/26 patient slept well last night. Agrees to long-acting fluphenazine decanoate. Will start today Plan: CV 15 minute safety checks Start fluphenazine Decanoate 12.5 mg IM; give dose today and then again in 3 weeks Lower fluphenazine to 5 mg daily; after receives neck is Decanoate shot will likely DC p.o. fluphenazine continue Seroquel 200 mg q.h.s.?for?continued?insomnia (patient used to be on as high as 600 mg q.h.s.) Continue trazodone to 100 mg q.h.s. which he was taking before Continue Lyrica and titrate to 150 mg b.i.d. which she was on it last admission and helped relieve fibromyalgia pain Will hold off on restarting propranolol since patient currently denies lithium induced tremor and none observed will soon convert to long-acting decanoate Referral for [facility] services -regarding intermittent daytime sleepiness, most likely due to poor nighttime sleep which has been an issue for years. Low concern for narcolepsy type 2 but is worth a rule out; no cataplexy; at this time sleep study/polysomnography are not options. -Discussed converting to long-acting fluphenazine decanoate with pharmacist and reviewed literature; there is not much consistency between converting from oral to long-acting injectable or for maintenance dosing, much of it up to clinical observation. Most consistent ratio seems to be that 20 mg p.o. is roughly equivalent to 25 mg of long-acting injectable q. 3 weeks; after 1st injection lower oral dose to half dosing and then at 2nd injection discontinue oral dose.(fluphenazine dec 12.5mg JAMES q3 weeks + fluphenazine PO 5mg daily) Patient educated on: diagnosis and medication risk/benefits Informed Consent: understands Reason for continued inpatient stay Substantial Risk for: stable for discharge Time Spent With Patient Time: Total time managing care of this patient today ____ minutes.
[2023-06-26] MEDS: Nicotine 21 MG PATCH.TD24 TRANSDERMA (12:07)
[2023-06-26] MEDS: Nicotine Polacrilex 2 MG GUM 4 MG BUCCAL ×3 (12:10→21:42)
[2023-06-26 16:04] LABS: Amphetamine Screen Urine Not Detected (Not Detect); Barbiturates, Urine Not Detected (Not Detect); Benzodiazepines Screen Urine Not Detected (Not Detect); Cannabinoid Screen Urine Not Detected (Not Detect); Cocaine Screen Urine Not Detected (Not Detect); Fentanyl, urine Not Detected (Not Detect); Opiate Screen Urine Not Detected (Not Detect); Phencyclidine Screen Urine Not Detected (Not Detect)
[2023-06-26] MEDS: fluPHENAZine decanoate 25 MG/ML 5 ML VIAL 12.5 MG IM (16:28)
[2023-06-26 18:00] VITALS: BP 143/91; PULSE 88; RESP 18; TEMP 36.4; O2SAT 98
[2023-06-26] MEDS: Lithium Carbonate ER 450 MG TABLET.ER 900 MG PO (20:29)
[2023-06-26] MEDS: QUEtiapine Fumarate 200 MG TABLET PO (20:30)
[2023-06-26] MEDS: Acetaminophen 325 MG TABLET 650 MG PO (21:42)
[2023-06-26] MEDS: Melatonin 3 MG TABLET 6 MG PO (21:42)
[2023-06-27] MEDS: Omeprazole 20 MG CAPSULE.DR PO (09:10)
[2023-06-27] MEDS: Pregabalin 150 MG CAPSULE PO ×2 (09:10→20:26)
[2023-06-27] MEDS: DULoxetine HCl 60 MG CAPSULE.DR PO (09:10)
[2023-06-27] MEDS: fluPHENAZine HCl 5 MG TABLET PO (09:10)
[2023-06-27] MEDS: methADONE HCl 20 MG/2 ML ORAL.CONC 40 MG PO (09:10)
[2023-06-27 09:15] VITALS: BP 136/78; PULSE 73; RESP 18; TEMP 36.7; O2SAT 94
[2023-06-27] MEDS: Nicotine 21 MG PATCH.TD24 TRANSDERMA (09:22)
--- NOTE | 2023-06-27 11:39 | HO.PSYCHPN ---
Subjective Subjective Date of Service: 06/27/23 Reason For Visit: Psychosis/delusions Interim History: Met with patient; discussed with team Patient seen with social services aide Patient reports feeling very ready to go and excited and hopeful to get into respite. Discussed long-acting injectable and how it might not work out to establish a prescriber that can continue this; she agrees to go back on p.o. medication. Mental Status Exam Mental Status Exam Narrative: Pt is alert and oriented; behavior is cooperative, friendly and calm; dressed in casual attire; adequate hygiene; mood is described as ok and affect congruent; eye contact appropriate; Speech is normal rate, volume and prosody and not pressured; no psychomotor agitation/retardation present; thought process is organized and goal directed; Thought content is on tx, housing; otherwise pertinent to relevant topics; intermittently some paranoid thinking but only of certain topics are brought up to her; remain with low intensity and not bothersome; no SI/HI. There is no evidence of perceptual disturbance. Patients insight and judgment are mildly impaired but much improved and adequate. Diagnostics Vital Signs (24Hr): Vital Signs - 24 hr 06/26/23 18:00 06/27/23 09:15 Temperature 97.6 F 98.1 F Pulse Rate 88 73 Respiratory Rate 18 18 Blood Pressure 143/91 H 136/78 Pulse Oximetry 98 94 Oxygen Delivery Method Room Air Room Air BMI result Body Mass Index 24.0 Labs 06/11/23 01:12 06/23/23 11:48 Labs: Laboratory Results - last 48 hr 06/26/23 15:30 Urine Opiates Screen Not Detected Urine Fentanyl Screen Not Detected Ur Barbiturates Screen Not Detected Ur Phencyclidine Scrn Not Detected Ur Amphetamines Screen Not Detected U Benzodiazepines Scrn Not Detected Urine Cocaine Screen Not Detected U Marijuana (THC) Screen Not Detected Medications Medications Current Medications Acetaminophen (Acetaminophen 325 Mg Tablet) 650 mg PO Q6H PRN PRN Reason: pain moderate Last Admin: 06/26/23 21:42 Dose: 650 mg Al Hydroxide/Mg Hydroxide (Magnesium Hydrox/Alum Hydrox 30 Ml Oral.Susp) 30 ml PO Q6H PRN PRN Reason: Heartburn/Nausea Last Admin: 06/14/23 22:10 Dose: 30 ml Cyclobenzaprine HCl (Cyclobenzaprine Hcl 10 Mg Tablet) 10 mg PO TID PRN PRN Reason: Muscle Spasm Last Admin: 06/25/23 20:13 Dose: 10 mg Diphenhydramine HCl (Diphenhydramine Hcl 25 Mg Capsule) 25 mg PO Q4H PRN PRN Reason: Itching Last Admin: 06/26/23 03:09 Dose: 25 mg Duloxetine HCl (Duloxetine Hcl 60 Mg Capsule.Dr) 60 mg PO DAILY [facility] Last Admin: 06/27/23 09:10 Dose: 60 mg Fluphenazine HCl (Fluphenazine Hcl 5 Mg Tablet) 5 mg PO DAILY [facility] Last Admin: 06/27/23 09:10 Dose: 5 mg Hydroxyzine HCl (Hydroxyzine Hcl 25 Mg Tablet) 25 mg PO Q6H PRN PRN Reason: anxiety/insomnia Last Admin: 06/26/23 21:42 Dose: 25 mg [place] Carbonate ([place] Carbonate Er 450 Mg Tablet.Er) 900 mg PO BEDTIME [facility] Last Admin: 06/26/23 20:29 Dose: 900 mg Magnesium Hydroxide (Milk Of Magnesia 30 Ml Oral.Susp) 30 ml PO DAILY PRN PRN Reason: Constipation Last Admin: 06/23/23 11:25 Dose: 30 ml Melatonin (Melatonin 3 Mg Tablet) 6 mg PO BEDTIME PRN PRN Reason: insomnia Last Admin: 06/26/23 21:42 Dose: 6 mg Methadone HCl (Methadone Hcl 20 Mg/2 Ml Oral.Conc) 40 mg PO DAILY [facility] Last Admin: 06/27/23 09:10 Dose: 40 mg Nicotine (Nicotine 21 Mg Patch.Td24) 21 mg TRANSDERMA DAILY [facility] Last Admin: 06/27/23 09:22 Dose: 21 mg Nicotine Polacrilex (Nicotine Polacrilex 2 Mg Gum) 4 mg BUCCAL Q2H PRN PRN Reason: nicotine cravings Last Admin: 06/26/23 21:42 Dose: 4 mg Omeprazole (Omeprazole 20 Mg Capsule.Dr) 20 mg PO DAILY [facility] Last Admin: 06/27/23 09:10 Dose: 20 mg Pregabalin (Pregabalin 150 Mg Capsule) 150 mg PO BID [facility] Last Admin: 06/27/23 09:10 Dose: 150 mg Quetiapine Fumarate (Quetiapine Fumarate 200 Mg Tablet) 200 mg PO BEDTIME [facility] Last Admin: 06/26/23 20:30 Dose: 200 mg Trazodone HCl (Trazodone Hcl 100 Mg Tablet) 100 mg PO BEDTIME PRN PRN Reason: insomnia Last Admin: 06/26/23 20:30 Dose: 100 mg Allergies Allergies Allergy/AdvReac Type Severity Reaction Status Date / Time No Known Allergies Allergy Verified 08/29/22 20:24 [No Known Allergies*] Assessment & Plan Assessment & Plan (1) Schizoaffective disorder, bipolar type: Status: Acute Code(s): F25.0 - Schizoaffective disorder, bipolar type (2) PTSD (post-traumatic stress disorder): Status: Acute Code(s): F43.10 - Post-traumatic stress disorder, unspecified (3) Cocaine use disorder: Status: Acute Code(s): F14.10 - Cocaine abuse, uncomplicated (4) Opioid use disorder: Status: Acute Code(s): F11.90 - Opioid use, unspecified, uncomplicated Plan Patient is a 42-year-old female with history of bipolar disorder/schizoaffective, PTSD, opioid and cocaine abuse, with hx of inpatient psychiatric hospitalizations, most recently discharged from on 06/06/2023, who presented to [facility] with suicidal ideation to throw herself in front of a truck d/t increased depressive symptoms. Hospital course 06/15: Patient continues to report feelings of depression; tearful. Pt stated, I'm trying to live day by day and not think about things. I'm feeling a little hopeful but when I start thinking about what's going on in my life then I don't want to be alive . Patient reports she plans on reaching out to her today to determine if she will move to [place] with her. Continue current tx plan. 06/16: Continue current treatment plan. 06/17: Continue current treatment plan. 06/18 medications seem to have helped and patient is not expressing any paranoid ideations. SI cleared up and patient's mood is improved. Continue current regimen for now 06/19 Patient agrees she is overall doing better though still depressed, mood has improved. On inquiry patient explained that she feels overall calmer on medication and at this time. She says that starting from zero (having lost her apartment and belongings) is somewhat cathartic and helping her feel more clear minded and not feeling like [she] has so much problems... -it is noteworthy that patient has not brought up any paranoid ideations regarding her and his girlfriend, for nearly a week, something that was formally a predominant concern for her, before getting on Trilafon -is also noteworthy that patient remain sober in-between admissions 06/20 stabilized; not sleeping well and will restart Seroquel though at a lower dose for now; will restart pregabalin as well 06/21 some paranoid thinking expressed but limited to a specific topic; increasing Seroquel due to continued insomnia; likely convert Prolixin to Decanoate which patient thinks is a good idea 06/24?patient?very?sleepy?this?morning.??No?idea?why.??Patient?had?negative?UDS?on?admission?and?she?is?had?no?visitors?making?it? Unlikely?she?is?using?contraband.??Patient?has?been?on?same?medication?regimen?and?even?on?lower?dose?of?Seroquel?last?night. Grossly?this?same?thing?happened,?where?she?was?alert?every?morning?4?weeks?and?then?when?discharged?to?housing?court,?she?was Too?tired?to?attend.??Narcolepsy?Not?clear.??Would?consider?modafinil.??Patient?said?she?has?a?long?history?of?working?3rd?shift?which?may Account?for?trouble?sleeping?at?night?and?tiredness?during?the?day 06/25 Patient Slept well last night despite Seroquel having been lowered to 200 mg, half the dose from the night before. She is up and about in the milieu, well groomed. Patient says she is confused as to why sometimes she is able sleep and other times not. 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 Patient complains of chronic fibromyalgia pain which is intermittent but says she is tolerating it. -intermittently, patient will be excessively tired during the day. Pt typically up in the mornings but every so often, she will be very tired for 1 morning; however this soon resolves on its own. This is a chronic issue and has not interfered with her with treatment; she remains attentive to ADLs; goes to groups; Will consider p.r.n. modafinil. -discussed aftercare. Team agrees that patient will do best with a step-down for continued stability and time for additional outpatient support to be established. 06/26 patient slept well last night. Agrees to long-acting fluphenazine decanoate. Will start today 06/27 patient feels ready to go and appreciates opportunity to go to respite, structured environment that will help set up with aftercare. Patient reports mood is good enough, denies feeling depressed and no SI. Patient continues continues to be improved. Patient started having lithium induced tremor and wanted to restart propranolol. Patient requests remains vulnerable to relapse and decompensation however she is not in imminent risk for harm to self or others and request for discharge honored. Plan: CV 15 minute safety checks Start fluphenazine Decanoate 12.5 mg IM; give dose today and then again in 3 weeks Lower fluphenazine to 5 mg daily; after receives neck is Decanoate shot will likely DC p.o. fluphenazine continue Seroquel 200 mg q.h.s.?for?continued?insomnia (patient used to be on as high as 600 mg q.h.s.) Continue trazodone to 100 mg q.h.s. which he was taking before Continue Lyrica and titrate to 150 mg b.i.d. which she was on it last admission and helped relieve fibromyalgia pain Will hold off on restarting propranolol since patient currently denies lithium induced tremor and none observed will soon convert to long-acting decanoate Referral for [facility] services -regarding intermittent daytime sleepiness, most likely due to poor nighttime sleep which has been an issue for years. Low concern for narcolepsy type 2 but is worth a rule out; no cataplexy; at this time sleep study/polysomnography are not options. -Discussed converting to long-acting fluphenazine decanoate with pharmacist and reviewed literature; there is not much consistency between converting from oral to long-acting injectable or for maintenance dosing, much of it up to clinical observation. Most consistent ratio seems to be that 20 mg p.o. is roughly equivalent to 25 mg of long-acting injectable q. 3 weeks; after 1st injection lower oral dose to half dosing and then at 2nd injection discontinue oral dose.(fluphenazine dec 12.5mg JAMES q3 weeks + fluphenazine PO 5mg daily) Patient educated on: diagnosis, medication risk/benefits and medical condition Informed Consent: understands Reason for continued inpatient stay Substantial Risk for: stable for discharge Time Spent With Patient Time: Total time managing care of this patient today ____ minutes.
[2023-06-27] MEDS: Propranolol HCL 10 MG TABLET 5 MG PO ×2 (14:02→20:21)
[2023-06-27 14:05] VITALS: BP 152/85; PULSE 107
[2023-06-27] MEDS: Nicotine Polacrilex 2 MG GUM 4 MG BUCCAL (14:45)
--- NOTE | 2023-06-27 16:03 | P.DS_ITS ---
DS: Providers Provider Date of Service: 06/27/23 Date of admission: 06/13/23 11:58 Date of discharge: 06/27/23 Primary care physician: Unknown Physician Admitting clinician: Cici Gasca Attending physician on discharge: Rikki Bowman DS: Diagnosis Discharge Diagnosis (1) Schizoaffective disorder, bipolar type: Status: Acute (2) PTSD (post-traumatic stress disorder): Status: Acute (3) Cocaine use disorder: Status: Acute (4) Opioid use disorder: Status: Acute DS: Medications Discharge Medications Home Medications: Previous Rx's Medication Instructions Recorded acetaminophen 325 mg tablet 650 mg (2 x 325 mg) PO Q6H PRN 01/04/23 Headache/Pain Mild Scale (1-3) #0 tabs methadone 10 mg/mL oral 40 mg (4 mL) PO DAILY #0 mL 06/06/23 concentrate (Methadose) aluminum-magnesium hydroxide 200 30 ml PO Q6H PRN Heartburn/Nausea 06/27/23 mg-200 mg/5 mL oral suspension #0 mL (MAG-AL) cyclobenzaprine 10 mg tablet 10 mg PO TID PRN Muscle Spasm 30 06/27/23 days #90 tabs duloxetine 60 mg capsule,delayed 60 mg PO DAILY 30 days #30 caps 06/27/23 release fluphenazine HCl 5 mg tablet See Rx Instructions .Route 06/27/23 .COMPLEX 30 days #45 tabs hydroxyzine HCl 25 mg tablet 25 mg PO BEDTIME PRN 06/27/23 anxiety/insomnia 30 days #60 tabs lidocaine 4 % topical patch 1 patch transdermal DAILY PRN pain 06/27/23 (Lidocaine Pain Relief) 30 days #30 ea lithium carbonate 450 mg 900 mg (2 x 450 mg) PO BEDTIME 30 06/27/23 tablet,extended release days #60 tabs magnesium hydroxide 400 mg/5 mL 30 ml PO DAILY PRN Constipation #0 06/27/23 oral suspension (Milk of Magnesia) mL melatonin 5 mg tablet 5 mg PO BEDTIME PRN sleep 30 days 06/27/23 #30 tabs nicotine (polacrilex) 4 mg gum 4 mg buccal Q2H PRN nicotine 06/27/23 cravings 30 days #100 ea nicotine 21 mg/24 hr daily 21 mg transdermal DAILY PRN 06/27/23 transdermal patch nicotine cessation 28 days #28 ea pantoprazole 40 mg tablet,delayed 40 mg PO DAILY 30 days #30 tabs 06/27/23 release pregabalin 150 mg capsule (Lyrica) 150 mg PO BID 30 days #60 caps 06/27/23 propranolol 10 mg tablet 5 mg (1/2 x 10 mg) PO 06/27/23 TID@0900,1300,1800 30 days #45 tabs quetiapine 200 mg tablet 200 mg PO BEDTIME 30 days #30 tabs 06/27/23 trazodone 100 mg tablet 100 mg PO BEDTIME PRN insomnia 30 06/27/23 days #30 tabs Mental Status Exam Mental Status Exam Narrative: Pt is alert and oriented; behavior is cooperative, friendly and calm; dressed in casual attire; adequate hygiene; mood is described as ok and affect congruent; eye contact appropriate; Speech is normal rate, volume and prosody and not pressured; no psychomotor agitation/retardation present; thought process is organized and goal directed; Thought content is on tx, housing; otherwise pertinent to relevant topics; intermittently some limited paranoid thinking but only of certain topics are brought up to her; remain with low intensity and not bothersome; no SI/HI. There is no evidence of perceptual disturbance. Patients insight and judgment are mildly impaired but much improved and adequate. Data Data Completed and Pending Completed studies during hospitalization [Text1]: 06/23/23 06/26/23 11:48 15:30 Sodium 138 Potassium 4.3 Chloride 104 Carbon Dioxide 25 Anion Gap 13 BUN 15 Creatinine 0.85 Estim Creat Clear Calc 76.8 Estimated GFR > 60 Random Glucose 94 Calcium 10.1 Total Bilirubin 0.3 Direct Bilirubin 0.1 AST 39 H ALT 73 H Alkaline Phosphatase 91 Ammonia 42 Total Protein 7.5 Albumin 4.1 Urine Opiates Screen Not Detected Urine Fentanyl Screen Not Detected Ur Barbiturates Screen Not Detected Ur Phencyclidine Scrn Not Detected Ur Amphetamines Screen Not Detected U Benzodiazepines Scrn Not Detected [place] 1.02 Urine Cocaine Screen Not Detected U Marijuana (THC) Screen Not Detected DS: Summary Hospital Course Hospital Course: Patient is a 42-year-old female with history of bipolar disorder/schizoaffective, PTSD, opioid and cocaine abuse, with hx of inpatient psychiatric hospitalizations, most recently discharged from on 06/06/2023, who presented to [facility] with suicidal ideation to throw herself in front of a truck d/t increased depressive symptoms. Hospital course In ED, patient's medications were changed. Zyprexa was discontinued and she was instead started on fluphenazine. Even in the ED patient started to get a little better with decrease in expressing delusional, paranoid thoughts. On the unit patient was depressed and tearful. Pt stated, I'm trying to live day by day and not think about things. I'm feeling a little hopeful but when I start thinking about what's going on in my life then I don't want to be alive . Patient reports she plans on reaching out to her today to determine if she will move to [place] with her. Continue current tx plan. Over subsequent days however patient's mood improved and depression subsided, SI fully resolved. Noticeably absent were any expressions of delusional, paranoid ideations. Intermittently, if a certain topic came up she might make a reference to some delusional thought, but this was isolated and fleeting. Patient says she was feeling calmer with new medication regimen. Although she lost her apartment She says that starting from zero (having lost her apartment and belongings) is somewhat cathartic and helping her feel more clear minded and not feeling like [she] has so much problems... Patient continued to struggle with insomnia and Seroquel was restarted. Pregabalin restarted as well for fibromyalgia. Converted patient to fluphenazine decanoate however it was unclear that a prescriber could be established in time to continue Decanoate so she was discharged back with p.o. medication. Patient attended groups and was involved in treatment. She had a few verbal altercations with her roommates. The 1st time both were problematic towards each other; with the 2nd roommate, peer was disorganized and patient was getting increasingly irritated, yelled and made a threatening remark. Patient initially had a rough start with a 3rd remained however they are able to work it out and no problems going forward. Vape pen was found on her belongings however UDS negative; patient said she had not used it; UDS negative on admission patient had no visitors during her time here. Note worthy was that intermittently, patient would get excessively tired during the day. Pt typically up in the mornings but every so often, she would be very tired for several hours in the morning morning; this was true last admission as well and occurred the day of her last discharge, interfering with housing court. However this sleepiness always resolved on his own and otherwise, typically did not interfere with treatment. Patient reported long history of working 3rd shift and often sleeping during the day. [employer] conclude d this was most likely due to poor sleep at night, a chronic issue; Low concern for narcolepsy type 2 but is worth a rule out; no cataplexy; at this time sleep study/polysomnography are not options. Considered modafinil as a p.r.n. Patient had returned to baseline. Mood significantly improved, no SI and future oriented. Patient felt ready for discharge and team agreed that discharge with a step-down to respite was best for her so she could transition back to the outpatient world. While patient remains vulnerable to relapse and decompensation, she was not in imminent risk for harm to self or others and appropriate to continue treatment in the community. Time spent discussing smoking cessation with patient: 3 to 10 minutes Status at Discharge Functional status at discharge: independent ambulation Overall status at discharge: patient is back to baseline Time Spent with Patient Time attestation: Total time managing care of this patient today ____ minutes. Time spent: Less than 30 minutes Discharge Plan Discharge Anticipated Discharge Date/Time: 06/27/23 17:00 Patient Disposition: [facility] Discharge Diagnosis: schizoaffective disorder, bipolar type Referrals: [facility] [Other] - 1 Week (A ref was started for a visiting RN however it was unclear where the Ct would be staying post D/C from [facility]. If the ct is interested please call Ramonaa to complete referral and to solidify plan going forward. Shannan Espana is freezer person. ) Physician,Unknown J [Primary Care Provider] - 1 Week Discharge Medications: New nicotine 21 mg/24 hr Patch 24 Hour 21 mg transdermal DAILY PRN (Reason: nicotine cessation) 28 Days Qty: 28 1RF Rx Instructions: remove at bedtime fluphenazine HCl 5 mg Tablet See Rx Instructions .ROUTE .COMPLEX 30 Days Qty: 45 0RF Rx Instructions: take 1 tab daily for 15 days; then take 1 tab BID quetiapine 200 mg Tablet 200 mg PO BEDTIME 30 Days Qty: 30 1RF magnesium hydroxide [Milk of Magnesia] 400 mg/5 mL Suspension 30 ml PO DAILY PRN (Reason: Constipation) Qty: 0 0RF MAG-AL 200-200 mg/5 mL Suspension 30 ml PO Q6H PRN (Reason: Heartburn/Nausea) Qty: 0 0RF Continued acetaminophen 325 mg Tablet 650 mg PO Q6H PRN (Reason: Headache/Pain Mild Scale (1-3)) Qty: 0 0RF cyclobenzaprine 10 mg Tablet 10 mg PO TID PRN (Reason: Muscle Spasm) 30 Days Qty: 90 1RF lidocaine [Lidocaine Pain Relief] 4 % Adhesive Patch,Medicated 1 patch transdermal DAILY PRN (Reason: pain) 30 Days Qty: 30 1RF Protocol: Apply to: Apply to: lower back Rx Instructions: lower back lithium carbonate 450 mg Tablet Extended Release 900 mg PO BEDTIME 30 Days Qty: 60 1RF trazodone 100 mg tablet 100 mg PO BEDTIME PRN (Reason: insomnia) 30 Days Qty: 30 1RF pantoprazole 40 mg tablet,delayed release (DR/EC) 40 mg PO DAILY 30 Days Qty: 30 1RF hydroxyzine HCl 25 mg tablet 25 mg PO BEDTIME PRN (Reason: anxiety/insomnia) 30 Days Qty: 60 1RF duloxetine 60 mg capsule,delayed release(DR/EC) 60 mg PO DAILY 30 Days Qty: 30 1RF pregabalin [Lyrica] 150 mg Capsule 150 mg PO BID 30 Days Qty: 60 1RF melatonin 5 mg tablet 5 mg PO BEDTIME PRN (Reason: sleep) 30 Days Qty: 30 1RF methadone [Methadose] 10 mg/mL Concentrate 40 mg PO DAILY Qty: 0 0RF Rx Instructions: Partial Fill upon patient request. Changed propranolol 10 mg tablet 5 mg PO TID@0900,1300,1800 30 Days Qty: 45 1RF nicotine (polacrilex) 4 mg gum 4 mg buccal Q2H PRN (Reason: nicotine cravings) 30 Days Qty: 100 1RF Discontinued olanzapine 15 mg tablet 30 mg PO BEDTIME 30 Days Qty: 60 1RF duloxetine 20 mg capsule,delayed release(DR/EC) 20 mg PO DAILY 30 Days Qty: 30 1RF Discharge Orders: Discharge Order (Routine); Ordered 06/27/23 Ordered By: Rikki Bowman Diet: Regular diet Activity on Discharge: As tolerated Stand Alone Forms: Patient Portal Discharge page Care Plan Goals: Maintain mood and safe behaviors Take medications as prescribed Continue to pursue sobriety Practice coping skills Continue with outpatient providers and reach out to them as needed Health Concerns: Mood stability and behaviors Sobriety Fibromyalgia Plan of Treatment: Follow up with your PCP, psychiatric provider and other outpatient providers regarding above concerns Take medications as prescribed Assessment: Risk assessment at time of discharge:? Patient was interviewed prior to discharge and found to be fully oriented and without any SI or HI. Patient has improved insight and judgment and wants to continue treatment. Patient is not in imminent risk of harm to self or others and has a safety plan that includes presenting to the closest ER or calling 911 if feeling unsafe.? Patient has been observed closely by nursing and unit staff throughout admission; patient has not engaged in any behaviors that suggest dangerousness to self or others and has demonstrated appropriate behaviors and impulse control
[2023-06-27] MEDS: traZODone HCL 100 MG TABLET PO (20:20)
[2023-06-27] MEDS: Lithium Carbonate ER 450 MG TABLET.ER 900 MG PO (20:20)
[2023-06-27] MEDS: hydrOXYzine HCL 25 MG TABLET PO (20:20)
[2023-06-27] MEDS: Melatonin 3 MG TABLET 6 MG PO (20:20)
[2023-06-27] MEDS: QUEtiapine Fumarate 200 MG TABLET PO (20:26)
[2023-06-27] MEDS: Cyclobenzaprine HCl 10 MG TABLET PO (20:26)
[2023-06-27] MEDS: diphenhydrAMINE HCL 25 MG CAPSULE PO (20:26)
[2023-06-28] MEDS: DULoxetine HCl 60 MG CAPSULE.DR PO (08:26)
[2023-06-28] MEDS: Omeprazole 20 MG CAPSULE.DR PO (08:26)
[2023-06-28] MEDS: fluPHENAZine HCl 5 MG TABLET PO (08:26)
[2023-06-28] MEDS: methADONE HCl 20 MG/2 ML ORAL.CONC 40 MG PO (08:26)
[2023-06-28] MEDS: Pregabalin 150 MG CAPSULE PO (08:26)
[2023-06-28] MEDS: Propranolol HCL 10 MG TABLET 5 MG PO ×2 (08:26→14:31)
[2023-06-28] MEDS: Nicotine 21 MG PATCH.TD24 TRANSDERMA (08:27)
[2023-06-28 08:30] VITALS: BP 112/65; PULSE 84; RESP 16; TEMP 36.4; O2SAT 100
[2023-06-28 14:33] VITALS: BP 118/76; PULSE 88
== END 2023-06-28 14:54 | disposition home or self-care (01) | DRG 750 ==
LOC: HO.ED 06-13 07:10 → HO.PM5 06-13 12:06
PROVIDERS: Physician Assistant Medical; Admitting Provider Social Worker; Emergency Provider Emergency Medicine Emergency Medical Services; Visit Provider Psychiatry & Neurology Psychiatry
DX: F25.0 Schizoaffective disorder, bipolar type (principal); R45.851 Suicidal ideations; M79.7 Fibromyalgia; F11.20 Opioid dependence, uncomplicated; F17.210 Nicotine dependence, cigarettes, uncomplicated; F14.21 Cocaine dependence, in remission; Z71.6 Tobacco abuse counseling; F43.10 Post-traumatic stress disorder, unspecified; Z20.822 Contact with and (suspected) exposure to COVID-19; Z79.899 Other long term (current) drug therapy
CPT/HCPCS: 36415; 80048; 80053; 80061; 80076; 80143; 80178; 80179; 80307; 81001; 81025; 82140; 82607; 85025; 87635; 93005; 99285; J2680; S9485

== ENCOUNTER → 2023-06-11 01:43 | Outpatient (BNV) | payer OTHER, SELFPAY | PROVIDERS: Emergency Provider Emergency Medicine Emergency Medical Services; Visit Provider Social Worker | DX: F25.0 Schizoaffective disorder, bipolar type (principal); F14.10 Cocaine abuse, uncomplicated; F43.11 Post-traumatic stress disorder, acute; F11.90 Opioid use, unspecified, uncomplicated | CPT/HCPCS: 99231; 99232; 99233; 99285 ==

== ENCOUNTER → 2023-06-13 11:58 | Outpatient (BNV) | payer OTHER, SELFPAY | PROVIDERS: Admitting Provider Social Worker; Emergency Provider Emergency Medicine Emergency Medical Services; Visit Provider Psychiatry & Neurology Psychiatry | DX: F25.0 Schizoaffective disorder, bipolar type (principal); F14.10 Cocaine abuse, uncomplicated; F43.11 Post-traumatic stress disorder, acute; F11.90 Opioid use, unspecified, uncomplicated | CPT/HCPCS: 99231 ==

== ENCOUNTER 2023-09-23 17:36 | Emergency (ER) | payer OTHER, SELFPAY ==
[2023-09-23 17:42] VITALS: BP 148/112; PULSE 82; RESP 18; TEMP 36; O2SAT 98; BMI 24.9
--- NOTE | 2023-09-23 17:49 | ED.GENADULT ---
HPI - General Adult General Chief complaint: Psychiatric Symptoms Stated complaint: crisis Time Seen by Provider: 09/23/23 18:01 Source: patient Mode of arrival: ambulatory Limitations: no limitations History of Present Illness HPI narrative: patient homeless with depression feels suicidal with no plan depressed overall also she missed her methadone for last 2 days denies any current drug use Related Data Previous Rx's Medication Instructions Recorded acetaminophen 325 mg tablet 650 mg (2 x 325 mg) PO Q6H PRN 01/04/23 Headache/Pain Mild Scale (1-3) #0 tabs methadone 10 mg/mL oral 40 mg (4 mL) PO DAILY #0 mL 06/06/23 concentrate (Methadose) aluminum-magnesium hydroxide 200 30 ml PO Q6H PRN Heartburn/Nausea 06/27/23 mg-200 mg/5 mL oral suspension #0 mL (MAG-AL) cyclobenzaprine 10 mg tablet 10 mg PO TID PRN Muscle Spasm 30 06/27/23 days #90 tabs duloxetine 60 mg capsule,delayed 60 mg PO DAILY 30 days #30 caps 06/27/23 release fluphenazine HCl 5 mg tablet See Rx Instructions .Route 06/27/23 .COMPLEX 30 days #45 tabs hydroxyzine HCl 25 mg tablet 25 mg PO BEDTIME PRN 06/27/23 anxiety/insomnia 30 days #60 tabs lidocaine 4 % topical patch 1 patch transdermal DAILY PRN pain 06/27/23 (Lidocaine Pain Relief) 30 days #30 ea lithium carbonate 450 mg 900 mg (2 x 450 mg) PO BEDTIME 30 06/27/23 tablet,extended release days #60 tabs magnesium hydroxide 400 mg/5 mL 30 ml PO DAILY PRN Constipation #0 06/27/23 oral suspension (Milk of Magnesia) mL melatonin 5 mg tablet 5 mg PO BEDTIME PRN sleep 30 days 06/27/23 #30 tabs nicotine (polacrilex) 4 mg gum 4 mg buccal Q2H PRN nicotine 06/27/23 cravings 30 days #100 ea nicotine 21 mg/24 hr daily 21 mg transdermal DAILY PRN 06/27/23 transdermal patch nicotine cessation 28 days #28 ea pantoprazole 40 mg tablet,delayed 40 mg PO DAILY 30 days #30 tabs 06/27/23 release pregabalin 150 mg capsule (Lyrica) 150 mg PO BID 30 days #60 caps 06/27/23 propranolol 10 mg tablet 5 mg (1/2 x 10 mg) PO 06/27/23 TID@0900,1300,1800 30 days #45 tabs quetiapine 200 mg tablet 200 mg PO BEDTIME 30 days #30 tabs 06/27/23 trazodone 100 mg tablet 100 mg PO BEDTIME PRN insomnia 30 06/27/23 days #30 tabs Allergies Allergy/AdvReac Type Severity Reaction Status Date / Time No Known Allergies Allergy Verified 09/23/23 17:50 [No Known Allergies*] Review of Systems Review of Systems: Yes all other systems are reviewed and are negative [facility] Past Medical History Medical History Cocaine use disorder, moderate, in early remission, dependence Suicidal ideation Schizoaffective disorder, bipolar type Cocaine use disorder PTSD (post-traumatic stress disorder) Routine medical exam Bipolar disorder Chronic neck and back pain Carpal tunnel syndrome Fibromyalgia Osteoarthritis of multiple joints Cigarette nicotine dependence Opioid use disorder GERD (gastroesophageal reflux disease) Family History Family History Son Autism Social History Social History Household Members: None Household Members Other:: 3 Housing: Apartment Housing Other:: recently lost apartment Do you presently have visiting nurse or other home services: No Alcohol intake: unknown Patient Tobacco Use Status: Current everyday Tobacco user Tobacco use type: Cigarette Cigarette Packs Per Day: 0.5 Cigarettes Per Day: 10 Years Smoked: 32 Smoked in Last 30 Days: Yes e-Cigarette/Vaping Use: Never Used Second Hand Smoke Exposure: Yes Substance Use Type: Crack/Cocaine and Opiates Substance Use Frequency Other:: states she is in recovery on methadone last dose 2 d ago Advance Directives: No Advance Directives Information Provided: No Healthcare Proxy: No Guardian: No service: No Sexual orientation: Straight/Heterosexual Physical Exam ED Vital Signs: Vital Signs - 24 hr 09/23/23 17:42 09/23/23 23:13 09/24/23 03:55 Temperature 96.8 F 97.8 F Pulse Rate 82 77 Respiratory Rate 18 16 16 Blood Pressure 148/112 H 141/96 H Pulse Oximetry 98 97 Oxygen Delivery Method Room Air Room Air 09/24/23 03:56 09/24/23 03:56 09/24/23 06:39 Temperature 98.8 F Pulse Rate 89 Respiratory Rate 16 16 17 Blood Pressure 118/88 Pulse Oximetry 97 Oxygen Delivery Method Room Air 09/24/23 08:19 09/24/23 10:43 Temperature 98.2 F 97.8 F Pulse Rate 83 96 Respiratory Rate 16 18 Blood Pressure 104/70 101/67 Pulse Oximetry 98 97 Oxygen Delivery Method Room Air Room Air BMI result Body Mass Index 24.9 Appearance: Alert. Oriented X3. No acute distress. Eyes: PERRLA, No Nystagmus ENT: Pharynx normal. Oral Mucosa moist Neck: Normal inspection. Neck supple. CVS: Normal heart rate and rhythm. Pulses normal. Respiratory: No respiratory distress. Equal air entry bilateral, no wheezing/rales/rhonchi Abdomen: Soft and nontender. Bowel sounds are present, no mass palpable, no CVA tenderness Skin: Skin warm and dry. Normal skin color. Normal skin turgor. Extremities: No lower extremity edema. No calf tenderness psych: Feel depressed and has any SI at this time no hallucinations or delusions Neuro: Oriented X 3. No motor deficit. No sensory deficit.No cerebellar signs , cranial nerves II-XII intact Course Course Course Narrative: RME:42 yold female with pmh of anxiety and depression presents to the ED for suidicidal ideation. labs and Care team consult placed. Patient brought to the POD. Reevaluation(s) Reevaluation #1: Physician observation continued. Has been in observation since midnight. labs reassuring. pending CARE team input. VS stable. Reevaluation #2: to go to respite at 430pm per CARE team. Medications Administered Discontinued Medications Generic Name Dose Route Start Last Admin Trade Name Freq PRN Reason Stop Dose Admin Cyclobenzaprine HCl 10 mg 09/24/23 01:22 09/24/23 02:36 Cyclobenzaprine Hcl 10 Mg Tablet PO 10 mg TID PRN Administration Muscle Spasm Duloxetine HCl 60 mg 09/24/23 09:00 09/24/23 08:35 Duloxetine Hcl 60 Mg Capsule.Dr PO 60 mg DAILY FELIPE Administration Fluphenazine HCl 2.5 mg 09/24/23 10:30 09/24/23 10:40 Fluphenazine Hcl 5 Mg Tablet PO 2.5 mg BID FELIPE Administration Melatonin 3 mg 09/24/23 01:50 09/24/23 02:36 Melatonin 3 Mg Tablet PO 3 mg BEDTIME PRN Administration sleep Methadone HCl 40 mg 09/23/23 22:23 09/23/23 22:36 Methadone Hcl 20 Mg/2 Ml Oral.Conc PO 09/23/23 22:24 40 mg ONCE ONE Administration Methadone HCl 40 mg 09/24/23 09:00 09/24/23 08:37 Methadone Hcl 20 Mg/2 Ml Oral.Conc PO 40 mg DAILY FELIPE Administration Omeprazole 20 mg 09/24/23 09:00 09/24/23 08:35 Omeprazole 20 Mg Capsule.Dr PO 20 mg DAILY FELIPE Administration Pregabalin 150 mg 09/24/23 01:30 09/24/23 08:35 Pregabalin 150 Mg Capsule PO 150 mg BID FELIPE Administration Propranolol HCl 5 mg 09/24/23 09:00 09/24/23 12:23 Propranolol Hcl 10 Mg Tablet PO 5 mg TID@0900,1300,1800 FELIPE Administration Protocol Quetiapine Fumarate 200 mg 09/24/23 01:30 09/24/23 02:36 Quetiapine Fumarate 200 Mg Tablet PO 200 mg BEDTIME FELIPE Administration Trazodone HCl 100 mg 09/24/23 01:22 09/24/23 02:36 Trazodone Hcl 100 Mg Tablet PO 100 mg BEDTIME PRN Administration insomnia Medical Decision Making Medical Decision Making MDM Narrative: Patient is seen by care team plan admit as inpatient psych Lab Data MDM Lab Attestation statement: I reviewed the patient's lab results. 09/23/23 18:30 09/23/23 18:30 Labs: Lab Results 09/23/23 09/23/23 Range/Units 18:24 18:30 WBC 11.5 H (4.8-10.8) X10*3/uL RBC 5.15 D (4.20-5.50) X10*6/uL Hgb 13.7 D (12.0-16.0) g/dl Hct 43.0 (37.0-47.0) % MCV 83.5 (80.0-98.0) fL MCH 26.6 L (27.0-33.0) pg MCHC 31.9 (31.0-35.0) g/dl RDW 13.4 (11.0-16.0) % Plt Count 327 D (160-400) X10*3/uL MPV 9.3 L (9.4-12.3) fL Immature Gran % (Auto) 0.3 (0.0-0.4) % Neut % (Auto) 76.2 H (45-73) % Lymph % (Auto) 17.9 L (20-40) % [place] % (Auto) 3.1 (2-11) % Eos % (Auto) 1.9 (0-4) % Baso % (Auto) 0.6 (0-2) % Lymph # (Auto) 2.1 (1.2-4.9) X10*3/uL [place] # (Auto) 0.4 (0.1-1.2) X10*3/uL Eos # (Auto) 0.2 (0.0-0.4) X10*3/uL Baso # (Auto) 0.1 (0.0-0.2) X10*3/uL Abs Immat Gran (auto) 0.04 H (0.00-0.03) X10*3/uL Absolute Neuts (auto) 8.7 H (2.0-8.3) x10*3/uL Absolute Nucleated RBC 0.000 (0.0-0.012) X10*3/uL Nucleated RBC % (auto) 0.0 (0.0-0.2) /100WBC Sodium 138 (135-145) mmol/L Potassium 4.2 (3.3-5.1) mmol/L Chloride 102 (96-108) mmol/L Carbon Dioxide 25 (22-29) mmol/L Anion Gap 15 (12-20) BUN 9 (9-16) mg/dL Creatinine 0.81 (0.5-1.4) mg/dL Estim Creat Clear Calc 83.6 Estimated GFR > 60 Random Glucose 111 (60-115) mg/dL Calcium 9.8 (8.4-10.2) mg/dL Total Bilirubin 0.3 (0.0-1.0) mg/dL AST 18 (5-31) U/L ALT 19 (0-31) U/L Alkaline Phosphatase 92 (39-117) U/L Total Protein 7.9 (6.5-8.0) g/dL Albumin 4.4 (3.5-5.0) g/dL Urine Color Yellow Urine Appearance Cloudy Urine pH 5.5 (5.0-9.0) Ur Specific [place] 1.025 (1.005-1.025) Urine Protein Trace (Neg-Trace) mg/dL Urine Glucose (UA) Negative (Negative) mg/dL Urine Ketones Trace (Negative) mg/dL Urine Blood Large (3+) H (Negative) Urine Nitrite Negative (Negative) Ur Leukocyte Esterase Small (1+) H (Negative) Urine RBC 6-10 H (0-2) /HPF Urine WBC 0-5 (0-5) /HPF Ur Squamous Epith Cells 6-10 (0-2) /HPF Urine Bacteria 3+ (None Seen) Hyaline Casts 3-5 (0-2) /LPF Urine Test NEGATIVE (NEGATIVE) Urine Opiates Screen Not Detected (Not Detect) Urine Fentanyl Screen Not Detected (Not Detect) Ur Barbiturates Screen Not Detected (Not Detect) Ur Phencyclidine Scrn Not Detected (Not Detect) Ur Amphetamines Screen Not Detected (Not Detect) U Benzodiazepines Scrn Not Detected (Not Detect) Urine Cocaine Screen Not Detected (Not Detect) U Marijuana (THC) Screen Not Detected (Not Detect) Ethyl Alcohol < 10 mg/dL COVID-19 ([place]) Negative (Negative) COVID-19 Clin Com See Note Discharge Plan Discharge Clinical Impression: Depression, Suicidal ideation Patient Disposition: Xfer to Respite Facility Instructions: Depression (ED) Additional Instructions: return for any worsening symptoms or concerns. PATIENT WAS GIVEN 40MG METHADONE AT [facility] ON 09/24/23 THIS IS LAST DOSE LETTER Prescriptions: No Action acetaminophen 325 mg Tablet 650 mg PO Q6H PRN (Reason: Headache/Pain Mild Scale (1-3)) Qty: 0 0RF nicotine 21 mg/24 hr Patch 24 Hour 21 mg transdermal DAILY PRN (Reason: nicotine cessation) 28 Days Qty: 28 1RF Rx Instructions: remove at bedtime fluphenazine HCl 5 mg Tablet See Rx Instructions .ROUTE .COMPLEX 30 Days Qty: 45 0RF Rx Instructions: take 1 tab daily for 15 days; then take 1 tab BID quetiapine 200 mg Tablet 200 mg PO BEDTIME 30 Days Qty: 30 1RF magnesium hydroxide [Milk of Magnesia] 400 mg/5 mL Suspension 30 ml PO DAILY PRN (Reason: Constipation) Qty: 0 0RF MAG-AL 200-200 mg/5 mL Suspension 30 ml PO Q6H PRN (Reason: Heartburn/Nausea) Qty: 0 0RF cyclobenzaprine 10 mg Tablet 10 mg PO TID PRN (Reason: Muscle Spasm) 30 Days Qty: 90 1RF lidocaine [Lidocaine Pain Relief] 4 % Adhesive Patch,Medicated 1 patch transdermal DAILY PRN (Reason: pain) 30 Days Qty: 30 1RF Protocol: Apply to: Apply to: lower back Rx Instructions: lower back lithium carbonate 450 mg Tablet Extended Release 900 mg PO BEDTIME 30 Days Qty: 60 1RF propranolol 10 mg tablet 5 mg PO TID@0900,1300,1800 30 Days Qty: 45 1RF trazodone 100 mg tablet 100 mg PO BEDTIME PRN (Reason: insomnia) 30 Days Qty: 30 1RF nicotine (polacrilex) 4 mg gum 4 mg buccal Q2H PRN (Reason: nicotine cravings) 30 Days Qty: 100 1RF pantoprazole 40 mg tablet,delayed release (DR/EC) 40 mg PO DAILY 30 Days Qty: 30 1RF hydroxyzine HCl 25 mg tablet 25 mg PO BEDTIME PRN (Reason: anxiety/insomnia) 30 Days Qty: 60 1RF duloxetine 60 mg capsule,delayed release(DR/EC) 60 mg PO DAILY 30 Days Qty: 30 1RF pregabalin [Lyrica] 150 mg Capsule 150 mg PO BID 30 Days Qty: 60 1RF melatonin 5 mg tablet 5 mg PO BEDTIME PRN (Reason: sleep) 30 Days Qty: 30 1RF methadone [Methadose] 10 mg/mL Concentrate 40 mg PO DAILY Qty: 0 0RF Rx Instructions: Partial Fill upon patient request. Interventions: [place]-Suicide Risk Severity Scale Last Done: 09/24/23 11:13 ED Discharge Assessment Last Done: 09/24/23 15:39 Discharge Date/Time: 09/24/23 16:13
--- NOTE | 2023-09-23 18:18 | PC.NURSE ---
changed over by tech and security. in green gown. reports si w/o current plan.
[2023-09-23 18:37] LABS: MANUAL DIFF FLAG NO
[2023-09-23 18:38] LABS: Basophils Absolute Auto 0.1 X10*3/uL (0.0-0.2); Basophils Percent Auto 0.6 % (0-2); Eosinophils Absolute Auto 0.2 X10*3/uL (0.0-0.4); Eosinophils Percent Auto 1.9 % (0-4); Hemoglobin 13.7 g/dl (12.0-16.0); Imm Gran Abs Auto 0.04 X10*3/uL (0.00-0.03); Imm Gran Pct Auto 0.3 % (0.0-0.4); Lymphocytes Absolute Auto 2.1 X10*3/uL (1.2-4.9); Lymphocytes Percent Auto 17.9 % (20-40); Mean Corpuscular HGB Conc 31.9 g/dl (31.0-35.0); Mean Corpuscular Hemoglobin 26.6 pg (27.0-33.0); Mean Corpuscular Volume 83.5 fL (80.0-98.0); Mean Platelet Volume 9.3 fL (9.4-12.3); Monocytes Absolute Auto 0.4 X10*3/uL (0.1-1.2); Monocytes Percent Auto 3.1 % (2-11); Neutrophils Absolute Auto 8.7 x10*3/uL (2.0-8.3); Neutrophils Percent Auto 76.2 % (45-73); Platelet Count 327 X10*3/uL (160-400); Red Blood Count 5.15 X10*6/uL (4.20-5.50); Red Cell Distribution Width 13.4 % (11.0-16.0); White Blood Count 11.5 X10*3/uL (4.8-10.8)
[2023-09-23 18:41] LABS: Appearance Urine Cloudy; Color Urine Yellow; Glucose Urine UA Negative (Negative); Leukocyte Esterase Urine Small (1+) (Negative); Nitrite Urine Negative (Negative); PH 5.5 (5.0-9.0); Specific Gravity - Urine 1.025 (1.005-1.025); UMIC TRIGGER UACC YES; UPreg QC Valid YES; Urine Blood Large (3+) (Negative); Urine Ketones Trace mg/dL (Negative); Urine Pregnancy NEGATIVE (NEGATIVE); Urine Protein Trace mg/dL (Neg-Trace)
[2023-09-23 18:45] LABS: Amphetamine Screen Urine Not Detected (Not Detect); Barbiturates, Urine Not Detected (Not Detect); Benzodiazepines Screen Urine Not Detected (Not Detect); Cannabinoid Screen Urine Not Detected (Not Detect); Cocaine Screen Urine Not Detected (Not Detect); Fentanyl, urine Not Detected (Not Detect); Opiate Screen Urine Not Detected (Not Detect); Phencyclidine Screen Urine Not Detected (Not Detect)
[2023-09-23 18:51] LABS: COVID-19 Test Negative (Negative); IDNOW Serial# 58CA691E
[2023-09-23 18:55] LABS: Alanine Aminotransferase 19 U/L (0-31); Albumin Level 4.4 g/dL (3.5-5.0); Alkaline Phosphatase 92 U/L (39-117); Anion Gap 15 (12-20); Aspartate Amino Transferase 18 U/L (5-31); Bilirubin Total 0.3 mg/dL (0.0-1.0); Blood Urea Nitrogen 9 mg/dL (9-16); Calcium 9.8 mg/dL (8.4-10.2); Carbon Dioxide 25 mmol/L (22-29); Chloride 102 mmol/L (96-108); Creatinine Clr Calc Pharmacy 83.6; Estimated Glomerular Filt Rate > 60; Ethanol < 10 mg/dL; Glucose Random 111 mg/dL (60-115); Potassium 4.2 mmol/L (3.3-5.1); Sodium 138 mmol/L (135-145); Total Protein 7.9 g/dL (6.5-8.0)
[2023-09-23 18:55] LABS: Bacteria Urine 3+ (None Seen); UACC Culture Trigger YES; WBC Urine 0-5 /HPF (0-5)
--- NOTE | 2023-09-23 19:21 | PC.NURSE ---
this rn assumed care of pt. pt resting in stretcher at this time, respirations even and unlabored, sitter at bedside for pt safety.
--- NOTE | 2023-09-23 22:26 | PC.NURSE ---
this rn attempted to verify pt methadone dose, methadone clinic closed at this time, provider aware.
[2023-09-23] MEDS: methADONE HCl 20 MG/2 ML ORAL.CONC 40 MG PO (22:36)
[2023-09-23 23:13] VITALS: BP 141/96; PULSE 77; RESP 16; TEMP 36.6; O2SAT 97
--- NOTE | 2023-09-24 01:00 | PC.NURSE ---
med rec done with pt and staff services manager. pt states seroquel dosage is 400 mg. Vin JEROME aware that last fill was for 200 mg. pt reports she got verbal consent from prescribing doc to take 2 pills as she was not falling asleep taking one dose. educated pt only 200 mg dose can be verified at this time. pt okay with plan.
[2023-09-24] MEDS: Melatonin 3 MG TABLET PO (02:36)
[2023-09-24] MEDS: Pregabalin 150 MG CAPSULE PO ×2 (02:36→08:35)
[2023-09-24] MEDS: Cyclobenzaprine HCl 10 MG TABLET PO (02:36)
[2023-09-24] MEDS: QUEtiapine Fumarate 200 MG TABLET PO (02:36)
[2023-09-24] MEDS: traZODone HCL 100 MG TABLET PO (02:36)
--- NOTE | 2023-09-24 02:38 | PC.NURSE ---
pt medicated per ma.r pt states this is how she takes her meds at night to sleep. flexeril given per oct as pt reported 10/10 lower back pain. resp even and unlabored. 1:1 sitter at bedside. nad.
[2023-09-24 03:55] VITALS: RESP 16
[2023-09-24 03:56] VITALS: RESP 16
[2023-09-24 06:39] VITALS: BP 118/88; PULSE 89; RESP 17; TEMP 37.1; O2SAT 97
[2023-09-24 08:19] VITALS: BP 104/70; PULSE 83; RESP 16; TEMP 36.8; O2SAT 98
[2023-09-24] MEDS: Omeprazole 20 MG CAPSULE.DR PO (08:35)
[2023-09-24] MEDS: DULoxetine HCl 60 MG CAPSULE.DR PO (08:35)
[2023-09-24] MEDS: Propranolol HCL 10 MG TABLET 5 MG PO ×2 (08:36→12:23)
[2023-09-24] MEDS: methADONE HCl 20 MG/2 ML ORAL.CONC 40 MG PO (08:37)
--- NOTE | 2023-09-24 08:41 | PC.NURSE ---
this RN resumed care of pt at this time. vss and up to date. pt denies SI/HI at this time. pt verbalizes abd pain but d/t not eating. diet order placed by this RN - pt now received tray from cafeteria. will reassess after pt finishes eating. medication administered per provider order. no sob/wob noted. respirations even and unlabored. 1:1 sitter present.
--- NOTE | 2023-09-24 08:48 | PC.NURSE ---
pt seen/spoke w/ care team at this time. plan of care ongoing.
[2023-09-24] MEDS: fluPHENAZine HCl 5 MG TABLET 2.5 MG PO (10:40)
[2023-09-24 10:43] VITALS: BP 101/67; PULSE 96; RESP 18; TEMP 36.6; O2SAT 97
--- NOTE | 2023-09-24 11:15 | PC.NURSE ---
vss and up to date at this time. pt continues to rest on stretcher comfortably in no apparent distress. pt still verbalizing no thoughts of SI/HI. 1:1 sitter still present at this time.
--- NOTE | 2023-09-24 13:03 | MHC.CARE ---
Addendum entered by RABIA Vallecillo 09/24/23 15:29: Patient accepted to [facility] for admission today at 4:[address] [place] [address] CARE Team to coordinate transportation via [facility] Original Note: Patient is a [facility]CS/ respite bed search at this time. In review at [facility] currently, no beds at [facility]
[2023-09-24 15:38] VITALS: BP 108/82; PULSE 87; RESP 16; TEMP 36.4; O2SAT 97
--- NOTE | 2023-09-24 15:38 | PC.NURSE ---
vss up to date. belongings returned to pt. pt aware of plan of care at this time.
== END 2023-09-24 16:13 ==
PROVIDERS: Physician Assistant; Emergency Provider Internal Medicine
DX: F33.1 Major depressive disorder, recurrent, moderate (principal); R45.851 Suicidal ideations; Z79.899 Other long term (current) drug therapy; F17.200 Nicotine dependence, unspecified, uncomplicated; Z11.52 Encounter for screening for COVID-19
CPT/HCPCS: 36415; 80053; 80307; 81001; 81025; 85025; 87086; 87635; 99285; S9485